=== PATIENT | female | born 1960 | race Caucasian/White ===

== ENCOUNTER → 2016-02-25 | Outpatient (CLI) | payer BC, OTHER ==
[~2016-02-25] MED LIST: ALBU1AER9 INH; CARV6.252 PO; CHOL1TAB46 PO; COLE1TAB4 PO; CRS/10 PO; DPKSR500 PO; FERR18TA2 PO; LEVO112T4 PO; LOPE-5 PO; MULT-225 PO; PXL20 PO; SYMIN160 INH
[2016-02-25 12:56] VITALS: BP 116/74; PULSE 72; TEMP 36.7; O2SAT 96
--- NOTE | 2016-02-25 16:21 | Radiation Oncology Follow-Up ---
Radiation Oncology Follow-Up Date of Visit Feb 25, 2016. 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 Radiation with external beam treatment 5040 cGy as well as 3 HDR treatments 400 cGy each completed 10/15/2015 Last Edited By: Marcelina Welsh on Feb 25, 2016 16:01 History of Present Illness is a 55-year-old female who presented to her PCP, Dr. Bojorquez, in May of this year with a complaint of left lower quadrant abdominal pain with associated nausea and vomiting. She had previously undergone an cervix and endocervix Pap smear on 03/10/2015. The study was somewhat limited lubricant effect but showed reactive cellular changes associated with inflammation but no malignancy. Case: [id number]. Patient at the time denied any vaginal bleeding or discharge. Conservative measures were prescribed however these failed. The patient presented to the emergency department on 06/09 with complaint of worsening abdominal pain patient a CT scan of the abdomen and pelvis was ordered and performed. This showed a markedly thickened endometrial stripe for the patient's age measuring up to 3.1 cm in diameter. The left ovary was markedly enlarged measuring 5.7 x 3.6 cm. The right ovary was normal as visualized. The skeletal structures were osteopenic with no lytic or blastic lesions. Pelvic ultrasound was recommended. This was performed immediately following the CT scan. The uterus was normal in size measuring 9.1 x 4.2 x 6.0 cm. The endometrial stripe appeared thickened and irregular measuring up to 1.8 cm. The endometrium was markedly heterogeneous. The right ovary was not visualized however the left ovary appeared enlarged and heterogeneous measuring 6.1 x 4.4 x 3.6 cm. Follow-up gynecologic evaluation was recommended. The patient was seen by Dr. Mckenzie on 06/12/2015. His examination revealed no vaginal or cervical abnormalities. There was no cervical motion tenderness with general tenderness on bimanual exam. He recommended an endometrial biopsy. This revealed complex hyperplasia with atypia and raised the suspicion of an endometrial carcinoma with recommendation for a formal endometrial curettage. Case: [id number]. The patient was scheduled to see specialist at [facility] however her insurance would not cover either [facility] or [place]. Patient therefore chose to go to [facility]. They ultimately reviewed the slides from [facility]. Their evaluation revealed identification of a fragmented complex atypical hyperplasia with features approaching the level of endometrioid carcinoma (FIGO grade 1). [facility] #[id number]. They discussed surgical treatment options with the patient. They repeated the CT scan of the abdomen and pelvis on 06/23/2015. This again noted the marked thickening of the endometrial stripe measuring up to 2.2 cm in width with a low density lesion at the dome of the uterus. The right ovary was enlarged measuring 2.4 x 1.8 x 1.5 cm with marked asymmetric enlargement and heterogeneous enhancement of the left ovary which measured 5.3 x 3.4 x 5.2 cm. There was an inflammatory stranding in the left adnexa adjacent to the left ovary with thickening of the adjacent fascia. Additional note is made of around 1.7 x 1.5 cm soft tissue density lesion with apparent enhancement in the low pelvis abutting the mesial rectal fascia to the right midline. Patiently ultimately went on to have robotic, laparoscopic T, LH and BSO with sentinel lymph node dissection omental biopsy, appendectomy, local excision of rectal lesion and cystoscopy. The intraoperative findings revealed an 8 cm anti -reverted uterus on EUA. Laparoscopy showed a large left ovarian mass and the retroperitoneal space in the left pelvic sidewall which was friable and vascular. Pathologically the tissue confirmed an endometrioid adenocarcinoma with mucinous differentiation and FIGO grade 1. The tumor was located in the anterior fundus, posterior fundus and extending into the lower uterine segment. The maximal dimension of the tumor was 4.0 cm. There was evidence of myometrial invasion extending 16 mm into a myometrial thickness of 16 mm. There was evidence of angiolymphatic invasion. There was invasion of the lower uterine segment and endometrial carcinoma was noted in the cervical stroma. The margin was positive involving the left posterior lower uterine segment/ parametria. The serosa was positive for carcinoma. The right ovary was positive for endometrioid carcinoma with mucinous differentiation. The right fallopian tube was negative for carcinoma. The left ovary was positive for endometrioid carcinoma with mucinous differentiation. The left fallopian tube was positive for endometrioid carcinoma with mucinous differentiation. A right perirectal implant was excised confirming endometrioid carcinoma with mucinous differentiation. [place] lymph nodes from the left hypogastric dissection revealed 2 out of 6 lymph nodes positive for metastatic carcinoma. [place] lymph nodes from the right external iliac dissection revealed 1 of 5 lymph nodes positive for metastatic carcinoma. The appendix was unremarkable and the omental biopsy was negative. The lymph node involvement revealed isolated tumor cells without extracapsular extension. The final AJCC staging was pT3b pN1 Mx FIGO stage IIIc 1. [facility] MR # [id number]. The patient is recovering well from her surgery. She returned for a follow-up visit and was found to be healing appropriately. The patient's case was presented at the [facility] multidisciplinary Tumor Board and Treatment Planning Conference on 07/31/2015. Their recommendation was for a chemotherapy/ RT regimen such as the GOG 258 consisting of chemotherapy RT followed by Taxol carboplatin. They also would consider cisplatin plus RT with reimaging to determine further [place] based chemotherapy. They contacted Dr. Henson and reviewed these recommendations with him. Dr. Henson saw this patient in referral on 08/11/2015.. Following the recommendation of [facility] and he suggested adjuvant regimen of Cisplatin 50 mg/m given on days 1 and day 29 of radiation therapy. This was to be followed by Carboplatinum AUC of 5+ Paclitaxel 75 mg/m every 21 days for 4 cycles with G-CSF support. Dr. Henson asked if we would see the patient in referral to discuss the role of adjuvant radiation. This reason the patient is being seen in referral. Decision was to treat with combined radiation and chemotherapy. Radiation comprised of external beam treatment as well as 3 HDR treatments. Interim History She's been doing well over the past 3 months. She denies any change in urination. There is no changes in bowel habits. She continues use it vaginal dilator as instructed. She's noted no vaginal bleeding with use of the dilator. She has had no abdominal discomfort or pelvic pain. She completed chemotherapy 01/06/2016. She does have some chronic low back pain issues. She does have pain medication available for the pain. She had recheck scanning . This was performed at [facility]. This showed a small right lower lobe superior segment nodule/pulmonary nodularity. Consider follow-up examination in 3-6 months. Small bilateral adrenal nodules, nodularity. Attention follow-up was recommended. This has not been compared to the prior study of October. With a comparison addendum was sent showing that the right lower lobe segment nodularity was new. Adrenal thickening was unchanged. Allergies Coded Allergies: Amoxicillin (Verified Adverse Reaction, Unknown, diarrhea, 06/10/15) Clavulanic Acid (Verified Adverse Reaction, Unknown, diarrhea, 06/10/15) Home Medications Scheduled Carvedilol (Coreg), 6.25 MG PO BID Cholecalciferol (Vitamin D3), 1 TAB PO WK Colestipol Hcl (Micronized Colestipol Hcl), 1 GM PO BID Divalproex Sodium (Divalproex Sodium ER), 1,000 MG PO HS Ferrous Fumarate (Iron), 36 MG PO DAILY Levothyroxine Sodium (Levothyroxine Sodium), 112 MCG PO QAM Paroxetine (Paroxetine HCl), 20 MG PO HS Rosuvastatin Calcium (Crestor), 10 MG PO HS Scheduled PRN Albuterol (Proair Hfa), 2 PUFFS INH UD PRN for Asthma Symptoms Loperamide Hcl (Imodium A-D), 1 TAB PO DIRECTED PRN for Diarrhea Review of Systems Gastrointestinal: Symptoms: Rectal Bleeding GI Comments: Rectal spotting she relates to hemorrhoids;reports recent colonoscopy; Oral: Symptoms: No Problems Respiratory: Symptoms: WNL Urinary: Comments: see below notations Skin: Symptoms: No Problems Physical Exam Vital Signs Date Time Temp Pulse Resp B/P Pulse Ox O2 Delivery O2 Flow Rate FiO2 02/25/16 12:56 36.7 72 16 116/74 96 Fatigue: None General Appearance: no apparent distress Eyes: normal inspection, EOMI ENT: normal ENT inspection, hearing grossly normal Neck: no adenopathy Respiratory/Chest: lungs clear, no respiratory distress, no accessory muscle use Cardiovascular: regular rate, rhythm, no gallop, no murmur Abdomen: non tender, soft Genitourinary - Female: Normal external genitalia. Vaginal examination reveals no palpable or visible lesions. There are mild changes due to radiation was slight telangiectasis. No masses on bimanual examination. Extremities: no pedal edema Neurologic/Psychiatric: no motor/sensory deficits, alert, normal mood/affect Skin: warm/dry Lymphatic: no adenopathy Laboratory Studies Test 11/25/15 08:19 12/16/15 08:49 01/06/16 08:55 01/11/16 16:59 Blood Smear Review CA 125 Antigen 5 U/ML (<35) 4 U/ML (<35) Anisocytosis PRESENT PRESENT Sodium Level 142 mmol/L (136-145) Potassium Level 3.9 mmol/L (3.5-5.1) Chloride Level 108 mmol/L (98-107) Carbon Dioxide Level 26 mmol/L (21-32) Anion Gap 8.0 mmol/L (3-11) BUN/Creatinine Ratio 28.2 (10-20) Random Glucose 91 mg/dl (70-99) Calcium Level 8.7 mg/dl (8.5-10.1) Total Bilirubin 0.3 mg/dl (0.2-1) Aspartate Amino Transferase (AST) 13 U/L (15-37) Alanine Aminotransferase (ALT) 17 U/L (12-78) Alkaline Phosphatase 80 U/L (45-117) Total Protein 6.5 gm/dl (6.4-8.2) Albumin 3.0 gm/dl (3.4-5.0) Globulin 3.5 gm/dl (2.5-4.0) Albumin/Globulin Ratio 0.9 (0.9-2) Urine Color DK YELLOW Urine Appearance CLEAR (CLEAR) Urine pH 5.0 (4.5-7.5) Urine Specific [place] 1.026 (1.000-1.030) Urine Protein NEG (NEG) Urine Glucose (UA) NEG (NEG) Urine Ketones 1+ (NEG) Urine Occult Blood NEG (NEG) Urine Nitrite NEG (NEG) Urine Bilirubin NEG (NEG) Urine Urobilinogen NEG (NEG) Urine Leukocyte Esterase TRACE (NEG) Urine WBC (Auto) 1-5 /hpf (0-5) Urine RBC (Auto) 5-10 /hpf (0-4) Urine Hyaline Casts (Auto) 1-5 /lpf (0-5) Urine Epithelial Cells (Auto) >30 /lpf (0-5) Urine Bacteria (Auto) NEG (NEG) Test 12/5/16 10:55 02/04/16 15:31 02/08/16 17:14 Blood Urea Nitrogen 8 mg/dl (7-18) 17 mg/dl (7-18) Creatinine 0.64 mg/dl (0.60-1.20) 0.65 mg/dl (0.60-1.20) Estimated GFR () 116.4 115.8 Estimated GFR (Non- 100.5 99.9 Thyroid Stimulating Hormone (TSH) 1.950 uIu/ml (0.300-4.500) 2.190 uIu/ml (0.300-4.500) Free Thyroxine 1.18 ng/dl (0.80-1.60) White Blood Count 2.15 K/uL (4.8-10.8) 2.56 K/uL (4.8-10.8) Red Blood Count 2.92 M/uL (4.2-5.4) 2.68 M/uL (4.2-5.4) Hemoglobin 9.9 g/dL (12.0-16.0) 9.1 g/dL (12.0-16.0) Hematocrit 30.5 % (37-47) 27.9 % (37-47) Mean Corpuscular Volume 104.5 fL (80-100) 104.1 fL (80-100) Mean Corpuscular Hemoglobin 33.9 pg (25-34) 34.0 pg (25-34) Mean Corpuscular Hemoglobin Concent 32.5 g/dl (32-36) 32.6 g/dl (32-36) Platelet Count 50 K/uL (130-400) 60 K/uL (130-400) Mean Platelet Volume 11.0 fL (7.4-10.4) 10.8 fL (7.4-10.4) Neutrophils (%) (Auto) 57.2 % 49.6 % Lymphocytes (%) (Auto) 29.8 % 31.3 % Monocytes (%) (Auto) 11.6 % 15.6 % Eosinophils (%) (Auto) 0.9 % 3.5 % Basophils (%) (Auto) 0.0 % 0.0 % Neutrophils # (Auto) 1.23 K/uL (1.4-6.5) 1.27 K/uL (1.4-6.5) Lymphocytes # (Auto) 0.64 K/uL (1.2-3.4) 0.80 K/uL (1.2-3.4) Monocytes # (Auto) 0.25 K/uL (0.11-0.59) 0.40 K/uL (0.11-0.59) Eosinophils # (Auto) 0.02 K/uL (0-0.5) 0.09 K/uL (0-0.5) Basophils # (Auto) 0.00 K/uL (0-0.2) 0.00 K/uL (0-0.2) RDW Standard Deviation 76.2 fL (36.4-46.3) 72.2 fL (36.4-46.3) RDW Coefficient of Variation 19.9 % (11.5-14.5) 19.0 % (11.5-14.5) Immature Granulocyte % (Auto) 0.5 % 0.0 % Immature Granulocyte # (Auto) 0.01 K/uL (0.00-0.02) 0.00 K/uL (0.00-0.02) Platelet Estimate DECREASED Polychromasia 1+ Macrocytosis PRESENT Prothrombin Time 10.0 SECONDS (9.0-12.0) Prothrombin Time INR 0.9 (0.9-1.1) PTT 28.7 SECONDS (21.0-31.0) Partial Thromboplastin Ratio 1.1 Sodium Level 145 mmol/L (136-145) Potassium Level 3.8 mmol/L (3.5-5.1) Chloride Level 107 mmol/L (98-107) Carbon Dioxide Level 28 mmol/L (21-32) Anion Gap 10.0 mmol/L (3-11) BUN/Creatinine Ratio 26.0 (10-20) Random Glucose 91 mg/dl (70-99) Calcium Level 9.0 mg/dl (8.5-10.1) Total Bilirubin 0.2 mg/dl (0.2-1) Aspartate Amino Transferase (AST) 11 U/L (15-37) Alanine Aminotransferase (ALT) 24 U/L (12-78) Alkaline Phosphatase 84 U/L (45-117) Total Protein 6.9 gm/dl (6.4-8.2) Albumin 3.4 gm/dl (3.4-5.0) Globulin 3.5 gm/dl (2.5-4.0) Albumin/Globulin Ratio 1.0 (0.9-2) Red Blood Cell Morphology Unremarkable Assessment & Plan Plan: She has upcoming visits scheduled with medical oncology. She'll see Dr. Simmons in March. She'll see Dr. Christianson also in March. We discussed follow- up imaging. It was recommended that she have another CT of the chest, abdomen and pelvis in April. The last study was ordered by Dr. Christianson. I asked the patient to call our office should this need to be scheduled. She stated that she would like to get her follow-up gynecologic exams closer to home. She had previously seen Dr. Mckenzie. She is going to discuss that with Dr. Christianson at her next visit. She'll continue use of the vaginal dilator. She is using this twice a week for 10 minutes. We asked to return to our office in 1 year. She may call if she has any questions or concerns. Total Time In Follow-Up I spent 20 minutes speaking to the patient performing examination. I spent 15 minutes reviewing information in completing this note. Copy To Jasiel Simmons D.O.; Grady Bojorquez M.D.; Jennifer Christianson
== END | disposition home or self-care (01) ==
LOC: C.ONC 12:41
PROVIDERS: ATTEND Radiology Radiation Oncology
DX: Z08 Encounter for follow-up examination after completed treatment for malignant neoplasm (principal); Z92.3 Personal history of irradiation; Z85.42 Personal history of malignant neoplasm of other parts of uterus

== ENCOUNTER → 2016-03-02 | Outpatient (CLI) | payer BC ==
[~2016-03-02] MED LIST changes: -SYMIN160 INH
[2016-03-02 12:13] LABS: COMPLETE YES; EOS % 1.8 %; HEMATOCRIT 30.4 % (37-47); LYMPH % 26.9 %; LYMPH ABS # 0.75 K/uL (1.2-3.4); MEAN CELL VOLUME 104.8 fL (80-100); MEAN CORPUSCULAR HEMOGLOBIN 34.5 pg (25-34); MEAN CORPUSCULAR HGB CONC 32.9 g/dl (32-36); MEAN PLATELET VOLUME 9.9 fL (7.4-10.4); MONO % 9.3 %; PLATELET COUNT 159 K/uL (130-400); WHITE BLOOD COUNT 2.79 K/uL (4.8-10.8)
[2016-03-02 12:32] LABS: ESTIMATED AVERAGE GLUCOSE 105 mg/dl; HA1C FLAG Normal (Normal)
[2016-03-02 12:49] LABS: ALT/SGPT 15 U/L (12-78); BLOOD UREA NITROGEN 12 mg/dl (7-18); BUN/CREATININE RATIO 22.2 (10-20); CARBON DIOXIDE 30 mmol/L (21-32); CHLORIDE 107 mmol/L (98-107); CREATININE 0.52 mg/dl (0.60-1.20); GLUCOSE 84 mg/dl (70-99); POTASSIUM 4.3 mmol/L (3.5-5.1); SODIUM 143 mmol/L (136-145)
[2016-03-02 13:00] LABS: ALB/GLOB RATIO 0.9 (0.9-2); ALKALINE PHOSPHATASE 62 U/L (45-117); AST/SGOT 6 U/L (15-37); CHOLESTEROL 146 mg/dl (0-200); HDL CHOLESTEROL 74 mg/dl; LDL CHOLESTEROL CALCULATED 31 mg/dl; TRIGLYCERIDES 207 mg/dl (0-150); VERY LOW DENSITY LIPOPROT CALC 41 mg/dl
== END | disposition home or self-care (01) ==
LOC: C.LAB 11:44
PROVIDERS: ATTEND Internal Medicine
DX: C54.1 Malignant neoplasm of endometrium (principal); E78.00 Pure hypercholesterolemia, unspecified; R73.01 Impaired fasting glucose; E03.9 Hypothyroidism, unspecified

== ENCOUNTER → 2016-03-03 | Outpatient (CLI) | payer BC ==
[~2016-03-03] MED LIST changes: +GADAVIST IV PRN
--- NOTE | 2016-03-03 19:34 | DIAGNOSTIC IMAGING REPORT ---
MRI LUMBAR SPINE COMBINATION CLINICAL HISTORY: Endometrial carcinoma. Severe lumbar back pain. TECHNIQUE: Sagittal and axial T1, T2 and STIR images were obtained. Images were acquired before and after the administration of 9 cc of intravenous Gadavist COMPARISON STUDY: Conventional radiographic study the lumbar spine dated 01/11/2016 OBSERVATIONS: The vertebral bodies and posterior elements appear intact. There is mild nonspecific marrow edema within the right sacral ala. This is only partially visualized on the sagittal sequence. It is not included on the axial sequence. It does not have a masslike appearance. L1-2: No disc protrusions or extrusions. No evidence of spinal canal or neural foraminal compromise. L2-3: No disc protrusions or extrusions. No evidence of spinal canal or neural foraminal compromise. L3-4: There is a minor circumferential disc bulge. There is no spinal or foraminal stenosis. L4-5: There is a minor circumferential disc bulge. There is no spinal or foraminal stenosis. L5-S1: No disc protrusions or extrusions. No evidence of spinal canal or neural foraminal compromise. The conus medullaris and cauda equina appear normal. IMPRESSION: 1. Minor degenerative changes. No focal disc herniations identified. No evidence of spinal or foraminal stenosis. 2. Partially visualized marrow edema within the lateral aspect of the right sacral ala. While nonspecific, it does not appear particularly masslike on the provided images Electronically signed by: Jaime Parisi M.D. 03/03/2016 7:32 PM Dictated Date/Time: 03/03/2016 7:23 PM
== END | disposition home or self-care (01) ==
LOC: C.MRI 17:52
PROVIDERS: ATTEND Internal Medicine
DX: C54.1 Malignant neoplasm of endometrium (principal); M54.5 Low back pain

== ENCOUNTER → 2016-04-19 | Outpatient (CLI) | payer BC, OTHER ==
[~2016-04-19] MED LIST changes: -GADAVIST IV PRN
[2016-04-19 17:31] LABS: BASO % 0.2 %; BASO ABS # 0.01 K/uL (0-0.2); COMPLETE YES; EOS % 6.7 %; HEMATOCRIT 35.7 % (37-47); IG% 0.6 %; LYMPH % 21.6 %; LYMPH ABS # 1.13 K/uL (1.2-3.4); MEAN CORPUSCULAR HEMOGLOBIN 32.3 pg (25-34); MEAN CORPUSCULAR HGB CONC 33.3 g/dl (32-36); MEAN PLATELET VOLUME 9.6 fL (7.4-10.4); MONO % 12.6 %; NEUT % 58.3 %; PLATELET COUNT 251 K/uL (130-400); RED BLOOD COUNT 3.68 M/uL (4.2-5.4); WHITE BLOOD COUNT 5.23 K/uL (4.8-10.8)
[2016-04-19 17:39] LABS: BLOOD UREA NITROGEN 19 mg/dl (7-18); BUN/CREATININE RATIO 31.4 (10-20); CALCIUM 9.2 mg/dl (8.5-10.1); CARBON DIOXIDE 31 mmol/L (21-32); CHLORIDE 106 mmol/L (98-107); GLUCOSE 93 mg/dl (70-99); POTASSIUM 4.3 mmol/L (3.5-5.1); SODIUM 143 mmol/L (136-145)
== END | disposition home or self-care (01) ==
LOC: C.LABBFT 15:52
PROVIDERS: ATTEND Nurse Practitioner
DX: J45.909 Unspecified asthma, uncomplicated (principal)

== ENCOUNTER → 2016-04-19 | Outpatient (CLI) | payer BC ==
--- NOTE | 2016-04-19 17:57 | DIAGNOSTIC IMAGING REPORT ---
CHEST 2 VIEWS ROUTINE CLINICAL HISTORY: J45.909 Acute asthmatic [id number] CHEST PAIN COMPARISON STUDY: 06/03/2013 FINDINGS: The cardiac and mediastinal contours are normal. There is no evidence of focal pulmonary consolidation. There is no evidence of failure. No pleural effusions are visualized.[ IMPRESSION: No active disease in the chest. Electronically signed by: Jaime Parisi M.D. 04/19/2016 5:56 PM Dictated Date/Time: 04/19/2016 5:56 PM
== END | disposition home or self-care (01) ==
LOC: C.RAD 17:35
PROVIDERS: ATTEND Nurse Practitioner
DX: J45.909 Unspecified asthma, uncomplicated (principal)

== ENCOUNTER → 2016-05-12 | Outpatient (CLI) | payer BC ==
--- NOTE | 2016-05-12 19:16 | DIAGNOSTIC IMAGING REPORT ---
RIGHT FOOT 3 VIEWS CLINICAL HISTORY: Right foot injury. Fourth toe pain. FINDINGS: 3 views of the right foot are obtained. No prior studies are available for comparison at the time of dictation. The skeletal structures are well mineralized. No fracture is seen. Minimal arthritic change is present the first metatarsophalangeal joint. There are large dorsal and plantar calcaneal enthesophytes. The overlying soft tissues are within normal limits. IMPRESSION: No acute bony abnormality is seen in the right foot. Electronically signed by: Ronald Doshi M.D. 05/12/2016 7:15 PM Dictated Date/Time: 05/12/2016 7:13 PM
== END | disposition home or self-care (01) ==
LOC: C.RAD 18:43
PROVIDERS: ATTEND Physician Assistant Medical
DX: M25.579 Pain in unspecified ankle and joints of unspecified foot (principal); S99.929A Unspecified injury of unspecified foot, initial encounter; X58.XXXA Exposure to other specified factors, initial encounter

== ENCOUNTER → 2016-06-21 | Outpatient (CLI) | payer BC ==
[2016-06-21 17:37] LABS: COMPLETE YES; EOS % 2.7 %; HEMATOCRIT 36.1 % (37-47); IG% 0.3 %; LYMPH % 26.5 %; LYMPH ABS # 0.97 K/uL (1.2-3.4); MEAN CELL VOLUME 94.5 fL (80-100); MEAN CORPUSCULAR HEMOGLOBIN 30.6 pg (25-34); MEAN CORPUSCULAR HGB CONC 32.4 g/dl (32-36); MEAN PLATELET VOLUME 9.8 fL (7.4-10.4); MONO % 13.4 %; NEUT % 57.1 %; PLATELET COUNT 215 K/uL (130-400); RED BLOOD COUNT 3.82 M/uL (4.2-5.4); WHITE BLOOD COUNT 3.66 K/uL (4.8-10.8)
[2016-06-21 17:56] LABS: ALT/SGPT 27 U/L (12-78); AST/SGOT 20 U/L (15-37); BLOOD UREA NITROGEN 17 mg/dl (7-18); BUN/CREATININE RATIO 25.4 (10-20); CALCIUM 9.3 mg/dl (8.5-10.1); CARBON DIOXIDE 30 mmol/L (21-32); CHLORIDE 108 mmol/L (98-107); CREATININE 0.66 mg/dl (0.60-1.20); GLUCOSE 117 mg/dl (70-99); SODIUM 145 mmol/L (136-145)
[2016-06-21 17:58] LABS: ALKALINE PHOSPHATASE 75 U/L (45-117)
== END | disposition home or self-care (01) ==
LOC: C.LABBFT 15:36
PROVIDERS: ATTEND Internal Medicine Hematology & Oncology
DX: C55 Malignant neoplasm of uterus, part unspecified (principal)

== ENCOUNTER → 2016-08-25 | Outpatient (CLI) | payer BC ==
[2016-08-25 14:41] LABS: BASO % 0.3 %; BASO ABS # 0.01 K/uL (0-0.2); COMPLETE YES; EOS % 2.5 %; HEMATOCRIT 37.8 % (37-47); IG% 0.3 %; LYMPH % 24.7 %; LYMPH ABS # 0.89 K/uL (1.2-3.4); MEAN CELL VOLUME 92.4 fL (80-100); MEAN CORPUSCULAR HEMOGLOBIN 30.6 pg (25-34); MEAN CORPUSCULAR HGB CONC 33.1 g/dl (32-36); MEAN PLATELET VOLUME 9.5 fL (7.4-10.4); MONO % 13.3 %; NEUT % 58.9 %; PLATELET COUNT 222 K/uL (130-400); RED BLOOD COUNT 4.09 M/uL (4.2-5.4)
[2016-08-25 15:19] LABS: ALT/SGPT 31 U/L (12-78); AST/SGOT 25 U/L (15-37); BLOOD UREA NITROGEN 15 mg/dl (7-18); BUN/CREATININE RATIO 30.2 (10-20); CALCIUM 9.1 mg/dl (8.5-10.1); CARBON DIOXIDE 28 mmol/L (21-32); CHLORIDE 106 mmol/L (98-107); CHOLESTEROL 182 mg/dl (0-200); GLUCOSE 81 mg/dl (70-99); POTASSIUM 4.3 mmol/L (3.5-5.1); SODIUM 140 mmol/L (136-145)
[2016-08-25 15:30] LABS: ALB/GLOB RATIO 0.8 (0.9-2); ALKALINE PHOSPHATASE 81 U/L (45-117); CHOLESTEROL/HDL RATIO 2.8; HDL CHOLESTEROL 64 mg/dl; LDL CHOLESTEROL CALCULATED 58 mg/dl; TRIGLYCERIDES 301 mg/dl (0-150); VERY LOW DENSITY LIPOPROT CALC 60 mg/dl
[2016-08-26 06:12] LABS: ESTIMATED AVERAGE GLUCOSE 134 mg/dl; HA1C FLAG Normal (Normal)
== END | disposition home or self-care (01) ==
LOC: C.LAB1850 13:51
PROVIDERS: ATTEND Internal Medicine
DX: R73.01 Impaired fasting glucose (principal); E55.9 Vitamin D deficiency, unspecified; I10 Essential (primary) hypertension; G40.909 Epilepsy, unspecified, not intractable, without status epilepticus; Z08 Encounter for follow-up examination after completed treatment for malignant neoplasm; Z92.3 Personal history of irradiation; Z85.42 Personal history of malignant neoplasm of other parts of uterus

== ENCOUNTER → 2016-08-25 | Outpatient (CLI) | payer BC ==
[2016-08-25 13:03] VITALS: BP 114/77; PULSE 68; TEMP 36.7; O2SAT 92
--- NOTE | 2016-08-25 13:52 | Radiation Oncology Follow-Up ---
Radiation Oncology Follow-Up Date of Visit Aug 25, 2016. 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 Radiation with external beam treatment 5040 cGy as well as 3 HDR treatments 400 cGy each completed 10/15/2015 Last Edited By: Marcelina Welsh on Feb 25, 2016 16:01 History of Present Illness is a 56-year-old female who presented to her PCP, Dr. Bojorquez, in May of this year with a complaint of left lower quadrant abdominal pain with associated nausea and vomiting. She had previously undergone an cervix and endocervix Pap smear on 03/10/2015. The study was somewhat limited lubricant effect but showed reactive cellular changes associated with inflammation but no malignancy. Case: [id number]. Patient at the time denied any vaginal bleeding or discharge. Conservative measures were prescribed however these failed. The patient presented to the emergency department on 06/09 with complaint of worsening abdominal pain patient a CT scan of the abdomen and pelvis was ordered and performed. This showed a markedly thickened endometrial stripe for the patient's age measuring up to 3.1 cm in diameter. The left ovary was markedly enlarged measuring 5.7 x 3.6 cm. The right ovary was normal as visualized. The skeletal structures were osteopenic with no lytic or blastic lesions. Pelvic ultrasound was recommended. This was performed immediately following the CT scan. The uterus was normal in size measuring 9.1 x 4.2 x 6.0 cm. The endometrial stripe appeared thickened and irregular measuring up to 1.8 cm. The endometrium was markedly heterogeneous. The right ovary was not visualized however the left ovary appeared enlarged and heterogeneous measuring 6.1 x 4.4 x 3.6 cm. Follow-up gynecologic evaluation was recommended. The patient was seen by Dr. Mckenzie on 06/12/2015. His examination revealed no vaginal or cervical abnormalities. There was no cervical motion tenderness with general tenderness on bimanual exam. He recommended an endometrial biopsy. This revealed complex hyperplasia with atypia and raised the suspicion of an endometrial carcinoma with recommendation for a formal endometrial curettage. Case: [id number]. The patient was scheduled to see specialist at [place] however her insurance would not cover either [place] or [place]. Patient therefore chose to go to [facility]. They ultimately reviewed the slides from [facility]. Their evaluation revealed identification of a fragmented complex atypical hyperplasia with features approaching the level of endometrioid carcinoma (FIGO grade 1). [facility] #[id number]. They discussed surgical treatment options with the patient. They repeated the CT scan of the abdomen and pelvis on 06/23/2015. This again noted the marked thickening of the endometrial stripe measuring up to 2.2 cm in width with a low density lesion at the dome of the uterus. The right ovary was enlarged measuring 2.4 x 1.8 x 1.5 cm with marked asymmetric enlargement and heterogeneous enhancement of the left ovary which measured 5.3 x 3.4 x 5.2 cm. There was an inflammatory stranding in the left adnexa adjacent to the left ovary with thickening of the adjacent fascia. Additional note is made of around 1.7 x 1.5 cm soft tissue density lesion with apparent enhancement in the low pelvis abutting the mesial rectal fascia to the right midline. Patiently ultimately went on to have robotic, laparoscopic TLH and BSO with sentinel lymph node dissection omental biopsy, appendectomy, local excision of rectal lesion and cystoscopy. The intraoperative findings revealed an 8 cm anti -reverted uterus on EUA. Laparoscopy showed a large left ovarian mass and the retroperitoneal space in the left pelvic sidewall which was friable and vascular. Pathologically the tissue confirmed an endometrioid adenocarcinoma with mucinous differentiation and FIGO grade 1. The tumor was located in the anterior fundus, posterior fundus and extending into the lower uterine segment. The maximal dimension of the tumor was 4.0 cm. There was evidence of myometrial invasion extending 16 mm into a myometrial thickness of 16 mm. There was evidence of angiolymphatic invasion. There was invasion of the lower uterine segment and endometrial carcinoma was noted in the cervical stroma. The margin was positive involving the left posterior lower uterine segment/ parametria. The serosa was positive for carcinoma. The right ovary was positive for endometrioid carcinoma with mucinous differentiation. The right fallopian tube was negative for carcinoma. The left ovary was positive for endometrioid carcinoma with mucinous differentiation. The left fallopian tube was positive for endometrioid carcinoma with mucinous differentiation. A right perirectal implant was excised confirming endometrioid carcinoma with mucinous differentiation. [place] lymph nodes from the left hypogastric dissection revealed 2 out of 6 lymph nodes positive for metastatic carcinoma. [place] lymph nodes from the right external iliac dissection revealed 1 of 5 lymph nodes positive for metastatic carcinoma. The appendix was unremarkable and the omental biopsy was negative. The lymph node involvement revealed isolated tumor cells without extracapsular extension. The final AJCC staging was pT3b pN1 Mx FIGO stage IIIc 1. GURWINDER Meehan MR # [id number]. The patient is recovering well from her surgery. She returned for a follow-up visit and was found to be healing appropriately. The patient's case was presented at the [facility] multidisciplinary Tumor Board and Treatment Planning Conference on 07/31/2015. Their recommendation was for a chemotherapy/ RT regimen such as the GOG 258 consisting of chemotherapy RT followed by Taxol carboplatin. They also would consider cisplatin plus RT with reimaging to determine further [place] based chemotherapy. They contacted Dr. Henson and reviewed these recommendations with him. Dr. Henson saw this patient in referral on 08/11/2015.. Following the recommendation of [facility] and he suggested adjuvant regimen of Cisplatin 50 mg/m given on days 1 and day 29 of radiation therapy. This was to be followed by Carboplatinum AUC of 5+ Paclitaxel 75 mg/m every 21 days for 4 cycles with G-CSF support. Dr. Henson asked if we would see the patient in referral to discuss the role of adjuvant radiation. This reason the patient is being seen in referral. Decision was to treat with combined radiation and chemotherapy. Radiation comprised of external beam treatment as well as 3 HDR treatments. Interim History She's been doing well over this past year. She denies any vaginal discharge or bleeding. She uses her vaginal dilator approximately one time every 3 weeks. She has not been using it lately. She denies any change of urination or bowel habits. She's had no problems with abdominal pain. Her appetite is good and weight is stable. She has been seen in follow-up by medical oncology. She is going to be scheduled for CAT scans at the beginning of September. She stated that she has instructions to have a follow-up appointment with her gynecologic specialist at [facility] following the completion of the CT scans. She will be calling and scheduling this appointment. She did state that after this evaluation she would like to continue follow-up with Dr. Mckenzie in [place]. Allergies Coded Allergies: Amoxicillin (Verified Adverse Reaction, Unknown, diarrhea, 06/10/15) Clavulanic Acid (Verified Adverse Reaction, Unknown, diarrhea, 06/10/15) Home Medications Scheduled Carvedilol (Coreg), 6.25 MG PO BID Cholecalciferol (Vitamin D3), 1 TAB PO WK Colestipol Hcl (Micronized Colestipol Hcl), 1 GM PO DAILY Divalproex Sodium (Divalproex Sodium ER), 1,000 MG PO HS Ferrous Fumarate (Iron), 36 MG PO DAILY Levothyroxine Sodium (Levothyroxine Sodium), 112 MCG PO QAM Multiple Vitamin (Multi-Day Vitamins), 1 TAB PO DAILY Paroxetine (Paroxetine HCl), 20 MG PO HS Rosuvastatin Calcium (Crestor), 10 MG PO HS Scheduled PRN Albuterol (Proair Hfa), 2 PUFFS INH UD PRN for Asthma Symptoms Review of Systems Gastrointestinal: Symptoms: WNL GI Comments: Rectal spotting she relates to hemorrhoids;reports recent colonoscopy; Oral: Symptoms: No Problems Respiratory: Symptoms: WNL Urinary: Symptoms: WNL Comments: see below notations Skin: Symptoms: No Problems Physical Exam Vital Signs Date Time Temp Pulse Resp B/P (MAP) Pulse Ox O2 Delivery O2 Flow Rate FiO2 08/25/16 13:03 36.7 68 16 114/77 92 Fatigue: None General Appearance: no apparent distress Eyes: normal inspection, EOMI ENT: normal ENT inspection, hearing grossly normal Neck: no adenopathy, thyroid normal Respiratory/Chest: lungs clear, no respiratory distress, no accessory muscle use Cardiovascular: regular rate, rhythm, no gallop, no murmur Abdomen: non tender, soft, no organomegaly Genitourinary - Female: Normal external genitalia. She has foreshortening of the vagina. There is no visible or palpable lesions in the vagina. She does have mild telangiectasia post radiation changes at the apex. On bimanual examination there are no areas of tenderness and no masses are palpable. There is no vaginal bleeding or discharge. Extremities: normal range of motion, normal inspection, no pedal edema Neurologic/Psychiatric: no motor/sensory deficits, alert, normal mood/affect Skin: warm/dry Laboratory Studies Test 06/21/16 15:36 White Blood Count 3.66 K/uL (4.8-10.8) Red Blood Count 3.82 M/uL (4.2-5.4) Hemoglobin 11.7 g/dL (12.0-16.0) Hematocrit 36.1 % (37-47) Mean Corpuscular Volume 94.5 fL (80-100) Mean Corpuscular Hemoglobin 30.6 pg (25-34) Mean Corpuscular Hemoglobin Concent 32.4 g/dl (32-36) Platelet Count 215 K/uL (130-400) Mean Platelet Volume 9.8 fL (7.4-10.4) Neutrophils (%) (Auto) 57.1 % Lymphocytes (%) (Auto) 26.5 % Monocytes (%) (Auto) 13.4 % Eosinophils (%) (Auto) 2.7 % Basophils (%) (Auto) 0.0 % Neutrophils # (Auto) 2.09 K/uL (1.4-6.5) Lymphocytes # (Auto) 0.97 K/uL (1.2-3.4) Monocytes # (Auto) 0.49 K/uL (0.11-0.59) Eosinophils # (Auto) 0.10 K/uL (0-0.5) Basophils # (Auto) 0.00 K/uL (0-0.2) RDW Standard Deviation 51.9 fL (36.4-46.3) RDW Coefficient of Variation 15.1 % (11.5-14.5) Immature Granulocyte % (Auto) 0.3 % Immature Granulocyte # (Auto) 0.01 K/uL (0.00-0.02) Sodium Level 145 mmol/L (136-145) Potassium Level 4.0 mmol/L (3.5-5.1) Chloride Level 108 mmol/L (98-107) Carbon Dioxide Level 30 mmol/L (21-32) Anion Gap 7.0 mmol/L (3-11) Blood Urea Nitrogen 17 mg/dl (7-18) Creatinine 0.66 mg/dl (0.60-1.20) Estimated GFR () 114.5 Estimated GFR (Non- 98.8 BUN/Creatinine Ratio 25.4 (10-20) Random Glucose 117 mg/dl (70-99) Calcium Level 9.3 mg/dl (8.5-10.1) Total Bilirubin 0.3 mg/dl (0.2-1) Aspartate Amino Transferase (AST) 20 U/L (15-37) Alanine Aminotransferase (ALT) 27 U/L (12-78) Alkaline Phosphatase 75 U/L (45-117) Total Protein 7.1 gm/dl (6.4-8.2) Albumin 3.5 gm/dl (3.4-5.0) Globulin 3.6 gm/dl (2.5-4.0) Albumin/Globulin Ratio 1.0 (0.9-2) CA 125 Antigen 5 U/ML (<35) Assessment & Plan Plan: Continue follow-up with her primary care provider, medical oncology, and her gynecologic specialist at [facility]. She is to be scheduled for CT evaluation beginning of September. She has instructions to make an appointment with her gynecologic specialist at [facility] following the completion of the CAT scans. We asked her to return to our office in 1 year. She would like to continue the gynecologic follow-ups closer to home. She plans to schedule with Dr. Mckenzie. I recommended that she make an weight with him in 6 months. We would see her then in a year. She may call if she has any questions or concerns in the interim. Total Time In Follow-Up I spent 20 minutes speaking with the patient and performing examination. I spent 15 minutes reviewing information and completing this note. Copy To Mikey Mckenzie M.D.; Jasiel Simmons D.O.; Grady Bojorquez M.D.; Jennifer Christianson M.D.
== END | disposition home or self-care (01) ==
LOC: C.ONC 12:59
PROVIDERS: ATTEND Physician Assistant Medical
DX: Z08 Encounter for follow-up examination after completed treatment for malignant neoplasm (principal); Z92.3 Personal history of irradiation; Z85.42 Personal history of malignant neoplasm of other parts of uterus

== ENCOUNTER → 2016-08-26 | Outpatient (CLI) | payer BC ==
[~2016-08-26] MED LIST changes: +GADAVIST IV PRN
--- NOTE | 2016-08-29 14:31 | MAMMOGRAPHY REPORT ---
BREAST MRI OF BOTH BREASTS : 08/26/2016 CLINICAL HISTORY: History of endometrial cancer. COMPARISON: Comparison is made to exams dated: 01/29/2016 mammogram, 01/23/2015 mammogram, 01/21/2014 m ammogram, 12/25/2012 mammogram, 12/23/2011 mammogram, and 12/15/2010 mammogram - [facility]. Technique: The patient was placed prone in a dedicated breast imaging coil. Precontrast axial T1-ligia ghted, axial T2-weighted fat saturation, and axial T1-weighted fat saturation images were obtained. After the administration of 9.5 mL of Gadavist IV contrast, sequential T1-weighted fat saturation samanta ges were obtained. Subtraction images were obtained of the dynamic contrast enhanced sequences, and 3-D reformations were performed. The [employer] software was used for kinetic analysis. Findings: There is minimal background parenchymal enhancement involving bilateral breasts. There are no suspic ious enhancing masses or areas of abnormal non-mass enhancement in either breast. There is no evidence of axillary adenopathy. The chest wall structures are negative. Extramammary s oft tissues are unremarkable. IMPRESSION: ACR BI-RADS CATEGORY 1: NEGATIVE No MRI evidence of malignancy in either breast. Recommend routine bilateral screening mammograms i ch are due January 2017. Cheryl Pedroza M.D. /:08/27/2016 09:19:40 Payroll Officer: medical delivery driver, [facility] letter sent: Normal 1/2 BI-RADS Code: ACR BI-RADS Category 1: Negative
== END | disposition home or self-care (01) ==
LOC: C.MRI 08:16
PROVIDERS: ATTEND Internal Medicine
DX: C54.1 Malignant neoplasm of endometrium (principal); Z91.89 Other specified personal risk factors, not elsewhere classified

== ENCOUNTER → 2016-09-22 | Outpatient (CLI) | payer BC ==
[~2016-09-22] MED LIST changes: -GADAVIST IV PRN; -LOPE-5 PO
== END | disposition home or self-care (01) ==
LOC: C.LABSPEC 08:35
PROVIDERS: ATTEND Physician Assistant Medical
DX: R39.9 Unspecified symptoms and signs involving the genitourinary system (principal)

== ENCOUNTER → 2016-09-23 | Outpatient (CLI) | payer BC ==
[~2016-09-23] MED LIST changes: +OPTIRAY 320 IV PRN
--- NOTE | 2016-09-23 11:47 | DIAGNOSTIC IMAGING REPORT ---
CT SCAN OF THE ABDOMEN AND PELVIS WITH IV CONTRAST CLINICAL HISTORY: Endometrial carcinoma. COMPARISON STUDY: Abdominal CT dated 11/16/2015. TECHNIQUE: Following the IV administration of 93 cc of Optiray 320, CT scan of the abdomen and pelvis is performed from the lung bases to the proximal femora. Images are reviewed in the axial, sagittal, and coronal planes. IV contrast was administered without complication. Automated dose control exposure was utilized. A dose lowering technique was utilized adhering to the principles of ALARA. CT DOSE: 971.35 mGy.cm FINDINGS: Lung bases: The heart is normal in size and without pericardial effusion. The lung bases are clear noting dependent atelectasis. There is a tiny hiatal hernia. Liver: The contrast-enhanced liver is mildly enlarged, measuring 18.3 cm in length. The liver demonstrates diffusely diminished attenuation consistent with hepatic steatosis. There is no intrahepatic biliary ductal dilatation. The hepatic veins and portal veins are patent. Gallbladder: Surgically absent noting clips in the gallbladder fossa. Spleen: Normal in size and attenuation. Pancreas: Moderately atrophic and grossly unremarkable. Adrenal glands: Small adrenal nodules measuring up to 1.1 cm are unchanged. These were previously shown to represent fat-containing adenomas. Kidneys: The contrast enhanced kidneys are normal in size and without hydronephrosis. The kidneys enhance symmetrically. Abdominal vasculature: The abdominal aorta is normal in course and caliber. Bowel: The small bowel and colon are normal in course and caliber. The majority of the appendix is surgically absent. An appendiceal stump is normal in appearance. Peritoneum: There is no intraperitoneal free air or abdominal ascites. There is a tiny fat-containing umbilical hernia. The small left anterior pelvic peritoneal nodule seen previously has almost almost completely resolved. No new foci of peritoneal nodularity are suggested. Lymphadenopathy: None. Pelvic viscera: The bladder is normal as visualized. The uterus is surgically absent. No adnexal lesion is seen. Skeletal structures: Skeletal structures are osteopenic. No lytic or blastic lesions are seen. There are bilateral pars defects at L5 without anterolisthesis at L5-S1. Sclerotic change is noted in the sacroiliac joints. IMPRESSION: 1. There is no evidence of metastatic disease in the abdomen or pelvis. 2. The peritoneal nodule in the ventral left pelvis seen previously has almost completely resolved. 3. Hepatic steatosis. 4. Additional findings as above. Electronically signed by: Ronald Doshi M.D. 09/23/2016 11:46 AM Dictated Date/Time: 09/23/2016 11:34 AM
== END | disposition home or self-care (01) ==
LOC: C.CTS 09:07
PROVIDERS: ATTEND Internal Medicine Hematology & Oncology
DX: C55 Malignant neoplasm of uterus, part unspecified (principal)

== ENCOUNTER → 2016-09-26 | Outpatient (CLI) | payer BC ==
[~2016-09-26] MED LIST changes: -OPTIRAY 320 IV PRN
[2016-09-26 09:45] LABS: COMPLETE YES; EOS % 2.5 %; HEMATOCRIT 37.3 % (37-47); IG% 0.2 %; LYMPH % 30.9 %; LYMPH ABS # 1.37 K/uL (1.2-3.4); MEAN CORPUSCULAR HEMOGLOBIN 30.9 pg (25-34); MEAN CORPUSCULAR HGB CONC 33.2 g/dl (32-36); MEAN PLATELET VOLUME 9.5 fL (7.4-10.4); MONO % 12.9 %; NEUT % 53.5 %; PLATELET COUNT 238 K/uL (130-400); RED BLOOD COUNT 4.01 M/uL (4.2-5.4); WHITE BLOOD COUNT 4.43 K/uL (4.8-10.8)
[2016-09-26 09:52] LABS: ALT/SGPT 33 U/L (12-78); BLOOD UREA NITROGEN 15 mg/dl (7-18); BUN/CREATININE RATIO 20.6 (10-20); CALCIUM 9.3 mg/dl (8.5-10.1); CARBON DIOXIDE 28 mmol/L (21-32); CHLORIDE 106 mmol/L (98-107); CREATININE 0.71 mg/dl (0.60-1.20); GLUCOSE 100 mg/dl (70-99); POTASSIUM 4.2 mmol/L (3.5-5.1); SODIUM 141 mmol/L (136-145)
[2016-09-26 09:55] LABS: ALB/GLOB RATIO 0.8 (0.9-2); ALKALINE PHOSPHATASE 86 U/L (45-117); AST/SGOT 26 U/L (15-37)
== END | disposition home or self-care (01) ==
LOC: C.LABSPEC 09:27
PROVIDERS: ATTEND Internal Medicine Hematology & Oncology
DX: C55 Malignant neoplasm of uterus, part unspecified (principal)

== ENCOUNTER → 2016-11-30 | Outpatient (CLI) | payer BC ==
--- NOTE | 2016-11-30 16:25 | DIAGNOSTIC IMAGING REPORT ---
ABDOMEN 2VIEW W/PA CHEST RTN CLINICAL HISTORY: General is abdominal pain ENDOMETRIAL CARCINOMA. COMPARISON STUDY: CT scan dated 09/23/2016, chest x-ray dated 04/19/2016 FINDINGS: The erect chest reveals no free intraperitoneal air. There are no pleural effusions. There is no focal pulmonary consolidation. Erect and supine views the abdomen reveal no abnormally dilated loops of large or small bowel. There are no transition zones indicate bowel obstruction. There are surgical clips in the right quadrant consistent with a prior cholecystectomy. There is moderate stool present throughout the colon. IMPRESSION: No evidence of bowel obstruction. No evidence of free air. Electronically signed by: Jaime Parisi M.D. 11/30/2016 4:24 PM Dictated Date/Time: 11/30/2016 4:23 PM
[2016-11-30 17:13] LABS: HEMATOCRIT 37.9 % (37-47); MEAN CELL VOLUME 91.8 fL (80-100); MEAN CORPUSCULAR HGB CONC 33.8 g/dl (32-36); MEAN PLATELET VOLUME 9.5 fL (7.4-10.4); PLATELET COUNT 246 K/uL (130-400); RED BLOOD COUNT 4.13 M/uL (4.2-5.4); WHITE BLOOD COUNT 5.19 K/uL (4.8-10.8)
[2016-11-30 17:53] LABS: ALT/SGPT 32 U/L (12-78); AMYLASE 36 U/L (25-115); AST/SGOT 22 U/L (15-37); BLOOD UREA NITROGEN 14 mg/dl (7-18); BUN/CREATININE RATIO 30.7 (10-20); CALCIUM 9.1 mg/dl (8.5-10.1); CARBON DIOXIDE 30 mmol/L (21-32); CHLORIDE 101 mmol/L (98-107); CREATININE 0.47 mg/dl (0.60-1.20); GLUCOSE 68 mg/dl (70-99); POTASSIUM 3.9 mmol/L (3.5-5.1); SODIUM 137 mmol/L (136-145)
[2016-11-30 17:54] LABS: ALB/GLOB RATIO 0.9 (0.9-2); ALKALINE PHOSPHATASE 82 U/L (45-117)
== END | disposition home or self-care (01) ==
LOC: C.RAD1850 15:40
PROVIDERS: ATTEND Physician Assistant Medical
DX: R10.9 Unspecified abdominal pain (principal); E55.9 Vitamin D deficiency, unspecified

== ENCOUNTER → 2017-02-03 | Outpatient (CLI) | payer BC ==
--- NOTE | 2017-02-03 12:57 | MAMMOGRAPHY REPORT ---
BILATERAL DIGITAL SCREENING MAMMOGRAM TOMOSYNTHESIS WITH CAD: 02/03/2017 CLINICAL HISTORY: Routine screening. Patient has no complaints. TECHNIQUE: Breast tomosynthesis in addition to standard 2D mammography was performed. Current study was also evaluated with a Computer Aided Detection (CAD) system. COMPARISON: Comparison is made to exams dated: 01/29/2016 mammogram, 01/23/2015 mammogram, 01/21/2014 m ammogram, 12/25/2012 mammogram, 12/23/2011 mammogram, and 12/15/2010 mammogram - [facility]. BREAST COMPOSITION: There are scattered areas of fibroglandular density in both breasts. FINDINGS: No suspicious masses, calcifications, or areas of architectural distortion are noted in ei ther breast. There has been no significant interval change compared to prior exams. Scattered bilater al benign-appearing calcifications are not significantly changed. There are stable postsurgical dow ges from bilateral reduction mammoplasty. IMPRESSION: ACR BI-RADS CATEGORY 2: BENIGN There is no mammographic evidence of malignancy. A 1 year screening mammogram is recommended. The pa tient will receive written notification of the results. Approximately 10% of breast cancers are not detected with mammography. A negative mammographic report should not delay biopsy if a clinically suggestive mass is present. Cheryl Pedroza M.D. ah/:02/03/2017 12:38:31 [employer] Worker: Katerine GAFFNEY(Layo)(M), [facility] letter sent: Normal 1/2 BI-RADS Code: ACR BI-RADS Category 2: Benign
== END | disposition home or self-care (01) ==
LOC: C.MAMM 08:12
PROVIDERS: ATTEND Internal Medicine
DX: Z12.31 Encounter for screening mammogram for malignant neoplasm of breast (principal)

== ENCOUNTER → 2017-03-10 | Outpatient (CLI) | payer BC | END | disposition home or self-care (01) | LOC: C.PAPS 12:01 | PROVIDERS: ATTEND Obstetrics & Gynecology | DX: Z12.4 Encounter for screening for malignant neoplasm of cervix (principal); Z11.51 Encounter for screening for human papillomavirus (HPV) ==

== ENCOUNTER → 2017-03-10 | Outpatient (CLI) | payer BC | END | disposition home or self-care (01) | LOC: C.RAD1850 10:13 | DX: R05 Cough (principal) ==

== ENCOUNTER → 2017-03-15 | Outpatient (CLI) | payer BC | END | disposition home or self-care (01) | LOC: C.LAB1850 09:34 | PROVIDERS: ATTEND Internal Medicine Pulmonary Disease | DX: R06.02 Shortness of breath (principal) ==

== ENCOUNTER → 2017-03-27 | Outpatient (CLI) | payer BC ==
[~2017-03-27] MED LIST changes: +OPTIRAY 320 IV PRN
--- NOTE | 2017-03-27 16:37 | DIAGNOSTIC IMAGING REPORT ---
(CHEST) THORAX WITH CLINICAL HISTORY: 56 years-old Female presenting with ABN CHEST XRAY, history of endometrial cancer. TECHNIQUE: Multidetector CT imaging of the chest was performed after the administration of intravenous contrast. IV contrast: 79 mL of Optiray 320. A dose lowering technique was used consistent with the principles of ALARA (as low as reasonably achievable). COMPARISON: Chest CT from 11/16/2015 and chest x-ray from 03/10/2017. CT DOSE (mGy.cm): The estimated cumulative dose is 536.46 mGycm. FINDINGS: Batch Dumper topogram: Unremarkable. On soft tissue windows, normal thyroid and thoracic inlet. No axillary, supraclavicular, hilar, or mediastinal lymphadenopathy. Normal aorta. Normal heart size. No pericardial or pleural effusion. Suggestion of hepatic steatosis. Nonspecific nodular thickening of the left adrenal gland. On lung windows, no focal infiltrate or nodule. Airways patent. On bone windows, degenerative changes of the spine. IMPRESSION: 1. No evidence of intrathoracic metastatic disease. The nodular density on chest x-ray from 03/10/2017 does not have a correlate within the lung parenchyma. This may have represented a nipple shadow. Electronically signed by: Carlos Enrique Stoddard M.D. 03/27/2017 4:36 PM Dictated Date/Time: 03/27/2017 4:31 PM
== END | disposition home or self-care (01) ==
LOC: C.CTS 15:54
PROVIDERS: ATTEND Internal Medicine Pulmonary Disease
DX: R93.8 Abnormal findings on diagnostic imaging of other specified body structures (principal)

== ENCOUNTER → 2017-03-28 | Outpatient (CLI) | payer BC ==
[~2017-03-28] MED LIST changes: -OPTIRAY 320 IV PRN
[2017-03-28 12:09] LABS: BASO % 0.3 %; BASO ABS # 0.01 K/uL (0-0.2); EOS % 1.3 %; EOS ABS # 0.05 K/uL (0-0.5); HEMATOCRIT 39.6 % (37-47); HEMOGLOBIN 12.8 g/dL (12.0-16.0); IG# 0.01 K/uL (0.00-0.02); LYMPH % 25.5 %; MEAN CELL VOLUME 92.7 fL (80-100); MEAN CORPUSCULAR HGB CONC 32.3 g/dl (32-36); MEAN PLATELET VOLUME 9.8 fL (7.4-10.4); MONO % 11.5 %; MONO ABS # 0.45 K/uL (0.11-0.59); NEUT % 61.1 %; PLATELET COUNT 252 K/uL (130-400); RED CELL DISTRIBUTION WIDTH CV 14.2 % (11.5-14.5); RED CELL DISTRIBUTION WIDTH SD 47.7 fL (36.4-46.3); WHITE BLOOD COUNT 3.92 K/uL (4.8-10.8)
[2017-03-28 12:27] LABS: ALBUMIN 3.2 gm/dl (3.4-5.0); ALT/SGPT 25 U/L (12-78); AST/SGOT 19 U/L (15-37); BLOOD UREA NITROGEN 17 mg/dl (7-18); CALCIUM 9.2 mg/dl (8.5-10.1); CARBON DIOXIDE 27 mmol/L (21-32); CHOLESTEROL 180 mg/dl (0-200); CREATININE 0.62 mg/dl (0.60-1.20); GLUCOSE 95 mg/dl (70-99); POTASSIUM 4.1 mmol/L (3.5-5.1); SODIUM 139 mmol/L (136-145)
[2017-03-28 12:30] LABS: HEMOGLOBIN A1C 6.1 % (4.5-5.6)
[2017-03-28 12:38] LABS: ALKALINE PHOSPHATASE 67 U/L (45-117); LDL CHOLESTEROL CALCULATED 70 mg/dl
== END | disposition home or self-care (01) ==
LOC: C.LAB1850 09:56
PROVIDERS: ATTEND Internal Medicine Hematology & Oncology
DX: R73.01 Impaired fasting glucose (principal); C55 Malignant neoplasm of uterus, part unspecified; E78.00 Pure hypercholesterolemia, unspecified; E55.9 Vitamin D deficiency, unspecified; E03.9 Hypothyroidism, unspecified

== ENCOUNTER → 2017-09-26 | Outpatient (CLI) | payer BC ==
[~2017-09-26] MED LIST changes: +GADAVIST IV PRN
--- NOTE | 2017-09-27 13:40 | MAMMOGRAPHY REPORT ---
BREAST MRI OF BOTH BREASTS: 09/26/2017 CLINICAL HISTORY: 57-year-old woman with a family history of breast cancer = sister and niece, and pe rsonal history of uterine cancer, presents for screening breast MRI. COMPARISON: Comparison is made to exams dated: 02/03/2017 mammogram, 08/26/2016 breast MRI, 01/29/2016 mammogram, 01/23/2015 mammogram, 12/25/2012 mammogram, and 12/23/2011 mammogram - [facility]. TECHNIQUE: Using a 1.5 Maru magnet and dedicated breast coil, multisequence axial images were obtain ed through the breasts. After uneventful IV administration of 10.5 mL of Gadavist, dynamic multiphas e contrast-enhanced axial images, and sagittal postcontrast were obtained. Temporal subtraction axia l images and 3-D MIP images are provided. Everything was then reviewed on a 3-D workstation, OPPRTUNITY. FINDINGS: There is minimal background parenchymal enhancement of the breasts. No suspicious enhancing mass, no n-mass enhancement, suspicious kinetics or architectural distortion identified bilaterally. The nipp le-areola complex is intact bilaterally. The retroglandular fat is intact. No suspicious axillary l ymphadenopathy is identified. Overall there has been no significant interval change comparing to the prior breast MRI. IMPRESSION: ACR BI-RADS CATEGORY 2: BENIGN Stable bilateral breast MRI, without MRI evidence of malignancy. Continuation of annual screening ma mmography and breast MRI is recommended. The patient will receive written notification of the results. Angella Evans M.D. ay/:09/26/2017 21:13:42 Warranty Manager: sheeter helper, [facility] letter sent: Normal 1/2 BI-RADS Code: ACR BI-RADS Category 2: Benign
== END | disposition home or self-care (01) ==
LOC: C.MRI 10:58
PROVIDERS: ATTEND Internal Medicine
DX: C54.1 Malignant neoplasm of endometrium (principal); Z91.89 Other specified personal risk factors, not elsewhere classified

== ENCOUNTER → 2017-10-05 | Outpatient (CLI) | payer BC ==
[~2017-10-05] MED LIST changes: -GADAVIST IV PRN
[2017-10-05 09:42] LABS: EOS % 1.2 %; EOS ABS # 0.06 K/uL (0-0.5); HEMATOCRIT 39.6 % (37-47); HEMOGLOBIN 12.9 g/dL (12.0-16.0); IG# 0.01 K/uL (0.00-0.02); LYMPH % 36.3 %; MEAN CELL VOLUME 90.2 fL (80-100); MEAN CORPUSCULAR HEMOGLOBIN 29.4 pg (25-34); MEAN CORPUSCULAR HGB CONC 32.6 g/dl (32-36); MEAN PLATELET VOLUME 9.7 fL (7.4-10.4); MONO % 11.3 %; MONO ABS # 0.56 K/uL (0.11-0.59); NEUT ABS # 2.53 K/uL (1.4-6.5); PLATELET COUNT 265 K/uL (130-400); RED CELL DISTRIBUTION WIDTH CV 14.1 % (11.5-14.5); RED CELL DISTRIBUTION WIDTH SD 46.7 fL (36.4-46.3); WHITE BLOOD COUNT 4.96 K/uL (4.8-10.8)
[2017-10-05 09:58] LABS: HEMOGLOBIN A1C 6.4 % (4.5-5.6)
[2017-10-05 10:08] LABS: ALBUMIN 3.3 gm/dl (3.4-5.0); ALKALINE PHOSPHATASE 86 U/L (45-117); ALT/SGPT 28 U/L (12-78); AST/SGOT 23 U/L (15-37); BLOOD UREA NITROGEN 17 mg/dl (7-18); CALCIUM 9.1 mg/dl (8.5-10.1); CARBON DIOXIDE 28 mmol/L (21-32); CHOLESTEROL 187 mg/dl (0-200); CREATININE 0.61 mg/dl (0.60-1.20); GLUCOSE 83 mg/dl (70-99); LDL CHOLESTEROL CALCULATED 94 mg/dl; POTASSIUM 3.8 mmol/L (3.5-5.1); SODIUM 140 mmol/L (136-145); TOTAL PROTEIN 7.2 gm/dl (6.4-8.2)
== END | disposition home or self-care (01) ==
LOC: C.LAB 08:21
PROVIDERS: ATTEND Internal Medicine
DX: G40.909 Epilepsy, unspecified, not intractable, without status epilepticus (principal); E03.9 Hypothyroidism, unspecified; E78.00 Pure hypercholesterolemia, unspecified; R73.03 Prediabetes; C54.1 Malignant neoplasm of endometrium; E55.9 Vitamin D deficiency, unspecified

== ENCOUNTER 2020-01-17 14:48 | Inpatient (IN) ==
[2020-01-17] MEDS ORDERED: ERTAPENEM SODIUM 10 ML IV STA (14:55)
[2020-01-17] MEDS ORDERED: SODIUM CHLORIDE 0.9% 1000ML 1,000 ML IV SCH (15:00)
[2020-01-17 15:45] LABS: Basophils # (auto) 0.01 K/uL (0-0.2); Basophils % (auto) 0.1 %; Eosinophils # (auto) 0.01 K/uL (0-0.5); Eosinophils % (auto) 0.1 %; Hematocrit (blood only) 38.7 % (37-47); Hemoglobin 12.4 g/dL (12.0-16.0); Immature Granulocytes # (auto) 0.09 K/uL (0.00-0.02); Immature Granulocytes % (auto) 1.3 %; Lymphocytes # (auto) 1.69 K/uL (1.2-3.4); Lymphocytes % (auto) 24.4 %; Mean Corpuscular Hemoglobin 30.1 pg (25-34); Mean Corpuscular Volume 93.9 fL (80-100); Mean Platelet Volume 10.2 fL (7.4-10.4); Monocytes # (auto) 0.62 K/uL (0.11-0.59); Neutrophils % (auto) 65.1 %; Platelet Count 264 K/uL (130-400); RDW Coefficient of Variation 14.8 % (11.5-14.5); RDW Standard Deviation 50.5 fL (36.4-46.3); Red Blood Count 4.12 M/uL (4.2-5.4); White Blood Count 6.92 K/uL (4.8-10.8)
[2020-01-17 15:51] LABS: iSTAT Creatinine 0.6 mg/dl (0.6-1.3); iSTAT Hemoglobin 12.2 g/dl (12.0-16.0); iSTAT Ionized Calcium 1.15 mmol/l (1.12-1.32); iSTAT Potassium 3.6 mmol/L (3.3-5.0)
--- NOTE | 2020-01-17 15:52 | XRay Report ---
SINGLE VIEW CHEST CLINICAL HISTORY: Sepsis. FINDINGS: An AP, portable, upright chest radiograph is compared to study dated 01/15/2020. The cardio mediastinal silhouette is unremarkable. The lungs and pleural spaces are clear. No pneumothorax is se en. The bony thorax is grossly intact. Degenerative change is noted in the thoracic spine. IMPRESSION: No active disease in the chest. ACT 112: Negative or not required by law. Electronically signed by: Ronald Doshi M.D. 01/17/2020 3:51 PM
[2020-01-17 15:55] LABS: Partial Thromboplastin Ratio 1.1; Partial Thromboplastin Time 31.2 Seconds (21.0-31.0); Prothrombin Time 10.3 Seconds (9.0-12.0)
[2020-01-17 16:03] LABS: Alanine Aminotransferase 35 U/L (12-78); Aspartate Aminotransferase 50 U/L (15-37); BUN Creatinine Ratio 24.3 (10-20); Blood Urea Nitrogen 18 mg/dl (7-18); Calcium 8.8 mg/dl (8.5-10.1); Carbon Dioxide 30 mmol/L (21-32); Chloride 105 mmol/L (98-107); Creatinine Clr Calc Pharmacy 98.3 ml/min; Est GFR (African American) 104.5; Est GFR (Non-African American) 90.1; Glucose 109 mg/dl (70-99); Magnesium 1.6 mg/dl (1.8-2.4); Potassium 3.7 mmol/L (3.5-5.1); Sodium 141 mmol/L (136-145)
[2020-01-17] MEDS ORDERED: DEXAMETHASONE SOD INJ 10 MG/ML VIAL IV ONE (16:03)
[2020-01-17 16:08] LABS: Albumin Globulin Ratio 0.8 (0.9-2); Alkaline Phosphatase 70 U/L (45-117); Bilirubin,Total 0.5 mg/dl (0.2-1); Globulin 3.9 gm/dl (2.5-4.0); Total Protein 6.9 gm/dl (6.4-8.2); Troponin I < 0.015 ng/ml (0-0.045)
[2020-01-17] MEDS: MAGNESIUM SULFATE / D5W 1 GM/100 ML BAG IV SCH ×2 (16:39→18:12)
--- NOTE | 2020-01-17 17:15 | History & Physical Report ---
Date of Service January 17, 2020 Assessment & Plan (1) Infection due to ESBL-producing Escherichia coli: Follow up blood cultures Ertapenem 1g IV daily (2) Acute pyelonephritis: Left flank pain with ESBL E. Coli urine culture. (3) Severe acute respiratory syndrome coronavirus 2 (SARS-CoV-2) detected: Severe due to hypoxia however chest auscultation and CXR unremarkable. Suspect major driving factor of her fatigue is pyelonephritis as above rather than COVID-19. Start dexamethasone 6mg IV daily for 10 days. Discussed and will start 5 day course of Remdesivir. Discussed and opted out of giving convalescent plasma given lack of CXR findings and alternative illness causing majority of her symptoms. (4) Obstructive sleep apnea of adult: May use own CPAP. (5) Restrictive lung disease: Suspected secondary to morbid obesity (6) Hypothyroidism: TSH 2.17 in September Continue levothyroxine 112 mcg p.o. every morning (7) Hypercholesteremia: Continue rosuvastatin 10 mg p.o. at bedtime (8) Hypertension: Continue carvedilol 6.25 mg p.o. twice daily (9) DVT prophylaxis: Elevated d-dimer in setting of COVID-19. Lovenox 40mg SQ BID. Admission and Anticipated Discharge Date Admission Date: 01/17/2020 History of Present Illness Chief Complaint: Generalized fatigue ESBL E. 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 Coli. In addition she has a recent diagnosis of COVID-19. Regarding the urine culture she started having dysuria and suprapubic and back pain 4 days ago - she was prescribed ceftin but advised to only take it after finishing the azithromycin so started this 3 days ago. No urine culture taken at that time and previously on [employer] urine cultures usually mixed frantz. Unfortunately her symptoms progressed and she came to the ER [address] at that time showed no obstructing kidney stones or hydronephrosis. Her antibiotic was switched to cefdinir and she was discharged from the ER. Her urinary symptoms have not significantly changed since her ER visit but she is sleeping the majority of the day and wearing her CPAP most of the time. Subsequent urine culture from this ER visit grew ESBL E. coli and given no improvement in her symptoms she was advised to return to the ER. She denies ever having grown resistant organisms in the past. Regarding her COVID-19 diagnosis. She is tested regularly for asymptomatic SARS-COV-2 for her job twice a week. Her last test was 9 days ago on the and she was asymptomatic at that time. This test subsequently came back positive 2 days later. The following day from taking the test she started developing symptoms of sore throat. She was prescribed azithromycin for chest and nasal congestion which she started taking on 01/09 and took a full 5 day course which did not help. She reports additional COVID-19 symptoms: headache for last 2 days, dry cough started today, hypoxia (noted on her home O2 sats probe 85-88% yesterday). Her biggest symptom however is generalized fatigue and loss of appetite which has progressively become worse since her diagnosis although difficult to tell whether this is secondary to COVID-19 vs. urine tract infection as above. In the ER CXR was relatively unremarkable. She was however mildly hypoxic requiring 2L O2 at rest. Allergies Allergy/AdvReac Type Severity Reaction Status Date / Time amoxicillin AdvReac Mild diarrhea Verified 01/17/20 16:05 clavulanic acid AdvReac Mild diarrhea Verified 01/17/20 16:05 Home Medications Medication Instructions Recorded Confirmed Type Multi For Her 50 Plus 1 cap PO QAM 01/05/18 01/17/20 History cholecalciferol (vitamin D3) 125 5,000 units PO QAM tab 10/26/18 01/17/20 History mcg (5,000 unit) tablet budesonide-formoterol HFA 80 2 puffs INH BID #1 inhaler 04/19/19 01/17/20 Rx mcg-4.5 mcg/actuation aerosol inhaler carvedilol 6.25 mg tablet 6.25 mg PO BID #180 tab 10/17/19 01/17/20 Rx divalproex 500 mg tablet,delayed 1,000 mg PO HS #180 tab 10/17/19 01/17/20 Rx release rosuvastatin 10 mg tablet 10 mg PO HS #90 tab 12/25/19 01/17/20 Rx cefuroxime axetil 250 mg tablet 250 mg PO BID 7 Days #14 tab 01/13/20 01/17/20 Rx cefdinir 300 mg PO Q12H 7 Days #14 cap 01/15/20 01/17/20 Rx ascorbic acid (vitamin C) [Vitamin 1 cap PO QAM 01/17/20 01/17/20 History C] furosemide 20 mg PO DAILY PRN 01/17/20 01/17/20 History hydrocodone-homatropine 5 ml PO Q6H PRN 01/17/20 01/17/20 History [Hydrocodone Compound] levothyroxine 112 mcg PO QAM 01/17/20 01/17/20 History potassium chloride [Klor-Con M10] 10 meq PO DAILY PRN 01/17/20 01/17/20 History zinc 30 mg PO QAM 01/17/20 01/17/20 History Past Med/Surg History Medical History Depression Diverticulitis History of colon polyps Kidney stones Seizure last seizure--grand mal 1994--on depakote Uterine cancer 2015--sx, chemo and radiation Vitamin D deficiency Surgical History History of appendectomy History of bilateral breast reduction surgery History of bilateral cataract extraction History of cardiac cath 2009 @ [place]--no stents placed History of cholecystectomy History of colonoscopy (~2017) History of esophagogastroduodenoscopy (EGD) (~2014) History of nasal surgery nodules removed History of total abdominal hysterectomy and bilateral salpingo-oophorectomy 2015 @ [facility] Family History Mother Family history of diabetes mellitus Sister Family history of diabetes mellitus Family hx colonic polyps Father Family hx of colon cancer Brother Family hx colonic polyps Social History Smoking Status: Never smoker Second Hand Exposure: No; Do You Dip or Chew Tobacco: No; Tobacco Cessation Education Requested by Patient: No Hx Alcohol Use: No Hx Substance Use: No Preferred Language: Bhutanese Communication Ability: Effective Performing Artist Required: No Beliefs That Will Affect Care: None Current Living Situation: Family Current Living Situation Comment: Lives with brother Other Information That Helps Us Care for You: No Feels Safe at Home: Yes Safety Concerns: Feels Safe At This Time Assistive Devices: BiPap and Glasses Review of Systems Review of Systems: All systems reviewed & are unremarkable except as noted in HPI & below Physical Exam Constitutional: well developed, well nourished and + morbidly obese; no acute distress Eyes: + anicteric sclerae; normal pupil size ENMT: external ear and nose normal, oropharynx normal Neck: trachea midline, no thyromegaly Respiratory: normal respiratory effort, + cough (occasional dry) and able to speak in complete sentences; no labored breathing, no retractions and does not use accessory muscles Auscultation: lungs clear to auscultation bilaterally (anteriorly) and + diminished lung sounds (bibasal poor air entry); no crackles, no rhonchi and no wheezes Cardiovascular: RRR, no murmur, no edema Gastrointestinal (Abdomen): Inspection/Auscultation: abdomen normal to inspection and normal bowel sounds Percussion/Palpation: abdomen soft; abdomen nontender, no guarding and abdomen not rigid Musculoskeletal: no cyanosis or clubbing, extremities motor strength 5/5 Skin: no rashes, warm and dry (no areas of cellulitis) Neurologic: moves all extremities and awake; no focal motor deficits and not confused Speech / Cognition: normal speech Motor/Sensory: no tremor and no pronator drift Psychiatric: A+Ox3, euthymic affect Genitourinary: + CVA tenderness (left) Results & Data Results & Data ([facility]) Vital Signs (Past 12 Hours) Vital Signs Temp Pulse Resp BP Pulse Ox 01/17/20 15:40 83 40 H 01/17/20 15:30 84 16 01/17/20 15:10 93 01/17/20 15:01 36.8 C 88 37 H 153/113 H 94 01/17/20 15:00 85 20 153/113 H 93 Diagnostic Findings SINGLE VIEW CHEST IMPRESSION: No active disease in the chest. Medications Administered ER medications given: Ertapenem 1g IV Decadron 6 mg IV NSS 1 L bolus Magnesium sulfate 2 g IV ECG Indication: other Rate (beats per minute): 86 Rhythm: normal sinus Findings: no acute ischemic change Comparison ECG Date: from (April 16, 2011) Change: no significant change Code Status & VTE Plan Code Status Full VTE Prophylaxis Plan VTE Prophylaxis will be ordered: Yes PG Care Time/CCT Total # of Minutes Spent Total Time Spent with Patient: Total time spent is greater than 50% in coordination of care (as documented) at patient's floor/unit and/or counseling patient: Coding Level of Care Code 52762 Initial Inpt Care Lvl 3 Diagnoses Infection due to ESBL-producing Escherichia coli A49.8; Z16.12 Acute pyelonephritis N10 Severe acute respiratory syndrome coronavirus 2 (SARS-CoV-2) detected U07.1 Obstructive sleep apnea of adult G47.33 Restrictive lung disease J98.4 Hypothyroidism E03.9 Hypercholesteremia E78.00 Hypertension I10 DVT prophylaxis Z29.9
--- NOTE | 2020-01-17 17:44 | Emergency Department Note ---
History of Present Illness General Chief complaint: Urinary Symptoms Stated complaint: NEEDS IV MEDS FOR UTI, HX OF COVID + Time Seen by Provider: 01/17/20 14:53 History of Present Illness Provider complaint: Flank pain ESBL E. coli urine culture Onset (ago): day(s) 9 Location: back and abdomen Radiation: non-radiation Severity: moderate Pain Consistency: + intermittent Quality: + sharp Associated symptoms: + cough, + fever/chills (T-max 101), + headaches and + shortness of breath 59-year-old female presents emergency department with flank pain. 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 Patient tested positive for COVID-19 on January 08, 2020. Patient started having dysuria and flank pain earlier this week. She was discharged from the emergency department on January 15, 2020 after being diagnosed with a UTI. Patient states she is continue to have fevers at home. T-max 101. She states today is the first day she has not had a fever. She states she has been taking her antibiotics as prescribed. Patient reports that her oxygen levels have been going down at night. She states she does wear CPAP at night. She states her oxygen saturation was 84% on room air last night, she states she has a portable pulse oximeter at home that she keeps. Home Medications Medication Instructions Recorded Confirmed Type Multi For Her 50 Plus 1 cap PO QAM 01/05/18 01/17/20 History cholecalciferol (vitamin D3) 125 5,000 units PO QAM tab 10/26/18 01/17/20 History mcg (5,000 unit) tablet budesonide-formoterol HFA 80 2 puffs INH BID #1 inhaler 04/19/19 01/17/20 Rx mcg-4.5 mcg/actuation aerosol inhaler carvedilol 6.25 mg tablet 6.25 mg PO BID #180 tab 10/17/19 01/17/20 Rx divalproex 500 mg tablet,delayed 1,000 mg PO HS #180 tab 10/17/19 01/17/20 Rx release rosuvastatin 10 mg tablet 10 mg PO HS #90 tab 12/25/19 01/17/20 Rx cefuroxime axetil 250 mg tablet 250 mg PO BID 7 Days #14 tab 01/13/20 01/17/20 Rx cefdinir 300 mg PO Q12H 7 Days #14 cap 01/15/20 01/17/20 Rx ascorbic acid (vitamin C) [Vitamin 1 cap PO QAM 01/17/20 01/17/20 History C] furosemide 20 mg PO DAILY PRN 01/17/20 01/17/20 History hydrocodone-homatropine 5 ml PO Q6H PRN 01/17/20 01/17/20 History [Hydrocodone Compound] levothyroxine 112 mcg PO QAM 01/17/20 01/17/20 History potassium chloride [Klor-Con M10] 10 meq PO DAILY PRN 01/17/20 01/17/20 History zinc 30 mg PO QAM 01/17/20 01/17/20 History Allergies Allergy/AdvReac Type Severity Reaction Status Date / Time amoxicillin AdvReac Mild diarrhea Verified 01/17/20 16:05 clavulanic acid AdvReac Mild diarrhea Verified 01/17/20 16:05 Past Med/Surg History Medical History Depression Diverticulitis History of colon polyps Kidney stones Seizure last seizure--grand mal 1994--on depakote Uterine cancer 2015--sx, chemo and radiation Vitamin D deficiency Surgical History History of appendectomy History of bilateral breast reduction surgery History of bilateral cataract extraction History of cardiac cath 2009 @ [place]--no stents placed History of cholecystectomy History of colonoscopy (~2017) History of esophagogastroduodenoscopy (EGD) (~2014) History of nasal surgery nodules removed History of total abdominal hysterectomy and bilateral salpingo-oophorectomy 2015 @ [facility] Family History Mother Family history of diabetes mellitus Sister Family history of diabetes mellitus Family hx colonic polyps Father Family hx of colon cancer Brother Family hx colonic polyps Social History Smoking Status: Never smoker Second Hand Exposure: No; Hx Alcohol Use: No Hx Substance Use: No Preferred Language: Kinyarwanda 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 Beliefs That Will Affect Care: None Current Living Situation: Family Current Living Situation Comment: Lives with brother Feels Safe at Home: Yes Assistive Devices: CPAP and Glasses Review of Systems A total of 10 systems reviewed and were otherwise negative Physical Exam Vital Signs Vital Signs - 24 hr 01/17/20 15:00 01/17/20 15:01 01/17/20 15:10 Temperature 36.8 C Temperature Source Oral Pulse Rate 85 88 Pulse Rate from SpO2 Sensor 85 Respiratory Rate 20 37 H Blood Pressure 153/113 H 153/113 H Blood Pressure Mean 120 126 Blood Pressure Position Sitting Pulse Oximetry 93 94 93 Oxygen Delivery Method Room Air Sepsis Recent Fever Within 48 Hours Yes Sepsis New/Unexplained Change in Mental Status No Sepsis Action Taken by Nursing No Action Required 01/17/20 15:30 01/17/20 15:40 01/17/20 15:50 Temperature Temperature Source Pulse Rate 84 83 82 Pulse Rate from SpO2 Sensor Respiratory Rate 16 40 H Blood Pressure Blood Pressure Mean Blood Pressure Position Pulse Oximetry Oxygen Delivery Method Sepsis Recent Fever Within 48 Hours Sepsis New/Unexplained Change in Mental Status Sepsis Action Taken by Nursing 01/17/20 15:56 01/17/20 16:00 01/17/20 16:10 Temperature Temperature Source Pulse Rate 80 80 79 Pulse Rate from SpO2 Sensor 80 80 79 Respiratory Rate 15 16 Blood Pressure 156/102 H Blood Pressure Mean 129 Blood Pressure Position Pulse Oximetry 91 90 93 Oxygen Delivery Method Sepsis Recent Fever Within 48 Hours Sepsis New/Unexplained Change in Mental Status Sepsis Action Taken by Nursing 01/17/20 16:20 01/17/20 16:30 01/17/20 16:40 Temperature Temperature Source Pulse Rate 80 80 80 Pulse Rate from SpO2 Sensor 80 80 80 Respiratory Rate 18 Blood Pressure Blood Pressure Mean Blood Pressure Position Pulse Oximetry 96 95 Oxygen Delivery Method Sepsis Recent Fever Within 48 Hours Sepsis New/Unexplained Change in Mental Status Sepsis Action Taken by Nursing 01/17/20 16:41 01/17/20 16:50 01/17/20 17:00 Temperature Temperature Source Pulse Rate 79 79 79 Pulse Rate from SpO2 Sensor 79 78 79 Respiratory Rate Blood Pressure 175/98 H 159/102 H Blood Pressure Mean 113 116 Blood Pressure Position Pulse Oximetry 98 98 97 Oxygen Delivery Method Sepsis Recent Fever Within 48 Hours Sepsis New/Unexplained Change in Mental Status Sepsis Action Taken by Nursing 01/17/20 17:01 01/17/20 17:10 01/17/20 17:20 Temperature Temperature Source Pulse Rate 78 78 80 Pulse Rate from SpO2 Sensor 78 78 80 Respiratory Rate Blood Pressure Blood Pressure Mean Blood Pressure Position Pulse Oximetry 97 96 96 Oxygen Delivery Method Sepsis Recent Fever Within 48 Hours Sepsis New/Unexplained Change in Mental Status Sepsis Action Taken by Nursing 01/17/20 17:30 01/17/20 17:31 01/17/20 17:40 Temperature Temperature Source Pulse Rate 79 79 81 Pulse Rate from SpO2 Sensor 79 79 81 Respiratory Rate 24 15 Blood Pressure 148/87 H Blood Pressure Mean 100 Blood Pressure Position Pulse Oximetry 96 95 95 Oxygen Delivery Method Sepsis Recent Fever Within 48 Hours Sepsis New/Unexplained Change in Mental Status Sepsis Action Taken by Nursing 01/17/20 17:50 Temperature Temperature Source Pulse Rate 81 Pulse Rate from SpO2 Sensor 81 Respiratory Rate Blood Pressure Blood Pressure Mean Blood Pressure Position Pulse Oximetry 95 Oxygen Delivery Method Sepsis Recent Fever Within 48 Hours Sepsis New/Unexplained Change in Mental Status Sepsis Action Taken by Nursing Physical Exam GENERAL: She is oriented to person, place, and time. She appears well-developed and well-nourished. She does not appear distressed. HENT: Exam performed. -Head: Normocephalic and atraumatic. -Right Ear: External ear normal. No mastoid tenderness. -Left Ear: External ear normal. No mastoid tenderness. -Mouth/Throat: The oropharynx is clear and moist. No trismus in the jaw. No dental abscesses or uvula swelling. No oropharyngeal exudate or tonsillar abscesses. EYES: Conjunctivae and EOM are normal. Pupils are equal, round, and reactive to light. Right eye exhibits no discharge. Left eye exhibits no discharge. No scleral icterus. NECK: Normal range of motion. Neck supple. No JVD present. No spinous process tenderness present. No carotid bruit present. No rigidity. No tracheal deviation and normal range of motion present. No Brudzinski's sign and no Kernig's sign noted. CV: Normal rate, regular rhythm, normal heart sounds and intact distal pulses. There is no peripheral edema. Palpable radial pulses bue. PULM/CHEST: Effort normal and breath sounds normal. No respiratory distress. No stridor. She has no wheezes. She has no rales. -Chest Wall: She exhibits no tenderness. ABD: The abdomen is soft. Bowel sounds are normal. She has no distension. No mass is present. There is tenderness to palpation of the right suprapubic area. There is no rebound, no guarding, no Umana's sign and no tenderness at McBurney's point. Rovsig negative. Right-sided CVA tenderness. MUSC/SKEL: Normal range of motion. There is no peripheral edema, tenderness or deformity. LYMPH: No cervical adenopathy. NEURO: She is alert and oriented to person, place, and time. She has normal strength. No cranial nerve deficit or sensory deficit. Coordination and gait normal. GCS eye subscore is 4. GCS verbal subscore is 5. GCS motor subscore is 6. Cerebellar tests wnl. SKIN: Skin is warm and dry. She is not diaphoretic. PSYCH: She has a normal mood and affect. Behavior is normal. Judgment and thought content normal. Course Course 1453: The patient was evaluated in room C6. A complete history and physical exam was performed. Patient was seen in full airborne precautions. Patient was seen in N95's, gloves, gowns, face shield by myself and staff. Cardiac monitoring: An order was placed for continuous cardiac monitoring. The monitor shows a rate of [] with [] rhythm EMR reviewed. Patient was seen in the emergency department on January 15, 2020. Patient was taking Cipro for UTI. Patient had CT of the abdomen done that night which was read by stat rad which showed mild bilateral perinephric stranding. Official CT read of that abdominal scan done the next morning by our radiologist showed no perinephric stranding. It did show groundglass opacities in the lungs. Urine culture did show E. coli ESBL from urine culture collected on January 15, 2020. The ESBL was resistant to fluoroquinolones. I reviewed this culture with pharmacist prior to the patient's arrival. Pharmacist called the patient reported that she was continue to have back and abdominal pain. Given this she was told to return to emergency department. Patient is continuing of abdominal pain and flank pain. Patient will be treated with ertapenem empirically and will plan on admitting the patient to the [facility] service. 1600: Patient's oxygen saturation has been in the low 90s on room air. Patient be given Decadron 6 mg given her oxygen saturation less than 94% and her recent coronavirus diagnosis and will be started on supplemental oxygen via nasal cannula. Labs show a lactic acidemia of 2.2. Patient will be admitted to the [facility] service, Dr. Choudhury notified. 1800: D-dimer elevated 910. Patient will have CTA of the chest also ordered. Patient is currently being evaluated by the [facility] hospitalist Dr. Choudhury. Administered Medications Discontinued Medications Dexamethasone (Dexamethasone Sod Inj 10 Mg/Ml Vial) 6 mg IV NOW ONE Stop: 01/17/20 16:04 Last Admin: 01/17/20 16:39 Dose: 6 mg Documented by: [id number] Sodium Chloride (Nss 1000ml) 1,000 mls @ 999 mls/hr IV .Q1H1M PATTIE Stop: 01/17/20 16:00 Last Admin: 01/17/20 15:50 Dose: 999 mls/hr Documented by: [id number] Ertapenem (Invanz) 10 mls @ 2 mls/min IV NOW STA Stop: 01/17/20 14:59 Last Admin: 01/17/20 15:50 Dose: 2 mls/min Documented by: [id number] Magnesium Sulfate/Dextrose (Magnesium Sulfate / D5w) 1 gm in 100 mls @ 100 mls/hr IV Q1H PATTIE Stop: 01/17/20 18:07 Last Admin: 01/17/20 18:12 Dose: 100 mls/hr Documented by: [id number] Infusion: 01/17/20 17:39 Dose: 100 mls/hr Documented by: [id number] Admin: 01/17/20 16:39 Dose: 100 mls/hr Documented by: [id number] Medical Decision Making Laboratory Data Result diagrams: 01/17/20 15:23 01/17/20 15:23 Lab Results 01/17/20 01/17/20 01/17/20 Range/Units 15:23 15:23 15:23 WBC 6.92 (4.8-10.8) K/uL RBC 4.12 L (4.2-5.4) M/uL Hgb 12.4 (12.0-16.0) g/dL POC Hgb (12.0-16.0) g/dl Hct 38.7 (37-47) % POC Hct (37-47) % MCV 93.9 (80-100) fL MCH 30.1 (25-34) pg MCHC 32.0 (32-36) g/dL RDW Std Deviation 50.5 H (36.4-46.3) fL RDW Coeff of Jim 14.8 H (11.5-14.5) % Plt Count 264 (130-400) K/uL MPV 10.2 (7.4-10.4) fL Immature Gran % (Auto) 1.3 % Neut % (Auto) 65.1 % Lymph % (Auto) 24.4 % Maverick % (Auto) 9.0 % Eos % (Auto) 0.1 % Baso % (Auto) 0.1 % Neut # (Auto) 4.50 (1.4-6.5) K/uL Lymph # (Auto) 1.69 (1.2-3.4) K/uL Maverick # (Auto) 0.62 H (0.11-0.59) K/uL Eos # (Auto) 0.01 (0-0.5) K/uL Baso # (Auto) 0.01 (0-0.2) K/uL Immature Gran # (Auto) 0.09 H (0.00-0.02) K/uL PT 10.3 (9.0-12.0) Seconds INR 1.0 (0.9-1.1) APTT 31.2 H (21.0-31.0) Seconds PTT Ratio 1.1 D-Dimer 910 H* (0-500) ug/L FEU POC Sodium (135-144) mmol/L Sodium 141 (136-145) mmol/L POC Potassium (3.3-5.0) mmol/L Potassium 3.7 (3.5-5.1) mmol/L POC Chloride (101-112) mmol/L Chloride 105 (98-107) mmol/L Carbon Dioxide 30 (21-32) mmol/L POC Total CO2 (24-31) mmol/L Anion Gap 7.0 (3-11) POC Anion Gap (16-25) mmol/L POC BUN (7-18) mg/dl BUN 18 (7-18) mg/dl Creatinine 0.73 (0.6-1.2) mg/dl POC Creatinine (0.6-1.3) mg/dl Est Cr Clr Drug Dosing 98.3 ml/min Est GFR ( Amer) 104.5 Est GFR (Non-Af Amer) 90.1 BUN/Creatinine Ratio 24.3 H (10-20) Glucose 109 H (70-99) mg/dl POC Glucose (other) (70-99) mg/dl Lactate (0.4-2.0) mmol/L Calcium 8.8 (8.5-10.1) mg/dl POC Ioniz Calcium Reyes (1.12-1.32) mmol/l Magnesium 1.6 L (1.8-2.4) mg/dl Total Bilirubin 0.5 (0.2-1) mg/dl AST 50 H (15-37) U/L ALT 35 (12-78) U/L Alkaline Phosphatase 70 (45-117) U/L Troponin I < 0.015 (0-0.045) ng/ml Total Protein 6.9 (6.4-8.2) gm/dl Albumin 3.0 L (3.4-5.0) gm/dl Globulin 3.9 (2.5-4.0) gm/dl Albumin/Globulin Ratio 0.8 L (0.9-2) Procalcitonin (0-0.5) ng/ml 01/17/20 01/17/20 01/17/20 Range/Units 15:23 15:23 15:39 WBC (4.8-10.8) K/uL RBC (4.2-5.4) M/uL Hgb (12.0-16.0) g/dL POC Hgb 12.2 (12.0-16.0) g/dl Hct (37-47) % POC Hct 36 L (37-47) % MCV (80-100) fL MCH (25-34) pg MCHC (32-36) g/dL RDW Std Deviation (36.4-46.3) fL RDW Coeff of Jim (11.5-14.5) % Plt Count (130-400) K/uL MPV (7.4-10.4) fL Immature Gran % (Auto) % Neut % (Auto) % Lymph % (Auto) % Maverick % (Auto) % Eos % (Auto) % Baso % (Auto) % Neut # (Auto) (1.4-6.5) K/uL Lymph # (Auto) (1.2-3.4) K/uL Maverick # (Auto) (0.11-0.59) K/uL Eos # (Auto) (0-0.5) K/uL Baso # (Auto) (0-0.2) K/uL Immature Gran # (Auto) (0.00-0.02) K/uL PT (9.0-12.0) Seconds INR (0.9-1.1) APTT (21.0-31.0) Seconds PTT Ratio D-Dimer (0-500) ug/L FEU POC Sodium 140 (135-144) mmol/L Sodium (136-145) mmol/L POC Potassium 3.6 (3.3-5.0) mmol/L Potassium (3.5-5.1) mmol/L POC Chloride 101 (101-112) mmol/L Chloride (98-107) mmol/L Carbon Dioxide (21-32) mmol/L POC Total CO2 26 (24-31) mmol/L Anion Gap (3-11) POC Anion Gap 17.0 (16-25) mmol/L POC BUN 17 (7-18) mg/dl BUN (7-18) mg/dl Creatinine (0.6-1.2) mg/dl POC Creatinine 0.6 (0.6-1.3) mg/dl Est Cr Clr Drug Dosing ml/min Est GFR ( Amer) Est GFR (Non-Af Amer) BUN/Creatinine Ratio (10-20) Glucose (70-99) mg/dl POC Glucose (other) 109 H (70-99) mg/dl Lactate 2.4 H* (0.4-2.0) mmol/L Calcium (8.5-10.1) mg/dl POC Ioniz Calcium Reyes 1.15 (1.12-1.32) mmol/l Magnesium (1.8-2.4) mg/dl Total Bilirubin (0.2-1) mg/dl AST (15-37) U/L ALT (12-78) U/L Alkaline Phosphatase (45-117) U/L Troponin I (0-0.045) ng/ml Total Protein (6.4-8.2) gm/dl Albumin (3.4-5.0) gm/dl Globulin (2.5-4.0) gm/dl Albumin/Globulin Ratio (0.9-2) Procalcitonin 0.12 (0-0.5) ng/ml 01/16/20 Range/Units 17:33 WBC (4.8-10.8) K/uL RBC (4.2-5.4) M/uL Hgb (12.0-16.0) g/dL POC Hgb (12.0-16.0) g/dl Hct (37-47) % POC Hct (37-47) % MCV (80-100) fL MCH (25-34) pg MCHC (32-36) g/dL RDW Std Deviation (36.4-46.3) fL RDW Coeff of Jim (11.5-14.5) % Plt Count (130-400) K/uL MPV (7.4-10.4) fL Immature Gran % (Auto) % Neut % (Auto) % Lymph % (Auto) % Maverick % (Auto) % Eos % (Auto) % Baso % (Auto) % Neut # (Auto) (1.4-6.5) K/uL Lymph # (Auto) (1.2-3.4) K/uL Maverick # (Auto) (0.11-0.59) K/uL Eos # (Auto) (0-0.5) K/uL Baso # (Auto) (0-0.2) K/uL Immature Gran # (Auto) (0.00-0.02) K/uL PT (9.0-12.0) Seconds INR (0.9-1.1) APTT (21.0-31.0) Seconds PTT Ratio D-Dimer (0-500) ug/L FEU POC Sodium (135-144) mmol/L Sodium (136-145) mmol/L POC Potassium (3.3-5.0) mmol/L Potassium (3.5-5.1) mmol/L POC Chloride (101-112) mmol/L Chloride (98-107) mmol/L Carbon Dioxide (21-32) mmol/L POC Total CO2 (24-31) mmol/L Anion Gap (3-11) POC Anion Gap (16-25) mmol/L POC BUN (7-18) mg/dl BUN (7-18) mg/dl Creatinine (0.6-1.2) mg/dl POC Creatinine (0.6-1.3) mg/dl Est Cr Clr Drug Dosing ml/min Est GFR ( Amer) Est GFR (Non-Af Amer) BUN/Creatinine Ratio (10-20) Glucose (70-99) mg/dl POC Glucose (other) (70-99) mg/dl Lactate 1.5 (0.4-2.0) mmol/L Calcium (8.5-10.1) mg/dl POC Ioniz Calcium Reyes (1.12-1.32) mmol/l Magnesium (1.8-2.4) mg/dl Total Bilirubin (0.2-1) mg/dl AST (15-37) U/L ALT (12-78) U/L Alkaline Phosphatase (45-117) U/L Troponin I (0-0.045) ng/ml Total Protein (6.4-8.2) gm/dl Albumin (3.4-5.0) gm/dl Globulin (2.5-4.0) gm/dl Albumin/Globulin Ratio (0.9-2) Procalcitonin (0-0.5) ng/ml [facility] Narrative 1453: The patient was evaluated in room C6. A complete history and physical exam was performed. Patient was seen in full airborne precautions. Patient was seen in N95's, gloves, gowns, face shield by myself and staff. Cardiac monitoring: An order was placed for continuous cardiac monitoring. The monitor shows a rate of [] with [] rhythm EMR reviewed. Patient was seen in the emergency department on January 15, 2020. Patient was taking Cipro for UTI. Patient had CT of the abdomen done that night which was read by stat rad which showed mild bilateral perinephric stranding. Official CT read of that abdominal scan done the next morning by our radiologist showed no perinephric stranding. It did show groundglass opacities in the lungs. Urine culture did show E. coli ESBL from urine culture collected on January 15, 2020. The ESBL was resistant to fluoroquinolones. I reviewed this culture with pharmacist prior to the patient's arrival. Pharmacist called the patient reported that she was continue to have back and abdominal pain. Given this she was told to return to emergency department. Patient is continuing of abdominal pain and flank pain. Patient will be treated with ertapenem empirically and [facility]: Patient's oxygen saturation has been in the low 90s on room air. Patient be given Decadron 6 mg given her oxygen saturation less than 94% and her recent coronavirus diagnosis and will be started on supplemental oxygen via nasal cannula. Labs show a lactic acidemia of 2.2. Patient will be admitted to the [facility] hospitalist service, Dr. Choudhury notified. 1800: D-dimer elevated 910. Patient will have CTA of the chest also ordered. Patient is currently being evaluated by the [facility] hospitalist Dr. Choudhury. Impression & Plan Sepsis Discharge Plan Visit Data Chief Complaint: Urinary Symptoms Stated Complaint: NEEDS IV MEDS FOR UTI, HX OF COVID + ED Provider: Pedro Cano Discharge Problem: Sepsis Patient Disposition: Being Evaluated by Hospitalist Forms Stand Alone Forms: My [facility], Virtual Emergency Department, Important Visit Information Prescriptions Prescriptions: No Action carvedilol 6.25 mg tablet 6.25 mg PO BID Qty: 180 RF: 1 divalproex 500 mg tablet,delayed release (DR/EC) 1,000 mg PO HS Qty: 180 RF: 3 rosuvastatin 10 mg tablet 10 mg PO HS Qty: 90 RF: 3 cefuroxime axetil 250 mg tablet 250 mg PO BID 7 Days Qty: 14 RF: 0 Symbicort 80-4.5 mcg/actuation HFA aerosol inhaler 2 puffs INH BID Qty: 1 RF: 11 cholecalciferol (vitamin D3) 5,000 unit tablet 5,000 units PO QAM RF: 0 Multi For Her 50 Plus 400-80 mcg Capsule 1 cap PO QAM RF: 0 hydrocodone-homatropine [Hydrocodone Compound] 5-1.5 mg/5 mL syrup 5 ml PO Q6H PRN (Reason: Cough) RF: 0 zinc 15 mg Tablet 30 mg PO QAM RF: 0 Vitamin C 1,000 mg Capsule, Extended Release 1 cap PO QAM RF: 0 furosemide 20 mg tablet 20 mg PO DAILY PRN (Reason: Edema) RF: 0 levothyroxine 112 mcg tablet 112 mcg PO QAM RF: 0 potassium chloride [Klor-Con M10] 10 mEq tablet,ER particles/crystals 10 meq PO DAILY PRN (Reason: If Furosemide Taken) RF: 0 cefdinir 300 mg capsule 300 mg PO Q12H 7 Days Qty: 14 RF: 0 Referrals Referrals: Grady Bojorquez III, MD [Primary Care Provider] -
[2020-01-17 17:55] LABS: D Dimer 910 ug/L FEU (0-500)
[2020-01-17 19:54] LABS: Appearance Urine Clear (Clear); Bilirubin Urine Negative (Negative); Blood Urine Negative (Negative); Color Urine Yellow; Glucose Urine UA Negative (Negative); Ketones Urine Trace (Negative); Leukocyte Esterase Urine Negative (Negative); Nitrite Urine Negative (Negative); Protein Urine Negative (Negative); Specific Gravity Urine 1.019 (1.000-1.030); Urobilinogen Urine Negative (Negative); pH Urine 5.5 (4.5-7.5)
[2020-01-17] MEDS ORDERED: ONDANSETRON INJ 2 MG/ML 2 ML VIAL IV PRN (22:15)
[2020-01-17] MEDS ORDERED: ACETAMINOPHEN 325 MG TAB PO PRN (22:15)
[2020-01-17] MEDS ORDERED: HYDROcodone/HOMATROPINE SYRUP 5MG/1.5MG 5ML UDP PO PRN (22:15)
[2020-01-17] MEDS ORDERED: ALUMINUM/MAGNESIUM SUSP 30 ML UDC PO PRN (22:15)
[2020-01-17] MEDS ORDERED: POLYETHYLENE (MIRALAX) 17 GM PACK PO PRN (22:15)
[2020-01-17] MEDS ORDERED: REMDESIVIR 200 MG in SODIUM CHLORIDE 0.9% 210 ML IV ONE (23:00)
[2020-01-17] MEDS: DIVALPROEX DELAY RELEASE 500 MG TAB PO SCH (23:20)
[2020-01-17] MEDS: ROSUVASTATIN CALCIUM 10 MG TAB PO SCH (23:20)
[2020-01-17] MEDS: carvediloL 6.25 MG TAB PO SCH (23:21)
[2020-01-17] MEDS: ENOXAPARIN INJ 40 MG/0.4 ML SYR SQ SCH (23:23)
[2020-01-17] MEDS: SODIUM CHLORIDE 0.9% 10ML FLUSH IV SCH (23:24)
--- NOTE | 2020-01-17 23:24 | Electrocardiogram Report ---
Test Reason : Blood Pressure : / mmHG Vent. Rate : 086 BPM Atrial Rate : 086 BPM P-R Int : 128 ms QRS Dur : 086 ms QT Int : 382 ms P-R-T Axes : 043 -14 050 degrees QTc Int : 457 ms Normal sinus rhythm Moderate voltage criteria for LVH, may be normal variant Borderline ECG When compared with ECG of 16-APR-2011 06:56, No significant change was found Confirmed by Sameer Santoyo ([id number]) on 01/17/2020 11:23:58 PM Referred By: Confirmed By:Sameer Santoyo
[2020-01-18] MEDS ORDERED: CARBOHYDRATES FOR HYPOGLYCEMIA PO PRN (01:29)
[2020-01-18] MEDS ORDERED: GLUCOSE 40% GEL 15 GM TUBE PO PRN (01:29)
[2020-01-18] MEDS ORDERED: GLUCAGON FOR INJ 1 MG VIAL SQ PRN (01:29)
[2020-01-18] MEDS ORDERED: DEXTROSE 50% 50 ML SYRINGE IV PRN (01:29)
[2020-01-18] MEDS ORDERED: GLUCOSE 10 TABS/TUBE PO PRN (01:29)
[2020-01-18] MEDS ORDERED: SODIUM CHLORIDE 0.9% 10ML FLUSH IV SCH (01:30)
[2020-01-18] MEDS: LEVOTHYROXINE SODIUM 112 MCG TABLET PO SCH (06:10)
[2020-01-18 06:52] LABS: Basophils # (auto) 0.01 K/uL (0-0.2); Basophils % (auto) 0.2 %; Hematocrit (blood only) 36.7 % (37-47); Hemoglobin 11.9 g/dL (12.0-16.0); Immature Granulocytes # (auto) 0.08 K/uL (0.00-0.02); Immature Granulocytes % (auto) 1.3 %; Lymphocytes # (auto) 1.33 K/uL (1.2-3.4); Lymphocytes % (auto) 21.9 %; Mean Corpuscular Hemoglobin 30.2 pg (25-34); Mean Corpuscular Hgb Conc 32.4 g/dL (32-36); Mean Corpuscular Volume 93.1 fL (80-100); Mean Platelet Volume 10.4 fL (7.4-10.4); Monocytes # (auto) 0.51 K/uL (0.11-0.59); Monocytes % (auto) 8.4 %; Neutrophils # (auto) 4.14 K/uL (1.4-6.5); Neutrophils % (auto) 68.2 %; Platelet Count 282 K/uL (130-400); RDW Coefficient of Variation 14.7 % (11.5-14.5); RDW Standard Deviation 49.7 fL (36.4-46.3); Red Blood Count 3.94 M/uL (4.2-5.4); White Blood Count 6.07 K/uL (4.8-10.8)
[2020-01-18 07:12] LABS: Albumin Level 2.7 gm/dl (3.4-5.0); BUN Creatinine Ratio 25.4 (10-20); Calcium 8.7 mg/dl (8.5-10.1); Creatinine Clr Calc Pharmacy 123.8 ml/min; Est GFR (African American) 116.3; Est GFR (Non-African American) 100.3; Magnesium 2.3 mg/dl (1.8-2.4); Potassium 4.1 mmol/L (3.5-5.1)
[2020-01-18 07:14] LABS: Albumin Globulin Ratio 0.7 (0.9-2); Bilirubin,Total 0.4 mg/dl (0.2-1); Globulin 3.7 gm/dl (2.5-4.0); Total Protein 6.4 gm/dl (6.4-8.2)
[2020-01-18] MEDS: FLUTICASONE/VILANTEROL 200/25MCG 14 PUFFS/INHALER INH SCH (07:50)
[2020-01-18] MEDS: carvediloL 6.25 MG TAB PO SCH ×2 (07:51→21:02)
[2020-01-18] MEDS: ENOXAPARIN INJ 40 MG/0.4 ML SYR SQ SCH ×2 (07:53→21:03)
[2020-01-18] MEDS: ASCORBIC ACID 500 MG TAB PO SCH (07:54)
[2020-01-18] MEDS: CHOLECALCIFEROL 1,000 UNITS 25 MCG TAB PO SCH (07:54)
[2020-01-18] MEDS: ZINC SULFATE 220 MG CAPSULE PO SCH (07:54)
[2020-01-18] MEDS: CEROVITE ADV FORMULA TAB PO SCH (07:54)
[2020-01-18] MEDS: dexAMETHasone 6 MG in SYRINGE 0 ML IV SCH (08:55)
[2020-01-18] MEDS: INSULIN ASPART 100 UNITS/ML 3 ML PEN SC SCH ×4 (09:58→21:10)
[2020-01-18] MEDS: ERTAPENEM SODIUM 1,000 MG in SODIUM CHLORIDE 0.9% 50 ML IV SCH (14:03)
[2020-01-18] MEDS: ROSUVASTATIN CALCIUM 10 MG TAB PO SCH (21:02)
[2020-01-18] MEDS: DIVALPROEX DELAY RELEASE 500 MG TAB PO SCH (21:02)
--- NOTE | 2020-01-18 21:54 | Hospitalist Progress Note ---
Date of Service January 18, 2020 Assessment & Plan (1) Infection due to ESBL-producing Escherichia coli: Follow up blood cultures Ertapenem 1g IV daily will cotninue for 7 days. (2) Acute pyelonephritis: Left flank pain with ESBL E. Coli urine culture. (3) Severe acute respiratory syndrome coronavirus 2 (SARS-CoV-2) detected: Severe due to hypoxia however chest auscultation and CXR unremarkable. Suspect major driving factor of her fatigue is pyelonephritis as above rather than COVID-19. Start dexamethasone 6mg IV daily for 10 days. Discussed and will continue 5 day course of Remdesivir. Discussed and opted out of giving convalescent plasma given lack of CXR findings and alternative illness causing majority of her symptoms. (4) Obstructive sleep apnea of adult: May use own CPAP. (5) Restrictive lung disease: Suspected secondary to morbid obesity (6) Hypothyroidism: TSH 2.17 in September Continue levothyroxine 112 mcg p.o. every morning (7) Hypercholesteremia: Continue rosuvastatin 10 mg p.o. at bedtime (8) Hypertension: Continue carvedilol 6.25 mg p.o. twice daily (9) DVT prophylaxis: Elevated d-dimer in setting of COVID-19. Lovenox 40mg SQ BID. Admission and Anticipated Discharge Date Admission Date: January 17, 2020 Subjective 59 yo female reports feeling well. Patient has no new complaints at this time. Review of Systems Review of Systems: All systems reviewed & are unremarkable except as noted in HPI & below Physical Exam Physical Exam: Constitutional: well developed, well nourished and + morbidly obese; no acute distress Eyes: + anicteric sclerae; normal pupil size ENMT: external ear and nose normal, oropharynx normal Neck: trachea midline, no thyromegaly Respiratory: normal respiratory effort, + cough (occasional dry) and able to speak in complete sentences; no labored breathing, no retractions and does not u se accessory muscles Auscultation: lungs clear to auscultation bilaterally (anteriorly) and + diminished lung sounds (bibasal poor air entry); no crackles, no rhonchi and no wheezes Cardiovascular: RRR, no murmur, no edema Gastrointestinal (Abdomen): Inspection/Auscultation: abdomen normal to inspection and normal bowel sounds Percussion/Palpation: abdomen soft; abdomen nontender, no guarding and abdomen not rigid Musculoskeletal: no cyanosis or clubbing, extremities motor strength 5/5 Skin: no rashes, warm and dry (no areas of cellulitis) Neurologic: moves all extremities and awake; no focal motor deficits and not confused Speech / Cognition: normal speech Motor/Sensory: no tremor and no pronator drift Psychiatric: A+Ox3, euthymic affect Results & Data Results & Data ([facility]) Vital Signs (Past 12 Hours) Vital Signs Temp Pulse Resp BP Pulse Ox 01/18/20 20:47 36.7 C 89 19 121/65 92 01/18/20 16:00 36.6 C 76 20 137/94 92 01/18/20 11:53 36.9 C 78 18 136/94 92 PG Care Time/CCT Total # of Minutes Spent Total Time Spent with Patient: Total time spent is greater than 50% in coordination of care (as documented) at patient's floor/unit and/or counseling patient: Coding Level of Care Code 64613 Subseq Hosp Care Lvl 3 Diagnoses Infection due to ESBL-producing Escherichia coli A49.8; Z16.12 Acute pyelonephritis N10 Severe acute respiratory syndrome coronavirus 2 (SARS-CoV-2) detected U07.1 Obstructive sleep apnea of adult G47.33 Restrictive lung disease J98.4 Hypothyroidism E03.9 Hypercholesteremia E78.00 Hypertension I10 DVT prophylaxis Z29.9
[2020-01-19] MEDS: REMDESIVIR 100 MG in SODIUM CHLORIDE 0.9% 230 ML IV SCH ×2 (00:06→22:20)
[2020-01-19] MEDS: SODIUM CHLORIDE 0.9% 10ML FLUSH IV SCH ×2 (01:57→23:37)
[2020-01-19] MEDS: LEVOTHYROXINE SODIUM 112 MCG TABLET PO SCH (06:43)
[2020-01-19] MEDS: INSULIN ASPART 100 UNITS/ML 3 ML PEN SC SCH ×4 (07:59→22:11)
[2020-01-19] MEDS: FLUTICASONE/VILANTEROL 200/25MCG 14 PUFFS/INHALER INH SCH (07:59)
[2020-01-19] MEDS: carvediloL 6.25 MG TAB PO SCH ×2 (08:00→22:09)
[2020-01-19] MEDS: CEROVITE ADV FORMULA TAB PO SCH (08:01)
[2020-01-19] MEDS: dexAMETHasone 6 MG in SYRINGE 0 ML IV SCH (08:01)
[2020-01-19] MEDS: ENOXAPARIN INJ 40 MG/0.4 ML SYR SQ SCH ×2 (08:01→22:09)
[2020-01-19] MEDS: ASCORBIC ACID 500 MG TAB PO SCH (08:02)
[2020-01-19] MEDS: ZINC SULFATE 220 MG CAPSULE PO SCH (08:03)
[2020-01-19] MEDS: CHOLECALCIFEROL 1,000 UNITS 25 MCG TAB PO SCH (08:03)
[2020-01-19 08:43] LABS: Basophils # (auto) 0.02 K/uL (0-0.2); Basophils % (auto) 0.2 %; Hematocrit (blood only) 37.7 % (37-47); Hemoglobin 12.1 g/dL (12.0-16.0); Immature Granulocytes # (auto) 0.11 K/uL (0.00-0.02); Lymphocytes # (auto) 1.83 K/uL (1.2-3.4); Lymphocytes % (auto) 16.9 %; Mean Corpuscular Hemoglobin 29.8 pg (25-34); Mean Corpuscular Hgb Conc 32.1 g/dL (32-36); Mean Corpuscular Volume 92.9 fL (80-100); Mean Platelet Volume 10.6 fL (7.4-10.4); Monocytes # (auto) 0.88 K/uL (0.11-0.59); Monocytes % (auto) 8.1 %; Neutrophils # (auto) 7.97 K/uL (1.4-6.5); Neutrophils % (auto) 73.8 %; Platelet Count 370 K/uL (130-400); RDW Coefficient of Variation 14.7 % (11.5-14.5); RDW Standard Deviation 49.2 fL (36.4-46.3); Red Blood Count 4.06 M/uL (4.2-5.4); White Blood Count 10.81 K/uL (4.8-10.8)
[2020-01-19 08:52] LABS: D Dimer 290 ug/L FEU (0-500)
[2020-01-19 09:10] LABS: Calcium 9.4 mg/dl (8.5-10.1); Creatinine Clr Calc Pharmacy 128.1 ml/min; Est GFR (African American) 117.6; Est GFR (Non-African American) 101.5; Potassium 3.9 mmol/L (3.5-5.1)
[2020-01-19] MEDS: ERTAPENEM SODIUM 1,000 MG in SODIUM CHLORIDE 0.9% 50 ML IV SCH (13:41)
[2020-01-19] MEDS: ROSUVASTATIN CALCIUM 10 MG TAB PO SCH (22:09)
[2020-01-19] MEDS: DIVALPROEX DELAY RELEASE 500 MG TAB PO SCH (22:10)
--- NOTE | 2020-01-19 22:41 | Hospitalist Progress Note ---
Date of Service January 19, 2020 Assessment & Plan (1) Infection due to ESBL-producing Escherichia coli: Follow up blood cultures Ertapenem 1g IV daily will continue for 7 days. (2) Acute pyelonephritis: Left flank pain with ESBL E. Coli urine culture. (3) Severe acute respiratory syndrome coronavirus 2 (SARS-CoV-2) detected: Severe due to hypoxia however chest auscultation and CXR unremarkable. Suspect major driving factor of her fatigue is pyelonephritis as above rather than COVID-19. Start dexamethasone 6mg IV daily for 10 days. Discussed and will continue 5 day course of Remdesivir. Discussed and opted out of giving convalescent plasma given lack of CXR findings and alternative illness causing majority of her symptoms. Oxygen requirements have been decreasing with each day. will monitor. (4) Obstructive sleep apnea of adult: May use own CPAP. (5) Restrictive lung disease: Suspected secondary to morbid obesity (6) Hypothyroidism: TSH 2.17 in September Continue levothyroxine 112 mcg p.o. every morning (7) Hypercholesteremia: Continue rosuvastatin 10 mg p.o. at bedtime (8) Hypertension: Continue carvedilol 6.25 mg p.o. twice daily (9) DVT prophylaxis: Elevated d-dimer in setting of COVID-19. Lovenox 40mg SQ BID. Admission and Anticipated Discharge Date Admission Date: January 17, 2020 Subjective Patient reports feeling myldly better today. No new complaints. Review of Systems Review of Systems: All systems reviewed & are unremarkable except as noted in HPI & below Physical Exam Physical Exam: Constitutional: well developed, well nourished and + morbidly obese; no acute distress Eyes: + anicteric sclerae; normal pupil size ENMT: external ear and nose normal, oropharynx normal Neck: trachea midline, no thyromegaly Respiratory: normal respiratory effort, + cough (occasional dry) and able to speak in complete sentences; no labored breathing, no retractions and does not use accessory muscles Auscultation: lungs clear to auscultation bilaterally (anteriorly) and + diminished lung sounds (bibasal poor air entry); no crackles, no rhonchi and no wheezes Cardiovascular: RRR, no murmur, no edema Gastrointestinal (Abdomen): Inspection/Auscultation: abdomen normal to inspection and normal bowel sounds Percussion/Palpation: abdomen soft; abdomen nontender, no guarding and abdomen not rigid Musculoskeletal: no cyanosis or clubbing, extremities motor strength 5/5 Skin: no rashes, warm and dry (no areas of cellulitis) Neurologic: moves all extremities and awake; no focal motor deficits and not confused Speech / Cognition: normal speech Motor/Sensory: no tremor and no pronator drift Psychiatric: A+Ox3, euthymic affect Patient is requiring less oxygen today. Results & Data Results & Data ([facility]) Vital Signs (Past 12 Hours) Vital Signs Temp Pulse Resp BP BP Pulse Ox 01/19/20 22:00 65 20 118/76 92 01/19/20 15:50 36.5 C 70 16 146/86 H 91 01/19/20 12:03 36.6 C 66 14 129/85 93 PG Care Time/CCT Total # of Minutes Spent Total Time Spent with Patient: Total time spent is greater than 50% in coordination of care (as documented) at patient's floor/unit and/or counseling patient: Coding Level of Care Code 90471 Subseq Hosp Care Lvl 2 Diagnoses Infection due to ESBL-producing Escherichia coli A49.8; Z16.12 Acute pyelonephritis N10 Severe acute respiratory syndrome coronavirus 2 (SARS-CoV-2) detected U07.1 Obstructive sleep apnea of adult G47.33 Restrictive lung disease J98.4 Hypothyroidism E03.9 Hypercholesteremia E78.00 Hypertension I10 DVT prophylaxis Z29.9
[2020-01-19] MEDS ORDERED: REMDESIVIR 100 MG in SODIUM CHLORIDE 0.9% 230 ML IV SCH (23:00)
[2020-01-20] MEDS: LEVOTHYROXINE SODIUM 112 MCG TABLET PO SCH (06:00)
[2020-01-20 06:04] LABS: Hematocrit (blood only) 35.6 % (37-47); Hemoglobin 11.6 g/dL (12.0-16.0); Mean Corpuscular Hemoglobin 29.9 pg (25-34); Mean Corpuscular Hgb Conc 32.6 g/dL (32-36); Mean Corpuscular Volume 91.8 fL (80-100); Mean Platelet Volume 10.2 fL (7.4-10.4); Nucleated RBC # (auto) 0.07 K/uL (0-0); Nucleated RBC % (auto) 0.6 %; Platelet Count 354 K/uL (130-400); RDW Coefficient of Variation 14.5 % (11.5-14.5); RDW Standard Deviation 47.8 fL (36.4-46.3); Red Blood Count 3.88 M/uL (4.2-5.4); White Blood Count 11.21 K/uL (4.8-10.8)
[2020-01-20 06:30] LABS: Albumin Level 2.6 gm/dl (3.4-5.0); BUN Creatinine Ratio 38.4 (10-20); Calcium 8.8 mg/dl (8.5-10.1); Creatinine Clr Calc Pharmacy 125.9 ml/min; Est GFR (African American) 116.9; Est GFR (Non-African American) 100.9; Potassium 4.2 mmol/L (3.5-5.1)
[2020-01-20 06:32] LABS: Albumin Globulin Ratio 0.8 (0.9-2); Bilirubin,Total 0.6 mg/dl (0.2-1); Globulin 3.4 gm/dl (2.5-4.0)
[2020-01-20] MEDS: carvediloL 6.25 MG TAB PO SCH ×2 (08:32→20:30)
[2020-01-20] MEDS: ZINC SULFATE 220 MG CAPSULE PO SCH (08:33)
[2020-01-20] MEDS: ASCORBIC ACID 500 MG TAB PO SCH (08:33)
[2020-01-20] MEDS: dexAMETHasone 6 MG in SYRINGE 0 ML IV SCH (08:33)
[2020-01-20] MEDS: CHOLECALCIFEROL 1,000 UNITS 25 MCG TAB PO SCH (08:33)
[2020-01-20] MEDS: CEROVITE ADV FORMULA TAB PO SCH (08:33)
[2020-01-20] MEDS: INSULIN ASPART 100 UNITS/ML 3 ML PEN SC SCH ×4 (08:34→20:31)
[2020-01-20] MEDS: FLUTICASONE/VILANTEROL 200/25MCG 14 PUFFS/INHALER INH SCH (08:34)
[2020-01-20] MEDS: ENOXAPARIN INJ 40 MG/0.4 ML SYR SQ SCH ×2 (08:37→20:31)
[2020-01-20] MEDS: ERTAPENEM SODIUM 1,000 MG in SODIUM CHLORIDE 0.9% 50 ML IV SCH (13:12)
[2020-01-20] MEDS: ROSUVASTATIN CALCIUM 10 MG TAB PO SCH (20:30)
[2020-01-20] MEDS: DIVALPROEX DELAY RELEASE 500 MG TAB PO SCH (20:30)
[2020-01-20] MEDS: SODIUM CHLORIDE 0.9% 10ML FLUSH IV SCH (22:36)
[2020-01-20] MEDS: REMDESIVIR 100 MG in SODIUM CHLORIDE 0.9% 230 ML IV SCH (22:36)
--- NOTE | 2020-01-20 23:27 | Hospitalist Progress Note ---
Date of Service January 20, 2020 Assessment & Plan (1) Infection due to ESBL-producing Escherichia coli: Follow up blood cultures Ertapenem 1g IV daily will continue for 7 days. No change in plan (2) Acute pyelonephritis: Left flank pain with ESBL E. Coli urine culture. (3) Severe acute respiratory syndrome coronavirus 2 (SARS-CoV-2) detected: Severe due to hypoxia however chest auscultation and CXR unremarkable. Suspect major driving factor of her fatigue is pyelonephritis as above rather than COVID-19. Start dexamethasone 6mg IV daily for 10 days. Discussed and will continue 5 day course of Remdesivir. Discussed and opted out of giving convalescent plasma given lack of CXR findings and alternative illness causing majority of her symptoms. Oxygen requirements have been decreasing with each day. will monitor. (4) Obstructive sleep apnea of adult: May use own CPAP. (5) Restrictive lung disease: Suspected secondary to morbid obesity (6) Hypothyroidism: TSH 2.17 in September Continue levothyroxine 112 mcg p.o. every morning (7) Hypercholesteremia: Continue rosuvastatin 10 mg p.o. at bedtime (8) Hypertension: Continue carvedilol 6.25 mg p.o. twice daily (9) DVT prophylaxis: Elevated d-dimer in setting of COVID-19. Lovenox 40mg SQ BID. Admission and Anticipated Discharge Date Admission Date: January 17, 2020 Subjective Patient denies any symptoms currently Review of Systems Review of Systems: All systems reviewed & are unremarkable except as noted in HPI & below Physical Exam Physical Exam: Constitutional: well developed, well nourished and + morbidly obese; no acute distress Eyes: + anicteric sclerae; normal pupil size ENMT: external ear and nose normal, oropharynx normal Neck: trachea midline, no thyromegaly Respiratory: normal respiratory effort, + cough (occasional dry) and able to speak in complete sentences; no labored breathing, no retractions and does not use accessory muscles Auscultation: lungs clear to auscultation bilaterally Cardiovascular: RRR, no murmur, no edema Gastrointestinal (Abdomen): Inspection/Auscultation: abdomen normal to inspection and normal bowel sounds Percussion/Palpation: abdomen soft; abdomen nontender, no guarding and abdomen not rigid Musculoskeletal: no cyanosis or clubbing, extremities motor strength 5/5 Skin: no rashes, warm and dry (no areas of cellulitis) Neurologic: moves all extremities and awake; no focal motor deficits and not confused Speech / Cognition: normal speech Motor/Sensory: no tremor and no pronator drift Psychiatric: A+Ox3, euthymic affect Patient is requiring less oxygen today. Results & Data Results & Data ([facility]) Vital Signs (Past 12 Hours) Vital Signs Temp Pulse Resp BP Pulse Ox 01/20/20 23:06 36.4 C L 65 20 131/87 90 01/20/20 15:28 36.3 C L 01/20/20 15:23 67 18 133/89 92 01/20/20 13:53 91 PG Care Time/CCT Total # of Minutes Spent Total Time Spent with Patient: Total time spent is greater than 50% in coordination of care (as documented) at patient's floor/unit and/or counseling patient: Coding Level of Care Code 30323 Subseq Hosp Care Lvl 2 Diagnoses Infection due to ESBL-producing Escherichia coli A49.8; Z16.12 Acute pyelonephritis N10 Severe acute respiratory syndrome coronavirus 2 (SARS-CoV-2) detected U07.1 Obstructive sleep apnea of adult G47.33 Restrictive lung disease J98.4 Hypothyroidism E03.9 Hypercholesteremia E78.00 Hypertension I10 DVT prophylaxis Z29.9
[2020-01-21] MEDS: LEVOTHYROXINE SODIUM 112 MCG TABLET PO SCH (05:26)
[2020-01-21] MEDS: carvediloL 6.25 MG TAB PO SCH (09:05)
[2020-01-21] MEDS: CEROVITE ADV FORMULA TAB PO SCH (09:06)
[2020-01-21] MEDS: ASCORBIC ACID 500 MG TAB PO SCH (09:06)
[2020-01-21] MEDS: CHOLECALCIFEROL 1,000 UNITS 25 MCG TAB PO SCH (09:06)
[2020-01-21] MEDS: ZINC SULFATE 220 MG CAPSULE PO SCH (09:06)
[2020-01-21] MEDS: FLUTICASONE/VILANTEROL 200/25MCG 14 PUFFS/INHALER INH SCH (09:07)
[2020-01-21] MEDS: ENOXAPARIN INJ 40 MG/0.4 ML SYR SQ SCH (09:08)
[2020-01-21] MEDS: dexAMETHasone 6 MG in SYRINGE 0 ML IV SCH (09:10)
[2020-01-21] MEDS: INSULIN ASPART 100 UNITS/ML 3 ML PEN SC SCH ×2 (09:17→12:04)
[2020-01-21] MEDS: ERTAPENEM SODIUM 1,000 MG in SODIUM CHLORIDE 0.9% 50 ML IV SCH (14:18)
--- NOTE | 2020-01-26 11:06 | Discharge Summary ---
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 Coli. In addition she has a recent diagnosis of COVID-19. Regarding the urine culture she started having dysuria and suprapubic and back pain 4 days ago - she was prescribed ceftin but advised to only take it after finishing the azithromycin so started this 3 days ago. No urine culture taken at that time and previously on [employer] urine cultures usually mixed frantz. Unfortunately her symptoms progressed and she came to the ER [address] at that time showed no obstructing kidney stones or hydronephrosis. Her antibiotic was switched to cefdinir and she was discharged from the ER. Her urinary symptoms have not significantly changed since her ER visit but she is sleeping the majority of the day and wearing her CPAP most of the time. Subsequent urine culture from this ER visit grew ESBL E. coli and given no improvement in her symptoms she was advised to return to the ER. She denies ever having grown resistant organisms in the past. Regarding her COVID-19 diagnosis. She is tested regularly for asymptomatic SARS-COV-2 for her job twice a week. Her last test was 9 days ago on the and she was asymptomatic at that time. This test subsequently came back positive 2 days later. The following day from taking the test she started developing symptoms of sore throat. She was prescribed azithromycin for chest and nasal congestion which she started taking on 01/09 and took a full 5 day course which did not help. She reports additional COVID-19 symptoms: headache for last 2 days, dry cough started today, hypoxia (noted on her home O2 sats probe 85-88% yesterday). Her biggest symptom however is generalized fatigue and loss of appetite which has progressively become worse since her diagnosis although difficult to tell whether this is secondary to COVID-19 vs. urine tract infection as above. In the ER CXR was relatively unremarkable. She was however mildly hypoxic requiring 2L O2 at rest. Principal Diagnosis Infection due to ESBL bacteremia Discharge Exam Constitutional: well developed, well nourished and + morbidly obese; no acute distress Eyes: + anicteric sclerae; normal pupil size ENMT: external ear and nose normal, oropharynx normal Neck: trachea midline, no thyromegaly Respiratory: normal respiratory effort, lungs clear to auscultation bilaterally Cardiovascular: RRR, no murmur, no edema Gastrointestinal (Abdomen): Inspection/Auscultation: abdomen normal to inspection and normal bowel sounds Percussion/Palpation: abdomen soft; abdomen nontender, no guarding and abdomen not rigid Musculoskeletal: no cyanosis or clubbing, extremities motor strength 5/5 Skin: no rashes, warm and dry (no areas of cellulitis) Neurologic: moves all extremities and awake; no focal motor deficits and not confused Speech / Cognition: normal speech Motor/Sensory: no tremor and no pronator drift Psychiatric: A+Ox3, euthymic affect Discharge Data Allergies Allergy/AdvReac Type Severity Reaction Status Date / Time amoxicillin AdvReac Mild diarrhea Verified 01/17/20 16:05 clavulanic acid AdvReac Mild diarrhea Verified 01/17/20 16:05 Consultations 01/17/20 15:27 ED Decision to Admit Stat Hospital Course (1) Infection due to ESBL-producing Escherichia coli: D/W patient. Ertapenem 1g IV daily Will extend course to 10 days. will finish 10 day course at home. Home health is set up. She was on room air for past 24 hours. And did not require oxygen while ambulating. (2) Acute pyelonephritis: Left flank pain with ESBL E. Coli urine culture. (3) Severe acute respiratory syndrome coronavirus 2 (SARS-CoV-2) detected: Severe due to hypoxia however chest auscultation and CXR unremarkable. Suspect major driving factor of her fatigue is pyelonephritis as above rather than COVID-19. Start dexamethasone 6mg IV daily for 10 days. Discussed and will continue 5 day course of Remdesivir. Discussed and opted out of giving convalescent plasma given lack of CXR findings and alternative illness causing majority of her symptoms. No longer needs oxygen. (4) Obstructive sleep apnea of adult: May use own CPAP. (5) Restrictive lung disease: Suspected secondary to morbid obesity (6) Hypothyroidism: TSH 2.17 in September Continue levothyroxine 112 mcg p.o. every morning (7) Hypercholesteremia: Continue rosuvastatin 10 mg p.o. at bedtime (8) Hypertension: Continue carvedilol 6.25 mg p.o. twice daily (9) DVT prophylaxis: Elevated d-dimer in setting of COVID-19. Lovenox 40mg SQ BID. Total Time Total Time Spent Total Time Spent (In Minutes): 32 Total Time Includes: Examination of the Patient, Discharge Planning and Medication Reconciliation Discharge Plan Discharge Items Patient Disposition: Home - Home Health Services Reason For Visit: ACUTE ESBLE PYELONEPHRITIS, SARS COV-2 POSITIVE Discharge Diagnosis: Pyelonephritis/ SARS COV-2 Positive Activity: Resume your previous activity Non-emergency contact: Primary Care Provider Call non-emergency contact if: you have any medication questions Follow-up/Referrals: Grady Bojorquez III, MD [Primary Care Provider] - 02/03/20 1:50 pm (TELEHEALTH APPT WITH DR BOJORQUEZ) Diet: Regular Addtl Attending Provider Instructions: You have been hospitalized for an acute medical problem. During your stay at [facility], we have made an effort to correct the problem that brought you to the hospital while keeping you as comfortable as possible. Medications were used to bring your condition under control and your discharge instructions will include directions for any medications you should take after leaving the hospital. Please make sure you see your Primary Care Provider as part of your follow up plan. Pending Studies at Discharge: No Stand-Alone Forms: My [facility], Smoking Cessation Medications and DC Order Prescriptions: New dexamethasone [Decadron] 6 mg tablet 6 mg PO DAILY Qty: 5 RF: 0 Continued carvedilol 6.25 mg tablet 6.25 mg PO BID Qty: 180 RF: 1 divalproex 500 mg tablet,delayed release (DR/EC) 1,000 mg PO HS Qty: 180 RF: 3 rosuvastatin 10 mg tablet 10 mg PO HS Qty: 90 RF: 3 Symbicort 80-4.5 mcg/actuation HFA aerosol inhaler 2 puffs INH BID Qty: 1 RF: 11 cholecalciferol (vitamin D3) 5,000 unit tablet 5,000 units PO QAM RF: 0 Multi For Her 50 Plus 400-80 mcg Capsule 1 cap PO QAM RF: 0 hydrocodone-homatropine [Hydrocodone Compound] 5-1.5 mg/5 mL syrup 5 ml PO Q6H PRN (Reason: Cough) RF: 0 zinc 15 mg Tablet 30 mg PO QAM RF: 0 ascorbic acid (vitamin C) 1,000 mg Capsule, Extended Release 1 cap PO QAM RF: 0 furosemide 20 mg tablet 20 mg PO DAILY PRN (Reason: Edema) RF: 0 levothyroxine 112 mcg tablet 112 mcg PO QAM RF: 0 potassium chloride [Klor-Con M10] 10 mEq tablet,ER particles/crystals 10 meq PO DAILY PRN (Reason: If Furosemide Taken) RF: 0 Discontinued cefuroxime axetil 250 mg tablet 250 mg PO BID 7 Days Qty: 14 RF: 0 cefdinir 300 mg capsule 300 mg PO Q12H 7 Days Qty: 14 RF: 0 Discharge Orders: Discharge Order (Routine); Ordered 01/21/20 Ordered By: Arron Herrera Admission Data Admit Date/Time: 01/17/20 17:21 Attending Provider: Arron Herrera Admit Provider: Hussain Choudhury Primary Care Provider: Grady Bojorquez III Other Providers: Hussain Choudhury Other Interventions: Discharge Summary Assessment (RN) Last Done: 01/21/20 14:46 Coding Level of Care Code D/C Day Management >30 mins Diagnoses Infection due to ESBL-producing Escherichia coli A49.8; Z16.12 Acute pyelonephritis N10 Severe acute respiratory syndrome coronavirus 2 (SARS-CoV-2) detected U07.1 Obstructive sleep apnea of adult G47.33 Restrictive lung disease J98.4 Hypothyroidism E03.9 Hypercholesteremia E78.00 Hypertension I10 DVT prophylaxis Z29.9
--- NOTE | 2020-01-29 13:39 | Coding Query ---
SEPSIS THERE IS SEPSIS DOCUMENTED ON ER AND BACTEREMIA DOCUMENTED ON DISCHARGE SUMMARY. PLEASE SPECIFY BELOW, DUE TO CONFLICTING DOCUMENTATION. THANK YOU! To promote full compliance with coding requirements relating to patient care, physician participation is requested in all cases of mrb engineer uncertainty. Please assist us with the question(s) below: In responding to this query, please exercise your independent professional judgement. The fact that a question is asked does not imply that any particular answer is desired or expected. We appreciate your clarification on this issue. Throughout the medical record, you have clearly documented a localized infection and your patient has clinical evidence of a generalized sepsis or severe sepsis. The term urosepsis is a nonspecific entity and is coded as an UTI. If the patient has sepsis, severe sepsis, from an urinary source or some other source, please clarify in your response below. The medical record reflects the following clinical findings: (With dates as appropriate) (Body temperature of >38.3 C(101 F) or <36 C(96.8F), pulse >90/minute, respirations >20/minute, WBC count >12,000 or <4,000, altered mental status, significant edema or positive fluid balance, hyperglycemia without diabetes, hypotension, metabolic acidosis (elev. lactate level, anion gap or reduced blood pH), shock, positive blood culture (enter organism) ____ ()Bacteremia (Nonspecific laboratory finding of bacteria in the blood) Specify Organism ESBL as noted in notes (x) Present on Admission () Not present on admission () Unable to clinically determine () Septicemia (Systemic disease associated with the presence of pathogenic microorganisms in the blood): Specify Organism () Present on Admission () Not present on admission () Unable to clinically determine () Sepsis Specify Organism Specify Associated Condition/Diagnosis () Present on Admission () Not present on admission () Unable to clinically determine () Severe Sepsis (Sepsis associated with acute organ dysfunction) Specify Organism Specify Associated Condition/Diagnosis () Present on Admission () Not present on admission () Unable to clinically determine () Septic Shock (Severe sepsis with acute circulatory failure, unexplained by other causes) () Present on Admission () Not present on admission () Unable to clinically determine () Other, patient has: MTDD
--- NOTE | 2020-01-29 13:49 | Coding Query ---
CODING QUERY To promote full compliance with coding requirements relating to patient care, provider participation is requested in all cases of city engineer uncertainty. Please assist us with the question(s) below: Coding Question(s): 1. There is documentation of Severe Acute Respiratory Syndrome Coronavirus 2 (SARS-Cov-2) detected. Please clarify below, in your clinical opinion, regarding the Severe Acute Respiratory Syndrome as there is no code specifically for it. ( ) Severe Acute Respiratory Syndrome is Severe Acute Respiratory Distress Syndrome ( ) Severe Acute Respiratory Syndrome is Unspecified further ( X ) Severe Acute Respiratory Syndrome is Other: Please Specify__Hypoxia and pneumonia secondary to covid -19. Does not meet criteria for ARDS 2. There is documentation that the patient tested positive for Covid-19 on January 07 and documentation of recent Covid-19 diagnosis and documentation of SARS-CoV--2 detected and the patient was treated with Remdesivir per documentation. Please clarify below, in your clinical opinion, regarding COVID- 19. ( X) COVID-19 was treated during this admission ( ) COVID-19 was Not treated during this admission, this was history only Physician's Response(s): Thank you Laura Mercado Principal Diagnosis: "that condition established after study, to be chiefly responsible for occasioning the admission of the patient to the hospital for care." Co-Existing Principal Diagnosis: "when two or more diagnoses equally meet the criteria for principal diagnosis as determined by the circumstances of admission, diagnostic work up, and/or therapy provided, and the Alphabetic Index, Tabular List, or another coding guideline does not provide sequencing direction, any one of the diagnoses may be sequenced first." "When the physician has documented what appears to be a current diagnosis in the body of the record, but has not included the diagnosis in the final diagnostic statement, the physician should be asked whether the diagnosis should be added." (Source Coding [facility] 2 QTR90. p3-4) BERENICE
--- NOTE | 2020-02-04 07:14 | Coding Query ---
CODING QUERY To promote full compliance with coding requirements relating to patient care, provider participation is requested in all cases of last scourer uncertainty. Please assist us with the question(s) below: Coding Question(s): There is Acute Pyelonephritis with ESBL E. Coli and Bacteremia with treatment including IV Ertapenam documented as well as COVID-19 with pneumonia due to COVID-19 and with treatment including IV Dexamethasone and Remdesivir. Please specify below, in your clinical opinion, to determine the diagnosis that was treated the most during this admission. ( ) Acute Pyelonephritis with ESBL E. Coli with Bacteremia ( ) COVID-19 with Pneumonia due to COVID-19 ( x) Both Acute Pyelonephritis with ESBL E. Coli with Bacteremia and COVID-19 with Pneumonia due to COVID-19 were Equally treated ( ) Other: Please Specify Physician's Response(s): Thank you Laura Mercado Principal Diagnosis: "that condition established after study, to be chiefly responsible for occasioning the admission of the patient to the hospital for care." Co-Existing Principal Diagnosis: "when two or more diagnoses equally meet the criteria for principal diagnosis as determined by the circumstances of admission, diagnostic work up, and/or therapy provided, and the Alphabetic Index, Tabular List, or another coding guideline does not provide sequencing direction, any one of the diagnoses may be sequenced first." "When the physician has documented what appears to be a current diagnosis in the body of the record, but has not included the diagnosis in the final diagnostic statement, the physician should be asked whether the diagnosis should be added." (Source [facility] 2 QTR90. p3-4) BERENICE
== END 2020-01-21 16:44 | disposition home health service (06) | DRG 177 ==
LOC: ED 14:48 → 2E 17:21 → SUATTDRO 17:21 → 2E 21:51 → 3E 01-19 11:34

== ENCOUNTER 2021-12-21 17:38 | Inpatient (IN) ==
[2021-12-21] MEDS ORDERED: ONDANSETRON INJ 2 MG/ML 2 ML VIAL IV STA (18:58)
[2021-12-21] MEDS ORDERED: SODIUM CHLORIDE 0.9% 1000ML 1,000 ML IV SCH ×2 (19:00→20:30)
[2021-12-21 19:01] LABS: Basophils # (auto) 0.03 K/uL (0-0.2); Basophils % (auto) 0.5 %; Hematocrit (blood only) 44.3 % (34.1-44.9); Hemoglobin 14.8 g/dl (12.0-16.0); Immature Granulocytes # (auto) 0.04 K/uL (0.00-0.02); Immature Granulocytes % (auto) 0.6 %; Lymphocytes # (auto) 1.46 K/uL (1.2-3.4); Lymphocytes % (auto) 23.2 %; Mean Corpuscular Hemoglobin 29.6 pg (25.0-34.0); Mean Corpuscular Hgb Conc 33.4 g/dL (32.0-36.0); Mean Corpuscular Volume 88.6 fL (80.0-100.0); Mean Platelet Volume 10.2 fL (9.4-12.3); Monocytes # (auto) 1.19 K/uL (0.24-0.82); Monocytes % (auto) 18.9 %; Neutrophils # (auto) 3.58 K/uL (1.4-6.5); Neutrophils % (auto) 56.8 %; Platelet Count 199 K/uL (130-400); RDW Coefficient of Variation 14.3 % (11.5-14.5); RDW Standard Deviation 46.2 fL (36.4-46.3)
[2021-12-21 19:20] LABS: Albumin Globulin Ratio 1.2 (0.9-2); Albumin Level 3.8 gm/dl (3.4-5.0); BUN Creatinine Ratio 20.9 (10-20); Bilirubin,Total 0.5 mg/dl (0.2-1.0); Calcium 9.3 mg/dl (8.5-10.1); Est GFR (African American) 84.5 ml/min; Est GFR (Non-African American) 72.9 ml/min; Globulin 3.3 gm/dl (2.5-4.0); Potassium 4.3 mmol/L (3.5-5.1); Total Protein 7.1 gm/dl (6.0-8.3)
--- NOTE | 2021-12-21 20:15 | XRay Report ---
XR chest 1V portable HISTORY: Sepsis COMPARISON: Chest 03/27/2020. FINDINGS: No pneumothorax. No pleural effusions. There are low lung volumes. The heart remains top no rmal in size. There is mild diffuse interstitial thickening, unchanged. This could be technical. No n ew focal lung consolidations identified. IMPRESSION: No significant change compared to the prior study. No acute process. ACT 112: Negative or not required by law. Electronically signed by: Eugene Falk M.D. 12/21/2021 8:14 PM
[2021-12-21 20:19] LABS: Adenovirus PCR Not Detected (NotDetected); Bordetella parapertussis PCR Not Detected (NotDetected); Bordetella pertussis PCR Not Detected (NotDetected); Chlamydia pneumoniae PCR Not Detected (NotDetected); Coronavirus 229E PCR Not Detected (NotDetected); Coronavirus CoV-2 (COVID19)PCR Not Detected (NotDetected); Coronavirus HKU1 PCR Not Detected (NotDetected); Coronavirus NL63 PCR Not Detected (NotDetected); Coronavirus OC43PCR Not Detected (NotDetected); Human Metapneumovirus PCR Not Detected (NotDetected); Influenza B PCR Not Detected (NotDetected); Mycoplasma pneumoniae PCR Not Detected (NotDetected); Parainfluenza Virus 1 PCR Not Detected (NotDetected); Parainfluenza Virus 2 PCR Not Detected (NotDetected); Parainfluenza Virus 3 PCR Not Detected (NotDetected); Parainfluenza Virus 4 PCR Not Detected (NotDetected); Respiratory Syncytial VirusPCR Not Detected (NotDetected); Rhinovirus/Enterovirus PCR Not Detected (NotDetected)
[2021-12-21 20:29] LABS: Influenza A (H1 2009) PCR DETECTED (NotDetected)
[2021-12-21 20:59] LABS: Prothrombin Time 11.1 Seconds (9.0-12.0)
[2021-12-21 21:33] LABS: Albumin Level 3.5 gm/dl (3.4-5.0); BUN Creatinine Ratio 22.8 (10-20); Bilirubin Direct 0.1 mg/dl (0-0.2); Bilirubin,Total 0.4 mg/dl (0.2-1.0); Calcium 8.7 mg/dl (8.5-10.1); Creatinine Clr Calc Pharmacy 89.3 ml/min; Est GFR (African American) 93.6 ml/min; Est GFR (Non-African American) 80.8 ml/min; Magnesium 1.5 mg/dl (1.7-2.4); Potassium 4.6 mmol/L (3.5-5.1); Total Protein 6.3 gm/dl (6.0-8.3)
[2021-12-21 21:35] LABS: Troponin I High Sensitivity 14.2 pg/ml (0-14)
[2021-12-21] MEDS ORDERED: ACETAMINOPHEN 1,000 MG/100 ML VIAL IV STA (21:57)
[2021-12-21 22:52] LABS: Appearance Urine Clear (Clear); Bilirubin Urine Negative (Negative); Blood Urine Negative (Negative); Color Urine Yellow; Glucose Urine UA Negative (Negative); Ketones Urine Trace (Negative); Leukocyte Esterase Urine Negative (Negative); Nitrite Urine Negative (Negative); Protein Urine Trace (Negative); Specific Gravity Urine >= 1.030 (1.000-1.030); Urobilinogen Urine Negative (Negative); pH Urine 5.5 (4.5-7.5)
[2021-12-21] MEDS ORDERED: MAGNESIUM SULFATE / D5W 1 GM/100 ML BAG IV STA (22:54)
--- NOTE | 2021-12-21 22:59 | Emergency Department Note ---
History of Present Illness General Chief complaint: Urinary Symptoms Stated complaint: UTI, NAUEOUS Time Seen by Provider: 12/21/21 18:50 Source: patient Mode of arrival: ambulatory Limitations: no limitations History of Present Illness Provider complaint: Weakness, dizziness, dysuria Onset (ago): day(s) Maximum Pain Intensity: 0 This is a 61-year-old female presents emergency department complaining of multiple symptoms including fatigue, dizziness, mild cold symptoms, and dysuria that began yesterday. She states she had myalgias and subjective fevers and chills but tried to go to work today. She states she felt increased dizziness and fatigue and came home from work. She noticed some mild dysuria, frequency and urgency. She has previously had urinary tract infections but states those are not frequent. She denies any chest pain, shortness of breath, or abdominal pain. She states she has a mild headache. 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 Home Medications Medication Instructions Recorded Confirmed Type uilfmysnzqel-rphhzydm-egkck acid 1 cap PO QAM 01/05/18 12/22/21 History 400 mcg-vitamin K 80 mcg capsule (Multi For Her 50 Plus) cholecalciferol (vitamin D3) 125 5,000 units PO QAM 10/26/18 12/22/21 History mcg (5,000 unit) tablet albuterol sulfate 90 mcg/actuation 2 puff inhalation Q4H PRN 05/17/20 12/22/21 Rx aerosol inhaler (ProAir HFA) shortness of breath #8.5 grams carvedilol 6.25 mg tablet 6.25 mg PO BID #180 tabs 12/25/20 12/22/21 Rx divalproex 500 mg tablet,delayed 1,000 mg PO HS #180 tabs 12/25/20 12/22/21 Rx release levothyroxine 112 mcg tablet 112 mcg PO QAM #90 tabs 12/25/20 12/22/21 Rx rosuvastatin 10 mg tablet 10 mg PO HS #90 tabs 12/25/20 12/22/21 Rx oxybutynin chloride 5 mg 5 mg PO DAILY #90 tabs 08/04/21 12/22/21 Rx tablet,extended release 24 hr budesonide-formoterol HFA 160 2 puff inhalation BID #3 Inhalers 08/16/21 12/22/21 Rx mcg-4.5 mcg/actuation aerosol inhaler (Symbicort) esomeprazole magnesium 20 mg 20 mg PO DAILY #90 caps 11/01/21 12/22/21 Rx capsule,delayed release (Nexium) Allergies Allergy/AdvReac Type Severity Reaction Status Date / Time amoxicillin AdvReac Mild diarrhea Verified 12/22/21 00:53 clavulanic acid AdvReac Mild diarrhea Verified 12/22/21 00:53 Past Med/Surg History Medical History Acute pyelonephritis Depression Diverticulitis GERD (gastroesophageal reflux disease) History of colon polyps History of uterine cancer (2015) Kidney stones Seizure last seizure--grand mal 1994--on depakote Severe acute respiratory syndrome coronavirus 2 (SARS-CoV-2) detected (12/2019) Urinary incontinence Uterine cancer 2015--sx, chemo and radiation Vitamin D deficiency Surgical History History of appendectomy History of bilateral breast reduction surgery History of bilateral cataract extraction History of cardiac cath 2009 @ [place]--no stents placed History of cholecystectomy History of colonoscopy (~2017) History of esophagogastroduodenoscopy (EGD) (~2014) History of nasal surgery nodules removed History of total abdominal hysterectomy and bilateral salpingo-oophorectomy 2016 @ [facility] Family History Mother Family history of diabetes mellitus Sister Family history of diabetes mellitus Family hx colonic polyps Father Family hx of colon cancer Brother Family hx colonic polyps Social History Smoking Status: Never smoker Second Hand Exposure: No; Hx Alcohol Use: No Hx Substance Use: No Preferred Language: Thai Communication Ability: Effective Visual Impairment: Partially Limited Hearing Ability: Normal Civil Lawyer Required: No Beliefs That Will Affect Care: None marital status: Single Current Living Situation: Family Current Living Situation Comment: Lives with brother current occupational status: employed 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 [employer] How many Children do You have: 0 Feels Safe at Home: Yes Childhood Exposure to Second-Hand Smoke: No caffeine: Yes (coffee ) during the past year weight has: remained stable Dental Care, Regularly: Yes Physical Activity Frequency: 3-4 Times per Week Seatbelt Use: always Sunscreen Use: No Assistive Devices: None Review of Systems A total of 10 systems reviewed and were otherwise negative All systems reviewed & are unremarkable except as noted in HPI & below Physical Exam Vital Signs Vital Signs - 24 hr 12/21/21 21:06 12/21/21 22:36 12/22/21 00:00 Pulse Rate [Radial] 79 83 Pulse Rhythm [Radial] Regular Regular Pulse Strength [Radial] Normal Normal Respiratory Rate 18 20 Respiratory Effort / Characteristics Non-Labored Spontaneous Non-Labored Spontaneous Respiratory Depth Normal Normal Respiratory Pattern Regular Blood Pressure [Right Arm] 132/78 202/69 H 123/86 Blood Pressure Mean [Right Arm] 96 113 98 Blood Pressure Position [Right Arm] Lying Pulse Oximetry 98 98 Oxygen Delivery Method Room Air Room Air 12/22/21 02:00 Pulse Rate [Radial] 81 Pulse Rhythm [Radial] Regular Pulse Strength [Radial] Normal Respiratory Rate 18 Respiratory Effort / Characteristics Non-Labored Spontaneous Respiratory Depth Normal Respiratory Pattern Regular Blood Pressure [Right Arm] 138/77 Blood Pressure Mean [Right Arm] 97 Blood Pressure Position [Right Arm] Lying Pulse Oximetry 95 Oxygen Delivery Method Room Air GENERAL: alert, well appearing, well nourished, no distress, BMI 43 EYE EXAM: normal conjunctiva, PERRL and EOM's grossly intact OROPHARYNX: no exudate, no erythema, lips, buccal mucosa, and tongue normal and mucous membranes are moist NECK: supple, no nuchal rigidity, no adenopathy, non-tender LUNGS: Clear to auscultation. Normal chest wall mechanics, no w/r/r HEART: no murmurs, S1 normal and S2 normal ABDOMEN: abdomen soft, non-tender, normo-active bowel sounds, no masses, no rebound or guarding. BACK: Back is symmetrical on inspection and there is no deformity, no midline tenderness, no CVA tenderness. SKIN: no rashes and no bruising UPPER EXTREMITIES: upper extremities are grossly normal. FROM, nml pulses b/l. LOWER EXTREMITIES: No pitting edema. FROM, nml pulses b/l. NEURO EXAM: Normal sensorium, cranial nerves II-XII grossly intact, normal speech, no gross weakness of arms, no gross weakness of legs. Gross sensation intact. Course Course 2340: Patient updated on additional results. She states she is feeling slightly improved. We will try p.o. challenge. She has been off oxygen on room air for some time and remains in the mid 90s. 0035: Patient has had additional diarrhea. With walking to the bathroom and oxygen saturations dropped to 87%. Patient was slightly tachypneic as well although denied any overt sense of feeling short of breath. Patient denies any blood with her stools. She states she does feel weak and slightly dizzy yet. Patient concerned as though she lives with family she would have to go up and down steps. Administered Medications Acetaminophen (Acetaminophen 325 Mg Tab) 650 mg PO Q4H PRN PRN Reason: pain/fever Stop: 01/21/22 03:48 Last Admin: 12/22/21 16:39 Dose: 650 mg Documented By: Admin: 12/22/21 08:22 Dose: 650 mg Documented By: RICHARD Albuterol (Albut/Ipratrop 3mg/0.5mg Neb 3 Ml Vial) 3 ml NEB Q4R [facility]; Protocol Stop: 01/21/22 03:48 Last Admin: 12/22/21 19:44 Dose: 3 ml Documented By: Admin: 12/22/21 14:51 Dose: 3 ml Documented By: Admin: 12/22/21 11:03 Dose: 3 ml Documented By: Admin: 12/22/21 07:10 Dose: 3 ml Documented By: Admin: 12/22/21 04:55 Dose: 3 ml Documented By: JAVIER Benzonatate (Benzonatate 100 Mg Capsule) 100 mg PO TID PRN PRN Reason: Cough Stop: 01/21/22 03:48 Last Admin: 12/22/21 16:40 Dose: 100 mg Documented By: Admin: 12/22/21 08:23 Dose: 100 mg Documented By: RICHARD Carvedilol (Carvedilol 6.25 Mg Tab) 6.25 mg PO BID [facility] Stop: 01/21/22 08:59 Last Admin: 12/22/21 08:23 Dose: 6.25 mg Documented By: RICHARD Enoxaparin Sodium (Enoxaparin Inj 40 Mg/0.4 Ml Syr) 40 mg SQ QAM [facility] Stop: 01/21/22 08:59 Last Admin: 12/22/21 08:23 Dose: 40 mg Documented By: RICHARD Fluticasone/Vilanterol (Fluticasone/Vilanterol 200/25mcg 14 Puffs/Inhaler) 1 puffs INH DAILY PATTIE Stop: 01/21/22 08:59 Last Admin: 12/22/21 08:24 Dose: 1 puffs Documented By: RICHARD Guaifenesin (Guaifenesin 600 Mg Tabcr) 1,200 mg PO Q12 PATTIE Stop: 01/21/22 08:59 Last Admin: 12/22/21 08:23 Dose: 1,200 mg Documented By: RICHARD Sodium Chloride (Nss 1000ml) 1,000 mls @ 80 mls/hr IV .[id number] [facility] Stop: 12/23/21 04:48 Last Admin: 12/22/21 16:39 Dose: 80 mls/hr Documented By: Infusion: 12/22/21 16:39 Dose: 80 mls/hr Documented By: Admin: 12/22/21 04:36 Dose: 80 mls/hr Documented By: MICHELE Levothyroxine Sodium (Levothyroxine Sodium 112 Mcg Tablet) 112 mcg PO DAILYBB [facility] Stop: 01/21/22 06:29 Last Admin: 12/22/21 05:04 Dose: 112 mcg Documented By: MICHELE Oseltamivir Phosphate (Oseltamivir Phosphate 75 Mg Cap) 75 mg PO BID [facility]; Protocol Stop: 12/27/21 03:48 Last Admin: 12/22/21 08:23 Dose: 75 mg Documented By: Admin: 12/22/21 04:37 Dose: 75 mg Documented By: MICHEEL Oxybutynin Chloride (Oxybutynin Chloride Xl 5 Mg Tabcr) 5 mg PO DAILY [facility] Stop: 01/21/22 08:59 Last Admin: 12/22/21 08:23 Dose: 5 mg Documented By: RICHARD Pantoprazole Sodium (Pantoprazole 40 Mg Tab) 40 mg PO DAILY [facility] Stop: 01/21/22 08:59 Last Admin: 12/22/21 08:23 Dose: 40 mg Documented By: RICHARD Discontinued Medications Cephalexin HCl (Cephalexin 500mg Home Pack) 1 each PO NOW ONE Stop: 12/22/21 00:34 Last Admin: 12/22/21 00:45 Dose: Not Given Documented By: FRANCINE Divalproex Sodium (Divalproex Delay Release 500 Mg Tab) 1,000 mg PO NOW STA Stop: 12/22/21 04:41 Last Admin: 12/22/21 05:04 Dose: 1,000 mg Documented By: MICHELE Sodium Chloride (Nss 1000ml) 1,000 mls @ 999 mls/hr IV .Q1H1M PATTIE Stop: 12/21/21 20:00 Last Infusion: 12/21/21 20:22 Dose: 0 mls/hr Documented By: Admin: 12/21/21 19:15 Dose: 999 mls/hr Documented By: FRANCINE Sodium Chloride (Nss 1000ml) 1,000 mls @ 125 mls/hr IV .Q8H PATTIE Stop: 01/20/22 20:29 Last Infusion: 12/22/21 00:40 Dose: 0 mls/hr Documented By: Admin: 12/21/21 21:16 Dose: 125 mls/hr Documented By: FRANCINE Acetaminophen (Ofirmev) 1,000 mg in 100 mls @ 400 mls/hr IV NOW STA Stop: 12/21/21 22:11 Last Infusion: 12/21/21 22:26 Dose: 0 mls/hr Documented By: Admin: 12/21/21 22:04 Dose: 400 mls/hr Documented By: FRANCINE Magnesium Sulfate/Dextrose (Magnesium Sulfate / D5w) 1 gm in 100 mls @ 100 mls/hr IV NOW STA Stop: 12/21/21 23:53 Last Infusion: 12/22/21 00:02 Dose: 0 mls/hr Documented By: Admin: 12/21/21 23:08 Dose: 100 mls/hr Documented By: FRANCINE Ceftriaxone Sodium (Rocephin) 2,000 mg in 70 mls @ 140 mls/hr IV NOW STA Stop: 12/22/21 00:51 Last Infusion: 12/22/21 01:14 Dose: 0 mls/hr Documented By: Admin: 12/22/21 00:43 Dose: 140 mls/hr Documented By: FRANCINE Magnesium Sulfate/Dextrose (Magnesium Sulfate / D5w) 1 gm in 100 mls @ 50 mls/hr IV Q2H PATTIE Stop: 12/22/21 08:29 Last Infusion: 12/22/21 08:19 Dose: 0 mls/hr Documented By: [facility] Admin: 12/22/21 06:02 Dose: 50 mls/hr Documented By: Infusion: 12/22/21 06:02 Dose: 50 mls/hr Documented By: Admin: 12/22/21 04:36 Dose: 50 mls/hr Documented By: LMP Ketorolac Tromethamine (Ketorolac Tromethamine 15 Mg/Ml Vial) 10 mg IV NOW ONE Stop: 12/22/21 00:34 Last Admin: 12/22/21 00:42 Dose: 10 mg Documented By: TERESA Ondansetron HCl (Ondansetron Inj 2 Mg/Ml 2 Ml Vial) 4 mg IV NOW STA Stop: 12/21/21 18:59 Last Admin: 12/21/21 19:15 Dose: 4 mg Documented By: TERESA Medical Decision Making Differential Diagnosis Differential diagnosis: Etiologies such as viral syndrome, otitis, pharyngitis, pneumonia, influenza, meningitis, urinary tract infection, sepsis, bacteremia, as well as others were entertained. Medical Records Attestation: I reviewed the patient's medical records. Home Medications Current Medication List: was personally reviewed by sc Laboratory Data Attestation: I reviewed the patient's lab results. Result diagrams: 12/21/21 18:35 12/21/21 20:56 Lab Results 12/21/21 12/21/21 12/21/21 Range/Units 18:35 18:35 18:55 WBC 6.30 (4.8-10.8) K/ul RBC 5.00 (3.93-5.22) M/uL Hgb 14.8 (12.0-16.0) g/dl Hct 44.3 (34.1-44.9) % MCV 88.6 (80.0-100.0) fL MCH 29.6 (25.0-34.0) pg MCHC 33.4 (32.0-36.0) g/dL RDW Std Deviation 46.2 (36.4-46.3) fL RDW Coeff of Jim 14.3 (11.5-14.5) % Plt Count 199 (130-400) K/uL MPV 10.2 (9.4-12.3) fL Immature Gran % (Auto) 0.6 % Neut % (Auto) 56.8 % Lymph % (Auto) 23.2 % [place] % (Auto) 18.9 % Eos % (Auto) 0.0 % Baso % (Auto) 0.5 % Neut # (Auto) 3.58 (1.4-6.5) K/uL Lymph # (Auto) 1.46 (1.2-3.4) K/uL [place] # (Auto) 1.19 H (0.24-0.82) K/uL Eos # (Auto) 0.00 (0-0.50) K/uL Baso # (Auto) 0.03 (0-0.2) K/uL Immature Gran # (Auto) 0.04 H (0.00-0.02) K/uL PT (9.0-12.0) Seconds INR (0.9-1.1) Sodium 137 (136-145) mmol/L Potassium 4.3 (3.5-5.1) mmol/L Chloride 99 (98-107) mmol/L Carbon Dioxide 28 (21-32) mmol/L Anion Gap 10 (3-11) BUN 18 (6-23) mg/dl Creatinine 0.86 (0.6-1.2) mg/dl Est Cr Clr Drug Dosing 82.0 ml/min Est GFR ( Amer) 84.5 ml/min Est GFR (Non-Af Amer) 72.9 ml/min BUN/Creatinine Ratio 20.9 H (10-20) Glucose 122 H (70-99(Fasting)) mg/dl Lactate (0.4-2.0) mmol/L Calcium 9.3 (8.5-10.1) mg/dl Magnesium (1.7-2.4) mg/dl Total Bilirubin 0.5 (0.2-1.0) mg/dl Direct Bilirubin (0-0.2) mg/dl AST 41 H (13-39) U/L ALT 31 (7-52) U/L Alkaline Phosphatase 62 (34-104) U/L Troponin I High Sens (0-14) pg/ml Total Protein 7.1 (6.0-8.3) gm/dl Albumin 3.8 (3.4-5.0) gm/dl Globulin 3.3 (2.5-4.0) gm/dl Albumin/Globulin Ratio 1.2 (0.9-2) Procalcitonin < 0.05 (0-0.5) ng/ml Urine Color Urine Appearance (Clear) Urine pH (4.5-7.5) Ur Specific [place] (1.000-1.030) Urine Protein (Negative) Urine Glucose (UA) (Negative) Urine Ketones (Negative) Urine Blood (Negative) Urine Nitrite (Negative) Urine Bilirubin (Negative) Urine Urobilinogen (Negative) Ur Leukocyte Esterase (Negative) Urine RBC (0-4) /hpf Urine WBC (0-5) /hpf Ur Epithelial Cells (0-5) /lpf Urine Bacteria (Negative) Hyaline Casts (0-5) /lpf Urine Mucus (None Prsent) Nasal Influ A H1 2009 PCR (NotDetected) Adenovirus (PCR) (NotDetected) B. pertussis DNA (PCR) (NotDetected) B.parapertussis DNA PCR (NotDetected) C. pneumoniae DNA (PCR) (NotDetected) Coronavirus OC43 (PCR) (NotDetected) Coronavirus HKU1 (PCR) (NotDetected) Coronavirus 229E (PCR) (NotDetected) SARS-CoV-2 (PCR) (NotDetected) Coronavirus NL63 (PCR) (NotDetected) Human Metapneumovir PCR (NotDetected) Influenza Type B (PCR) (NotDetected) M. pneumoniae (PCR) (NotDetected) Parainfluenza 1 (PCR) (NotDetected) Parainfluenza 2 (PCR) (NotDetected) Parainfluenza 3 (PCR) (NotDetected) Parainfluenza 4 (PCR) (NotDetected) RSV (PCR) (NotDetected) Entero/Rhino (PCR) (NotDetected) 12/21/21 12/21/21 12/21/21 Range/Units 18:55 19:17 19:33 WBC (4.8-10.8) K/ul RBC (3.93-5.22) M/uL Hgb (12.0-16.0) g/dl Hct (34.1-44.9) % MCV (80.0-100.0) fL MCH (25.0-34.0) pg MCHC (32.0-36.0) g/dL RDW Std Deviation (36.4-46.3) fL RDW Coeff of Jim (11.5-14.5) % Plt Count (130-400) K/uL MPV (9.4-12.3) fL Immature Gran % (Auto) % Neut % (Auto) % Lymph % (Auto) % [place] % (Auto) % Eos % (Auto) % Baso % (Auto) % Neut # (Auto) (1.4-6.5) K/uL Lymph # (Auto) (1.2-3.4) K/uL [place] # (Auto) (0.24-0.82) K/uL Eos # (Auto) (0-0.50) K/uL Baso # (Auto) (0-0.2) K/uL Immature Gran # (Auto) (0.00-0.02) K/uL PT 11.1 (9.0-12.0) Seconds INR 1.0 (0.9-1.1) Sodium (136-145) mmol/L Potassium (3.5-5.1) mmol/L Chloride (98-107) mmol/L Carbon Dioxide (21-32) mmol/L Anion Gap (3-11) BUN (6-23) mg/dl Creatinine (0.6-1.2) mg/dl Est Cr Clr Drug Dosing ml/min Est GFR ( Amer) ml/min Est GFR (Non-Af Amer) ml/min BUN/Creatinine Ratio (10-20) Glucose (70-99(Fasting)) mg/dl Lactate 1.0 (0.4-2.0) mmol/L Calcium (8.5-10.1) mg/dl Magnesium (1.7-2.4) mg/dl Total Bilirubin (0.2-1.0) mg/dl Direct Bilirubin (0-0.2) mg/dl AST (13-39) U/L ALT (7-52) U/L Alkaline Phosphatase (34-104) U/L Troponin I High Sens (0-14) pg/ml Total Protein (6.0-8.3) gm/dl Albumin (3.4-5.0) gm/dl Globulin (2.5-4.0) gm/dl Albumin/Globulin Ratio (0.9-2) Procalcitonin (0-0.5) ng/ml Urine Color Urine Appearance (Clear) Urine pH (4.5-7.5) Ur Specific [place] (1.000-1.030) Urine Protein (Negative) Urine Glucose (UA) (Negative) Urine Ketones (Negative) Urine Blood (Negative) Urine Nitrite (Negative) Urine Bilirubin (Negative) Urine Urobilinogen (Negative) Ur Leukocyte Esterase (Negative) Urine RBC (0-4) /hpf Urine WBC (0-5) /hpf Ur Epithelial Cells (0-5) /lpf Urine Bacteria (Negative) Hyaline Casts (0-5) /lpf Urine Mucus (None Prsent) Nasal Influ A H1 2008 PCR DETECTED A* (NotDetected) Adenovirus (PCR) Not Detected (NotDetected) B. pertussis DNA (PCR) Not Detected (NotDetected) B.parapertussis DNA PCR Not Detected (NotDetected) C. pneumoniae DNA (PCR) Not Detected (NotDetected) Coronavirus OC43 (PCR) Not Detected (NotDetected) Coronavirus HKU1 (PCR) Not Detected (NotDetected) Coronavirus 229E (PCR) Not Detected (NotDetected) SARS-CoV-2 (PCR) Not Detected (NotDetected) Coronavirus NL63 (PCR) Not Detected (NotDetected) Human Metapneumovir PCR Not Detected (NotDetected) Influenza Type B (PCR) Not Detected (NotDetected) M. pneumoniae (PCR) Not Detected (NotDetected) Parainfluenza 1 (PCR) Not Detected (NotDetected) Parainfluenza 2 (PCR) Not Detected (NotDetected) Parainfluenza 3 (PCR) Not Detected (NotDetected) Parainfluenza 4 (PCR) Not Detected (NotDetected) RSV (PCR) Not Detected (NotDetected) Entero/Rhino (PCR) Not Detected (NotDetected) 12/21/21 12/21/21 Range/Units 20:56 21:25 WBC (4.8-10.8) K/ul RBC (3.93-5.22) M/uL Hgb (12.0-16.0) g/dl Hct (34.1-44.9) % MCV (80.0-100.0) fL MCH (25.0-34.0) pg MCHC (32.0-36.0) g/dL RDW Std Deviation (36.4-46.3) fL RDW Coeff of Jim (11.5-14.5) % Plt Count (130-400) K/uL MPV (9.4-12.3) fL Immature Gran % (Auto) % Neut % (Auto) % Lymph % (Auto) % [place] % (Auto) % Eos % (Auto) % Baso % (Auto) % Neut # (Auto) (1.4-6.5) K/uL Lymph # (Auto) (1.2-3.4) K/uL [place] # (Auto) (0.24-0.82) K/uL Eos # (Auto) (0-0.50) K/uL Baso # (Auto) (0-0.2) K/uL Immature Gran # (Auto) (0.00-0.02) K/uL PT (9.0-12.0) Seconds INR (0.9-1.1) Sodium 137 (136-145) mmol/L Potassium 4.6 (3.5-5.1) mmol/L Chloride 101 (98-107) mmol/L Carbon Dioxide 30 (21-32) mmol/L Anion Gap 6 (3-11) BUN 18 (6-23) mg/dl Creatinine 0.79 (0.6-1.2) mg/dl Est Cr Clr Drug Dosing 89.3 ml/min Est GFR ( Amer) 93.6 ml/min Est GFR (Non-Af Amer) 80.8 ml/min BUN/Creatinine Ratio 22.8 H (10-20) Glucose 104 H (70-99(Fasting)) mg/dl Lactate (0.4-2.0) mmol/L Calcium 8.7 (8.5-10.1) mg/dl Magnesium 1.5 L (1.7-2.4) mg/dl Total Bilirubin 0.4 (0.2-1.0) mg/dl Direct Bilirubin 0.1 (0-0.2) mg/dl AST 37 (13-39) U/L ALT 28 (7-52) U/L Alkaline Phosphatase 54 (34-104) U/L Troponin I High Sens 14.2 H (0-14) pg/ml Total Protein 6.3 (6.0-8.3) gm/dl Albumin 3.5 (3.4-5.0) gm/dl Globulin (2.5-4.0) gm/dl Albumin/Globulin Ratio (0.9-2) Procalcitonin (0-0.5) ng/ml Urine Color Yellow Urine Appearance Clear (Clear) Urine pH 5.5 (4.5-7.5) Ur Specific [place] >= 1.030 (1.000-1.030) Urine Protein Trace H (Negative) Urine Glucose (UA) Negative (Negative) Urine Ketones Trace H (Negative) Urine Blood Negative (Negative) Urine Nitrite Negative (Negative) Urine Bilirubin Negative (Negative) Urine Urobilinogen Negative (Negative) Ur Leukocyte Esterase Negative (Negative) Urine RBC 0-4 (0-4) /hpf Urine WBC 10-30 H (0-5) /hpf Ur Epithelial Cells 5-10 H (0-5) /lpf Urine Bacteria 1+ H (Negative) Hyaline Casts 5-10 H (0-5) /lpf Urine Mucus Present A (None Prsent) Nasal Influ A H1 2008 PCR (NotDetected) Adenovirus (PCR) (NotDetected) B. pertussis DNA (PCR) (NotDetected) B.parapertussis DNA PCR (NotDetected) C. pneumoniae DNA (PCR) (NotDetected) Coronavirus OC43 (PCR) (NotDetected) Coronavirus HKU1 (PCR) (NotDetected) Coronavirus 229E (PCR) (NotDetected) SARS-CoV-2 (PCR) (NotDetected) Coronavirus NL63 (PCR) (NotDetected) Human Metapneumovir PCR (NotDetected) Influenza Type B (PCR) (NotDetected) M. pneumoniae (PCR) (NotDetected) Parainfluenza 1 (PCR) (NotDetected) Parainfluenza 2 (PCR) (NotDetected) Parainfluenza 3 (PCR) (NotDetected) Parainfluenza 4 (PCR) (NotDetected) RSV (PCR) (NotDetected) Entero/Rhino (PCR) (NotDetected) Imaging Data Radiologist's Impression: Chest X-Ray 12/21/21 18:56 XR chest 1V portable HISTORY: Sepsis COMPARISON: Chest 03/27/2020. FINDINGS: No pneumothorax. No pleural effusions. There are low lung volumes. The heart remains top normal in size. There is mild diffuse interstitial thickening, unchanged. This could be technical. No new focal lung consolidations identified. IMPRESSION: No significant change compared to the prior study. No acute process. ACT 112: Negative or not required by law. Electronically signed by: Eugene Falk M.D. 12/21/2021 8:14 PM ECG Data Attestation: I personally reviewed and interpreted this ECG as follows: Indication: + weakness Rate (beats per minute): 79 Rhythm: + normal sinus ECG Intervals/blocks: + Normal QRS and + Normal QT ECG [place]: + Normal ECG ST segments: + Normal ST segments MDM Narrative An order was placed for continuous cardiac monitoring. The monitor shows a rate of _105__ with __sinus tachycardia_ rhythm. This is a 61 yo female who presents with multiple symptoms and concern for illness and recent sick contacts. Patient ill appearing on initial exam however VS stable. Labs sent and IVF started. Patient required 2 L IVF before she was able to produce urine. Biofire positive for influenza. Patient noted to be hypoxic initially but was able to be weaned at rest. With any exertion however, pt with increased WOB and hypoxia. No pulmonary hx of use of oxygen at home. No obvious pneumonia or CHF. No cardiac hx. UA mildly abnormal, however given reported symptoms, pt covered for possible UTI and culture pending. Due to concern for persistent weakness and hypoxia with exertion, case discussed with the hospitalist for additional evaluation and mgmt. Patient made aware of all results and was in agreement with the plan. Impression & Plan Generalized weakness, Fatigue, Influenza, Hypomagnesemia, Hypoxia Discharge Plan Visit Data Chief Complaint: Urinary Symptoms Stated Complaint: UTI, NAUEOUS ED Provider: Priya Hatfield Discharge Problem: Generalized weakness, Fatigue, Influenza, Hypomagnesemia, Hypoxia Patient Disposition: Admitted As Inpatient Condition: Good Discharge Instructions Interventions: ED Discharge Assessment Last Done: 12/22/21 03:42
[2021-12-21 23:04] LABS: Bacteria Urine 1+ (Negative); Mucus Urine Present (None Prsent)
[2021-12-21 23:05] LABS: RBC Urine 0-4 /hpf (0-4)
[2021-12-22] MEDS ORDERED: cefTRIAXone SODIUM 2,000 MG/70 ML BAG IV STA (00:22)
[2021-12-22] MEDS ORDERED: KETOROLAC TROMETHAMINE 15 MG/ML VIAL IV ONE (00:33)
[2021-12-22] MEDS ORDERED: cephALEXin 500MG HOME PACK PO ONE (00:33)
--- NOTE | 2021-12-22 02:24 | History & Physical Report ---
Date of Service December 22, 2021 Assessment & Plan (1) Influenza: Plan: 61yo female presenting with 2 days of weakness, fatigue, cough as well as nausea, vomiting and diarrhea. Found to be POSITIVE for Influenza A. Patient is vaccinated. +sick contacts Adequate oxygenation on room air with ambulatory hypoxia to 87% MUNOZ as well as dry cough -Admit to medical -Maintain droplet precautions -Tamiflu 75mg po BID -Tylenol, Zofran, Tessalon, Mucinex as needed for symptomatic relief -Flutter valve -Check ambulatory saturation Diffuse wheezing -DuoNeb q 4 hours -Albuterol q 2 hours PRN -Continue Symbicort (2) Hypoxia: Plan: Patient with influenza, diffuse wheezing noted on exam. No obvious infiltrate or evidence of CHF. Procalcitonin is negarive. -Treatment as above with DuoNebs, Albuterol -Check BNP -Check ambulatory sat (3) Hypomagnesemia: Plan: Patient received 1gm Mg in the ER. Continue supplementation -repeat Mg in AM (4) GERD (gastroesophageal reflux disease): Plan: Chronic -Protonix 40mg po daily (5) Seizure: Plan: Chronic. Well controlled with current medications -Continue Divalproex 1000mg po qHS (6) Hypothyroidism: Plan: Chronic. Stable, last TSH 05/03/21 = 2.424 -Continue Synthroid (7) Hypercholesteremia: Plan: Chronic. Stable -Continue Crestor 10mg po qHS (8) Hypertension: Plan: Chronic. Blood pressure stable -Continue Carvedilol 6.25mg po bid -Monitor F/E/N - NSS at 80 mL/hr x 2L, Mg repletion with repeat Mg level in AM, AHA diet as tolerated Ppx - Lovenox 40 Code - Full per discussion with patient Dispo - Admit to medical History of Present Illness Chief Complaint: hypoxia Primary Care Provider: DO Jaimie Madsen Antonella is a 61yo female with history of Depression, GERD, Seizure disorder and hypothyroidism presenting with influenza. Patient reports symptoms began two days ago with weakness, fatigue, dizziness, myalgias and fever. She has had some slight non-productive cough as well as nausea, vomiting x 1 and diarrhea. Patient has had sick contacts - she works at [employer] and has had many sick residents with similar symptoms. Upon arrival to the ER patient was hypoxic at 86% on room air. She was treated with IVF, antibiotics and Tylenol. Patient's oxygen saturation decreased to 86 - 87% on room air with ambulation, patient became significant short of breath. She denies chest pain, palpitations ER Course: Ceftriaxone 2gm, Toradol 10mg, Magnesium 1gm, Tylenol 1gm, NSS x 2L, Zofran 4mg Allergies Allergy/AdvReac Type Severity Reaction Status Date / Time amoxicillin AdvReac Mild diarrhea Verified 12/22/21 00:53 clavulanic acid AdvReac Mild diarrhea Verified 12/22/21 00:53 Home Medications Medication Instructions Recorded Confirmed Type pvcmyytgyvdj-dgaesvbp-pufzx acid 1 cap PO QAM 01/05/18 12/22/21 History 400 mcg-vitamin K 80 mcg capsule (Multi For Her 50 Plus) cholecalciferol (vitamin D3) 125 5,000 units PO QAM 10/26/18 12/22/21 History mcg (5,000 unit) tablet albuterol sulfate 90 mcg/actuation 2 puff inhalation Q4H PRN 05/17/20 12/22/21 Rx aerosol inhaler (ProAir HFA) shortness of breath #8.5 grams carvedilol 6.25 mg tablet 6.25 mg PO BID #180 tabs 12/25/20 12/22/21 Rx divalproex 500 mg tablet,delayed 1,000 mg PO HS #180 tabs 12/25/20 12/22/21 Rx release levothyroxine 112 mcg tablet 112 mcg PO QAM #90 tabs 12/25/20 12/22/21 Rx rosuvastatin 10 mg tablet 10 mg PO HS #90 tabs 12/25/20 12/22/21 Rx oxybutynin chloride 5 mg 5 mg PO DAILY #90 tabs 08/04/21 12/22/21 Rx tablet,extended release 24 hr budesonide-formoterol HFA 160 2 puff inhalation BID #3 Inhalers 08/16/21 12/22/21 Rx mcg-4.5 mcg/actuation aerosol inhaler (Symbicort) esomeprazole magnesium 20 mg 20 mg PO DAILY #90 caps 11/01/21 12/22/21 Rx capsule,delayed release (Nexium) Past Med/Surg History Medical History Acute pyelonephritis Depression Diverticulitis GERD (gastroesophageal reflux disease) History of colon polyps History of uterine cancer (2016) Kidney stones Seizure last seizure--grand mal 1994--on depakote Severe acute respiratory syndrome coronavirus 2 (SARS-CoV-2) detected (12/2019) Urinary incontinence Uterine cancer 2016--sx, chemo and radiation Vitamin D deficiency Surgical History History of appendectomy History of bilateral breast reduction surgery History of bilateral cataract extraction History of cardiac cath 2009 @ [facility]--no stents placed History of cholecystectomy History of colonoscopy (~2017) History of esophagogastroduodenoscopy (EGD) (~2014) History of nasal surgery nodules removed History of total abdominal hysterectomy and bilateral salpingo-oophorectomy 2016 @ [facility] Family History Mother Family history of diabetes mellitus Sister Family history of diabetes mellitus Family hx colonic polyps Father Family hx of colon cancer Brother Family hx colonic polyps Social History Smoking Status: Never smoker Second Hand Exposure: No; Hx Alcohol Use: No Hx Substance Use: No Preferred Language: Divehi Communication Ability: Effective Visual Impairment: Partially Limited Hearing Ability: Normal Machine Carton Marker Required: No Beliefs That Will Affect Care: None marital status: Single Current Living Situation: Other Current Living Situation Comment: Lives with brother current occupational status: employed 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 [employer] How many Children do You have: 0 Feels Safe at Home: Yes Childhood Exposure to Second-Hand Smoke: No caffeine: Yes (coffee ) during the past year weight has: remained stable Dental Care, Regularly: Yes Physical Activity Frequency: 3-4 Times per Week Seatbelt Use: always Sunscreen Use: No Assistive Devices: CPAP Review of Systems Review of Systems: All systems reviewed & are unremarkable except as noted in HPI & below Physical Exam Physical Exam: General: patient resting comfortably, NAD, non-toxic in appearance, AA&O x 4 Skin: warm, dry, intact, no rashes or lesions HEENT: NC/AT, PERRL, EOMI, anicteric sclera, conjunctiva without injection, external ear normal to inspection and nontender, nares patent, moist mucus membranes, dentition intact, no oropharyngeal lesions, neck supple, trachea midline, no LAD, no thyromegaly, no JVD Heart: +S1/S2, regular, no m/r/g Lungs: equal air entry bilaterally, diminished breath sounds in bilateral bases, diffuse end-expiratory wheezing throughout Abd: +BS, soft, NT/ND, no masses/organomegaly/ascites Ext: warm, 2+ pulses in UE/LE bilaterally, no clubbing/cyanosis, trace pitting edema of bilateral LE Neuro: nonfocal, patient AA&O x 4, speech intact, no facial droop, moving all extremities on command with equal strength 5/5 Results & Data Results & Data ([facility]) Vital Signs (Past 12 Hours) Vital Signs Temp Pulse Pulse Resp BP BP Pulse Ox 12/22/21 02:00 81 18 138/77 95 12/22/21 00:00 83 20 123/86 98 12/21/21 22:36 202/69 H 12/21/21 21:06 79 18 132/78 98 12/21/21 19:18 81 20 132/78 96 12/21/21 18:36 80 35 H 114/77 93 12/21/21 18:16 36.5 C 88 20 134/87 86 L O2 Del Method O2 Flow Rate 12/22/21 02:00 Room Air 12/22/21 00:00 Room Air 12/21/21 22:36 12/21/21 21:06 Room Air 12/21/21 19:18 Nasal Cannula 4 12/21/21 18:36 4 12/21/21 18:16 Room Air Laboratory Results Laboratory Results WBC 6.30 K/ul (4.8-10.8) 12/21/21 18:35 RBC 5.00 M/uL (3.93-5.22) 12/21/21 18:35 Hgb 14.8 g/dl (12.0-16.0) 12/21/21 18:35 Hct 44.3 % (34.1-44.9) 12/21/21 18:35 MCV 88.6 fL (80.0-100.0) 12/21/21 18:35 MCH 29.6 pg (25.0-34.0) 12/21/21 18:35 MCHC 33.4 g/dL (32.0-36.0) 12/21/21 18:35 RDW Std Deviation 46.2 fL (36.4-46.3) 12/21/21 18:35 RDW Coeff of Jim 14.3 % (11.5-14.5) 12/21/21 18:35 Plt Count 199 K/uL (130-400) 12/21/21 18:35 MPV 10.2 fL (9.4-12.3) 12/21/21 18:35 Immature Gran % (Auto) 0.6 % 12/21/21 18:35 Neut % (Auto) 56.8 % 12/21/21 18:35 Lymph % (Auto) 23.2 % 12/21/21 18:35 [place] % (Auto) 18.9 % 12/21/21 18:35 Eos % (Auto) 0.0 % 12/21/21 18:35 Baso % (Auto) 0.5 % 12/21/21 18:35 Neut # (Auto) 3.58 K/uL (1.4-6.5) 12/21/21 18:35 Lymph # (Auto) 1.46 K/uL (1.2-3.4) 12/21/21 18:35 [place] # (Auto) 1.19 K/uL (0.24-0.82) H 12/21/21 18:35 Eos # (Auto) 0.00 K/uL (0-0.50) 12/21/21 18:35 Baso # (Auto) 0.03 K/uL (0-0.2) 12/21/21 18:35 Immature Gran # (Auto) 0.04 K/uL (0.00-0.02) H 12/21/21 18:35 PT 11.1 Seconds (9.0-12.0) 12/21/21 18:55 INR 1.0 (0.9-1.1) 12/21/21 18:55 Sodium 137 mmol/L (136-145) 12/21/21 20:56 Potassium 4.6 mmol/L (3.5-5.1) 12/21/21 20:56 Chloride 101 mmol/L (98-107) 12/21/21 20:56 Carbon Dioxide 30 mmol/L (21-32) 12/21/21 20:56 Anion Gap 6 (3-11) 12/21/21 20:56 BUN 18 mg/dl (6-23) 12/21/21 20:56 Creatinine 0.79 mg/dl (0.6-1.2) 12/21/21 20:56 Est Cr Clr Drug Dosing 89.3 ml/min 12/21/21 20:56 Est GFR ( Amer) 93.6 ml/min 12/21/21 20:56 Est GFR (Non-Af Amer) 80.8 ml/min 12/21/21 20:56 BUN/Creatinine Ratio 22.8 (10-20) H 12/21/21 20:56 Glucose 104 mg/dl (70-99(Fasting)) H 12/21/21 20:56 Lactate 1.0 mmol/L (0.4-2.0) 12/21/21 19:33 Calcium 8.7 mg/dl (8.5-10.1) 12/21/21 20:56 Magnesium 1.5 mg/dl (1.7-2.4) L 12/21/21 20:56 Total Bilirubin 0.4 mg/dl (0.2-1.0) 12/21/21 20:56 Direct Bilirubin 0.1 mg/dl (0-0.2) 12/21/21 20:56 AST 37 U/L (13-39) 12/21/21 20:56 ALT 28 U/L (7-52) 12/21/21 20:56 Alkaline Phosphatase 54 U/L (34-104) 12/21/21 20:56 Troponin I High Sens 14.2 pg/ml (0-14) H 12/21/21 20:56 Total Protein 6.3 gm/dl (6.0-8.3) 12/21/21 20:56 Albumin 3.5 gm/dl (3.4-5.0) 12/21/21 20:56 Globulin 3.3 gm/dl (2.5-4.0) 12/21/21 18:35 Albumin/Globulin Ratio 1.2 (0.9-2) 12/21/21 18:35 Procalcitonin < 0.05 ng/ml (0-0.5) 12/21/21 18:55 Urine Color Yellow 12/21/21 21:25 Urine Appearance Clear (Clear) 12/21/21 21: Urine pH 5.5 (4.5-7.5) 12/21/21 21:25 Ur Specific [place] >= 1.030 (1.000-1.030) 12/21/21 21:25 Urine Protein Trace (Negative) H 12/21/21 21:25 Urine Glucose (UA) Negative (Negative) 12/21/21 21: Urine Ketones Trace (Negative) H 12/21/21 21: Urine Blood Negative (Negative) 12/21/21 21: Urine Nitrite Negative (Negative) 12/21/21 21: Urine Bilirubin Negative (Negative) 12/21/21 21: Urine Urobilinogen Negative (Negative) 12/21/21 21: Ur Leukocyte Esterase Negative (Negative) 12/21/21 21: Urine RBC 0-4 /hpf (0-4) 12/21/21 21: Urine WBC 10-30 /hpf (0-5) H 12/21/21 21:25 Ur Epithelial Cells 5-10 /lpf (0-5) H 12/21/21 21:25 Urine Bacteria 1+ (Negative) H 12/21/21 21: Hyaline Casts 5-10 /lpf (0-5) H 12/21/21 21:25 Urine Mucus Present (None Prsent) A 12/21/21 21:25 Nasal Influ A H1 2008 PCR DETECTED (NotDetected) A* 12/21/21 19:17 Adenovirus (PCR) Not Detected (NotDetected) 12/21/21 19:17 B. pertussis DNA (PCR) Not Detected (NotDetected) 12/21/21 19:17 B.parapertussis DNA PCR Not Detected (NotDetected) 12/21/21 19:17 C. pneumoniae DNA (PCR) Not Detected (NotDetected) 12/21/21 19:17 Coronavirus OC43 (PCR) Not Detected (NotDetected) 12/21/21 19:17 Coronavirus HKU1 (PCR) Not Detected (NotDetected) 12/21/21 19:17 Coronavirus 229E (PCR) Not Detected (NotDetected) 12/21/21 19:17 SARS-CoV-2 (PCR) Not Detected (NotDetected) 12/21/21 19:17 Coronavirus NL63 (PCR) Not Detected (NotDetected) 12/21/21 19:17 Human Metapneumovir PCR Not Detected (NotDetected) 12/21/21 19:17 Influenza Type B (PCR) Not Detected (NotDetected) 12/21/21 19:17 M. pneumoniae (PCR) Not Detected (NotDetected) 12/21/21 19:17 Parainfluenza 1 (PCR) Not Detected (NotDetected) 12/21/21 19:17 Parainfluenza 2 (PCR) Not Detected (NotDetected) 12/21/21 19:17 Parainfluenza 3 (PCR) Not Detected (NotDetected) 12/21/21 19:17 Parainfluenza 4 (PCR) Not Detected (NotDetected) 12/21/21 19:17 RSV (PCR) Not Detected (NotDetected) 12/21/21 19:17 Entero/Rhino (PCR) Not Detected (NotDetected) 12/21/21 19:17 Impressions Chest X-Ray 12/21/21 18:56 XR chest 1V portable HISTORY: Sepsis COMPARISON: Chest 03/27/2020. FINDINGS: No pneumothorax. No pleural effusions. There are low lung volumes. The heart remains top normal in size. There is mild diffuse interstitial thickening, unchanged. This could be technical. No new focal lung consolidations identified. IMPRESSION: No significant change compared to the prior study. No acute process. ACT 112: Negative or not required by law. Electronically signed by: Eugene Falk M.D. 12/21/2021 8:14 PM PG Care Time/CCT Total # of Minutes Spent Total Time Spent with Patient: Total time spent is greater than 50% in coordination of care (as documented) at patient's floor/unit and/or counseling patient: Coding Level of Care Code 86574 Initial Inpt Care Lvl 3 Diagnoses Influenza J11.1 Hypoxia R09.02 Hypomagnesemia E83.42 GERD (gastroesophageal reflux disease) K21.9 Seizure R56.9 Hypothyroidism E03.9 Hypercholesteremia E78.00 Hypertension I10
[2021-12-22] MEDS ORDERED: ALBUTEROL 0.083% NEBU SOLN 3 ML VIAL NEB PRN (03:49)
[2021-12-22] MEDS ORDERED: ONDANSETRON INJ 2 MG/ML 2 ML VIAL IV PRN (03:49)
[2021-12-22] MEDS: MAGNESIUM SULFATE / D5W 1 GM/100 ML BAG IV SCH ×2 (04:36→06:02)
[2021-12-22] MEDS: SODIUM CHLORIDE 0.9% 1000ML 1,000 ML IV SCH ×2 (04:36→16:39)
[2021-12-22] MEDS: OSELTAMIVIR PHOSPHATE 75 MG CAP PO SCH ×3 (04:37→22:07)
[2021-12-22] MEDS ORDERED: DIVALPROEX DELAY RELEASE 500 MG TAB PO STA (04:40)
[2021-12-22] MEDS: ALBUT/IPRATROP 3MG/0.5MG NEB 3 ML VIAL NEB SCH ×6 (04:55→22:10)
[2021-12-22] MEDS: LEVOTHYROXINE SODIUM 112 MCG TABLET PO SCH (05:04)
[2021-12-22] MEDS: ACETAMINOPHEN 325 MG TAB PO PRN ×2 (08:22→16:39)
[2021-12-22] MEDS: carvediloL 6.25 MG TAB PO SCH ×2 (08:23→21:23)
[2021-12-22] MEDS: guaiFENesin 600 MG TABCR PO SCH ×2 (08:23→21:23)
[2021-12-22] MEDS: OXYBUTYNIN CHLORIDE XL 5 MG TABCR PO SCH (08:23)
[2021-12-22] MEDS: ENOXAPARIN INJ 40 MG/0.4 ML SYR SQ SCH (08:23)
[2021-12-22] MEDS: BENZONATATE 100 MG CAPSULE PO PRN ×2 (08:23→16:40)
[2021-12-22] MEDS: PANTOprazole 40 MG TAB PO SCH (08:23)
[2021-12-22] MEDS: FLUTICASONE/VILANTEROL 200/25MCG 14 PUFFS/INHALER INH SCH (08:24)
[2021-12-22] MEDS ORDERED: BUDESONIDE/FORMOTEROL FUMARATE 160/4.5 60 PUFFS/INHALER INH SCH (09:00)
--- NOTE | 2021-12-22 13:55 | Electrocardiogram Report ---
Test Reason : Blood Pressure : / mmHG Vent. Rate : 079 BPM Atrial Rate : 079 BPM P-R Int : 122 ms QRS Dur : 094 ms QT Int : 400 ms P-R-T Axes : 000 -19 038 degrees QTc Int : 458 ms Normal sinus rhythm Voltage criteria for left ventricular hypertrophy Abnormal ECG When compared with ECG of 17-JAN-2020 15:09, No significant change was found Confirmed by Chapo Ashley ([id number]) on 12/22/2021 1:54:47 PM Referred By: REFERRED SELF Confirmed By:Benjamin Ashley
[2021-12-22] MEDS: ROSUVASTATIN CALCIUM 10 MG TAB PO SCH (21:24)
[2021-12-22] MEDS: DIVALPROEX EXTENDED RELEASE 500 MG TAB PO SCH (21:24)
[2021-12-23] MEDS: ACETAMINOPHEN 325 MG TAB PO PRN ×3 (02:14→16:56)
[2021-12-23] MEDS: ALBUT/IPRATROP 3MG/0.5MG NEB 3 ML VIAL NEB SCH ×6 (02:20→22:02)
[2021-12-23] MEDS: LEVOTHYROXINE SODIUM 112 MCG TABLET PO SCH (05:35)
[2021-12-23] MEDS: FLUTICASONE/VILANTEROL 200/25MCG 14 PUFFS/INHALER INH SCH (07:52)
[2021-12-23] MEDS: FLUTICASONE PROPIONATE NA SPR 16 GM BTL SCH (07:53)
[2021-12-23] MEDS: OSELTAMIVIR PHOSPHATE 75 MG CAP PO SCH ×2 (07:54→20:38)
[2021-12-23] MEDS: guaiFENesin 600 MG TABCR PO SCH ×2 (07:54→20:37)
[2021-12-23] MEDS: PANTOprazole 40 MG TAB PO SCH (07:54)
[2021-12-23] MEDS: carvediloL 6.25 MG TAB PO SCH ×2 (07:54→20:37)
[2021-12-23] MEDS: OXYBUTYNIN CHLORIDE XL 5 MG TABCR PO SCH (07:54)
[2021-12-23] MEDS: ENOXAPARIN INJ 40 MG/0.4 ML SYR SQ SCH (07:57)
[2021-12-23 10:08] LABS: Hematocrit (blood only) 38.2 % (34.1-44.9); Hemoglobin 12.5 g/dl (12.0-16.0); Mean Corpuscular Hemoglobin 29.3 pg (25.0-34.0); Mean Corpuscular Hgb Conc 32.7 g/dL (32.0-36.0); Mean Corpuscular Volume 89.5 fL (80.0-100.0); Mean Platelet Volume 10.4 fL (9.4-12.3); Platelet Count 173 K/uL (130-400); RDW Coefficient of Variation 14.2 % (11.5-14.5); RDW Standard Deviation 45.9 fL (36.4-46.3); Red Blood Count 4.27 M/uL (3.93-5.22); White Blood Count 4.13 K/ul (4.8-10.8)
[2021-12-23 10:40] LABS: BUN Creatinine Ratio 23.2 (10-20); Calcium 8.7 mg/dl (8.5-10.1); Creatinine Clr Calc Pharmacy 102.7 ml/min; Est GFR (African American) 108.9 ml/min
[2021-12-23] MEDS: BENZONATATE 100 MG CAPSULE PO PRN (16:56)
[2021-12-23] MEDS: DIVALPROEX EXTENDED RELEASE 500 MG TAB PO SCH (20:37)
[2021-12-23] MEDS: ROSUVASTATIN CALCIUM 10 MG TAB PO SCH (20:38)
--- NOTE | 2021-12-23 20:41 | Hospitalist Progress Note ---
Date of Service December 23, 2021 Assessment & Plan (1) Influenza: Plan: 61yo female presenting with 2 days of weakness, fatigue, cough as well as nausea, vomiting and diarrhea. Found to be POSITIVE for Influenza A. Patient is vaccinated. +sick contacts Adequate oxygenation on room air with ambulatory hypoxia to 87% MUNOZ as well as dry cough -Maintain droplet precautions -Tamiflu 75mg po BID -Tylenol, Zofran, Tessalon, Mucinex as needed for symptomatic relief -Flutter valve -Check ambulatory saturation Diffuse wheezing -DuoNeb q 4 hours -Albuterol q 2 hours PRN -Continue Symbicort (2) Hypoxia: Plan: Patient with influenza, diffuse wheezing noted on exam. No obvious infiltrate or evidence of CHF. Procalcitonin is negarive. -Treatment as above with DuoNebs, Albuterol -Check BNP -Check ambulatory sat (3) Hypomagnesemia: Plan: Patient received 1gm Mg in the ER. Continue supplementation -repeat Mg in AM (4) GERD (gastroesophageal reflux disease): Plan: Chronic -Protonix 40mg po daily (5) Seizure: Plan: Chronic. Well controlled with current medications -Continue Divalproex 1000mg po qHS (6) Hypothyroidism: Plan: Chronic. Stable, last TSH 05/03/21 = 2.424 -Continue Synthroid (7) Hypercholesteremia: Plan: Chronic. Stable -Continue Crestor 10mg po qHS (8) Hypertension: Plan: Chronic. Blood pressure stable -Continue Carvedilol 6.25mg po bid -Monitor F/E/N - NSS at 80 mL/hr x 2L, Mg repletion with repeat Mg level in AM, AHA diet as tolerated Ppx - Lovenox 40 Code - Full per discussion with patient Dispo - Admit to medical Admission and Anticipated Discharge Date Admission Date: December 22, 2021 Subjective Patient reports generalized weakness still present Intermittent cough no fevers Physical Exam Physical Exam: Head and ENT no thyroid enlargement trachea midline Cardiovascular S1-S2 are normal no S3 Lungs bilateral air entry fair no wheezing Abdomen soft nondistended positive bowel sounds no rebound tenderness Extremity shows trace edema Neurologically no focal deficits Skin shows no rash no cyanosis Results & Data Results & Data ([facility]) Vital Signs (Past 12 Hours) Vital Signs Temp Pulse Resp BP BP Pulse Ox O2 Del Method 12/23/21 20:33 36.5 C 77 18 122/84 96 Room Air 12/23/21 19:31 78 20 94 Room Air 12/23/21 15:19 36.4 C L 73 16 119/79 90 Room Air 12/23/21 14:42 78 16 90 Room Air 12/23/21 10:57 103 H 20 91 Room Air PG Care Time/CCT Total # of Minutes Spent Total Time Spent with Patient: Total time spent is greater than 50% in coordination of care (as documented) at patient's floor/unit and/or counseling patient: Coding Level of Care Code 06354 Subseq Hosp Care Lvl 2 Diagnoses Influenza J11.1 Hypoxia R09.02 Hypomagnesemia E83.42 GERD (gastroesophageal reflux disease) K21.9 Seizure R56.9 Hypothyroidism E03.9 Hypercholesteremia E78.00 Hypertension I10
[2021-12-24] MEDS: ALBUT/IPRATROP 3MG/0.5MG NEB 3 ML VIAL NEB SCH ×6 (03:55→22:48)
[2021-12-24] MEDS: LEVOTHYROXINE SODIUM 112 MCG TABLET PO SCH (06:06)
[2021-12-24 07:40] LABS: Hematocrit (blood only) 38.4 % (34.1-44.9); Hemoglobin 12.5 g/dl (12.0-16.0); Mean Corpuscular Hemoglobin 29.3 pg (25.0-34.0); Mean Corpuscular Hgb Conc 32.6 g/dL (32.0-36.0); Mean Corpuscular Volume 90.1 fL (80.0-100.0); Mean Platelet Volume 9.9 fL (9.4-12.3); Platelet Count 189 K/uL (130-400); RDW Coefficient of Variation 13.8 % (11.5-14.5); RDW Standard Deviation 45.8 fL (36.4-46.3); Red Blood Count 4.26 M/uL (3.93-5.22); White Blood Count 3.99 K/ul (4.8-10.8)
[2021-12-24 08:01] LABS: BUN Creatinine Ratio 26.2 (10-20); Calcium 8.9 mg/dl (8.5-10.1); Est GFR (African American) 111.1 ml/min; Est GFR (Non-African American) 95.8 ml/min; Potassium 4.4 mmol/L (3.5-5.1)
[2021-12-24] MEDS: FLUTICASONE PROPIONATE NA SPR 16 GM BTL SCH (08:01)
[2021-12-24] MEDS: carvediloL 6.25 MG TAB PO SCH ×2 (08:02→21:42)
[2021-12-24] MEDS: FLUTICASONE/VILANTEROL 200/25MCG 14 PUFFS/INHALER INH SCH (08:03)
[2021-12-24] MEDS: ENOXAPARIN INJ 40 MG/0.4 ML SYR SQ SCH (08:03)
[2021-12-24] MEDS: OXYBUTYNIN CHLORIDE XL 5 MG TABCR PO SCH (08:05)
[2021-12-24] MEDS: PANTOprazole 40 MG TAB PO SCH (08:05)
[2021-12-24] MEDS: OSELTAMIVIR PHOSPHATE 75 MG CAP PO SCH ×2 (08:05→21:39)
[2021-12-24] MEDS: guaiFENesin 600 MG TABCR PO SCH ×2 (12:26→21:42)
--- NOTE | 2021-12-24 20:14 | Hospitalist Progress Note ---
Date of Service December 24, 2021 Assessment & Plan (1) Influenza: Plan: 61yo female presenting with 2 days of weakness, fatigue, cough as well as nausea, vomiting and diarrhea. Found to be POSITIVE for Influenza A. Patient is vaccinated. +sick contacts Adequate oxygenation on room air with ambulatory hypoxia to 87% MUNOZ as well as dry cough -Maintain droplet precautions -Tamiflu 75mg po BID -Tylenol, Zofran, Tessalon, Mucinex as needed for symptomatic relief -Flutter valve -Check ambulatory saturation Diffuse wheezing -DuoNeb q 4 hours -Albuterol q 2 hours PRN -Continue Symbicort (2) Hypoxia: Plan: Patient with influenza, diffuse wheezing noted on exam. No obvious infiltrate or evidence of CHF. Procalcitonin is negarive. -Treatment as above with DuoNebs, Albuterol -Check BNP -Check ambulatory sat (3) Hypomagnesemia: Plan: Patient received 1gm Mg in the ER. Continue supplementation -repeat Mg in AM (4) GERD (gastroesophageal reflux disease): Plan: Chronic -Protonix 40mg po daily (5) Seizure: Plan: Chronic. Well controlled with current medications -Continue Divalproex 1000mg po qHS (6) Hypothyroidism: Plan: Chronic. Stable, last TSH 05/03/21 = 2.424 -Continue Synthroid (7) Hypercholesteremia: Plan: Chronic. Stable -Continue Crestor 10mg po qHS (8) Hypertension: Plan: Chronic. Blood pressure stable -Continue Carvedilol 6.25mg po bid -Monitor F/E/N - NSS at 80 mL/hr x 2L, Mg repletion with repeat Mg level in AM, AHA diet as tolerated Ppx - Lovenox 40 Code - Full per discussion with patient Dispo - Admit to medical Admission and Anticipated Discharge Date Admission Date: December 22, 2021 Subjective Patient reports generalized weakness still present Intermittent cough no fevers Physical Exam Physical Exam: Head and ENT no thyroid enlargement trachea midline Cardiovascular S1-S2 are normal no S3 Lungs bilateral air entry fair no wheezing Abdomen soft nondistended positive bowel sounds no rebound tenderness Extremity shows trace edema Neurologically no focal deficits Skin shows no rash no cyanosis Results & Data Results & Data ([facility]) Vital Signs (Past 12 Hours) Vital Signs Temp Pulse Resp BP Pulse Ox O2 Del Method 12/24/21 19:48 82 18 96 Room Air 12/24/21 15:37 36.5 C 75 16 140/81 94 Room Air 12/24/21 14:44 76 18 95 Room Air 12/24/21 10:39 74 18 95 Room Air 12/24/21 08:14 36.6 C 77 18 158/88 H 92 Room Air PG Care Time/CCT Total # of Minutes Spent Total Time Spent with Patient: Total time spent is greater than 50% in coordination of care (as documented) at patient's floor/unit and/or counseling patient: Coding Level of Care Code 89257 Subseq Hosp Care Lvl 2 Diagnoses Influenza J11.1 Hypoxia R09.02 Hypomagnesemia E83.42 GERD (gastroesophageal reflux disease) K21.9 Seizure R56.9 Hypothyroidism E03.9 Hypercholesteremia E78.00 Hypertension I10
[2021-12-24] MEDS: DIVALPROEX EXTENDED RELEASE 500 MG TAB PO SCH (21:38)
[2021-12-24] MEDS: ROSUVASTATIN CALCIUM 10 MG TAB PO SCH (21:39)
[2021-12-25] MEDS: ALBUT/IPRATROP 3MG/0.5MG NEB 3 ML VIAL NEB SCH ×3 (03:55→11:23)
[2021-12-25] MEDS: LEVOTHYROXINE SODIUM 112 MCG TABLET PO SCH (06:19)
[2021-12-25 08:54] LABS: Mean Corpuscular Hemoglobin 29.5 pg (25.0-34.0); Mean Corpuscular Hgb Conc 33.3 g/dL (32.0-36.0); Mean Corpuscular Volume 88.6 fL (80.0-100.0); Mean Platelet Volume 10.3 fL (9.4-12.3); Platelet Count 197 K/uL (130-400); RDW Coefficient of Variation 13.6 % (11.5-14.5); RDW Standard Deviation 44.6 fL (36.4-46.3); White Blood Count 4.57 K/ul (4.8-10.8)
[2021-12-25] MEDS: FLUTICASONE/VILANTEROL 200/25MCG 14 PUFFS/INHALER INH SCH (09:16)
[2021-12-25] MEDS: guaiFENesin 600 MG TABCR PO SCH (09:17)
[2021-12-25] MEDS: FLUTICASONE PROPIONATE NA SPR 16 GM BTL SCH (09:17)
[2021-12-25] MEDS: PANTOprazole 40 MG TAB PO SCH (09:18)
[2021-12-25] MEDS: OXYBUTYNIN CHLORIDE XL 5 MG TABCR PO SCH (09:18)
[2021-12-25] MEDS: carvediloL 6.25 MG TAB PO SCH (09:18)
[2021-12-25] MEDS: ENOXAPARIN INJ 40 MG/0.4 ML SYR SQ SCH (09:18)
[2021-12-25] MEDS: OSELTAMIVIR PHOSPHATE 75 MG CAP PO SCH (09:18)
[2021-12-25 09:36] LABS: BUN Creatinine Ratio 29.8 (10-20); Calcium 8.9 mg/dl (8.5-10.1); Creatinine Clr Calc Pharmacy 124.4 ml/min; Est GFR (Non-African American) 100.1 ml/min; Potassium 3.9 mmol/L (3.5-5.1)
--- NOTE | 2021-12-25 15:02 | Discharge Summary ---
Date of Service December 25, 2021 Admission HPI Per Admitting Provider Jaimie Berman is a 61yo female with history of Depression, GERD, Seizure disorder and hypothyroidism presenting with influenza. Patient reports symptoms began two days ago with weakness, fatigue, dizziness, myalgias and fever. She has had some slight non-productive cough as well as nausea, vomiting x 1 and diarrhea. Patient has had sick contacts - she works at [employer] and has had many sick residents with similar symptoms. Upon arrival to the ER patient was hypoxic at 86% on room air. She was treated with IVF, antibiotics and Tylenol. Patient's oxygen saturation decreased to 86 - 87% on room air with ambulation, patient became significant short of breath. She denies chest pain, palpitations ER Course: Ceftriaxone 2gm, Toradol 10mg, Magnesium 1gm, Tylenol 1gm, NSS x 2L, Zofran 4mg Principal Diagnosis Influenza with viral illness Discharge Exam Head and ENT no thyroid enlargement trachea midline Cardiovascular S1-S2 are normal no S3 Lungs bilateral air entry improved with no active wheezing Abdomen soft nondistended positive bowel sounds no rebound tenderness Extremity shows trace edema Neurologically no focal deficits Skin shows no cyanosis Discharge Data Allergies Allergy/AdvReac Type Severity Reaction Status Date / Time amoxicillin AdvReac Mild diarrhea Verified 12/22/21 00:53 clavulanic acid AdvReac Mild diarrhea Verified 12/22/21 00:53 Consultations 12/22/21 00:49 ED Decision to Admit Stat Hospital Course (1) Influenza: 61yo female presenting with 2 days of weakness, fatigue, cough as well as nausea, vomiting and diarrhea. Found to be POSITIVE for Influenza A. Patient is vaccinated. +sick contacts Adequate oxygenation on room air with ambulatory hypoxia to 87% MUNOZ as well as dry cough -Maintain droplet precautions -Tamiflu 75mg po BID -Tylenol, Zofran, Tessalon, Mucinex as needed for symptomatic relief -Flutter valve -Check ambulatory saturation Diffuse wheezing -DuoNeb q 4 hours -Albuterol q 2 hours PRN -Continue Symbicort (2) Hypoxia: Patient with influenza, diffuse wheezing noted on exam. No obvious infiltrate or evidence of CHF. Procalcitonin is negarive. -Treatment as above with DuoNebs, Albuterol -Check BNP -Check ambulatory sat (3) Hypomagnesemia: Patient received 1gm Mg in the ER. Continue supplementation -repeat Mg in AM (4) GERD (gastroesophageal reflux disease): Chronic -Protonix 40mg po daily (5) Seizure: Chronic. Well controlled with current medications -Continue Divalproex 1000mg po qHS (6) Hypothyroidism: Chronic. Stable, last TSH 05/03/21 = 2.424 -Continue Synthroid (7) Hypercholesteremia: Chronic. Stable -Continue Crestor 10mg po qHS (8) Hypertension: Chronic. Blood pressure stable -Continue Carvedilol 6.25mg po bid -Monitor F/E/N - NSS at 80 mL/hr x 2L, Mg repletion with repeat Mg level in AM, AHA diet as tolerated Ppx - Lovenox 40 Code - Full per discussion with patient Dispo - Admit to medical Total Time Total Time Spent Total Time Spent (In Minutes): 50 Discharge Plan Discharge Items Patient Disposition: Home - Self-Care Reason For Visit: INFLUENZA, HYPOXIA Discharge Diagnosis: Influenza acute viral illness Condition on Discharge: Good Activity: Per Instructions section Lifting: Gradually increase as tolerated Non-emergency contact: Primary Care Provider Call non-emergency contact if: you have any medication questions Follow-up/Referrals: Krystina Gonzalez DO [Primary Care Provider] - Diet: Heart Healthy Addtl Attending Provider Instructions: f/u pcp -3-5 days Pending Studies at Discharge: No Stand-Alone Forms: My [employer], Smoking Cessation Medications and DC Order Prescriptions: Continued albuterol sulfate [ProAir HFA] 90 mcg/actuation HFA aerosol inhaler 2 puff inhalation Q4H PRN (Reason: shortness of breath) Qty: 8.5 5RF carvedilol 6.25 mg tablet 6.25 mg PO BID Qty: 180 3RF divalproex 500 mg tablet,delayed release (DR/EC) 1,000 mg PO HS Qty: 180 3RF levothyroxine 112 mcg tablet 112 mcg PO QAM Qty: 90 3RF rosuvastatin 10 mg tablet 10 mg PO HS Qty: 90 3RF budesonide-formoterol [Symbicort] 160-4.5 mcg/actuation HFA aerosol inhaler 2 puff inhalation BID Qty: 3 3RF Rx Instructions: APPROVED GOOD 08/12/21 esomeprazole magnesium [Nexium] 20 mg capsule,delayed release(DR/EC) 20 mg PO DAILY Qty: 90 1RF oxybutynin chloride 5 mg tablet extended release 24 hr 5 mg PO DAILY Qty: 90 3RF cholecalciferol (vitamin D3) 5,000 unit tablet 5,000 units PO QAM Multi For Her 50 Plus 400-80 mcg Capsule 1 cap PO QAM Discharge Orders: Discharge Order (Routine); Ordered 12/25/21 Ordered By: Satnam Coon/Other Patient Handouts: The Flu (Influenza) Admission Data Admit Date/Time: 12/22/21 02:23 Attending Provider: Satnam Song Admit Provider: Chastity Arriaga Primary Care Provider: Krystina Gonzalez. Other Providers: Chastity Arriaga Other Interventions: Discharge Summary Assessment (RN) Last Done: 12/25/21 12:39 Coding Level of Care Code D/C DAY MANAGEMENT >30 MINS Diagnoses Influenza J11.1 Hypoxia R09.02 Hypomagnesemia E83.42 GERD (gastroesophageal reflux disease) K21.9 Seizure R56.9 Hypothyroidism E03.9 Hypercholesteremia E78.00 Hypertension I10
== END 2021-12-25 13:51 | disposition home or self-care (01) | DRG 195 ==
LOC: ED 17:38 → SUATTDRO 12-22 02:23 → 3W 12-22 02:23

== ENCOUNTER 2023-03-14 08:20 | Inpatient (IN) ==
[2023-03-14] MEDS ORDERED: KETOROLAC TROMETHAMINE 15 MG/ML VIAL IV ONE (08:34)
[2023-03-14] MEDS ORDERED: guaiFENesin 600 MG TABCR PO ONE (08:34)
[2023-03-14] MEDS ORDERED: ALBUT/IPRATROP 3MG/0.5MG NEB 3 ML VIAL NEB STA ×2 (08:34→10:05)
--- NOTE | 2023-03-14 08:40 | Emergency Department Note ---
Impression & Plan COVID-19, Hypoxia ED Provider Note Provider: Robbie Dean MD DATE OF SERVICE: 03/14/2023 CHIEF COMPLAINT: Chest pain, cough HISTORY OF PRESENT ILLNESS: Patient is a 62-year-old female history of hypertension, diabetes, hypothyroidism, hyperlipidemia, GERD, and sleep apnea presenting here today reporting onset of cough with chest pain radiating to the back. No trauma or syncope. Has been experiencing congestion for a week as well as a sore throat. Slightly productive cough this morning. Had negative strep test previously this week. No COVID or flu test done however. Denies feeling short of breath. No swelling. No rashes. Bit of nausea but states this is more chronic with her Ozempic. With a sore throat more laying flat as well as the nasal congestion. Does have a history of asthma and does use Symbicort. Nebulizer with minimal improvement at home.work colleagues recommended she come here for evaluation today. 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 NECK: Trachea midline. ENT: Mucous membranes pink and moist. Pharynx without erythema or exudate. Uvula midline. LUNGS: Airway patent. No retractions. Breath sounds with faint expiratory wheeze HEART: Regular rate and rhythm. No chest wall tenderness ABDOMEN: Soft and non-tender, without guarding or rebound. SKIN: Acyanotic, warm, dry, without rashes EXTREMITIES: Without swelling, tenderness or deformity NEUROLOGICAL: No focal deficits. No aphasia. No facial droop or slurred speech. Ambulatory. EK bpm sinus tachycardia. No PVC or PAC. QTc 452. No acute ST segment elevation or depression. CONTINUOUS CARDIAC MONITORING: was ordered and showed a heart rate of 80s-100s bpm in normal sinus rhythm to sinus tachycardia Patient's laboratory studies and imaging reviewed. Differential includes Cardiac ischemia, aortic dissection, pulmonary embolism, pneumothorax, pneumonia, pericarditis, myocarditis, esophageal rupture, GERD, cholecystitis, pancreatitis, musculoskeletal, upper respiratory infection as well as other pathologies. IMPRESSION/MEDICAL DECISION MAKING: Patient not hypoxic here. History of asthma. Will give DuoNeb is slightly wheezy. Does not appear in any distress. EKG troponin were completed given her age and risk factors but lower suspicion given the infectious symptomatologies this represents ACS/DE. No evidence of heart failure significant swelling. Will obtain chest x-ray to ensure this has not settled into a pneumonia situation. Labs are sent. Flu, COVID, RSV test was sent. Patient's employment given the high likelihood this is URI related. Get a bit of Toradol and Mucinex to help with symptoms of chest discomfort and cough as well. Benign abdomen without tenderness and I doubt acute intra-abdominal pathology. Chest x-ray reported by radiology without evidence of pneumonia or pulmonary edema/pneumothorax. Laboratory studies without anemia or leukocytosis. No significant electrolyte abnormality or signs of renal dysfunction. No evidence of acute hepatitis or pancreatitis. Troponin normal at 9.2. Given her ongoing symptoms as well as her EKG I doubt this represents ACS and again seems likely more related to her general illness. Patient does have some slight desaturation here at 1 point requiring oxygen supplementation. Given a dose of some IV steroids here if this is related to underlying reactive airway disease but considered CT of the chest to exclude PE and further evaluate the lungs for any occult findings of pneumonia process. Patient on reassessment is having good improvement of her chest discomfort and feeling little bit better. RSV, flu, and COVID testing returns positive for COVID-19. Again received dexamethasone here. Patient is vaccinated for COVID-19. CT of the chest completed and per radiology report no evidence of PE or pneumonia. Atelectasis changes and inflammatory changes. Seems consistent with her COVID. Discussed with the patient COVID-[address] report. Still with some hypoxia. Did recommend that we monitor her and provide supplemental oxygen until she has improvement of her symptoms. Chest pain again is likely more musculoskeletal I doubt ACS/DE. Discussed with the hospitalist and she was agreeable to stay. Did have a significant hospitalization with first episode of COVID in 2020. DIAGNOSIS: COVID-19, hypoxia, cough, chest pain DISPOSITION: Hospitalist will evaluate Patient was agreeable with this plan. Past Med/Surg History Medical History (Updated 03/14/23 @ 15:04 by Robbie Dean M.D.) Seizure last seizure--grand mal 1994--on depakote Hypercholesteremia Hyperlipidemia Left leg swelling Hypoxia Hypomagnesemia Influenza Fatigue Generalized weakness Urinary incontinence GERD (gastroesophageal reflux disease) History of uterine cancer (2016) DVT prophylaxis Acute pyelonephritis Severe acute respiratory syndrome coronavirus 2 (SARS-CoV-2) detected (12/2019) Vitamin D deficiency Hypothyroidism History of colon polyps Kidney stones Uterine cancer 2016--sx, chemo and radiation Depression Endometrial adenocarcinoma (06/12/15) "Abdominal pain and irregular menses Status post ultrasound revealing pelvic mass Status post endometrial biopsy 06/12/2015 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, radiation. History of nasal surgery nodules removed History of bilateral cataract extraction History of cardiac cath 2009 @ [place]--no stents placed Family History Mother Family history of diabetes mellitus Sister Family history of diabetes mellitus Family hx colonic polyps Father Family hx of colon cancer Colorectal cancer Brother Family hx colonic polyps Sister Breast cancer Family/Other Breast cancer niece Denies family history of Ovarian cancer Prostate cancer Myocardial infarction Social History Smoking Status: Never smoker Second Hand Exposure: No; Do You Dip or Chew Tobacco: No; Hx Alcohol Use: No Hx Substance Use: No Preferred Language: French Communication Ability: Effective Visual Impairment: No Limitations Hearing Ability: Normal [employer] Required: No Beliefs That Will Affect Care: None marital status: Single Current Living Situation: Other Current Living Situation Comment: Lives With Brother current occupational status: employed 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 [employer] How many Children do You have: 0 Other Information That Helps Us Care for You: No Feels Safe at Home: Yes Safety Concerns: Feels Safe At This Time Childhood Exposure to Second-Hand Smoke: No Diet: regular Diet Comment: regular caffeine: Yes (coffee ) during the past year weight has: remained stable Dental Care, Regularly: Yes Physical Activity Frequency: 3-4 Times per Week Seatbelt Use: always Sunscreen Use: No Assistive Devices: Oxygen - Continuous Allergies Allergies Allergy/AdvReac Type Severity Reaction Status Date / Time rosuvastatin AdvReac Intermediate Muscle Pain Verified 12/26/22 14:12 Home Meds Home Medications Medication Instructions Recorded Confirmed fhxcmfgistss-flkxrhln-llxmn acid 1 cap PO QAM 01/05/18 12/26/22 400 mcg-vitamin K 80 mcg capsule (Multi For Her 50 Plus) coenzyme Q10 200 mg capsule (Co 200 mg PO DAILY 05/03/22 12/26/22 Q-10) Previous Rx's Medication Instructions Recorded albuterol sulfate 90 mcg/actuation 2 puff inhalation Q4H PRN 05/17/20 aerosol inhaler (ProAir HFA) shortness of breath #8.5 grams albuterol sulfate 2.5 mg/3 mL 2.5 mg (3 mL) inhalation Q4H PRN 12/27/21 (0.083 %) solution for nebulization shortness of breath or wheezing #75 mL ondansetron HCl 4 mg tablet 4 mg PO Q8H PRN nausea and 12/31/21 vomiting #20 tabs levothyroxine 112 mcg tablet 112 mcg PO QAM #90 tabs 01/26/22 budesonide-formoterol HFA 160 2 puff inhalation BID #3 Inhalers 08/08/22 mcg-4.5 mcg/actuation aerosol inhaler (Symbicort) clobetasol 0.05 % topical cream 1 applic topical .COMPLEX #60 grams 10/07/22 divalproex 500 mg tablet,delayed 1,000 mg (2 x 500 mg) PO HS #180 12/26/22 release tabs losartan 25 mg tablet 25 mg PO DAILY #90 tabs 12/26/22 carvedilol 6.25 mg tablet 6.25 mg PO BID #180 tabs 01/17/23 solifenacin 10 mg tablet (Vesicare) 10 mg PO DAILY #30 tabs 01/17/23 semaglutide 0.25 mg or 0.5 mg (2 0.5 mg (0.736 mL) subcut WK #6 mL 02/08/23 mg/3 mL) subcutaneous pen injector ([employer]) omeprazole 20 mg capsule,delayed 20 mg PO DAILY #90 caps 02/15/23 release pravastatin 40 mg tablet 40 mg PO DAILY #90 tabs 02/15/23 vibegron 75 mg tablet (Gemtesa) 75 mg PO DAILY #90 tabs 02/22/23 Results & Data (ED) Vital Signs Vital Signs - 24 hr 03/14/23 08:22 03/14/23 08:34 03/14/23 08:42 Temperature 36.4 C L Temperature Source Temporal Artery Scan Pulse Rate 102 H 104 H Pulse Rate from SpO2 Sensor Respiratory Rate 20 Respiratory Effort / Characteristics Non-Labored Respiratory Depth Normal Blood Pressure 122/75 Blood Pressure Mean 90 Pulse Oximetry 95 Oxygen Delivery Method Room Air Room Air Oxygen Flow Rate Sepsis Recent Fever Within 48 Hours No Sepsis New/Unexplained Change in Mental Status N/A Sepsis Action Taken by Nursing No Action Required Oxygen Flow Rate - Titration Pulse Oximetry Post Tiitration 03/14/23 08:42 03/14/23 08:42 03/14/23 09:00 Temperature Temperature Source Pulse Rate 102 H 106 H Pulse Rate from SpO2 Sensor Respiratory Rate 15 20 Respiratory Effort / Characteristics Respiratory Depth Blood Pressure 129/85 Blood Pressure Mean 99 Pulse Oximetry 96 95 88 L Oxygen Delivery Method Room Air Room Air Oxygen Flow Rate 0 Sepsis Recent Fever Within 48 Hours Sepsis New/Unexplained Change in Mental Status Sepsis Action Taken by Nursing Oxygen Flow Rate - Titration Pulse Oximetry Post Tiitration 03/14/23 09:20 03/14/23 09:48 03/14/23 11:20 Temperature Temperature Source Pulse Rate 106 H Pulse Rate from SpO2 Sensor 92 H Respiratory Rate 20 18 Respiratory Effort / Characteristics Respiratory Depth Blood Pressure 120/85 Blood Pressure Mean 96 Pulse Oximetry 96 88 L 93 Oxygen Delivery Method Nasal Cannula Nasal Cannula Nasal Cannula Oxygen Flow Rate 2 0 2 Sepsis Recent Fever Within 48 Hours Sepsis New/Unexplained Change in Mental Status Sepsis Action Taken by Nursing Oxygen Flow Rate - Titration 2 Pulse Oximetry Post Tiitration 93 Laboratory Data 03/14/23 08:41 03/14/23 08:41 Lab Results 03/14/23 Range/Units 08:41 WBC 8.00 (4.8-10.8) K/ul RBC 5.01 (4.20-5.40) M/uL Hgb 14.5 (12.0-16.0) g/dl Hct 44.5 (37.0-47.0) % MCV 88.8 (80.0-100.0) fL MCH 28.9 (25.0-34.0) pg MCHC 32.6 (32.0-36.0) g/dL RDW Std Deviation 48.7 H (36.4-46.3) fL RDW Coeff of Jim 15.0 H (11.5-14.5) % Plt Count 225 (130-400) K/uL MPV 10.5 (9.4-12.4) fL Immature Gran % (Auto) 0.5 % Neut % (Auto) 70.3 % Lymph % (Auto) 14.8 % [place] % (Auto) 13.9 % Eos % (Auto) 0.1 % Baso % (Auto) 0.4 % Neut # (Auto) 5.63 (1.40-6.50) K/uL Lymph # (Auto) 1.18 L (1.20-3.40) K/uL [place] # (Auto) 1.11 H (0.11-0.59) K/uL Eos # (Auto) 0.01 (0.00-0.50) K/uL Baso # (Auto) 0.03 (0.00-0.20) K/uL Immature Gran # (Auto) 0.04 (0.01-0.20) K/uL Sodium 136 (136-145) mmol/L Potassium 4.4 (3.5-5.1) mmol/L Chloride 100 (98-107) mmol/L Carbon Dioxide 28 (21-32) mmol/L Anion Gap 8 (3-11) BUN 17 (6-23) mg/dl Creatinine 0.88 (0.6-1.2) mg/dl Est Cr Clr Drug Dosing 76.8 ml/min Est GFR ( Amer) 81.6 ml/min Est GFR (Non-Af Amer) 70.4 ml/min BUN/Creatinine Ratio 19.3 (10-20) Glucose 96 (70-99(Fasting)) mg/dl Calcium 9.8 (8.6-10.3) mg/dl Total Bilirubin 0.6 (0.2-1.0) mg/dl AST 35 (13-39) U/L ALT 25 (7-52) U/L Alkaline Phosphatase 65 (34-104) U/L Troponin I High Sens 9.2 (0-14) pg/ml Total Protein 7.4 (6.0-8.3) gm/dl Albumin 4.1 (3.4-5.0) gm/dl Globulin 3.3 (2.5-4.0) gm/dl Albumin/Globulin Ratio 1.2 (0.9-2) Lipase 8 L (11-82) U/L Administered Medications Enoxaparin Sodium (Enoxaparin Inj 40 Mg/0.4 Ml Syr) 40 mg SQ Q24H PATTIE Stop: 04/13/23 13:59 Last Admin: 03/14/23 14:46 Dose: 40 mg Documented By: ETHAN Insulin Aspart (Insulin Aspart Per Unit Charge) 0 units SC ACHS PATTIE Stop: 04/13/23 14:29 Last Admin: 03/14/23 14:37 Dose: Not Given Documented By: ETHAN Co-signed By: [facility] Discontinued Medications Albuterol (Albut/Ipratrop 3mg/0.5mg Neb 3 Ml Vial) 3 ml NEB NOW STA; Protocol Stop: 03/14/23 08:35 Last Admin: 03/14/23 08:54 Dose: 3 ml Documented By: AILYN Albuterol (Albut/Ipratrop 3mg/0.5mg Neb 3 Ml Vial) 3 ml NEB NOW STA; Protocol Stop: 03/14/23 10:06 Last Admin: 03/14/23 10:35 Dose: 3 ml Documented By: AILYN Dexamethasone Sodium Phosphate (DexamethasonePf 10 Mg/Ml Vial) 6 mg IV NOW ONE Stop: 03/14/23 10:26 Last Admin: 03/14/23 10:35 Dose: 6 mg Documented By: AILYN Guaifenesin (Guaifenesin 600 Mg Tabcr) 1,200 mg PO Q12 ONE Stop: 03/14/23 08:35 Last Admin: 03/14/23 08:54 Dose: 1,200 mg Documented By: AILYN Ioversol (Optiray 320 125ml) 112 ml IV ONCE ONE Stop: 03/14/23 10:59 Last Admin: 03/14/23 10:58 Dose: 112 ml Documented By: HAILEE Ketorolac Tromethamine (Ketorolac Tromethamine 15 Mg/Ml Vial) 10 mg IV NOW ONE Stop: 03/14/23 08:35 Last Admin: 03/14/23 08:54 Dose: 10 mg Documented By: AILYN Methylprednisolone (Methylprednisolone 125 Mg/2 Ml Vial) 60 mg IV NOW STA Stop: 03/14/23 10:06 Last Admin: 03/14/23 10:32 Dose: Not Given Documented By: AILYN Imaging Data Radiologist's Impression: Chest X-Ray 03/14/23 08:34 XR chest 1V portable CLINICAL HISTORY: Chest pain,cough, congestion COMPARISON STUDY: Chest radiograph December 21, 2021. Chest CT May 02, 2022. FINDINGS: Lung volumes are normal. Lungs are clear. There is no pneumothorax or pleural effusion. Cardiomediastinal silhouette is stable. There is no evidence for pulmonary edema. IMPRESSION: No acute cardiopulmonary findings. ACT 112: Negative or not required by law. Electronically signed by: Josh Tian M.D. 03/14/2023 9:06 AM Chest CTA 03/14/23 10:00 CT angio chest PE protocol CLINICAL HISTORY: PE, hypoxia, cough, cp TECHNIQUE: Multidetector row helical CT of the chest was performed with angiographic protocol. Coronal and sagittal reformations were obtained. Coronal and sagittal MIPS were obtained from the axial data set and were submitted for review. Automated dose lowering techniques and/or adjustment according to patient size were utilized for this exam. CT DOSE: 856.7 mGy.cm Comparison: None available at the time of this dictation. FINDINGS: Lungs and pleura: Atelectasis versus scarring is seen in the dependent portions of the lungs. Incidental note is made of tracheomalacia. Heart and pericardium: Heart size is normal. No pericardial effusion. Vessels: No evidence of pulmonary embolism. Mediastinum and doreen: Unremarkable. Chest wall and lower neck: Unremarkable. Abdomen: Unremarkable. Bones: Unremarkable. IMPRESSION: Atelectasis is seen without definite superimposed pneumonia. No pulmonary embolus. ACT 112: Negative or not required by law. Electronically signed by: Sonido Pinon M.D. 03/14/2023 11:10 AM Discharge Plan Visit Data Chief Complaint: Chest Pain Stated Complaint: CHEST PAINS RADIATING TO BACK, COUGH ED Provider: Robbie Dean Discharge Problem: COVID-19, Hypoxia Patient Disposition: Admitted As Inpatient Discharge Instructions Interventions: ED Discharge Assessment Last Done: 03/14/23 13:40
[2023-03-14 09:00] LABS: Basophils # (auto) 0.03 K/uL (0.00-0.20); Basophils % (auto) 0.4 %; Eosinophils # (auto) 0.01 K/uL (0.00-0.50); Eosinophils % (auto) 0.1 %; Hematocrit (blood only) 44.5 % (37.0-47.0); Hemoglobin 14.5 g/dl (12.0-16.0); Immature Granulocytes # (auto) 0.04 K/uL (0.01-0.20); Immature Granulocytes % (auto) 0.5 %; Lymphocytes # (auto) 1.18 K/uL (1.20-3.40); Lymphocytes % (auto) 14.8 %; Mean Corpuscular Hemoglobin 28.9 pg (25.0-34.0); Mean Corpuscular Hgb Conc 32.6 g/dL (32.0-36.0); Mean Corpuscular Volume 88.8 fL (80.0-100.0); Mean Platelet Volume 10.5 fL (9.4-12.4); Monocytes # (auto) 1.11 K/uL (0.11-0.59); Monocytes % (auto) 13.9 %; Neutrophils # (auto) 5.63 K/uL (1.40-6.50); Neutrophils % (auto) 70.3 %; Platelet Count 225 K/uL (130-400); RDW Standard Deviation 48.7 fL (36.4-46.3); Red Blood Count 5.01 M/uL (4.20-5.40)
--- NOTE | 2023-03-14 09:08 | XRay Report ---
XR chest 1V portable CLINICAL HISTORY: Chest pain,cough, congestion COMPARISON STUDY: Chest radiograph December 21, 2021. Chest CT May 02, 2022. FINDINGS: Lung volumes are normal. Lungs are clear. There is no pneumothorax or pleural effusion. Car diomediastinal silhouette is stable. There is no evidence for pulmonary edema. IMPRESSION: No acute cardiopulmonary findings. ACT 112: Negative or not required by law. Electronically signed by: Josh Tian M.D. 03/14/2023 9:06 AM
[2023-03-14 09:17] LABS: Albumin Level 4.1 gm/dl (3.4-5.0); Bilirubin,Total 0.6 mg/dl (0.2-1.0); Calcium 9.8 mg/dl (8.6-10.3); Potassium 4.4 mmol/L (3.5-5.1)
[2023-03-14 09:24] LABS: Albumin Globulin Ratio 1.2 (0.9-2); BUN Creatinine Ratio 19.3 (10-20); Creatinine Clr Calc Pharmacy 76.8 ml/min; Est GFR (African American) 81.6 ml/min; Est GFR (Non-African American) 70.4 ml/min; Globulin 3.3 gm/dl (2.5-4.0); Total Protein 7.4 gm/dl (6.0-8.3)
[2023-03-14 09:28] LABS: Troponin I High Sensitivity 9.2 pg/ml (0-14)
[2023-03-14 09:38] LABS: Influenza A virus by PCR Negative (Neg); Influenza B virus by PCR Negative (Neg); RSV by PCR Negative (Neg)
[2023-03-14] MEDS ORDERED: methylPREDNISolone 125 MG/2 ML VIAL IV STA (10:05)
[2023-03-14] MEDS ORDERED: dexAMETHasone**PF** 10 MG/ML VIAL IV ONE (10:25)
[2023-03-14 10:26] LABS: SARS CoV2 RNA(COVID-19) Ceph POSITIVE (Negative)
[2023-03-14] MEDS ORDERED: OPTIRAY 320 125ml IV ONE (10:58)
--- NOTE | 2023-03-14 11:13 | CT Scan Report ---
CT angio chest PE protocol CLINICAL HISTORY: PE, hypoxia, cough, cp TECHNIQUE: Multidetector row helical CT of the chest was performed with angiographic protocol. Bear l and sagittal reformations were obtained. Coronal and sagittal MIPS were obtained from the axial louis a set and were submitted for review. Automated dose lowering techniques and/or adjustment according to patient size were utilized for this exam. CT DOSE: 856.7 mGy.cm Comparison: None available at the time of this dictation. FINDINGS: Lungs and pleura: Atelectasis versus scarring is seen in the dependent portions of the lungs. Inciden myrna note is made of tracheomalacia. Heart and pericardium: Heart size is normal. No pericardial effusion. Vessels: No evidence of pulmonary embolism. Mediastinum and doreen: Unremarkable. Chest wall and lower neck: Unremarkable. Abdomen: Unremarkable. Bones: Unremarkable. IMPRESSION: Atelectasis is seen without definite superimposed pneumonia. No pulmonary embolus. ACT 112: Negative or not required by law. Electronically signed by: Sonido Pinon M.D. 03/14/2023 11:10 AM
--- NOTE | 2023-03-14 11:51 | History & Physical Report ---
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 No evidence of superimposed pneumonia on CTA, no evidence of PE on CTA. Bilat changes suspicious for viral pneumonia High sensitive troponin is normal Discussed risk/benefits of remdesivir at approximately day 7 of illness. On shared decision making and with lower therapeutic benefit this far out in illness patient opts to defer treatment with this at this time Continue DuoNebs as needed Lovenox for DVT prophylaxis Chest discomfort is with coughing and laying (no orthopnea). Trop is normal no ischemic EKG changes. Likely Noncardiac and resolved following sitting up and taking a PPI. DDx includes GERD versus costochondritis with cough. No exertional chest pain/angina in the preceding weeks or at time of admission. No hx CAD/CHF. (2) COVID-19: Plan: As noted (3) Hypertension: Plan: Hypertension Salt restriction Continue losartan - continue carvedilol. Patient did take this this morning, heart rate initially tachycardic in the ER and has normalized at time of provider reassessment (4) Diabetes: Plan: Previous A1c 6.5, more recently down to 6.0 and is on semaglutide weekly BSG is well-controlled less than 100 on admission. Will defer long-acting insulin, weight-based sliding scale ordered Goal BSG 116862 (5) Asthma: Plan: Chronic asthma with exacerbation due to COVID pneumonia, tight air movement and trace end expiratory wheezes on exam Improving following steroids. Continue dexamethasone daily as noted, DuoNebs as needed, continue home inhalers Mag level pending. Replete to goal 2.0. Plan Chronic stable issues: Hypothyroidism: Continue Synthroid Hyperlipidemia: Stable. Prior myalgias resolved with her switch to pravastatin. Continue coq10 with this. Seizure: Stable for many years on depakote. Continued. GERD: Continue PPI, convert to protonix while inpt Overactive Bladder: Continue home meds. May use own solifenacin if harmony tit. SEB: CPAP qhs DVT prophylaxis: Lovenox Disposition: Medical/surgical Diet: DM 2, low-sodium CODE STATUS: Full code History of Present Illness Primary Care Provider: Krystina Gonzalez DO Jaimie is a 62-year-old female with a history of DM 2, hypothyroidism, hyperlipidemia, GERD, SEB, hypertension who presents with 1 week of cough, sore throat, chest pain worsened on cough with radiation to the back, increase sputum production, fatigue, nausea, and sinus congestion. She has a history of asthma on Symbicort. She does not have a home oxygen requirement and is requiring 2 L of nasal cannula on admission. 1 week of respiratory URI symptoms including cough, sore throat. She reports that she had COVID in 2019 and was very ill with this and was hospitalized, ultimately was able to be discharged home and did not require oxygen. 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 She does feel that about 7 days ago she had new and increased sinus congestion, wheezing, and continued dry cough which is may be a little bit worse in the last week. She has not had fevers or chills or night sweats. No nausea/vomiting/diarrhea/Constipation. She had a small amount of rib pain when laying flat and when coughing in her mid lower rib that felt similar to GERD, this has completely resolved with sitting up, Toradol, and with omeprazole. She has had no exertional chest pain. She took her medications including carvedilol this morning. She had myalgias on her prior statin and has had no myalgias after this was paused and was switched to pravastatin with co-Q10 Medical History: Reviewed Medications: Reviewed Surgical History: Reviewed Family history: Reviewed Allergies: Reviewed Social History: Reviewed, no tobacco/etoh Code Status:Full Allergies Allergy/AdvReac Type Severity Reaction Status Date / Time rosuvastatin AdvReac Intermediate Muscle Pain Verified 12/26/22 14:12 Home Medications Medication Instructions Recorded Confirmed Type oyqicdyxnanj-rtnfxqcc-fumdm acid 1 cap PO QAM 01/05/18 12/26/22 History 400 mcg-vitamin K 80 mcg capsule (Multi For Her 50 Plus) albuterol sulfate 90 mcg/actuation 2 puff inhalation Q4H PRN 05/17/20 12/26/22 Rx aerosol inhaler (ProAir HFA) shortness of breath #8.5 grams albuterol sulfate 2.5 mg/3 mL 2.5 mg (3 mL) inhalation Q4H PRN 12/27/21 12/26/22 Rx (0.083 %) solution for nebulization shortness of breath or wheezing #75 mL ondansetron HCl 4 mg tablet 4 mg PO Q8H PRN nausea and 12/31/21 12/26/22 Rx vomiting #20 tabs levothyroxine 112 mcg tablet 112 mcg PO QAM #90 tabs 01/26/22 12/26/22 Rx coenzyme Q10 200 mg capsule (Co 200 mg PO DAILY 05/03/22 12/26/22 History Q-10) budesonide-formoterol HFA 160 2 puff inhalation BID #3 Inhalers 08/08/22 12/26/22 Rx mcg-4.5 mcg/actuation aerosol inhaler (Symbicort) clobetasol 0.05 % topical cream 1 applic topical .COMPLEX #60 grams 10/07/22 12/26/22 Rx divalproex 500 mg tablet,delayed 1,000 mg (2 x 500 mg) PO HS #180 12/26/22 Rx release tabs losartan 25 mg tablet 25 mg PO DAILY #90 tabs 12/26/22 12/26/22 Rx carvedilol 6.25 mg tablet 6.25 mg PO BID #180 tabs 01/17/23 Rx solifenacin 10 mg tablet (Vesicare) 10 mg PO DAILY #30 tabs 01/17/23 01/17/23 Rx semaglutide 0.25 mg or 0.5 mg (2 0.5 mg (0.736 mL) subcut WK #6 mL 02/08/23 Rx mg/3 mL) subcutaneous pen injector (Ozempic) omeprazole 20 mg capsule,delayed 20 mg PO DAILY #90 caps 02/15/23 Rx release pravastatin 40 mg tablet 40 mg PO DAILY #90 tabs 02/15/23 Rx vibegron 75 mg tablet (Gemtesa) 75 mg PO DAILY #90 tabs 02/22/23 Rx Past Med/Surg History Medical History (Updated 03/14/23 @ 12:14 by Carlos Enrique Wilks MD) Seizure last seizure--grand mal 1994--on depakote Hypercholesteremia Hyperlipidemia Left leg swelling Hypoxia Hypomagnesemia Influenza Fatigue Generalized weakness Urinary incontinence GERD (gastroesophageal reflux disease) History of uterine cancer (2016) DVT prophylaxis Acute pyelonephritis Severe acute respiratory syndrome coronavirus 2 (SARS-CoV-2) detected (12/2019) Vitamin D deficiency Hypothyroidism History of colon polyps Kidney stones Uterine cancer 2016--sx, chemo and radiation Depression Endometrial adenocarcinoma (06/12/15) "Abdominal pain and irregular menses Status post ultrasound revealing pelvic mass Status post endometrial biopsy 06/12/2015 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 History of nasal surgery nodules removed History of bilateral cataract extraction History of cardiac cath 2009 @ [place]--no stents placed Family History Mother Family history of diabetes mellitus Sister Family history of diabetes mellitus Family hx colonic polyps Father Family hx of colon cancer Colorectal cancer Brother Family hx colonic polyps Sister Breast cancer Family/Other Breast cancer niece Denies family history of Ovarian cancer Prostate cancer Myocardial infarction Social History Smoking Status: Never smoker Second Hand Exposure: No; Do You Dip or Chew Tobacco: No; Hx Alcohol Use: No Hx Substance Use: No Preferred Language: Bulgarian Communication Ability: Effective Visual Impairment: No Limitations Hearing Ability: Normal Program Research Specialist Required: No Beliefs That Will Affect Care: None marital status: Single Current Living Situation: Family Current Living Situation Comment: Lives with brother current occupational status: employed current occupation: [employer]PRES[employer]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 NAD. Cooperative. HEENT: Atraumatic, normocephalic. PERLAA. Pulm: Moderate/tight air movement, scant end expiratory wheezes. Symmetrical chest rise. No increased work of breathing. No respiratory distress. Cardiac: Regular, mild tachycardia, -mrg. Radial pulses intact and symmetrical. Abdominal: Nontender, nondistended, soft. BS present. Ext: warm, dry. Results & Data Results & Data Vital Signs (Past 12 Hours) Vital Signs Temp Pulse Resp BP Pulse Ox O2 Del Method O2 Flow Rate 03/14/23 11:20 18 120/85 93 Nasal Cannula 2 03/14/23 09:48 88 L Nasal Cannula 0 03/14/23 09:20 106 H 20 96 Nasal Cannula 2 03/14/23 09:00 106 H 20 129/85 88 L 03/14/23 08:42 102 H 15 95 Room Air 03/14/23 08:42 96 Room Air 0 03/14/23 08:42 Room Air 03/14/23 08:34 104 H 03/14/23 08:22 36.4 C L 102 H 20 122/75 95 Room Air PG Care Time/CCT Total # of Minutes Spent Total Time Spent with Patient: Total time spent is greater than 50% in coordination of care (as documented) at patient's floor/unit and/or counseling patient: Coding Level of Care Code 22493 INT INP/OBS CARE 3/75MIN Diagnoses Acute respiratory failure with hypoxia J96.01 COVID-19 U07.1 Hypertension I10 Diabetes E11.9 Asthma J45.909
[2023-03-14] MEDS ORDERED: ALBUT/IPRATROP 3MG/0.5MG NEB 3 ML VIAL NEB PRN (12:06)
[2023-03-14] MEDS ORDERED: GLUCOSE 10 TAB/TUBE PO PRN (12:07)
[2023-03-14] MEDS ORDERED: CARBOHYDRATES FOR HYPOGLYCEMIA PO PRN (12:07)
[2023-03-14] MEDS ORDERED: GLUCOSE 40% GEL 15 GM TUBE PO PRN (12:07)
[2023-03-14] MEDS ORDERED: ACETAMINOPHEN 500 MG TAB PO PRN (12:07)
[2023-03-14] MEDS ORDERED: GLUCAGON FOR INJ 1 MG VIAL SQ PRN (12:07)
[2023-03-14] MEDS ORDERED: PHARMACY GLYCEMIC MGMT CONSULT PRN (12:07)
[2023-03-14] MEDS ORDERED: DEXTROSE 50% 50 ML SYRINGE IV PRN (12:07)
--- NOTE | 2023-03-14 12:23 | Electrocardiogram Report ---
Test Reason : Blood Pressure : / mmHG Vent. Rate : 104 BPM Atrial Rate : 104 BPM P-R Int : 126 ms QRS Dur : 094 ms QT Int : 344 ms P-R-T Axes : 035 -18 072 degrees QTc Int : 452 ms Sinus tachycardia Moderate voltage criteria for LVH, may be normal variant Poor R wave progression, consider anterior WI vs. lead placement vs. LVH Abnormal ECG When compared with ECG of 21-DEC-2021 18:31, No significant change was found Confirmed by Chapo Ashley ([id number]) on 03/14/2023 12:22:57 PM Referred By: REFERRED SELF Confirmed By:Benjamin Ashley
[2023-03-14] MEDS ORDERED: ACETAMINOPHEN 325 MG TAB PO PRN (13:41)
[2023-03-14] MEDS ORDERED: POLYETHYLENE (MIRALAX) 17 GM PACK PO PRN (13:41)
[2023-03-14] MEDS ORDERED: ONDANSETRON INJ 2 MG/ML 2 ML VIAL IV PRN (13:41)
--- NOTE | 2023-03-14 14:29 | Pharmacy Report ---
Pharmacy Glycemic Short Note 2 - Date of Service March 14, 2023 - Glycemic Short BSG Results (Last 24 hours): 03/14/23 08:41 Glucose 96 OUTPATIENT ANTIDIABETIC REGIMEN: * Ozempic HbA1c: 6% (10/26/22) ASSESSMENT: * YOVANNY is a 62 year old female admitted w/ hypoxia due to COVID-19 * Well-controlled HbA1c on Ozempic only * Ordered dexamethasone 6 mg IV daily * Only available BSG at this time is 96 mg/dL * Will defer decision to add basal until tomorrow with AM dexamethasone PLAN FOR INPATIENT GLYCEMIC CONTROL: * Basal insulin * hold * Bolus insulin * NovoLog per scale ACHS or Q6hrs while NPO * Goal Range: Low 110 mg/dL - High 140 mg/dL * Correction Factor: 25 mg/dL/unit * Nutritional / Prandial insulin per carb ratio of 1 unit per 7 grams CHO consumed
[2023-03-14] MEDS: INSULIN ASPART PER UNIT CHARGE SC SCH ×3 (14:37→20:35)
[2023-03-14] MEDS: ENOXAPARIN INJ 40 MG/0.4 ML SYR SQ SCH (14:46)
[2023-03-14] MEDS: DIVALPROEX DELAY RELEASE 500 MG TAB PO SCH (19:32)
[2023-03-14] MEDS: carvediloL 6.25 MG TAB PO SCH (19:33)
[2023-03-15] MEDS: LEVOTHYROXINE SODIUM 112 MCG TABLET PO SCH (05:30)
[2023-03-15 07:39] LABS: Hematocrit (blood only) 38.6 % (37.0-47.0); Hemoglobin 12.9 g/dl (12.0-16.0); Immature Granulocytes # (auto) 0.03 K/uL (0.01-0.20); Immature Granulocytes % (auto) 0.4 %; Lymphocytes # (auto) 1.46 K/uL (1.20-3.40); Lymphocytes % (auto) 20.2 %; Mean Corpuscular Hemoglobin 29.1 pg (25.0-34.0); Mean Corpuscular Hgb Conc 33.4 g/dL (32.0-36.0); Mean Corpuscular Volume 87.1 fL (80.0-100.0); Mean Platelet Volume 10.4 fL (9.4-12.4); Monocytes # (auto) 0.71 K/uL (0.11-0.59); Monocytes % (auto) 9.8 %; Neutrophils # (auto) 5.04 K/uL (1.40-6.50); Neutrophils % (auto) 69.6 %; Platelet Count 229 K/uL (130-400); RDW Coefficient of Variation 14.7 % (11.5-14.5); Red Blood Count 4.43 M/uL (4.20-5.40); White Blood Count 7.24 K/ul (4.8-10.8)
[2023-03-15 07:50] LABS: Calcium 9.5 mg/dl (8.6-10.3); Potassium 4.3 mmol/L (3.5-5.1)
[2023-03-15 07:55] LABS: BUN Creatinine Ratio 37.7 (10-20); Creatinine Clr Calc Pharmacy 87.7 ml/min; Est GFR (African American) 95.9 ml/min; Est GFR (Non-African American) 82.8 ml/min
[2023-03-15] MEDS: PANTOprazole 40 MG TAB PO SCH (08:28)
[2023-03-15] MEDS: carvediloL 6.25 MG TAB PO SCH ×2 (08:28→21:04)
[2023-03-15] MEDS: VIBEGRON 75 MG TAB PO SCH (08:29)
[2023-03-15] MEDS: PRAVASTATIN SOD 40 MG TAB PO SCH (08:29)
[2023-03-15] MEDS: LOSARTAN POTASSIUM 25 MG TAB PO SCH (08:29)
[2023-03-15] MEDS: FLUTICASONE/VILANTEROL 200/25MCG 14 PUFFS/INHALER INH SCH (08:30)
[2023-03-15] MEDS: OXYBUTYNIN CHLORIDE XL 5 MG TABCR PO SCH (08:33)
[2023-03-15] MEDS: INSULIN ASPART PER UNIT CHARGE SC SCH ×4 (08:45→21:03)
[2023-03-15] MEDS ORDERED: LANTUS PER UNIT CHARGE SC SCH (09:00)
[2023-03-15] MEDS ORDERED: NON-FORMULARY MEDICATION (Coenzyme Q10 [Co Q-10] 200 mg capsule) PO SCH (09:00)
[2023-03-15] MEDS ORDERED: dexAMETHasone 6 MG in SYRINGE 0 ML IV SCH (09:00)
--- NOTE | 2023-03-15 10:19 | Pharmacy Report ---
Pharmacy Glycemic Short Note 2 - Date of Service March 15, 2023 - Glycemic Short BSG Results (Last 24 hours): 03/14/23 03/14/23 03/15/23 17:22 20:29 06:51 Glucose 135 H POC Glucose 198 H 181 H 03/15/23 08:14 Glucose POC Glucose 111 H OUTPATIENT ANTIDIABETIC REGIMEN: * Ozempic HbA1c: 6% (10/26/22) ASSESSMENT: 03/15/23 * Blood sugars above goal yesterday, had Dexamethasone 6mg IV, continuing on it daily, no basal insulin, just NovoLog. * Add basal today and tighten CF/CR for better glycemic control. 03/14/23 * YOVANNY is a 62 year old female admitted w/ hypoxia due to COVID-19 * Well-controlled HbA1c on Ozempic only * Ordered dexamethasone 6 mg IV daily * Only available BSG at this time is 96 mg/dL * Will defer decision to add basal until tomorrow with AM dexamethasone PLAN FOR INPATIENT GLYCEMIC CONTROL: * Basal insulin * Lantus 20 units daily * Bolus insulin * NovoLog per scale ACHS or Q6hrs while NPO * Goal Range: Low 110 mg/dL - High 140 mg/dL * Correction Factor: 20 mg/dL/unit * Nutritional / Prandial insulin per carb ratio of 1 unit per 6 grams CHO consumed
[2023-03-15] MEDS: ENOXAPARIN INJ 40 MG/0.4 ML SYR SQ SCH (13:11)
--- NOTE | 2023-03-15 18:17 | Hospitalist Progress Note ---
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 No evidence of superimposed pneumonia on CTA, no evidence of PE on CTA. Bilat changes suspicious for viral pneumonia High sensitive troponin is normal Continue DuoNebs as needed Lovenox for DVT prophylaxis Chest discomfort is with coughing and laying (no orthopnea). Trop is normal no ischemic EKG changes. Likely Noncardiac and resolved following sitting up and taking a PPI. DDx includes GERD versus costochondritis with cough. No exertional chest pain/angina in the preceding weeks or at time of admission. No hx CAD/CHF. 03/15 - continue dexamethasone, can change to po, hypoxia may be a little improved (2) Asthma: Plan: Chronic asthma with exacerbation due to COVID pneumonia, tight air movement and trace end expiratory wheezes on admission exam Improving following steroids. Not wheezing 03/15 Continue dexamethasone daily as noted, DuoNebs as needed, continue home inhalers (3) COVID-19: Plan: As above Has been previously vaccinated and had severe COVID in past hospitalization (4) Hypertension: Plan: Hypertension Salt restriction Continue losartan - continue carvedilol - adequate control 03/15 - continue (5) Diabetes: Plan: Previous A1c 6.5, more recently down to 6.0 and is on semaglutide weekly BSG is well-controlled less than 100 on admission. Will defer long-acting insulin, weight-based sliding scale ordered Goal BSG [id number] - at goal 03/15 Plan Chronic stable issues: Hypothyroidism: Continue Synthroid Hyperlipidemia: Stable. Prior myalgias resolved with her switch to pravastatin. Continue coq10 with this. Seizure: Stable for many years on depakote. Continued. GERD: Continue PPI, convert to protonix while inpt Overactive Bladder: Continue home meds. May use own solifenacin if available SEB: CPAP qhs DVT prophylaxis: Lovenox Disposition: Medical/surgical Diet: DM 2, low-sodium CODE STATUS: Full code Admission and Anticipated Discharge Date Admission Date: March 14, 2023 Subjective feeling a bit better, less short of breath, has cough, no CP, O2 down to 2L nc 8th day of symptoms Physical Exam 2 Physical Exam: PHYSICAL EXAMINATION Last 24h vital signs reviewed, see documentation in flowsheet General: comfortable appearing, no distress HEENT: Normocephalic, atraumatic, pupils round and equal, sclerae anicteric, no conjunctival injection, moist mucus membranes Lungs: Normal respiratory effort. Clear to auscultation bilaterally except slight basilar coarse crackles. No RRW Heart: Regular rate and rhythm, no murmurs. No JVD Abdomen: Soft, nontender, nondistended. Bowel sounds present. Extremities: Warm, dry, well-perfused. No extremity edema. Neuro: Alert and oriented x 4, face symmetric, moves 4 extremities well Psych: Normal affect and behavior Results & Data Results & Data Vital Signs (Past 12 Hours) Vital Signs Temp Pulse Resp BP Pulse Ox O2 Del Method O2 Flow Rate 03/15/23 17:53 Nasal Cannula 03/15/23 15:54 36.5 C 85 16 141/88 H 95 Nasal Cannula 2 03/15/23 08:10 37 C 90 18 124/85 94 Nasal Cannula 2 FiO2 03/15/23 17:53 2 03/15/23 15:54 03/15/23 08:10 Laboratory Results 03/15/23 06:51 03/15/23 06:51 PG Care Time/CCT Total # of Minutes Spent Total Time Spent with Patient: Total time spent is greater than 50% in coordination of care (as documented) at patient's floor/unit and/or counseling patient: Coding Level of Care Code 05383 SUB INP/OBS CARE 2/35MIN Diagnoses Acute respiratory failure with hypoxia J96.01 Asthma J45.909 COVID-19 U07.1 Hypertension I10 Diabetes E11.9
[2023-03-15] MEDS: DIVALPROEX DELAY RELEASE 500 MG TAB PO SCH (21:05)
[2023-03-16] MEDS: LEVOTHYROXINE SODIUM 112 MCG TABLET PO SCH (05:32)
[2023-03-16] MEDS: carvediloL 6.25 MG TAB PO SCH (08:08)
[2023-03-16] MEDS: PRAVASTATIN SOD 40 MG TAB PO SCH (08:08)
[2023-03-16] MEDS: PANTOprazole 40 MG TAB PO SCH (08:08)
[2023-03-16] MEDS: VIBEGRON 75 MG TAB PO SCH (08:09)
[2023-03-16] MEDS: LOSARTAN POTASSIUM 25 MG TAB PO SCH (08:09)
[2023-03-16] MEDS: OXYBUTYNIN CHLORIDE XL 5 MG TABCR PO SCH (08:11)
[2023-03-16] MEDS: FLUTICASONE/VILANTEROL 200/25MCG 14 PUFFS/INHALER INH SCH (08:11)
[2023-03-16 08:20] LABS: Basophils # (auto) 0.01 K/uL (0.00-0.20); Basophils % (auto) 0.1 %; Hematocrit (blood only) 39.9 % (37.0-47.0); Hemoglobin 13.2 g/dl (12.0-16.0); Immature Granulocytes # (auto) 0.04 K/uL (0.01-0.20); Immature Granulocytes % (auto) 0.4 %; Lymphocytes # (auto) 1.76 K/uL (1.20-3.40); Lymphocytes % (auto) 17.5 %; Mean Corpuscular Hgb Conc 33.1 g/dL (32.0-36.0); Mean Corpuscular Volume 87.7 fL (80.0-100.0); Mean Platelet Volume 10.6 fL (9.4-12.4); Monocytes # (auto) 0.76 K/uL (0.11-0.59); Monocytes % (auto) 7.6 %; Neutrophils # (auto) 7.48 K/uL (1.40-6.50); Neutrophils % (auto) 74.4 %; Platelet Count 219 K/uL (130-400); RDW Coefficient of Variation 14.5 % (11.5-14.5); RDW Standard Deviation 46.5 fL (36.4-46.3); Red Blood Count 4.55 M/uL (4.20-5.40); White Blood Count 10.05 K/ul (4.8-10.8)
[2023-03-16] MEDS ORDERED: carvediloL 6.25 MG TAB PO ONE (08:30)
[2023-03-16 08:44] LABS: Calcium 9.5 mg/dl (8.6-10.3); Creatinine Clr Calc Pharmacy 102.4 ml/min; Est GFR (African American) 109.7 ml/min; Est GFR (Non-African American) 94.7 ml/min; Potassium 4.3 mmol/L (3.5-5.1)
[2023-03-16] MEDS ORDERED: dexAMETHasone 1 MG TAB PO SCH (09:00)
[2023-03-16] MEDS ORDERED: carvediloL 12.5 MG TAB PO SCH ×2 (09:00→21:00)
[2023-03-16] MEDS ORDERED: LANTUS PER UNIT CHARGE SC SCH (09:00)
[2023-03-16] MEDS: INSULIN ASPART PER UNIT CHARGE SC SCH ×2 (09:24→12:40)
[2023-03-16] MEDS: ENOXAPARIN INJ 40 MG/0.4 ML SYR SQ SCH (14:17)
--- NOTE | 2023-03-16 18:21 | Discharge Summary ---
Date of Service March 16, 2023 Admission HPI Per Admitting Provider Jaimie is a 62-year-old female with a history of DM 2, hypothyroidism, hyperlipidemia, GERD, SEB, hypertension who presents with 1 week of cough, sore throat, chest pain worsened on cough with radiation to the back, increase sputum production, fatigue, nausea, and sinus congestion. She has a history of asthma on Symbicort. She does not have a home oxygen requirement and is requiring 2 L of nasal cannula on admission. 1 week of respiratory URI symptoms including cough, sore throat. She reports that she had COVID in 2019 and was very ill with this and was hospitalized, ultimately was able to be discharged home and did not require oxygen. 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 She does feel that about 7 days ago she had new and increased sinus congestion, wheezing, and continued dry cough which is may be a little bit worse in the last week. She has not had fevers or chills or night sweats. No nausea/vomiting/diarrhea/Constipation. She had a small amount of rib pain when laying flat and when coughing in her mid lower rib that felt similar to GERD, this has completely resolved with sitting up, Toradol, and with omeprazole. She has had no exertional chest pain. She took her medications including carvedilol this morning. She had myalgias on her prior statin and has had no myalgias after this was paused and was switched to pravastatin with co-Q10 Medical History: Reviewed Medications: Reviewed Surgical History: Reviewed Family history: Reviewed Allergies: Reviewed Social History: Reviewed, no tobacco/etoh Code Status:Full Principal Diagnosis Acute respiratory failure with hypoxia due to COVID-19 and acute exacerbation of asthma Discharge Exam PHYSICAL EXAMINATION Last 24h vital signs reviewed, see documentation in flowsheet General: comfortable appearing, no distress, sitting up in chair HEENT: Normocephalic, atraumatic, pupils round and equal, sclerae anicteric, no conjunctival injection, moist mucus membranes Lungs: Normal respiratory effort. CTAB without wheezing or crackles Heart: Regular rate and rhythm, no murmurs. No JVD Abdomen: Soft, nontender, nondistended. Bowel sounds present. Extremities: Warm, dry, well-perfused. No extremity edema. Neuro: Alert and oriented x 4, face symmetric, moves 4 extremities well Psych: Normal affect and behavior Discharge Data Allergies Allergy/AdvReac Type Severity Reaction Status Date / Time rosuvastatin AdvReac Intermediate Muscle Pain Verified 12/26/22 14:12 Consultations 03/14/23 11:41 ED Decision to Admit Stat Ordered Studies 03/14/23 10:00 CT angio chest PE protocol Stat Chest X-Ray 03/14/23 08:34 XR chest 1V portable CLINICAL HISTORY: Chest pain,cough, congestion COMPARISON STUDY: Chest radiograph December 21, 2021. Chest CT May 02, 2022. FINDINGS: Lung volumes are normal. Lungs are clear. There is no pneumothorax or pleural effusion. Cardiomediastinal silhouette is stable. There is no evidence for pulmonary edema. IMPRESSION: No acute cardiopulmonary findings. ACT 112: Negative or not required by law. Electronically signed by: Josh Tian M.D. 03/14/2023 9:06 AM Chest CTA 03/14/23 10:00 CT angio chest PE protocol CLINICAL HISTORY: PE, hypoxia, cough, cp TECHNIQUE: Multidetector row helical CT of the chest was performed with angiographic protocol. Coronal and sagittal reformations were obtained. Coronal and sagittal MIPS were obtained from the axial data set and were submitted for review. Automated dose lowering techniques and/or adjustment according to patient size were utilized for this exam. CT DOSE: 856.7 mGy.cm Comparison: None available at the time of this dictation. FINDINGS: Lungs and pleura: Atelectasis versus scarring is seen in the dependent portions of the lungs. Incidental note is made of tracheomalacia. Heart and pericardium: Heart size is normal. No pericardial effusion. Vessels: No evidence of pulmonary embolism. Mediastinum and doreen: Unremarkable. Chest wall and lower neck: Unremarkable. Abdomen: Unremarkable. Bones: Unremarkable. IMPRESSION: Atelectasis is seen without definite superimposed pneumonia. No pulmonary embolus. ACT 112: Negative or not required by law. Electronically signed by: Sonido Pinon M.D. 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 Bilat changes suspicious for viral pneumonia treated with dexamethasone in hospital for COVID and asthma exacerbation, changed to short course of prednisone on discharge for asthma exacerbation -- hypoxia resolved able to maintain O2 sats at rest and with ambulation and able to discharge home. I gave new rx for rescue albuterol inhaler and albuterol nebs -- follow up in primary care Chest discomfort is with coughing and laying (no orthopnea). Trop is normal no ischemic EKG changes. Likely Noncardiac and resolved following sitting up and taking a PPI. DDx includes GERD versus costochondritis with cough. No exertional chest pain/angina in the preceding weeks or at time of admission. No hx CAD/CHF. (2) Asthma: Chronic asthma with exacerbation due to COVID pneumonia, tight air movement and trace end expiratory wheezes on admission exam Improving following steroids. Not wheezing 03/15-03/16 once steroids initiated -as above (3) COVID-19: As above Has been previously vaccinated and had severe COVID in past hospitalization (4) Hypertension: Continue losartan - continue carvedilol (5) Diabetes: Previous A1c 6.5, more recently down to 6.0 and is on semaglutide weekly Plan Chronic stable issues: Hypothyroidism: Continue Synthroid Hyperlipidemia: Stable. Prior myalgias resolved with her switch to pravastatin. Continue coq10 with this. Seizure: Stable for many years on depakote. Continued. GERD: Continue PPI Overactive Bladder: Continue home meds. May use own solifenacin if available SEB: CPAP qhs Total Time Total Time Spent Total Time Spent (In Minutes): I personally spent: 35 minutes today on clinical care activities including: reviewing chart notes and vital signs reviewing labs examining and counseling the patient counseling the patient's family writing orders documentation Discharge Plan Discharge Items Patient Disposition: Home - Self-Care [facility] Discharge Diagnosis: COVID-19, asthma exacerbation Condition on Discharge: Good Activity: Resume your previous activity Non-emergency contact: Primary Care Provider Call non-emergency contact if: you have any medication questions, your symptoms worsen and you have a fever Follow-up/Referrals: Krystina Gonzalez, [Primary Care Provider] - 03/24/23 8:20 am (APPOINTMENT WITH [facility]) Diet: Carb Consistent or DM2 Addtl Attending Provider Instructions: You were treated for COVID-19 with mild asthma exacerbation This caused mildly low oxygen levels, which have improved Keep using your CPAP at night and you can continue using the incentive spirometer and flutter valve at home I prescribed a few more days of prednisone (steroid) and refilled your albuterol for the nebulizer You can take the first dose tomorrow morning, because you already got a dose of steroid in the hospital for today Follow up in primary care Keisha Anthony MD Pending Studies at Discharge: No Stand-Alone Forms: [facility] [employer], Smoking Cessation Medications and DC Order Prescriptions: New prednisone 20 mg tablet 20 mg PO DAILY 3 Days Qty: 3 0RF Continued levothyroxine 112 mcg tablet 112 mcg PO QAM Qty: 90 3RF budesonide-formoterol [Symbicort] 160-4.5 mcg/actuation HFA aerosol inhaler 2 puff inhalation BID Qty: 3 3RF Rx Instructions: APPROVED GOOD 08/12/21 losartan 25 mg tablet 25 mg PO DAILY Qty: 90 1RF divalproex 500 mg tablet,delayed release (DR/EC) 1,000 mg PO HS Qty: 180 3RF carvedilol 6.25 mg tablet 6.25 mg PO BID Qty: 180 3RF Ozempic 0.25 mg or 0.5 mg (2 mg/3 mL) pen injector 0.5 mg subcut WK Qty: 6 3RF Rx Instructions: inject 0.5mg subcut weekly omeprazole 20 mg capsule,delayed release(DR/EC) 20 mg PO DAILY Qty: 90 3RF pravastatin 40 mg tablet 40 mg PO DAILY Qty: 90 1RF Gemtesa 75 mg tablet 75 mg PO DAILY Qty: 90 3RF coenzyme Q10 [Co Q-10] 200 mg capsule 200 mg PO DAILY ondansetron HCl 4 mg tablet 4 mg PO Q8H PRN (Reason: nausea and vomiting) Qty: 20 0RF solifenacin [Vesicare] 10 mg tablet 10 mg PO DAILY Qty: 30 2RF clobetasol 0.05 % cream 1 applic topical .COMPLEX Qty: 60 0RF Rx Instructions: 1 applic topically to affected area bid x 6wks then daily x 6wks; Multi For Her 50 Plus 400-80 mcg Capsule 1 cap PO QAM albuterol sulfate 2.5 mg /3 mL (0.083 %) solution for nebulization 2.5 mg inhalation Q4H PRN (Reason: shortness of breath or wheezing) Qty: 75 0RF albuterol sulfate 90 mcg/actuation HFA aerosol inhaler 2 puff inhalation Q4H PRN (Reason: shortness of breath) Qty: 8.5 0RF Discharge Orders: Discharge Order (Routine); Ordered 03/16/23 Ordered By: Keisha Anthony Admission Data Admit Date/Time: 03/14/23 12:05 Attending Provider: Keisha Anthony Admit Provider: Carlos Enrique Wilks Primary Care Provider: Krystina Gonzalez Other Providers: Carlos Enrique Wilks Other Interventions: Discharge Summary Assessment (RN) Last Done: 03/16/23 13:52 Coding Level of Care Code 95008 INP/OBS DISCH >30 MIN Diagnoses Acute respiratory failure with hypoxia J96.01 Asthma J45.909 COVID-19 U07.1 Hypertension I10 Diabetes E11.9
== END 2023-03-16 15:02 | disposition home or self-care (01) | DRG 177 ==
LOC: ED 08:20 → SUATTDRO 12:05 → 3N 12:05

== ENCOUNTER 2024-10-29 09:14 | Inpatient (IN) ==
--- NOTE | 2024-10-29 09:34 | XRay Report ---
XR chest 1V portable CLINICAL HISTORY: Trauma COMPARISON STUDY: 03/14/2023 FINDINGS: Stable mild cardiomegaly without pulmonary vascular congestion. There is patchy opacity at the left lower lung. No other pulmonary consolidation or pleural effusion. No pneumothorax. No grossl y displaced rib fractures seen. IMPRESSION: Pneumonia versus pulmonary contusion left lower lung. ACT 112: Negative or not required by law. Electronically signed by: Bhupinder Sutton M.D. 10/29/2024 9:33 AM
[2024-10-29] MEDS: SODIUM CHLORIDE 0.9% 1,000 ML IV ONE ×3 (09:35→10:32)
[2024-10-29 09:45] LABS: Hematocrit (blood only) 32.3 % (37.0-47.0); Hemoglobin 11.7 g/dl (12.0-16.0); Immature Granulocytes # (auto) 0.28 K/uL (0.01-0.20); Immature Granulocytes % (auto) 1.3 %; Mean Corpuscular Hemoglobin 32.1 pg (25.0-34.0); Mean Corpuscular Volume 88.5 fL (80.0-100.0); Platelet Count 225 K/uL (130-400); RDW Standard Deviation 46.4 fL (36.4-46.3); Red Blood Count 3.65 M/uL (4.20-5.40); White Blood Count 22.19 K/ul (4.8-10.8)
[2024-10-29 09:59] LABS: Alanine Aminotransferase 13 U/L (7-52); Albumin Globulin Ratio 1.2 (0.9-2); Alkaline Phosphatase 53 U/L (34-104); Anion Gap 11 (3-11); Bilirubin,Total 0.6 mg/dl (0.2-1.0); Blood Urea Nitrogen 36 mg/dl (6-23); Calcium 8.4 mg/dl (8.6-10.3); Carbon Dioxide 24 mmol/L (21-32); Chloride 105 mmol/L (98-107); Globulin 2.6 gm/dl (2.5-4.0); Glucose 112 mg/dl (70-99(Fasting)); Lipase 9 U/L (11-82); Potassium 2.8 mmol/L (3.5-5.1); Sodium 140 mmol/L (136-145); Total Protein 5.6 gm/dl (6.0-8.3)
[2024-10-29] MEDS: OPTIRAY 320 100ml IV ONE (09:59)
[2024-10-29] MEDS: ACETAMINOPHEN 1,000 MG/100 ML VIAL IV STA (10:08)
[2024-10-29 10:09] LABS: INR 1.1 (0.9-1.1); Partial Thromboplastin Time 25 Seconds (21-31); Prothrombin Time 11.9 Seconds (9.0-12.0)
--- NOTE | 2024-10-29 10:10 | CT Scan Report ---
CT head/brain wo con CLINICAL HISTORY: trauma. TECHNIQUE: Multiple axial CT images of the head were obtained without contrast. A dose lowering tech nique was utilized adhering to the principles of ALARA. COMPARISON: 03/25/2018 FINDINGS: No intracranial hemorrhage seen. No mass effect, midline shift, or hydrocephalus. No skull fracture seen. There is progressive complete opacification of the maxillary and sphenoid sinuses and near complete opacification of the ethmoid sinuses. No mastoid effusion. IMPRESSION: 1. No acute posttraumatic findings. 2. Severe progressive paranasal sinus disease. ACT 112: Negative or not required by law. The above report was generated using voice recognition software. It may contain grammatical, syntax o r spelling errors. Electronically signed by: Bhupinder Sutton M.D. 10/29/2024 10:08 AM
--- NOTE | 2024-10-29 10:16 | CT Scan Report ---
CT SCAN OF THE CERVICAL SPINE CLINICAL HISTORY: Trauma. COMPARISON STUDY: Cervical spine radiographs April 18, 2011. TECHNIQUE: CT scan of the cervical spine is performed from the skull base to the upper thoracic spine . Images are reviewed in the axial, sagittal, and coronal planes. IV contrast was not administered fo r this examination. A dose lowering technique was utilized adhering to the principles of ALARA. CT DOSE: 3620.45 mGy.cm FINDINGS: There is straightening of the cervical lordosis. Vertebral body heights are maintained. The re are no fractures. There is moderate anterior osteophytosis. There is moderate disc space narrowing at C5-C6. There is mild multilevel facet arthrosis. No osseous lesions are present. No prevertebral edema. Extensive sinus opacification is better depicted on the head CT which will be reported separat shania. IMPRESSION: No acute cervical spine fracture or subluxation. ACT 112: Negative or not required by law. Electronically signed by: Josh Tian M.D. 10/29/2024 10:14 AM
--- NOTE | 2024-10-29 10:22 | CT Scan Report ---
CT SCAN OF THE ABDOMEN AND PELVIS WITH IV CONTRAST CLINICAL HISTORY: Trauma. Confusion. COMPARISON STUDY: CT of the abdomen and pelvis April 29, 2024. TECHNIQUE: Following the IV administration of 94 cc of Optiray 320, CT scan of the abdomen and pelvi s is performed from the lung bases to the proximal femora. Images are reviewed in the axial, sagittal , and coronal planes. IV contrast was administered without complication. A dose lowering technique wa s utilized adhering to the principles of ALARA. FINDINGS: Extensive left lower lobe consolidation is better depicted on the chest CT which will be re ported separately. This is new since abdominal CT of April 29, 2024. The heart is mildly enlarged. No hemoperitoneum or pneumoperitoneum is present. There is no evidence for traumatic injury to the live r, spleen, adrenal glands, kidneys or pancreas. Small left adrenal nodule is unchanged. This is benig n. There is mild bilateral perinephric stranding. There is no hydronephrosis. There is a 3 mm right r enal calculus. No ureteral calculi are present. There is no hydronephrosis. There is no biliary ducta l dilatation status post cholecystectomy. Slight nodularity of the liver surface is noted. Caliber an d wall thickness of small and large bowel are normal. There are no fluid collections. Major vasculatu re is patent. No acute fractures within the lumbar spine, pelvis or hips. Bilateral L5 pars defects w ithout anterolisthesis are again noted. The uterus and ovaries are surgically absent. IMPRESSION: 1. No acute traumatic findings within the abdomen or pelvis. 2. Extensive left lower lobe consolidation which is new since CT of April 29, 2024. This is suggestiv e of pneumonia. Radiographic follow up to ensure resolution is recommended. ACT 112: Negative or not required by law. Electronically signed by: Josh Tian M.D. 10/29/2024 10:21 AM
[2024-10-29] MEDS ORDERED: VANCOMYCIN CONSULT ACTIVE PRN (10:25)
--- NOTE | 2024-10-29 10:25 | CT Scan Report ---
CHEST CT WITH CONTRAST HISTORY: Acute chest trauma status post fall. History of uterine carcinoma Trauma TECHNIQUE: Multiaxial CT images of the chest were performed following the IV administration of 94 cc of Optiray. A dose lowering technique was utilized adhering to the principles of ALARA. COMPARISON: CT abdomen and pelvis of same day, chest CT 04/29/2024 FINDINGS: Unremarkable thyroid. Heart is upper limits of normal in size. No pericardial effusion. Unr emarkable thoracic aorta and pulmonary artery. No pneumothorax, pleural effusion or overt pulmonary e masha. Mild atelectasis with air trapping noted bilaterally. Multifocal segmental airspace opacities a re noted throughout the left lower lobe, as pronounced in the superior segment with air bronchograms. Left adrenal gland nodule again seen. Cholecystectomy. CT abdomen and pelvis dictated separately. No acute fracture identified. IMPRESSION: 1. Segmental airspace opacities of the left lower lobe are suggestive of pneumonia. Follow-up chest C T after treatment course is needed in order to document resolution. 2. No acute posttraumatic intrathoracic abnormality identified. 3. No acute fracture or pneumothorax. ACT 112: Negative or not required by law. Electronically signed by: Red Cabrera M.D. 10/29/2024 10:23 AM
[2024-10-29] MEDS: CEFEPIME 2000MG 2,000 MG/20 ML SYR IV STA (10:30)
[2024-10-29] MEDS: POTASSIUM CHLORIDE CRTAB 20 MEQ TABCR PO STA (10:41)
[2024-10-29] MEDS: VANCOMYCIN HCL 2,000 MG in SODIUM CHLORIDE 0.9% 500 ML IV ONE (10:43)
[2024-10-29] MEDS: HYDROCORTISONE SOD SUCCINATE 100 MG/2 ML VIAL IV STA (11:05)
[2024-10-29] MEDS ORDERED: STAT IV Infusion **Titration per Protocol STA (11:06)
--- NOTE | 2024-10-29 11:09 | History & Physical Report ---
Date of Service October 29, 2024 Assessment & Plan (1) Septic shock: (2) Syncope: (3) Fall: (4) Pneumonia: (5) Acute hypoxic respiratory failure: (6) COPD exacerbation: (7) Seizure: Plan 64 year old female presents to the ER after a syncopal event falling in the hallway. 1 week of dysuria. 1 day of chills, vomiting, cough, diarrhea. Septic shock - source LLL pneumonia / Acute hypoxic respiratory failure / COPD exacerbation / TAE Levophed to maintain MAP > 65, currently on 0.12, total fluid bolus 3L NSS, ongoing IV fluids per ICU Dense consolidation left lower lobe Vancomycin (can be discontinued if MRSA nasal swab negative), cefepime + metronidazole (as discussed with ICU attending) and Azithromycin for atypical pneumonia Follow up blood cultures Sputum culture if able to collect Incentive spirometer + flutter valve Stool + c. diff PCR only needed if ongoing diarrhea Severe CAP (meets 1 major criteria as on pressors) and recent prednisone use (although this is acute use not chronic) will treat with hydrocortisone 100mg IV + 50mg q6h - recommended for 5-7 days Aim O2 sats > 90% NPO overnight due to increased respiratory rate and risk of aspiration Duonebs q6h Switch maintenance inhaler for formoterol/budesonide nebs BID Curry catheter placed on admission due to septic shock (no retention) Syncope Secondary to septic shock, no concern for seizure Hypomagnesemia / hypokalemia Mg sulfate 1g x4 ordered, will defer potassium replacement to ICU (KCl 40 meq given in the ER) Presumably secondary to HCTZ use with acute illness GERD Patient reports famotidine not working for her reflux at home therefore especially with steroid use will switch to pantoprazole 40mg IV daily (switch to PO when increasing oral intake) Obstructive sleep apnea CPAP HS 14 mmHg Chronic Hypertension All antihypertensives all on hold while in septic shock on vasopressors Hypothyroidism TSH WNL 10/23/24, continue levothyroxine Urge Incontinence Continue Toviaz or hospital formulary equivalent History of seizures Continue divalproex VTE Prophylaxis - per ICU orders using heparin SQ Disposition - admit to ICU Admission and Anticipated Discharge Date Admission Date: October 29, 2024 History of Present Illness Chief Complaint: Syncope Primary Care Provider: DO Jaimie Madsen is a 64 year old female who presents to the ER after a syncopal event at home. [place] is [place] [employer] [facility] [place] and sister of Ave Berman [employer] [place]. She reports dysuria for the last week but notes this is not unusual for her and comes and goes. She went to work yesterday and reports vomiting at work but generally felt well up until last night. Last night she suddenly had chills, felt fatigued, had diarrhea and was generally weak. She was heard to be coughing throughout the night by her sister. This morning she didn't wake up for work. Her sister asked her to move her car so she could go to work and Jaimie felt extremely weak but managed to get from her bed to the hallway and lost consciousness and fell to the ground onto a carpeted floor. Per EMS she was not responsive but per her sister she was responsive to verbal stimuli. She has a history of seizure but no seizure activity was seen. Allergies Allergy/AdvReac Type Severity Reaction Status Date / Time rosuvastatin AdvReac Intermediate Muscle Pain Verified 10/23/24 08:37 amoxicillin [From Augmentin] AdvReac Unknown Diarrhea Verified 10/23/24 08:37 clavulanic acid AdvReac Unknown Diarrhea Verified 10/23/24 08:37 [From Augmentin] phentermine AdvReac Unknown Unknown Verified 10/23/24 08:37 Home Medications Medication Instructions Recorded Confirmed Type eakdqenaxkfy-qyqugelt-yhwar acid 1 cap PO QAM 01/05/18 10/29/24 History 400 mcg-vitamin K 80 mcg capsule (Multi For Her 50 Plus) ondansetron HCl 4 mg tablet 4 mg PO Q8H PRN nausea and 09/29/23 10/29/24 Rx vomiting #20 tabs albuterol sulfate 2.5 mg/3 mL 2.5 mg (3 mL) inhalation Q4H PRN 11/08/23 10/29/24 Rx (0.083 %) solution for nebulization shortness of breath or wheezing #75 mL aspirin 81 mg tablet,delayed 81 mg PO DAILY 02/26/24 10/29/24 History release (Adult Aspirin Regimen) carvedilol 6.25 mg tablet 6.25 mg PO BID #180 tabs 02/29/24 10/29/24 Rx famotidine 20 mg tablet (Pepcid) 20 mg PO BID #180 tabs 02/29/24 10/29/24 Rx budesonide-formoterol HFA 160 2 puff inhalation BID #3 Inhalers 03/01/24 10/29/24 Rx mcg-4.5 mcg/actuation aerosol inhaler (Symbicort) hydrochlorothiazide 25 mg tablet 25 mg PO DAILY 03/01/24 10/29/24 History inhalational spacing device #10 ea 03/01/24 10/23/24 Rx (Aerochamber Mini) albuterol sulfate 90 mcg/actuation 2 puff inhalation Q4H PRN 03/08/24 10/29/24 Rx aerosol inhaler shortness of breath #25.5 grams omega 9-lip-hjq-fish oil 1,000 mg 2 cap PO BID #60 caps 05/02/24 10/29/24 Rx (120 mg-180 mg) capsule (Fish Oil) clobetasol 0.05 % topical cream 1 applic topical .COMPLEX #45 grams 05/15/24 10/29/24 Rx cholecalciferol (vitamin D3) 25 1,000 unit PO DAILY #30 caps 05/27/24 10/29/24 Rx mcg (1,000 unit) capsule coenzyme Q10 100 mg capsule 100 mg PO DAILY 05/27/24 10/29/24 History fesoterodine 4 mg tablet,extended 4 mg PO DAILY #90 tabs 06/10/24 10/29/24 Rx release 24 hr (Toviaz) tirzepatide 7.5 mg/0.5 mL 7.5 mg (0.5 mL) subcut .COMPLEX #2 09/16/24 10/29/24 Rx subcutaneous pen injector mL levothyroxine 112 mcg tablet 112 mcg PO QAM #90 tabs 09/26/24 10/29/24 Rx prednisone 5 mg tablet 5 mg PO .COMPLEX #30 tabs 10/23/24 10/29/24 Rx tobramycin 0.3 %-dexamethasone 1 drp ophthalmic (eye) Q6H #5 mL 10/23/24 10/29/24 Rx 0.05 % eye drops,suspension (Tobradex ST) divalproex 500 mg tablet,delayed 1,000 mg (2 x 500 mg) PO HS #180 10/28/24 10/29/24 Rx release tabs losartan 25 mg tablet 25 mg PO DAILY #90 tabs 10/28/24 10/29/24 Rx rosuvastatin 10 mg tablet 10 mg PO HS 10/29/24 10/29/24 History Past Med/Surg History Problem List (Updated 10/29/24 @ 18:33 by Hussain Choudhury MD) COPD exacerbation Acute hypoxic respiratory failure Steroid-dependent asthma Fall (Acute) Syncope (Acute) Hypoxia (Acute) Septic shock (Acute) Pneumonia (Acute) Septic shock Acute conjunctivitis History of colon polyps Family history of colon cancer in father GERD (gastroesophageal reflux disease) Seizure last seizure--grand mal 1994--on depakote Hypothyroidism Lichen sclerosus et atrophicus Hypertension Hyperlipidemia Vitamin D deficiency Urinary incontinence History of uterine cancer (2016) Depression Chronic venous insufficiency Abnormal CT scan, chest Obesity Restrictive lung disease Allergic rhinitis Obstructive sleep apnea of adult (Chronic) Diabetes (Chronic) Asthma (Chronic) Medical History Encounter for annual routine gynecological examination Left leg swelling COVID-19 Hypomagnesemia Influenza Acute pyelonephritis Severe acute respiratory syndrome coronavirus 2 (SARS-CoV-2) detected (12/2019) Vitamin D deficiency History of colon polyps Kidney stones Endometrial adenocarcinoma (06/12/15) Diverticulitis Surgical History History of bilateral breast reduction surgery History of colonoscopy (~2017) History of esophagogastroduodenoscopy (EGD) (~2014) History of cholecystectomy History of appendectomy History of total abdominal hysterectomy and bilateral salpingo-oophorectomy History of nasal surgery History of bilateral cataract extraction History of cardiac cath Family History Mother Family history of diabetes mellitus Heart disease Sister Family history of diabetes mellitus Family hx colonic polyps Heart disease Father Family hx of colon cancer Colorectal cancer Brother Family hx colonic polyps Sister Breast cancer Family/Other Breast cancer Denies family history of Ovarian cancer Prostate cancer Myocardial infarction Social History Smoking Status: Never smoker Second Hand Exposure: No; Do You Dip or Chew Tobacco: No; Hx Alcohol Use: No Hx Substance Use: No Preferred Language: Romanian Communication Ability: Effective Visual Impairment: No Limitations Hearing Ability: Normal Audiovisual Technician Required: No Beliefs That Will Affect Care: None marital status: Single Current Living Situation: Family Current Living Situation Comment: Lives With Brother current occupational status: employed 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 [employer] How many Children do You have: 0 Feels Safe at Home: Yes Safety Concerns: Feels Safe At This Time Childhood Exposure to Second-Hand Smoke: No Diet: regular Diet Comment: regular- well balanced caffeine: No (occasonal iced te) during the past year weight has: remained stable Dental Care, Regularly: Yes Physical Activity Frequency: 3-4 Times per Week Seatbelt Use: always Sunscreen Use: No Assistive Devices: CPAP and Glasses Review of Systems Review of Systems: All systems reviewed & are unremarkable except as noted in HPI & below Physical Exam Constitutional: WD/WN, vitals as above Eyes: PERRL, conjunctivae normal, anicteric sclerae ENMT: external ear and nose normal, oropharynx normal Respiratory: + labored breathing and + uses accessory muscles Auscultation: + crackles (Left posterior base) and + wheezes (expiratory throughout); breath sounds present and no diminished lung sounds Cardiovascular: Rate/Rhythm: regular rhythm and + tachycardic Heart Sounds: no murmur Extremities: + pedal edema (trace b/l equal) Gastrointestinal (Abdomen): normal bowel sounds, soft, nontender, no hepatosplenomegaly Musculoskeletal: no cyanosis or clubbing, extremities motor strength 5/5 Skin: no rashes, warm and dry Neurologic: moves all extremities and awake; no focal motor deficits and not confused Psychiatric: A+Ox3, euthymic affect Genitourinary: no CVA tenderness Results & Data Results & Data Vital Signs (Past 12 Hours) Vital Signs Temp Pulse Pulse Resp BP BP Pulse Ox 10/29/24 11:03 96 H 32 H 92 10/29/24 11:00 61/50 L 10/29/24 11:00 61/50 L 10/29/24 10:48 97 H 45 H 92 10/29/24 10:47 63/53 L 10/29/24 10:47 63/53 L 10/29/24 10:36 101 H 27 H 94 10/29/24 10:30 96/58 L 10/29/24 10:27 100 H 36 H 94 10/29/24 10:17 103 H 38 H 78/60 L 94 10/29/24 10:15 105 H 39 H 95 10/29/24 10:06 107 H 47 H 94 10/29/24 10:01 84/57 L 10/29/24 10:01 84/57 L 10/29/24 09:36 113 H 36 H 93 10/29/24 09:33 112 H 39 H 92 10/29/24 09:32 111 H 10/29/24 09:30 82/51 L 10/29/24 09:30 82/51 L 10/29/24 09:20 88 L 10/29/24 09:17 36.9 C 113 H 38 H 78/54 L 88 L 10/29/24 09:17 36.9 C 113 H 38 H 78/54 L 88 L 10/29/24 09:17 36.9 C 113 H 38 H 78/54 L 88 L O2 Del Method O2 Flow Rate 10/29/24 11:03 Nasal Cannula 4 10/29/24 11:00 10/29/24 11:00 10/29/24 10:48 Nasal Cannula 4 10/29/24 10:47 10/29/24 10:47 10/29/24 10:36 Nasal Cannula 4 10/29/24 10:30 10/29/24 10:27 Nasal Cannula 4 10/29/24 10:17 Nasal Cannula 4 10/29/24 10:15 Nasal Cannula 4 10/29/24 10:06 Nasal Cannula 4 10/29/24 10:01 10/29/24 10:01 10/29/24 09:36 Nasal Cannula 4 10/29/24 09:33 Nasal Cannula 4 10/29/24 09:32 10/29/24 09:30 10/29/24 09:30 10/29/24 09:20 Room Air 10/29/24 09:17 Room Air 10/29/24 09:17 Nasal Cannula 4 10/29/24 09:17 Room Air Laboratory Results Abnormal lab results 10/29/24 10/29/24 Range/Units 09:25 09:29 WBC 22.19 H (4.8-10.8) K/ul RBC 3.65 L (4.20-5.40) M/uL Hgb 11.7 L (12.0-16.0) g/dl POC Hgb 10.9 L (12.0-16.0) g/dl Hct 32.3 L (37.0-47.0) % POC Hct 32 L (37-47) % MCHC 36.2 H (32.0-36.0) g/dL RDW Std Deviation 46.4 H (36.4-46.3) fL RDW Coeff of Jim 15.6 H (11.5-14.5) % Neut # (Auto) 18.02 H (1.40-6.50) K/uL [place] # (Auto) 1.68 H (0.11-0.59) K/uL Immature Gran # (Auto) 0.28 H (0.01-0.20) K/uL POC Potassium 2.7 L (3.3-5.0) mmol/L Potassium 2.8 L (3.5-5.1) mmol/L POC Total CO2 23 L (24-31) mmol/L POC BUN 35 H (7-18) mg/dl BUN 36 H (6-23) mg/dl Creatinine 1.34 H (0.6-1.2) mg/dl POC Creatinine 1.5 H (0.6-1.3) mg/dl BUN/Creatinine Ratio 26.9 H (10-20) Glucose 112 H (70-99(Fasting)) mg/dl POC Glucose (other) 112 H (70-99) mg/dl Lactate 3.2 H* (0.4-2.0) mmol/L Calcium 8.4 L (8.6-10.3) mg/dl Total Protein 5.6 L (6.0-8.3) gm/dl Albumin 3.0 L (3.4-5.0) gm/dl Lipase 9 L (11-82) U/L Diagnostic Findings CT head/brain wo con CLINICAL HISTORY: trauma. TECHNIQUE: Multiple axial CT images of the head were obtained without contrast. A dose lowering technique was utilized adhering to the principles of ALARA. COMPARISON: 03/25/2018 FINDINGS: No intracranial hemorrhage seen. No mass effect, midline shift, or hydrocephalus. No skull fracture seen. There is progressive complete opacification of the maxillary and sphenoid sinuses and near complete opacification of the ethmoid sinuses. No mastoid effusion. IMPRESSION: 1. No acute posttraumatic findings. 2. Severe progressive paranasal sinus disease. Medications Administered ER Medications Given: Normal saline 1L bolus x3 Acetaminophen 1000mg IV Cefepime 2000mg IV Vancomycin 2000mg IV Potassium chloride 40 meq PO ECG Rate (beats per minute): 105 Rhythm: sinus tachycardia Findings: + other (Left ventricular hypertrophy with repolarization abnormality) and + ST depression (Anterior) Comparison ECG Date: from (Mar 14, 2023) Change: the following changes noted (ST now depressed in anterior leads) Code Status & VTE Plan Code Status Full VTE Prophylaxis Plan VTE Prophylaxis will be ordered: Yes PG Care Time/CCT Total # of Minutes Spent Total Time Spent with Patient: Total time spent is greater than 50% in coordination of care (as documented) at patient's floor/unit and/or counseling patient: Coding Level of Care Code 80175 INT INP/OBS CARE 3/75MIN Diagnoses Septic shock A41.9; R65.21 Syncope R55 Fall W19.XXXA Pneumonia J18.9 Acute hypoxic respiratory failure J96.01 COPD exacerbation J44.1 Seizure R56.9
[2024-10-29] MEDS: NOREPINEPHRINE/D5W 4 MG/250 ML PLCT IV SCH (11:12)
[2024-10-29 11:16] LABS: Influenza A virus by PCR Negative (Neg); Influenza B virus by PCR Negative (Neg); SARS CoV2 RNA(COVID-19) Ceph NEGATIVE (Negative)
[2024-10-29] MEDS: NOREPINEPHRINE/D5W 4 MG/250 ML IV ONE (11:29)
[2024-10-29] MEDS: ALBUT/IPRATROP 3MG/0.5MG NEB 3 ML VIAL NEB STA (11:40)
--- NOTE | 2024-10-29 11:47 | Emergency Department Note ---
Impression & Plan Pneumonia, Septic shock, Hypoxia, Syncope, Fall ED Provider Note Diagnosis: Septic shock, pneumonia, syncope, hypokalemia Disposition: Admit CHIEF COMPLAINT: Syncope, fall HPI: Patient is a 64-year-old female presenting from home after episode of passing out activated as a trauma alert. Patient reportedly was in her home passed out family found her on the ground unresponsive. Patient did not have any reported seizure activity. Patient's slow to respond for EMS. Patient found to be hypotensive. Patient reportedly has been having cold-like symptoms recently. Patient denies any head neck or abdominal pain. Patient's only blood thinner is aspirin reportedly. Patient did have incontinence of urine and stool. PAST MEDICAL HISTORY: See Below PAST SURGICAL HISTORY: See Below SOCIAL HISTORY: See Below HOME MEDICATIONS: See Below ALLERGIES: See Below VITALS: See Below Airway patent Breathing equal bilaterally Circulation 2+ radial pulses bilaterally GCS 15 Cervical collar collar was placed in the emergency room Secondary Survey: GENERAL: Severe distress EYE EXAM: Normal conjunctiva. OROPHARYNX: Moist mucus membranes. Grossly normal dentition. NECK: Supple, LUNGS: Clear to auscultation. Normal chest wall mechanics. HEART: NSR ABDOMEN: Abdomen soft, non-tender, normo-active bowel sounds, no masses, no rebound or guarding BACK: No CVA TTP. SKIN: No rashes and no bruising. UPPER EXTREMITIES: Upper extremities are grossly normal LOWER EXTREMITIES: Grossly normal, no edema. NEURO EXAM: A&O x3,, normal speech, 5 out of 5 muscle strength upper and lower extremities bilaterally, Intact sensation upper and lower extremities bilaterally PSYCH: Cooperative MEDICAL DECISION MAKING: History obtained from: Patient, sister ER Course: Patient is a 64-year-old female presenting as a trauma alert. Patient had a fall at home was unresponsive for EMS originally on arrival and then during transport to the ER became alert and awake and GCS of 15. Patient was tachycardic and hypotensive. Patient given IV fluid bolus and had ramires scan ordered. Patient is cervical collar placed in the emergency room upon arrival. Patient reportedly had been having cough and viral-like URI symptoms recently. Patient found to have leukocytosis and elevated lactate level. Patient started on broad-spectrum antibiotics as well as had 30 cc/kg bolus of normal saline ordered. Patient did not respond to the normal saline bolus and required norepinephrine to be given 18-gauge good IV in the right AC. Patient responded to the nor epi. Patient CT scans do not show any active traumatic injury. Patient cervical collar was able to be removed clinically and radiographically. Patient's case discussed with hospitalist service due to finding of pneumonia with sepsis. Patient also found to have hypokalemia and was ordered potassium. Patient's case discussed with the intensive care team as well. Labs (independently interpreted) are significant for: Leukocytosis, lactate elevated Imaging results (independently interpreted): Chest x-ray with pneumonia EKG interpretation (independently interpreted): Sinus tachycardia no ST segment elevation or depression Medications given: Cefepime, vancomycin, normal saline bolus x 3, nor epi Consultants: Hospitalist, tube turner Triage Nursing notes reviewed and agree them. Vital Signs: reviewed and remarkable for: Tachycardia, hypotensive Critical care time 60 minutes, this does not include time for procedures Past Med/Surg History Problem List (Updated 10/29/24 @ 12:08 by Alex Tran DO) Fall (Acute) Syncope (Acute) Hypoxia (Acute) Septic shock (Acute) Pneumonia (Acute) Septic shock Acute conjunctivitis History of colon polyps Family history of colon cancer in father GERD (gastroesophageal reflux disease) Seizure last seizure--grand mal 1994--on depakote Hypothyroidism Lichen sclerosus et atrophicus Hypertension Hyperlipidemia Vitamin D deficiency Urinary incontinence History of uterine cancer (2015) Depression Chronic venous insufficiency Abnormal CT scan, chest Obesity Restrictive lung disease Allergic rhinitis Obstructive sleep apnea of adult (Chronic) Diabetes (Chronic) Asthma (Chronic) Medical History Encounter for annual routine gynecological examination Left leg swelling COVID-19 Hypomagnesemia Influenza Acute pyelonephritis Severe acute respiratory syndrome coronavirus 2 (SARS-CoV-2) detected (12/2019) Vitamin D deficiency History of colon polyps Kidney stones Endometrial adenocarcinoma (06/12/15) Diverticulitis Surgical History History of bilateral breast reduction surgery History of colonoscopy (~2017) History of esophagogastroduodenoscopy (EGD) (~2014) History of cholecystectomy History of appendectomy History of total abdominal hysterectomy and bilateral salpingo-oophorectomy History of nasal surgery History of bilateral cataract extraction History of cardiac cath Family History Mother Family history of diabetes mellitus Heart disease Sister Family history of diabetes mellitus Family hx colonic polyps Heart disease Father Family hx of colon cancer Colorectal cancer Brother Family hx colonic polyps Sister Breast cancer Family/Other Breast cancer Denies family history of Ovarian cancer Prostate cancer Myocardial infarction Social History Smoking Status: Never smoker Second Hand Exposure: No; Do You Dip or Chew Tobacco: No; Hx Alcohol Use: No Hx Substance Use: No Preferred Language: Macedonian Communication Ability: Effective Visual Impairment: No Limitations Hearing Ability: Normal Finisher Brush Required: No Beliefs That Will Affect Care: None marital status: Single Current Living Situation: Family Current Living Situation Comment: Lives With Brother current occupational status: employed 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 [employer] How many Children do You have: 0 Feels Safe at Home: Yes Childhood Exposure to Second-Hand Smoke: No Diet: regular Diet Comment: regular- well balanced caffeine: No (occasonal iced te) during the past year weight has: remained stable Dental Care, Regularly: Yes Physical Activity Frequency: 3-4 Times per Week Seatbelt Use: always Sunscreen Use: No Assistive Devices: CPAP and Glasses Allergies Allergies Allergy/AdvReac Type Severity Reaction Status Date / Time rosuvastatin AdvReac Intermediate Muscle Pain Verified 10/23/24 08:37 amoxicillin [From Augmentin] AdvReac Unknown Diarrhea Verified 10/23/24 08:37 clavulanic acid AdvReac Unknown Diarrhea Verified 10/23/24 08:37 [From Augmentin] phentermine AdvReac Unknown Unknown Verified 10/23/24 08:37 Home Meds Home Medications Medication Instructions Recorded Confirmed ajiyqecricmb-hmgrjkyn-dpxnw acid 1 cap PO QAM 01/05/18 10/23/24 400 mcg-vitamin K 80 mcg capsule (Multi For Her 50 Plus) aspirin 81 mg tablet,delayed 81 mg PO DAILY 02/26/24 10/23/24 release (Adult Aspirin Regimen) hydrochlorothiazide 25 mg tablet 25 mg PO DAILY 03/01/24 10/23/24 coenzyme Q10 100 mg capsule 100 mg PO DAILY 05/27/24 10/23/24 Previous Rx's Medication Instructions Recorded ondansetron HCl 4 mg tablet 4 mg PO Q8H PRN nausea and 09/29/23 vomiting #20 tabs albuterol sulfate 2.5 mg/3 mL 2.5 mg (3 mL) inhalation Q4H PRN 11/08/23 (0.083 %) solution for nebulization shortness of breath or wheezing #75 mL carvedilol 6.25 mg tablet 6.25 mg PO BID #180 tabs 02/29/24 famotidine 20 mg tablet (Pepcid) 20 mg PO BID #180 tabs 02/29/24 budesonide-formoterol HFA 160 2 puff inhalation BID #3 Inhalers 03/01/24 mcg-4.5 mcg/actuation aerosol inhaler (Symbicort) inhalational spacing device #10 ea 03/01/24 (Aerochamber Mini) albuterol sulfate 90 mcg/actuation 2 puff inhalation Q4H PRN 03/08/24 aerosol inhaler shortness of breath #25.5 grams omega 0-xji-qzl-fish oil 1,000 mg 2 cap PO BID #60 caps 05/02/24 (120 mg-180 mg) capsule (Fish Oil) clobetasol 0.05 % topical cream 1 applic topical .COMPLEX #45 grams 05/15/24 cholecalciferol (vitamin D3) 25 1,000 unit PO DAILY #30 caps 05/27/24 mcg (1,000 unit) capsule fesoterodine 4 mg tablet,extended 4 mg PO DAILY #90 tabs 06/10/24 release 24 hr (Toviaz) tirzepatide 7.5 mg/0.5 mL 7.5 mg (0.5 mL) subcut .COMPLEX #2 09/16/24 subcutaneous pen injector mL levothyroxine 112 mcg tablet 112 mcg PO QAM #90 tabs 09/26/24 prednisone 5 mg tablet 5 mg PO .COMPLEX #30 tabs 10/23/24 tobramycin 0.3 %-dexamethasone 1 drp ophthalmic (eye) Q6H #5 mL 10/23/24 0.05 % eye drops,suspension (Tobradex ST) divalproex 500 mg tablet,delayed 1,000 mg (2 x 500 mg) PO HS #180 10/28/24 release tabs losartan 25 mg tablet 25 mg PO DAILY #90 tabs 10/28/24 rosuvastatin 10 mg tablet 10 mg PO DAILY #90 tabs 09/08/25 Results & Data (ED) Vital Signs Vital Signs - 24 hr 10/29/24 09:17 10/29/24 09:17 10/29/24 09:17 Temperature 36.9 C 36.9 C 36.9 C Temperature Source Oral Oral Pulse Rate 113 H 113 H Pulse Rate [Apical] 113 H Pulse Rate from SpO2 Sensor Pulse Strength [Bilateral Carotid] Normal Respiratory Rate 38 H 38 H 38 H Respiratory Effort / Characteristics Non-Labored Spontaneous Non-Labored Spontaneous Respiratory Depth Normal Normal Respiratory Pattern Tachypnea Tachypnea Blood Pressure 78/54 L 78/54 L Blood Pressure [Left Arm] 78/54 L Blood Pressure Mean 62 Blood Pressure Mean [Left Arm] 62 Blood Pressure Position Lying Blood Pressure Position [Left Arm] Lying Pulse Oximetry 88 L 88 L 88 L Oxygen Delivery Method Room Air Nasal Cannula Room Air Oxygen Flow Rate 4 Sepsis Recent Fever Within 48 Hours Yes Sepsis New/Unexplained Change in Mental Status Yes Sepsis Action Taken by Nursing Physician Notified Oxygen Flow Rate - Titration Pulse Oximetry Post Tiitration 10/29/24 09:20 10/29/24 09:30 10/29/24 09:30 Temperature Temperature Source Pulse Rate Pulse Rate [Apical] Pulse Rate from SpO2 Sensor Pulse Strength [Bilateral Carotid] Respiratory Rate Respiratory Effort / Characteristics Respiratory Depth Respiratory Pattern Blood Pressure 82/51 L 82/51 L Blood Pressure [Left Arm] Blood Pressure Mean 58 58 Blood Pressure Mean [Left Arm] Blood Pressure Position Blood Pressure Position [Left Arm] Pulse Oximetry 88 L Oxygen Delivery Method Room Air Oxygen Flow Rate Sepsis Recent Fever Within 48 Hours Sepsis New/Unexplained Change in Mental Status Sepsis Action Taken by Nursing Oxygen Flow Rate - Titration 2 Pulse Oximetry Post Tiitration 93 10/29/24 09:32 10/29/24 09:33 10/29/24 09:36 Temperature Temperature Source Pulse Rate 111 H 112 H 113 H Pulse Rate [Apical] Pulse Rate from SpO2 Sensor 112 H 113 H Pulse Strength [Bilateral Carotid] Respiratory Rate 39 H 36 H Respiratory Effort / Characteristics Respiratory Depth Respiratory Pattern Blood Pressure Blood Pressure [Left Arm] Blood Pressure Mean Blood Pressure Mean [Left Arm] Blood Pressure Position Blood Pressure Position [Left Arm] Pulse Oximetry 92 93 Oxygen Delivery Method Nasal Cannula Nasal Cannula Oxygen Flow Rate 4 4 Sepsis Recent Fever Within 48 Hours Sepsis New/Unexplained Change in Mental Status Sepsis Action Taken by Nursing Oxygen Flow Rate - Titration Pulse Oximetry Post Tiitration 10/29/24 10:01 10/29/24 10:01 10/29/24 10:06 Temperature Temperature Source Pulse Rate 107 H Pulse Rate [Apical] Pulse Rate from SpO2 Sensor 109 H Pulse Strength [Bilateral Carotid] Respiratory Rate 47 H Respiratory Effort / Characteristics Respiratory Depth Respiratory Pattern Blood Pressure 84/57 L 84/57 L Blood Pressure [Left Arm] Blood Pressure Mean 61 61 Blood Pressure Mean [Left Arm] Blood Pressure Position Blood Pressure Position [Left Arm] Pulse Oximetry 94 Oxygen Delivery Method Nasal Cannula Oxygen Flow Rate 4 Sepsis Recent Fever Within 48 Hours Sepsis New/Unexplained Change in Mental Status Sepsis Action Taken by Nursing Oxygen Flow Rate - Titration Pulse Oximetry Post Tiitration 10/29/24 10:15 10/29/24 10:17 10/29/24 10:27 Temperature Temperature Source Pulse Rate 105 H 100 H Pulse Rate [Apical] 103 H Pulse Rate from SpO2 Sensor 105 H 100 H Pulse Strength [Bilateral Carotid] Respiratory Rate 39 H 38 H 36 H Respiratory Effort / Characteristics Non-Labored Spontaneous Respiratory Depth Normal Respiratory Pattern Blood Pressure Blood Pressure [Left Arm] 78/60 L Blood Pressure Mean Blood Pressure Mean [Left Arm] 66 Blood Pressure Position Blood Pressure Position [Left Arm] Lying Pulse Oximetry 95 94 94 Oxygen Delivery Method Nasal Cannula Nasal Cannula Nasal Cannula Oxygen Flow Rate 4 4 4 Sepsis Recent Fever Within 48 Hours Sepsis New/Unexplained Change in Mental Status Sepsis Action Taken by Nursing Oxygen Flow Rate - Titration Pulse Oximetry Post Tiitration 10/29/24 10:30 10/29/24 10:36 10/29/24 10:47 Temperature Temperature Source Pulse Rate 101 H Pulse Rate [Apical] Pulse Rate from SpO2 Sensor 100 H Pulse Strength [Bilateral Carotid] Respiratory Rate 27 H Respiratory Effort / Characteristics Respiratory Depth Respiratory Pattern Blood Pressure 96/58 L 63/53 L Blood Pressure [Left Arm] Blood Pressure Mean 65 56 Blood Pressure Mean [Left Arm] Blood Pressure Position Blood Pressure Position [Left Arm] Pulse Oximetry 94 Oxygen Delivery Method Nasal Cannula Oxygen Flow Rate 4 Sepsis Recent Fever Within 48 Hours Sepsis New/Unexplained Change in Mental Status Sepsis Action Taken by Nursing Oxygen Flow Rate - Titration Pulse Oximetry Post Tiitration 10/29/24 10:47 10/29/24 10:48 10/29/24 11:00 Temperature Temperature Source Pulse Rate 97 H Pulse Rate [Apical] Pulse Rate from SpO2 Sensor 97 H Pulse Strength [Bilateral Carotid] Respiratory Rate 45 H Respiratory Effort / Characteristics Respiratory Depth Respiratory Pattern Blood Pressure 63/53 L 61/50 L Blood Pressure [Left Arm] Blood Pressure Mean 56 55 Blood Pressure Mean [Left Arm] Blood Pressure Position Blood Pressure Position [Left Arm] Pulse Oximetry 92 Oxygen Delivery Method Nasal Cannula Oxygen Flow Rate 4 Sepsis Recent Fever Within 48 Hours Sepsis New/Unexplained Change in Mental Status Sepsis Action Taken by Nursing Oxygen Flow Rate - Titration Pulse Oximetry Post Tiitration 10/29/24 11:00 10/29/24 11:03 10/29/24 11:17 Temperature Temperature Source Pulse Rate 96 H Pulse Rate [Apical] 99 H Pulse Rate from SpO2 Sensor 95 H Pulse Strength [Bilateral Carotid] Respiratory Rate 32 H 34 H Respiratory Effort / Characteristics Respiratory Depth Normal Respiratory Pattern Blood Pressure 61/50 L Blood Pressure [Left Arm] 77/53 L Blood Pressure Mean 55 Blood Pressure Mean [Left Arm] 61 Blood Pressure Position Blood Pressure Position [Left Arm] Pulse Oximetry 92 92 Oxygen Delivery Method Nasal Cannula Nasal Cannula Oxygen Flow Rate 4 4 Sepsis Recent Fever Within 48 Hours Sepsis New/Unexplained Change in Mental Status Sepsis Action Taken by Nursing Oxygen Flow Rate - Titration Pulse Oximetry Post Tiitration 10/29/24 11:25 10/29/24 11:30 10/29/24 11:30 Temperature Temperature Source Pulse Rate 97 H 94 H Pulse Rate [Apical] Pulse Rate from SpO2 Sensor Pulse Strength [Bilateral Carotid] Respiratory Rate 33 H 32 H Respiratory Effort / Characteristics Respiratory Depth Respiratory Pattern Blood Pressure 83/69 L 74/55 L 74/55 L Blood Pressure [Left Arm] Blood Pressure Mean 78 62 62 Blood Pressure Mean [Left Arm] Blood Pressure Position Blood Pressure Position [Left Arm] Pulse Oximetry 92 92 Oxygen Delivery Method Nasal Cannula Nasal Cannula Oxygen Flow Rate 4 2 Sepsis Recent Fever Within 48 Hours Sepsis New/Unexplained Change in Mental Status Sepsis Action Taken by Nursing Oxygen Flow Rate - Titration Pulse Oximetry Post Tiitration 10/29/24 11:33 10/29/24 11:35 10/29/24 11:35 Temperature Temperature Source Pulse Rate 92 H Pulse Rate [Apical] Pulse Rate from SpO2 Sensor 93 H Pulse Strength [Bilateral Carotid] Respiratory Rate 28 H Respiratory Effort / Characteristics Respiratory Depth Respiratory Pattern Blood Pressure 86/62 L 86/62 L Blood Pressure [Left Arm] Blood Pressure Mean 67 67 Blood Pressure Mean [Left Arm] Blood Pressure Position Blood Pressure Position [Left Arm] Pulse Oximetry 96 Oxygen Delivery Method Nasal Cannula Oxygen Flow Rate 4 Sepsis Recent Fever Within 48 Hours Sepsis New/Unexplained Change in Mental Status Sepsis Action Taken by Nursing Oxygen Flow Rate - Titration Pulse Oximetry Post Tiitration 10/29/24 11:39 10/29/24 11:41 10/29/24 11:45 Temperature Temperature Source Pulse Rate 95 H 88 Pulse Rate [Apical] Pulse Rate from SpO2 Sensor 95 H Pulse Strength [Bilateral Carotid] Respiratory Rate 49 H 29 H Respiratory Effort / Characteristics Respiratory Depth Respiratory Pattern Blood Pressure 85/55 L 90/62 L Blood Pressure [Left Arm] Blood Pressure Mean 69 66 Blood Pressure Mean [Left Arm] Blood Pressure Position Blood Pressure Position [Left Arm] Pulse Oximetry 90 93 Oxygen Delivery Method Nasal Cannula Nasal Cannula Oxygen Flow Rate 4 4 Sepsis Recent Fever Within 48 Hours Sepsis New/Unexplained Change in Mental Status Sepsis Action Taken by Nursing Oxygen Flow Rate - Titration Pulse Oximetry Post Tiitration 10/29/24 11:49 Temperature Temperature Source Pulse Rate 88 Pulse Rate [Apical] Pulse Rate from SpO2 Sensor Pulse Strength [Bilateral Carotid] Respiratory Rate 36 H Respiratory Effort / Characteristics Respiratory Depth Respiratory Pattern Blood Pressure 90/62 L Blood Pressure [Left Arm] Blood Pressure Mean Blood Pressure Mean [Left Arm] Blood Pressure Position Blood Pressure Position [Left Arm] Pulse Oximetry 93 Oxygen Delivery Method Nasal Cannula Oxygen Flow Rate 4 Sepsis Recent Fever Within 48 Hours Sepsis New/Unexplained Change in Mental Status Sepsis Action Taken by Nursing Oxygen Flow Rate - Titration Pulse Oximetry Post Tiitration Laboratory Data 10/29/24 09:25 10/29/24 09: Lab Results 10/29/24 10/29/24 10/29/24 Range/Units : 09:29 10:14 WBC 22.19 H (4.8-10.8) K/ul RBC 3.65 L (4.20-5.40) M/uL Hgb 11.7 L (12.0-16.0) g/dl POC Hgb 10.9 L (12.0-16.0) g/dl Hct 32.3 L (37.0-47.0) % POC Hct 32 L (37-47) % MCV 88.5 (80.0-100.0) fL MCH 32.1 (25.0-34.0) pg MCHC 36.2 H (32.0-36.0) g/dL RDW Std Deviation 46.4 H (36.4-46.3) fL RDW Coeff of Jim 15.6 H (11.5-14.5) % Plt Count 225 (130-400) K/uL MPV 9.9 (9.4-12.4) fL Immature Gran % (Auto) 1.3 % Neut % (Auto) 81.1 % Lymph % (Auto) 9.7 % Caldwell % (Auto) 7.6 % Eos % (Auto) 0.0 % Baso % (Auto) 0.3 % Neut # (Auto) 18.02 H (1.40-6.50) K/uL Lymph # (Auto) 2.15 (1.20-3.40) K/uL Caldwell # (Auto) 1.68 H (0.11-0.59) K/uL Eos # (Auto) 0.00 (0.00-0.50) K/uL Baso # (Auto) 0.06 (0.00-0.20) K/uL Immature Gran # (Auto) 0.28 H (0.01-0.20) K/uL PT 11.9 (9.0-12.0) Seconds INR 1.1 (0.9-1.1) APTT 25 (21-31) Seconds PTT Ratio 0.9 POC Sodium 141 (135-144) mmol/L Sodium 140 (136-145) mmol/L POC Potassium 2.7 L (3.3-5.0) mmol/L Potassium 2.8 L (3.5-5.1) mmol/L POC Chloride 105 (101-112) mmol/L Chloride 105 (98-107) mmol/L Carbon Dioxide 24 (21-32) mmol/L POC Total CO2 23 L (24-31) mmol/L Anion Gap 11 (3-11) POC Anion Gap 17.0 (16-25) mmol/L POC BUN 35 H (7-18) mg/dl BUN 36 H (6-23) mg/dl Creatinine 1.34 H (0.6-1.2) mg/dl POC Creatinine 1.5 H (0.6-1.3) mg/dl Est Cr Clr Drug Dosing Not Reportable eGFR 44.28 BUN/Creatinine Ratio 26.9 H (10-20) Glucose 112 H (70-99(Fasting)) mg/dl POC Glucose (other) 112 H (70-99) mg/dl Lactate 3.2 H* (0.4-2.0) mmol/L Calcium 8.4 L (8.6-10.3) mg/dl POC Ioniz Calcium Reyes 1.15 (1.12-1.32) mmol/l Total Bilirubin 0.6 (0.2-1.0) mg/dl AST 20 (13-39) U/L ALT 13 (7-52) U/L Alkaline Phosphatase 53 (34-104) U/L Troponin I High Sens 13.7 (0-14) pg/ml Total Protein 5.6 L (6.0-8.3) gm/dl Albumin 3.0 L (3.4-5.0) gm/dl Globulin 2.6 (2.5-4.0) gm/dl Albumin/Globulin Ratio 1.2 (0.9-2) Lipase 9 L (11-82) U/L Procalcitonin 12.90 H (0-0.5) ng/ml Urine Comment Valproic Acid 72 (50-100) mcg/ml SARS-CoV-2 (PCR) NEGATIVE (Negative) Influenza Type A (PCR) Negative (Neg) Influenza Type B (PCR) Negative (Neg) RSV (RT-PCR) Negative (Neg) 10/29/24 Range/Units 11:38 WBC (4.8-10.8) K/ul RBC (4.20-5.40) M/uL Hgb (12.0-16.0) g/dl POC Hgb (12.0-16.0) g/dl Hct (37.0-47.0) % POC Hct (37-47) % MCV (80.0-100.0) fL MCH (25.0-34.0) pg MCHC (32.0-36.0) g/dL RDW Std Deviation (36.4-46.3) fL RDW Coeff of Jim (11.5-14.5) % Plt Count (130-400) K/uL MPV (9.4-12.4) fL Immature Gran % (Auto) % Neut % (Auto) % Lymph % (Auto) % Caldwell % (Auto) % Eos % (Auto) % Baso % (Auto) % Neut # (Auto) (1.40-6.50) K/uL Lymph # (Auto) (1.20-3.40) K/uL Caldwell # (Auto) (0.11-0.59) K/uL Eos # (Auto) (0.00-0.50) K/uL Baso # (Auto) (0.00-0.20) K/uL Immature Gran # (Auto) (0.01-0.20) K/uL PT (9.0-12.0) Seconds INR (0.9-1.1) APTT (21-31) Seconds PTT Ratio POC Sodium (135-144) mmol/L Sodium (136-145) mmol/L POC Potassium (3.3-5.0) mmol/L Potassium (3.5-5.1) mmol/L POC Chloride (101-112) mmol/L Chloride (98-107) mmol/L Carbon Dioxide (21-32) mmol/L POC Total CO2 (24-31) mmol/L Anion Gap (3-11) POC Anion Gap (16-25) mmol/L POC BUN (7-18) mg/dl BUN (6-23) mg/dl Creatinine (0.6-1.2) mg/dl POC Creatinine (0.6-1.3) mg/dl Est Cr Clr Drug Dosing eGFR BUN/Creatinine Ratio (10-20) Glucose (70-99(Fasting)) mg/dl POC Glucose (other) (70-99) mg/dl Lactate (0.4-2.0) mmol/L Calcium (8.6-10.3) mg/dl POC Ioniz Calcium Reyes (1.12-1.32) mmol/l Total Bilirubin (0.2-1.0) mg/dl AST (13-39) U/L ALT (7-52) U/L Alkaline Phosphatase (34-104) U/L Troponin I High Sens (0-14) pg/ml Total Protein (6.0-8.3) gm/dl Albumin (3.4-5.0) gm/dl Globulin (2.5-4.0) gm/dl Albumin/Globulin Ratio (0.9-2) Lipase (11-82) U/L Procalcitonin (0-0.5) ng/ml Urine Comment Valproic Acid (50-100) mcg/ml SARS-CoV-2 (PCR) (Negative) Influenza Type A (PCR) (Neg) Influenza Type B (PCR) (Neg) RSV (RT-PCR) (Neg) Administered Medications Vancomycin HCl 2,000 mg/ (Sodium Chloride) 540 mls @ 200 mls/hr IV NOW ONE Stop: 10/29/24 13:06 Last Admin: 10/29/24 10:43 Dose: 200 mls/hr Documented By: CC Norepinephrine Bitartrate (Levophed/D5w) 4 mg in 250 mls @ 52.29 mls/hr IV .Q4H47M [facility]; Protocol Stop: 11/28/24 11:14 Last Titration: 10/29/24 11:56 Dose: 0.14 mcg/kg/min, 52.3 mls/hr Documented By: ESTIVEN Co-signed By: SILVANA Titration: 10/29/24 11:37 Dose: 0.12 mcg/kg/min, 44.8 mls/hr Documented By: ESTIVEN Co-signed By: SILVANA Titration: 10/29/24 11:18 Dose: 0.1 mcg/kg/min, 37.4 mls/hr Documented By: CC Co-signed By: ESTIVEN Admin: 10/29/24 11:12 Dose: 0.05 mcg/kg/min, 18.7 mls/hr Documented By: CC Co-signed By: ESTIVEN Discontinued Medications Albuterol (Albut/Ipratrop 3mg/0.5mg Neb 3 Ml Vial) 3 ml NEB NOW STA; Protocol Stop: 10/29/24 11:16 Last Admin: 10/29/24 11:40 Dose: 3 ml Documented By: ESTIVEN Hydrocortisone Sodium Succinate (Hydrocortisone Sod Succinate 100 Mg/2 Ml Vial) 100 mg IV NOW STA Stop: 10/29/24 10:47 Last Admin: 10/29/24 11:05 Dose: 100 mg Documented By: CC Sodium Chloride (Nss) 1,000 mls @ 999 mls/hr IV .Q1H1M ONE Stop: 10/29/24 10:19 Last Infusion: 10/29/24 10:37 Dose: Infused Documented By: Admin: 10/29/24 09:35 Dose: 999 mls/hr Documented By: CC Acetaminophen (Ofirmev) 1,000 mg in 100 mls @ 400 mls/hr IV NOW STA Stop: 10/29/24 09:36 Last Infusion: 10/29/24 10:34 Dose: Infused Documented By: Admin: 10/29/24 10:08 Dose: 400 mls/hr Documented By: CC Sodium Chloride (Nss) 1,000 mls @ 999 mls/hr IV .Q1H1M ONE Stop: 10/29/24 11:24 Last Infusion: 10/29/24 11:13 Dose: Infused Documented By: Admin: 10/29/24 10:29 Dose: 999 mls/hr Documented By: CC Cefepime HCl (Maxipime 2000mg) 2,000 mg in 20 mls @ 5 mls/min IV NOW STA; Protocol Stop: 10/29/24 10:28 Last Admin: 10/29/24 10:30 Dose: 5 mls/min Documented By: CC Sodium Chloride (Nss) 1,000 mls @ 999 mls/hr IV .Q1H1M ONE Stop: 10/29/24 11:30 Last Infusion: 10/29/24 11:13 Dose: Infused Documented By: Admin: 10/29/24 10:32 Dose: 999 mls/hr Documented By: LONI Ioversol (Optiray 320 100ml) 94 ml IV ONCE ONE Stop: 10/29/24 09:59 Last Admin: 10/29/24 09:59 Dose: 94 ml Documented By: SUSY Norepinephrine Bitartrate (Norepinephrine/D5w 4 Mg/250 Ml) Confirm Administered Dose 4 mg IV .STK-MED ONE Stop: 10/29/24 09:31 Last Admin: 10/29/24 11:29 Dose: Not Given Documented By: LONI Potassium Chloride (Potassium Chloride Crtab 20 Meq Tabcr) 40 meq PO NOW STA Stop: 10/29/24 10:32 Last Admin: 10/29/24 10:41 Dose: 40 meq Documented By: CC Imaging Data Radiologist's Impression: Chest X-Ray 10/29/24 09:19 XR chest 1V portable CLINICAL HISTORY: Trauma COMPARISON STUDY: 03/14/2023 FINDINGS: Stable mild cardiomegaly without pulmonary vascular congestion. There is patchy opacity at the left lower lung. No other pulmonary consolidation or pleural effusion. No pneumothorax. No grossly displaced rib fractures seen. IMPRESSION: Pneumonia versus pulmonary contusion left lower lung. ACT 112: Negative or not required by law. Electronically signed by: Bhupinder Sutton M.D. 10/29/2024 9:33 AM Abdomen/Pelvis CT 10/29/24 09:20 CT SCAN OF THE ABDOMEN AND PELVIS WITH IV CONTRAST CLINICAL HISTORY: Trauma. Confusion. COMPARISON STUDY: CT of the abdomen and pelvis April 29, 2024. TECHNIQUE: Following the IV administration of 94 cc of Optiray 320, CT scan of the abdomen and pelvis is performed from the lung bases to the proximal femora. Images are reviewed in the axial, sagittal, and coronal planes. IV contrast was administered without complication. A dose lowering technique was utilized adhering to the principles of ALARA. FINDINGS: Extensive left lower lobe consolidation is better depicted on the chest CT which will be reported separately. This is new since abdominal CT of April 29, 2024. The heart is mildly enlarged. No hemoperitoneum or pneumoperitoneum is present. There is no evidence for traumatic injury to the liver, spleen, adrenal glands, kidneys or pancreas. Small left adrenal nodule is unchanged. This is benign. There is mild bilateral perinephric stranding. There is no hydronephrosis. There is a 3 mm right renal calculus. No ureteral calculi are present. There is no hydronephrosis. There is no biliary ductal dilatation status post cholecystectomy. Slight nodularity of the liver surface is noted. Caliber and wall thickness of small and large bowel are normal. There are no fluid collections. Major vasculature is patent. No acute fractures within the lumbar spine, pelvis or hips. Bilateral L5 pars defects without anterolisthesis are again noted. The uterus and ovaries are surgically absent. IMPRESSION: 1. No acute traumatic findings within the abdomen or pelvis. 2. Extensive left lower lobe consolidation which is new since CT of April 29, 2024. This is suggestive of pneumonia. Radiographic follow up to ensure resolution is recommended. ACT 112: Negative or not required by law. Electronically signed by: Josh Tian M.D. 10/29/2024 10:[address] 10/29/24 09:20 CT SCAN OF THE CERVICAL SPINE CLINICAL HISTORY: Trauma. COMPARISON STUDY: Cervical spine radiographs April 18, 2011. TECHNIQUE: CT scan of the cervical spine is performed from the skull base to the upper thoracic spine. Images are reviewed in the axial, sagittal, and coronal planes. IV contrast was not administered for this examination. A dose lowering technique was utilized adhering to the principles of ALARA. CT DOSE: 3620.45 mGy.cm FINDINGS: There is straightening of the cervical lordosis. Vertebral body heights are maintained. There are no fractures. There is moderate anterior osteophytosis. There is moderate disc space narrowing at C5-C6. There is mild multilevel facet arthrosis. No osseous lesions are present. No prevertebral edema. Extensive sinus opacification is better depicted on the head CT which will be reported separately. IMPRESSION: No acute cervical spine fracture or subluxation. ACT 112: Negative or not required by law. Electronically signed by: Josh Tian M.D. 10/29/2024 10:[address] 10/29/24 09:[address] WITH CONTRAST HISTORY: Acute chest trauma status post fall. History of uterine carcinoma Trauma TECHNIQUE: Multiaxial CT images of the chest were performed following the IV administration of 94 cc of Optiray. A dose lowering technique was utilized adhering to the principles of ALARA. COMPARISON: CT abdomen and pelvis of same day, chest CT 04/29/2024 FINDINGS: Unremarkable thyroid. Heart is upper limits of normal in size. No pericardial effusion. Unremarkable thoracic aorta and pulmonary artery. No pneumothorax, pleural effusion or overt pulmonary edema. Mild atelectasis with air trapping noted bilaterally. Multifocal segmental airspace opacities are noted throughout the left lower lobe, as pronounced in the superior segment with air bronchograms. Left adrenal gland nodule again seen. Cholecystectomy. CT abdomen and pelvis dictated separately. No acute fracture identified. IMPRESSION: 1. Segmental airspace opacities of the left lower lobe are suggestive of pneumonia. Follow-up chest CT after treatment course is needed in order to document resolution. 2. No acute posttraumatic intrathoracic abnormality identified. 3. No acute fracture or pneumothorax. ACT 112: Negative or not required by law. Electronically signed by: Red Cabrera M.D. 10/29/2024 10:[address] 10/29/24 09:20 CT head/brain wo con CLINICAL HISTORY: trauma. TECHNIQUE: Multiple axial CT images of the head were obtained without contrast. A dose lowering technique was utilized adhering to the principles of ALARA. COMPARISON: 03/25/2018 FINDINGS: No intracranial hemorrhage seen. No mass effect, midline shift, or hydrocephalus. No skull fracture seen. There is progressive complete opacification of the maxillary and sphenoid sinuses and near complete opacification of the ethmoid sinuses. No mastoid effusion. IMPRESSION: 1. No acute posttraumatic findings. 2. Severe progressive paranasal sinus disease. ACT 112: Negative or not required by law. The above report was generated using voice recognition software. It may contain grammatical, syntax or spelling errors. Electronically signed by: Bhupinder Sutton M.D. 10/29/2024 10:08 AM Discharge Plan Visit Data Chief Complaint: Trauma Stated Complaint: FALL, AMS, HYPOTENSION ED Provider: Alex Tran Discharge Problem: Pneumonia, Septic shock, Hypoxia, Syncope, Fall Patient Disposition: Admitted As Inpatient Condition: Critical Discharge Instructions Interventions: ED Discharge Assessment Last Done: 10/29/24 11:49 Forms Stand Alone Forms: [employer] Prescriptions Prescriptions: No Action ondansetron HCl 4 mg tablet 4 mg PO Q8H PRN (Reason: nausea and vomiting) Qty: 20 0RF carvedilol 6.25 mg tablet 6.25 mg PO BID Qty: 180 3RF famotidine [Pepcid] 20 mg tablet 20 mg PO BID Qty: 180 2RF budesonide-formoterol [Symbicort] 160-4.5 mcg/actuation HFA aerosol inhaler 2 puff inhalation BID Qty: 3 3RF Rx Instructions: WITH A RINSE OF MOUTH AFTERWARDS. albuterol sulfate 90 mcg/actuation HFA aerosol inhaler 2 puff inhalation Q4H PRN (Reason: shortness of breath) Qty: 25.5 3RF omega 2-pln-cuf-fish oil [Fish Oil] 1,000 (120-180) mg capsule 2 cap PO BID Qty: 60 0RF Rx Instructions: RECOMMENDED BASED OFF BLOOD WORK FROM 05/01/24 clobetasol 0.05 % cream 1 applic topical .COMPLEX Qty: 45 1RF Rx Instructions: 2x/week to affected vulvar tissue tirzepatide 7.5 mg/0.5 mL pen injector 7.5 mg subcut .COMPLEX Qty: 2 1RF Rx Instructions: 7.5 mg subcutaneously once every 7 days; levothyroxine 112 mcg tablet 112 mcg PO QAM Qty: 90 3RF losartan 25 mg tablet 25 mg PO DAILY Qty: 90 2RF divalproex 500 mg tablet,delayed release (DR/EC) 1,000 mg PO HS Qty: 180 2RF rosuvastatin 10 mg tablet 10 mg PO DAILY Qty: 90 2RF hydrochlorothiazide 25 mg tablet 25 mg PO DAILY (DME) Aerochamber Mini Spacer See Rx Instructions .Route Qty: 10 0RF Rx Instructions: As directed coenzyme Q10 100 mg capsule 100 mg PO DAILY cholecalciferol (vitamin D3) 25 mcg (1,000 unit) capsule 1,000 unit PO DAILY Qty: 30 0RF Rx Instructions: RECOMMENDED BASED OFF BLOOD WORK FROM 05/01/24 prednisone 5 mg tablet 5 mg PO .COMPLEX Qty: 30 0RF Rx Instructions: 5 mg PO 3QDx5;2QDx5;1QDx5; Tobradex ST 0.3-0.05 % drops,suspension 1 drp ophthalmic (eye) Q6H Qty: 5 0RF albuterol sulfate 2.5 mg /3 mL (0.083 %) solution for nebulization 2.5 mg inhalation Q4H PRN (Reason: shortness of breath or wheezing) Qty: 75 3RF aspirin [Adult Aspirin Regimen] 81 mg tablet,delayed release (DR/EC) 81 mg PO DAILY fesoterodine [Toviaz] 4 mg tablet extended release 24 hr 4 mg PO DAILY Qty: 90 3RF Multi For Her 50 Plus 400-80 mcg Capsule 1 cap PO QAM Referrals Referrals: Krystina Gonzalez DO [Primary Care Provider] -
[2024-10-29 12:09] LABS: Appearance Urine Clear (Clear); Glucose Urine UA Negative (Negative)
--- NOTE | 2024-10-29 12:38 | Critical Care Consultation ---
Date of Consultation October 29, 2024 Assessment & Plan (1) Septic shock: (2) Pneumonia: (3) Syncope: (4) Hypoxia: (5) Obesity: (6) Steroid-dependent asthma: Plan 64-year-old female with a history of hypothyroidism, obesity, allergies, allergic asthma and SEB presents to the hospital with findings of acute pneumonia and syncope. Neurologic: Patient with a history of seizure disorder on divalproex. Nonfocal on exam at this time. CT head negative. Maintain delirium precautions. Head of the bed above 35 degrees. Pulmonary: Patient currently on low-flow oxygen. Wean oxygen as able. Initiate pulmonary clearance therapies with hypertonic saline, flutter valve and incentive spirometer. Continue LABA. Initiate ICS. Sena/Cristian as needed. Agree with hydrocortisone for severe pneumonia. Obtain sputum culture. Will send complete respiratory viral panel. Initial abbreviated viral panel negative. Check urine Legionella antigen. Cardiovascular: Maintain on telemetry. Follow-up EKG and echo. Prior dobutamine stress echo 01/02/2024 revealed an EF of 55 to 50% with moderate concentric LVH. Wean vasopressors as able. Currently on Levophed. Gastrointestinal: Patient with diarrhea likely due to viral gastroenteritis. CT abdomen without acute findings. Will send stool PCR if continues to have diarrhea. Renal: Patient with TAE likely due to hypovolemia and sepsis. Continue LR at 80 mL/h. Follow urine output closely. Patient also with mild lactic acidosis. Patient notably on tours appetite as an outpatient. Will have low threshold for euglycemic DKA. No ketones noted on urinalysis. Recheck BMP and lactate. Infectious disease: Probable sources left lower lobe pneumonia and possible sinusitis. Continue Zosyn. MRSA screen negative. Continue azithromycin. Follow-up respiratory viral panel, blood cultures and sputum cultures if able. Hematologic: No significant issues at present. Monitor hemoglobin and for signs of bleeding. Endocrine: Continue home levothyroxine. TSH checked 10/23 was normal. Stress dose steroids as above. Lines and tubes: Peripheral IVs and Curry catheter 10/29/2024 VTE prophylaxis: Heparin 5000 3 times daily CODE STATUS: Full Family at bedside: Sister updated at bedside who is a PA for primary care. Disposition: ICU I have personally spent 60 minutes of critical care time in the direct management of this patient. This is a life/limb threatening event. This includes time spent evaluating patient, direct bedside care, chart review, placing orders, interpretation of diagnostic studies, discussion with consultants, patient, and family members, as well as other required patient management acti vities. This time is exclusive of all separately billable procedures, and teaching time and separate from and in addition to any other critical care service time. I personally spent 60 minutes on the date of service in activities related to this patient's encounter, including 40 minutes of counseling with patient regarding treatment plan and 20 minutes of clinical review of lab results and documentation. I did substance abuse counselor the patient regarding their diagnosis and treatment plan and they expressed understanding. This note was dictated using voice recognition software and may include grammatical errors, extra words, word substitutions and other inaccuracies due to errors in the voice recognition software and differences in speech patterns. History of Present Illness Reason for Consultation: Septic shock Attending Physician: Hussain Choudhury MD History of Present Illness 64-year-old female with a past medical history of obesity, uterine cancer, seizures disorder, SEB and asthma presenting to the ER due to confusion. She was found by her sister who is a PA on the [facility]. She reportedly vomited earlier today and yesterday. She was working as of yesterday. She has been having diarrhea as well. She denies any overt fevers. She denies any presyncopal symptoms other than feeling weak throughout the day. Sister denies seeing any seizure activity. Patient currently denies any significant chest pain or shortness of breath. She is feeling tired. She does not feel nauseous. She denies abdominal pain. She denies any alcohol, illicit drug use or tobacco products. While in the ER patient was on norepinephrine at a rate of 0.12 mics per kilogram per minute. She had received 3 L of crystalloids. She is awaiting transfer to ICU from the ED. Chest CT revealed segmental airspace opacities of the left lower lobe suggestive of pneumonia. No trauma identified. CT head revealed severe progressive paranasal sinus disease. C-spine was negative. CT abdomen pelvis revealed no acute trauma and extensive left lower lobe consolidation. Mild bilateral perinephric stranding was seen. 3 mm right renal calculus noted. Chemistries reveal a mild TAE with a creatinine of 1.34. Lactate of 3.2. Leukocytosis with a white count of 22,000. Mild anemia with a hemoglobin of 11.7. Calcium 8.4. Procalcitonin elevated to 12.9. Cepheid viral testing negative. Nasal MRSA screen was negative. Troponin negative in the ED. Allergies Allergy/AdvReac Type Severity Reaction Status Date / Time rosuvastatin AdvReac Intermediate Muscle Pain Verified 10/23/24 08:37 amoxicillin [From Augmentin] AdvReac Unknown Diarrhea Verified 10/23/24 08:37 clavulanic acid AdvReac Unknown Diarrhea Verified 10/23/24 08:37 [From Augmentin] phentermine AdvReac Unknown Unknown Verified 10/23/24 08:37 Home Medications Medication Instructions Recorded Confirmed Type kzmnqfqkbsik-kgjqxrae-ossqr acid 1 cap PO QAM 01/05/18 10/23/24 History 400 mcg-vitamin K 80 mcg capsule (Multi For Her 50 Plus) ondansetron HCl 4 mg tablet 4 mg PO Q8H PRN nausea and 09/29/23 10/23/24 Rx vomiting #20 tabs albuterol sulfate 2.5 mg/3 mL 2.5 mg (3 mL) inhalation Q4H PRN 11/08/23 10/23/24 Rx (0.083 %) solution for nebulization shortness of breath or wheezing #75 mL aspirin 81 mg tablet,delayed 81 mg PO DAILY 02/26/24 10/23/24 History release (Adult Aspirin Regimen) carvedilol 6.25 mg tablet 6.25 mg PO BID #180 tabs 02/29/24 10/23/24 Rx famotidine 20 mg tablet (Pepcid) 20 mg PO BID #180 tabs 02/29/24 10/23/24 Rx budesonide-formoterol HFA 160 2 puff inhalation BID #3 Inhalers 03/01/24 10/23/24 Rx mcg-4.5 mcg/actuation aerosol inhaler (Symbicort) hydrochlorothiazide 25 mg tablet 25 mg PO DAILY 03/01/24 10/23/24 History inhalational spacing device #10 ea 03/01/24 10/23/24 Rx (Aerochamber Mini) albuterol sulfate 90 mcg/actuation 2 puff inhalation Q4H PRN 03/08/24 10/23/24 Rx aerosol inhaler shortness of breath #25.5 grams omega 3-qxo-alk-fish oil 1,000 mg 2 cap PO BID #60 caps 05/02/24 10/23/24 Rx (120 mg-180 mg) capsule (Fish Oil) clobetasol 0.05 % topical cream 1 applic topical .COMPLEX #45 grams 05/15/24 10/23/24 Rx cholecalciferol (vitamin D3) 25 1,000 unit PO DAILY #30 caps 05/27/24 10/23/24 Rx mcg (1,000 unit) capsule coenzyme Q10 100 mg capsule 100 mg PO DAILY 05/27/24 10/23/24 History fesoterodine 4 mg tablet,extended 4 mg PO DAILY #90 tabs 06/10/24 10/23/24 Rx release 24 hr (Toviaz) tirzepatide 7.5 mg/0.5 mL 7.5 mg (0.5 mL) subcut .COMPLEX #2 09/16/24 10/23/24 Rx subcutaneous pen injector mL levothyroxine 112 mcg tablet 112 mcg PO QAM #90 tabs 09/26/24 10/23/24 Rx prednisone 5 mg tablet 5 mg PO .COMPLEX #30 tabs 10/23/24 10/23/24 Rx tobramycin 0.3 %-dexamethasone 1 drp ophthalmic (eye) Q6H #5 mL 10/23/24 10/23/24 Rx 0.05 % eye drops,suspension (Tobradex ST) divalproex 500 mg tablet,delayed 1,000 mg (2 x 500 mg) PO HS #180 10/28/24 Rx release tabs losartan 25 mg tablet 25 mg PO DAILY #90 tabs 10/28/24 Rx rosuvastatin 10 mg tablet 10 mg PO DAILY #90 tabs 10/28/24 Rx Patient History Medical History Encounter for annual routine gynecological examination Left leg swelling COVID-19 Hypomagnesemia Influenza Acute pyelonephritis Severe acute respiratory syndrome coronavirus 2 (SARS-CoV-2) detected (12/2019) Vitamin D deficiency History of colon polyps Kidney stones Endometrial adenocarcinoma (06/12/15) Diverticulitis Surgical History History of bilateral breast reduction surgery History of colonoscopy (~2017) History of esophagogastroduodenoscopy (EGD) (~2014) History of cholecystectomy History of appendectomy History of total abdominal hysterectomy and bilateral salpingo-oophorectomy History of nasal surgery History of bilateral cataract extraction History of cardiac cath Family History Mother Family history of diabetes mellitus Heart disease Sister Family history of diabetes mellitus Family hx colonic polyps Heart disease Father Family hx of colon cancer Colorectal cancer Brother Family hx colonic polyps Sister Breast cancer Family/Other Breast cancer Denies family history of Ovarian cancer Prostate cancer Myocardial infarction Social History Smoking Status: Never smoker Second Hand Exposure: No; Do You Dip or Chew Tobacco: No; Hx Alcohol Use: No Hx Substance Use: No Preferred Language: Danish Communication Ability: Effective Visual Impairment: No Limitations Hearing Ability: Normal Journeyman Level Acoustic Analyst Required: No Beliefs That Will Affect Care: None marital status: Single Current Living Situation: Family Current Living Situation Comment: Lives With Brother current occupational status: employed 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 Obese. Eyes: Pupils are equal round and reactive to light. Conjunctivae are normal. Anicteric sclera. Ears nose, mouth and throat: Mallampati class 2. Normal posterior oropharynx. Uvula is midline. Neck: Trachea is midline. Visual inspection is normal. Respiratory: Crackles in the left lower lobe. Mild tachypnea. Cardiovascular: Regular rate and rhythm. No murmurs. No edema. Gastrointestinal: Normal bowel sounds, soft, nontender and nondistended. No hepatosplenomegaly noted. Musculoskeletal: No cyanosis. Patient is able to move all extremities. Strength is 5 out of 5 in the upper and lower extremities. Skin: No rashes, warm dry and intact. Neurologic: No obvious focal neurological deficits seen. Psychiatric: Alert and oriented x3 with a euthymic affect. Lethargic. Results & Data Results & Data Vital Signs (Past 12 Hours) Vital Signs Temp Pulse Pulse Resp BP BP Pulse Ox 10/29/24 11:49 88 36 H 90/62 L 93 10/29/24 11:45 88 29 H 90/62 L 93 10/29/24 11:41 85/55 L 10/29/24 11:39 95 H 49 H 90 10/29/24 11:35 86/62 L 10/29/24 11:35 86/62 L 10/29/24 11:33 92 H 28 H 96 10/29/24 11:30 74/55 L 10/29/24 11:30 94 H 32 H 74/55 L 92 10/29/24 11:25 97 H 33 H 83/69 L 92 10/29/24 11:17 99 H 34 H 77/53 L 92 10/29/24 11:03 96 H 32 H 92 10/29/24 11:00 61/50 L 10/29/24 11:00 61/50 L 10/29/24 10:48 97 H 45 H 92 10/29/24 10:47 63/53 L 10/29/24 10:47 63/53 L 10/29/24 10:36 101 H 27 H 94 10/29/24 10:30 96/58 L 10/29/24 10:27 100 H 36 H 94 10/29/24 10:17 103 H 38 H 78/60 L 94 10/29/24 10:15 105 H 39 H 95 10/29/24 10:06 107 H 47 H 94 10/29/24 10:01 84/57 L 10/29/24 10:01 84/57 L 10/29/24 09:36 113 H 36 H 93 10/29/24 09:33 112 H 39 H 92 10/29/24 09:32 111 H 10/29/24 09:30 82/51 L 10/29/24 09:30 82/51 L 10/29/24 09:20 88 L 10/29/24 09:17 36.9 C 113 H 38 H 78/54 L 88 L 10/29/24 09:17 36.9 C 113 H 38 H 78/54 L 88 L 10/29/24 09:17 36.9 C 113 H 38 H 78/54 L 88 L O2 Del Method O2 Flow Rate 10/29/24 11:49 Nasal Cannula 4 10/29/24 11:45 Nasal Cannula 4 10/29/24 11:41 10/29/24 11:39 Nasal Cannula 4 10/29/24 11:35 10/29/24 11:35 10/29/24 11:33 Nasal Cannula 4 10/29/24 11:30 10/29/24 11:30 Nasal Cannula 2 10/29/24 11:25 Nasal Cannula 4 10/29/24 11:17 Nasal Cannula 4 10/29/24 11:03 Nasal Cannula 4 10/29/24 11:00 10/29/24 11:00 10/29/24 10:48 Nasal Cannula 4 10/29/24 10:47 10/29/24 10:47 10/29/24 10:36 Nasal Cannula 4 10/29/24 10:30 10/29/24 10:27 Nasal Cannula 4 10/29/24 10:17 Nasal Cannula 4 10/29/24 10:15 Nasal Cannula 4 10/29/24 10:06 Nasal Cannula 4 10/29/24 10:01 10/29/24 10:01 10/29/24 09:36 Nasal Cannula 4 10/29/24 09:33 Nasal Cannula 4 10/29/24 09:32 10/29/24 09:30 10/29/24 09:30 10/29/24 09:20 Room Air 10/29/24 09:17 Room Air 10/29/24 09:17 Nasal Cannula 4 10/29/24 09:17 Room Air Coding Level of Care Code 17524 CRITICAL CARE 1ST 30-74M Diagnoses Septic shock A41.9; R65.21 Pneumonia J18.9 Syncope R55 Hypoxia R09.02 Obesity E66.9 Steroid-dependent asthma J45.909
[2024-10-29] MEDS: AZITHROMYCIN 500 MG/255 ML BAG IV ONE (12:40)
[2024-10-29] MEDS: ALBUT/IPRATROP 3MG/0.5MG NEB 3 ML VIAL NEB SCH (12:57)
[2024-10-29 13:15] LABS: Anion Gap 11.0 (3-11); Blood Urea Nitrogen 34.0 mg/dl (6-23); Calcium 7.8 mg/dl (8.6-10.3); Carbon Dioxide 21.0 mmol/L (21-32); Chloride 109.0 mmol/L (98-107); Creatinine Clr Calc Pharmacy 57.1 ml/min; Glucose 106.0 mg/dl (70-99(Fasting)); Potassium 2.9 mmol/L (3.5-5.1); Sodium 141.0 mmol/L (136-145)
[2024-10-29 13:22] LABS: Magnesium 0.8 mg/dl (1.7-2.4)
[2024-10-29] MEDS ORDERED: PIPERACILLIN/TAZOBACTAM 4.5 GM/100 ML BAG IV SCH (14:00)
[2024-10-29] MEDS ORDERED: MAGNESIUM SULFATE / D5W 1 GM/100 ML BAG IV SCH ×2 (14:15→14:30)
[2024-10-29] MEDS: MAGNESIUM SULFATE / D5W 1 GM/100 ML BAG IV SCH (14:30)
[2024-10-29] MEDS ORDERED: POTASSIUM CHLORIDE / WTR 20 MEQ/100 ML PLCT IV SCH (14:30)
--- NOTE | 2024-10-29 14:33 | Procedure Note ---
Procedure Note Date of Service October 29, 2024 INTERNAL JUGULAR CENTRAL LINE PROCEDURE NOTE: Procedure: Internal Jugular Central Line Placement Attending: Dr. Esteban Maya MD APC: LISSA Tapia Indication: Central Drug Administration, Poor Venous Access, Multiple Lab Draws Necessary, etc. Anesthesia: Lidocaine 1% Consent was signed and placed on the chart prior to procedure. Indication, risks, and benefits were explained at length. A time-out was completed verifying correct patient, procedure, site, positioning, and implants(s) or special equipment if applicable. Patients right Neck was cleansed and draped in the typical sterile fashion using Chloraprep. The Internal Jugular Vein and Carotid Artery were identified using ultrasound. The superficial tissue was anesthetized using 3 mL of 1% lidocaine without epinephrine under direct visualization with the ultrasound. After adequate anesthetization was achieved, the Internal Jugular vein was cannulated under direct ultrasound guidance using an introducer needle on a syringe. Good venous blood return was maintained prior to removal of syringe from introducer needle. Using Seldinger Technique, a guide wire was advanced through the introducer needle without resistance. The introducer needle was removed and ultrasound images were obtained of the guide wire within the Internal Jugular Vein and saved to the patients medical record. A small incision was made in penetrating fashion at the guide wire insertion site utilizing an 11 blade scalpel. The dilator was advanced to the vessel without resistance. The dilator was exchanged for the triple lumen catheter which was advanced into the vessel without resistance. The guide wire was removed intact from the catheter without issue. Claves were placed on each catheter tip with confirmation of good blood flow from each lumen. Each port was easily flushed with sterile saline. The catheter was placed at 20 cm and sutured in place. BioPatch was applied to the catheter and a sterile Tegaderm dressing was applied over the catheter with careful attention to sterility. Patient tolerated procedure well. No immediate complications were met. Post procedure x-ray was completed, placement was appropriate and no pneumothorax was noted. Images obtained are saved for permanent record Procedural Ultrasound Guidance: Procedure Date: 10/29/2024 Indication: Ultrasound guidance for right IJ placement Attending: Dr. Esteban Maya MD APC: LISSA Tapia Artery AND Vein visualized: Yes Compressible Vein: Yes Guidewire or Short Catheter seen in vein prior to dilation: Yes Line confirmed in Vein with ultrasound: Yes Images obtained are saved for permanent record. [facility] [place] Procedure Codes (Charges) Tubes, Drains, and Vasc Access Procedure 1: Tubes, Drains, and Vasc Access: [id number] Ultrasound Guidance For Vascular Procedure 2: Tubes, Drains, and Vasc Access: [id number] Insertion Of Non-tunneled Catheter Age 5 Yrs> Coding CPT Codes Tubes, Drains, and Vasc Access - Tubes, Drains, and Vasc Access: [id number] Ultrasound Guidance For Vascular ([id number]) Tubes, Drains, and Vasc Access - Tubes, Drains, and Vasc Access: [id number] Insertion Of Non-tunneled Catheter Age 5 Yrs> ([id number]) Additional Codes Date of Service ([email or web address])
--- NOTE | 2024-10-29 14:49 | Procedure Note ---
Procedure Note Date of Service October 29, 2024 ARTERIAL LINE PROCEDURE NOTE: Procedure: Arterial Line Placement Attending: Dr. Esteban Maya MD APC: LISSA Tapia Indication: Monitoring on Pressors/[]Frequent labs Anesthesia: Lidocaine 1% Consent was signed and placed on the chart prior to procedure. Indication, risks, and benefits were explained at length. A time-out was completed verifying correct patient, procedure, site, positioning, and implant(s) or special equipment if applicable. Allens test was performed to ensure adequate perfusion. Patients right wrist was prepped and draped in the usual sterile fashion. Ultrasound guidance was used to aid needle placement. A 20g Arrow arterial line was introduced into the artery. Catheter was threaded, and the needle was removed with appropriate blood return. Good waveform was observed. The patient tolerated the procedure well. Confirmation of placement with ultrasound. Images saved to medical record. Blood Loss: Minimal Complications: None Procedural Ultrasound Guidance: Procedure Date: 10/29/2024 Indication: ultrasound guidance Attending: Dr. Esteban Maya MD APC: LISSA Tapia Artery Identified: YES Line confirmed in Artery with ultrasound: Yes Complications: NONE Patient tolerated procedure: [facility] Procedure Codes (Charges) Tubes, Drains, and Vasc Access Procedure 1: Tubes, Drains, and Vasc Access: [id number] Ultrasound Guidance For Vascular Procedure 2: Tubes, Drains, and Vasc Access: [id number] Arterial Cath/Cannulation Sampling/Monitoring/Transfusion Coding CPT Codes Tubes, Drains, and Vasc Access - Tubes, Drains, and Vasc Access: [id number] Ultrasound Guidance For Vascular ([id number]) Tubes, Drains, and Vasc Access - Tubes, Drains, and Vasc Access: [id number] Arterial Cath/Cannulation Sampling/Monitoring/Transfusion ([id number]) Additional Codes Date of Service ([email or web address])
--- NOTE | 2024-10-29 14:50 | XRay Report ---
XR chest 1V portable CLINICAL HISTORY: confirm line placement COMPARISON STUDY: 10/29/2024 FINDINGS: Right central catheter tip is at the right atrium. Stable mild cardiomegaly with mild pulmo nary vascular congestion. Stable patchy opacity at the left lower lung. No pneumothorax seen. IMPRESSION: No pneumothorax. ACT 112: Negative or not required by law. Electronically signed by: Bhupinder Sutton M.D. 10/29/2024 2:49 PM
[2024-10-29] MEDS: metroNIDAZOLE 500 MG/100 ML BAG IV SCH (14:52)
[2024-10-29] MEDS: LACTATED RINGER'S 1,000 ML IV SCH (14:52)
[2024-10-29] MEDS: FAMOTIDINE 20MG IV PUSH 20 MG/5 ML SYR IV SCH (14:52)
[2024-10-29] MEDS: POTASSIUM CHLORIDE / WTR 20 MEQ/100 ML PLCT IV SCH (14:53)
[2024-10-29] MEDS: HEPARIN SOD 5,000 UNIT/0.5 ML VIAL SQ SCH (15:00)
--- NOTE | 2024-10-29 15:08 | Ultrasound Report ---
ULTRASOUND LEFT UPPER EXTREMITY VENOUS CLINICAL HISTORY: Acute pain and swelling of the left upper extremity. COMPARISON STUDY: Priors. TECHNIQUE: Real-time, grayscale, and color Doppler sonography of the deep veins of the left upper ext remity is performed. Compression and augmentation were utilized. FINDINGS: There is no sonographic evidence of deep venous thrombosis identified in the left upper ext remity. The left internal jugular, axillary, and brachial veins are patent and normally compressible. Normal venous waveforms and augmentation are seen within the left subclavian vein. The cephalic and basilic veins are clear. The visualized radial and ulnar veins are patent. IMPRESSION: There is no sonographic evidence of deep venous thrombosis identified in the left upper e xtremity. ACT 112: Negative or not required by law. Electronically signed by: eRd Cabrera M.D. 10/29/2024 3:07 PM
--- NOTE | 2024-10-29 15:31 | Electrocardiogram Report ---
Test Reason : Blood Pressure : */* mmHG Vent. Rate : 105 BPM Atrial Rate : 105 BPM P-R Int : 142 ms QRS Dur : 92 ms QT Int : 356 ms P-R-T Axes : 59 -17 84 degrees QTcB Int : 470 ms Sinus tachycardia Left ventricular hypertrophy with repolarization abnormality ( R in aVL ) Abnormal ECG When compared with ECG of 14-Mar-2023 08:33, Minimal criteria for Anterior infarct are no longer Present ST now depressed in Anterior leads Confirmed by Kevin Lopez ([id number]) on 10/29/2024 3:30:54 PM Referred By: REFERRED SELF Confirmed By: Kevin Lopez
[2024-10-29] MEDS ORDERED: HYDROCORTISONE SOD SUCCINATE 100 MG/2 ML VIAL IV SCH (18:00)
[2024-10-29] MEDS: HYDROCORTISONE SOD 50 MG in SYRINGE 0 ML IV SCH (18:57)
[2024-10-29] MEDS: ICU ELECTROLYTE REPLACEMENT PROTOCOL SCH (18:57)
[2024-10-29] MEDS: PANTOprazole 40 MG/10 ML SYR IV SCH (18:58)
[2024-10-29] MEDS: FORMOTEROL 20 MCG/2 ML VIAL NEB SCH (20:15)
[2024-10-29] MEDS: BUDESONIDE 0.5 MG/2 ML VIAL (PULMICORT) NEB SCH (20:15)
[2024-10-29] MEDS: SODIUM CHLOR 7% 4 ML NEB NEB SCH (20:19)
[2024-10-29 20:20] LABS: Anion Gap 11.0 (3-11); Blood Urea Nitrogen 33.0 mg/dl (6-23); Calcium 8.0 mg/dl (8.6-10.3); Carbon Dioxide 18.0 mmol/L (21-32); Chloride 109.0 mmol/L (98-107); Creatinine Clr Calc Pharmacy 64.6 ml/min; Glucose 189.0 mg/dl (70-99(Fasting)); Magnesium 1.9 mg/dl (1.7-2.4); Potassium 4.4 mmol/L (3.5-5.1); Sodium 138.0 mmol/L (136-145)
[2024-10-29] MEDS ORDERED: ENOXAPARIN INJ 40 MG/0.4 ML SYR SQ SCH (21:00)
[2024-10-29] MEDS: CEFEPIME 2000MG 2,000 MG/20 ML SYR IV SCH (21:06)
[2024-10-29] MEDS ORDERED: GLUCAGON FOR INJ 1 MG VIAL SQ PRN (21:22)
[2024-10-29] MEDS ORDERED: GLUCOSE 40% GEL 15 GM TUBE PO PRN (21:22)
[2024-10-29] MEDS ORDERED: CARBOHYDRATES FOR HYPOGLYCEMIA PO PRN (21:22)
[2024-10-29] MEDS ORDERED: GLUCOSE 10 TAB/TUBE PO PRN (21:22)
[2024-10-29] MEDS ORDERED: DEXTROSE 50% 50 ML SYRINGE IV PRN (21:22)
[2024-10-29 21:26] LABS: Appearance Urine Clear (Clear); Bacteria Urine Automated None Seen (None Seen); Cast Urine Automated 0-2 /lpf (0-2); Epithelial Cell Urine Auto 0-2 /hpf (0-2); Glucose Urine UA Negative (Negative); RBC Urine Automated 0-2 /hpf (0-2); WBC Urine Automated 0-5 /hpf (0-5)
[2024-10-29] MEDS: ROSUVASTATIN CALCIUM 10 MG TAB PO SCH (21:43)
[2024-10-29] MEDS: DIVALPROEX DELAY RELEASE 500 MG TAB PO SCH (21:43)
[2024-10-29] MEDS ORDERED: Nursing to Pharmacy Communication SCH (21:45)
[2024-10-29 21:59] LABS: Chlamydia pneumoniae PCR Not Detected (NotDetected); Coronavirus 229E PCR Not Detected (NotDetected); Coronavirus CoV-2 (COVID19)PCR Not Detected (NotDetected); Coronavirus HKU1 PCR Not Detected (NotDetected); Coronavirus NL63 PCR Not Detected (NotDetected); Coronavirus OC43PCR Not Detected (NotDetected); Human Metapneumovirus PCR Not Detected (NotDetected); Parainfluenza Virus 1 PCR Not Detected (NotDetected); Parainfluenza Virus 2 PCR Not Detected (NotDetected); Parainfluenza Virus 3 PCR Not Detected (NotDetected); Parainfluenza Virus 4 PCR Not Detected (NotDetected); Respiratory Syncytial VirusPCR Not Detected (NotDetected); Rhinovirus/Enterovirus PCR Not Detected (NotDetected)
[2024-10-29] MEDS: INSULIN ASPART PER UNIT CHARGE SC SCH (22:22)
[2024-10-30] MEDS ORDERED: INSULIN ASPART PER UNIT CHARGE SC SCH
[2024-10-30 05:21] LABS: Hematocrit (blood only) 29.8 % (37.0-47.0); Hemoglobin 10.6 g/dl (12.0-16.0); Mean Corpuscular Hemoglobin 30.5 pg (25.0-34.0); Mean Corpuscular Volume 85.9 fL (80.0-100.0); Platelet Count 193 K/uL (130-400); RDW Standard Deviation 47.0 fL (36.4-46.3); Red Blood Count 3.47 M/uL (4.20-5.40); White Blood Count 30.30 K/ul (4.8-10.8)
[2024-10-30 05:33] LABS: Alanine Aminotransferase 13.0 U/L (7-52); Albumin Globulin Ratio 0.9 (0.9-2); Alkaline Phosphatase 56.0 U/L (34-104); Anion Gap 10.0 (3-11); Bilirubin,Total 0.4 mg/dl (0.2-1.0); Blood Urea Nitrogen 29.0 mg/dl (6-23); Calcium 8.3 mg/dl (8.6-10.3); Carbon Dioxide 20.0 mmol/L (21-32); Chloride 110.0 mmol/L (98-107); Creatinine Clr Calc Pharmacy 84.2 ml/min; Globulin 3.0 gm/dl (2.5-4.0); Glucose 146.0 mg/dl (70-99(Fasting)); Magnesium 2.1 mg/dl (1.7-2.4); Potassium 3.8 mmol/L (3.5-5.1); Sodium 140.0 mmol/L (136-145); Total Protein 5.7 gm/dl (6.0-8.3)
[2024-10-30] MEDS: LEVOTHYROXINE SODIUM 112 MCG TABLET PO SCH (05:34)
[2024-10-30 05:39] LABS: Immature Granulocytes # (auto) 1.35 K/uL (0.01-0.20); Immature Granulocytes % (auto) 4.5 %
[2024-10-30] MEDS: POTASSIUM CHLORIDE / WTR 20 MEQ/100 ML PLCT IV SCH (06:19)
[2024-10-30] MEDS: ADVANCED PROBIOTIC 625 MG CAPSULE PO SCH (09:14)
[2024-10-30] MEDS: AZITHROMYCIN 250 MG TAB PO SCH (09:15)
[2024-10-30] MEDS: CHOLECALCIFEROL 25 MCG (1000 UNITS) TAB PO SCH (09:16)
[2024-10-30] MEDS: ASPIRIN 81 MG ECTAB PO SCH (09:16)
[2024-10-30] MEDS: OXYBUTYNIN CHLORIDE XL 5 MG TABCR PO SCH (09:16)
--- NOTE | 2024-10-30 10:23 | Critical Care Progress Note ---
Date of Service October 30, 2024 Assessment & Plan (1) Septic shock: (2) Pneumonia: (3) Syncope: (4) Hypoxia: (5) Obesity: (6) Steroid-dependent asthma: Plan 64-year-old female with a history of hypothyroidism, obesity, allergies, allergic asthma and SEB presents to the hospital with findings of acute pneumonia and syncope. Neurologic: Patient with a history of seizure disorder on divalproex. Nonfocal on exam at this time. CT head negative. Maintain delirium precautions. Head of the bed above 35 degrees. Pulmonary: Patient currently on low-flow oxygen at 2L/min. Wean oxygen as able. Initiate pulmonary clearance therapies with hypertonic saline, flutter valve and incentive spirometer. Continue LABA. Initiate ICS. Sena/Cristina as needed. Agree with hydrocortisone for severe pneumonia weaned to q12h. Obtain sputum culture. Will send complete respiratory viral panel. Initial abbreviated viral panel negative. urine Legionella antigen pending. Cardiovascular: Maintain on telemetry. Follow-up EKG and echo. Prior dobutamine stress echo 01/02/2024 revealed an EF of 55 to 50% with moderate concentric LVH. Levophed gtt off ovenright. Gastrointestinal: Patient with diarrhea likely due to viral gastroenteritis. CT abdomen without acute findings. Will send stool PCR if continues to have diarrhea. Renal: TAE Improved this am. Continue LR at 80 mL/h. d/c MIVF once taking adequate PO. Follow urine output closely. Patient also with mild lactic acidosis on presentation was downtrending and hemodynamic improved. Patient notably on tours appetite as an outpatient. Will have low threshold for euglycemic DKA. No ketones noted on urinalysis. Infectious disease: Probable sources left lower lobe pneumonia and possible sinusitis. Continue Zosyn. MRSA screen negative. Continue azithromycin. Follow-up respiratory viral panel, blood cultures and sputum cultures if able. Hematologic: No significant issues at present. Monitor hemoglobin and for signs of bleeding. Endocrine: Continue home levothyroxine. TSH checked 10/23 was normal. Stress dose steroids as above. Lines and tubes: right IJ TLC and right rad art line, Peripheral IVs and Curry catheter 10/29/2024 VTE prophylaxis: Heparin 5000 3 times daily CODE STATUS: Full Family at bedside: No family at bedside this am. Disposition: ICU I have personally spent 38 minutes of critical care time in the direct management of this patient. This is a life/limb threatening event. This includes time spent evaluating patient, direct bedside care, chart review, placing orders, interpretation of diagnostic studies, discussion with consultants, patient, and family members, as well as other required patient management activities. This time is exclusive of all separately billable procedures, and teaching time and separate from and in addition to any other critical care service time. Admission and Anticipated Discharge Date Admission Date: October 29, 2024 Subjective "I feel much better than yesterday." Patient more awake and alert. Patient weaned off vasopressors overnight. taking clear liquids and tolerating. WBC increased to 30 this am likely steroid induced but stated she was having loose stools at home none since admission will send sample. Review of Systems Review of Systems: All systems reviewed & are unremarkable except as noted in HPI & below Physical Exam Physical Exam: VITALS: Reviewed. WEIGHT/BMI reviewed. GEN: Well-developed, NAD. PSYCH: Good Judgment. AOx3. Normal memory, mood, and affect. HEENT -Head: NC/AT; -Eyes: PERRL, EOMI. No discharge or redn ess; -Ears: External ears are normal. -Nose: Normal nares. NECK: Supple, with no masses. CV: RRR, no m/r/g. LUNGS: Clear in bilateral upper lobes, diminished in bilateral lower lobes. Chest rise symmetrical. Breahing nonlabored. ABD: Soft, NT/ND, NBS, no masses or organomegaly. : Curry drianing yellow clear urine. SKIN: Warm, well perfused. No skin rashes or abnormal lesions. MSK: No deformities, Normal gait. EXT: No clubbing, cyanosis, or edema. NEURO: Improved mentation this am. Normal muscle strength and tone. No focal deficits. Results & Data Results & Data Vital Signs (Past 12 Hours) Vital Signs Temp Pulse Pulse Resp BP Pulse Ox O2 Del Method 10/30/24 10:00 36.8 C 79 32 H 94 10/30/24 10:00 101/72 10/30/24 09:01 98/59 L 10/30/24 09:00 36.8 C 76 24 93 Nasal Cannula 10/30/24 08:00 110/71 10/30/24 08:00 110/71 10/30/24 08:00 36.5 C 79 19 97 10/30/24 07:55 76 16 93 Nasal Cannula 10/30/24 07:46 105/69 10/30/24 07:46 105/69 10/30/24 07:30 114/70 10/30/24 07:30 114/70 10/30/24 07:24 36.5 C 83 21 93 10/30/24 07:15 36.4 C L 75 32 H 92 10/30/24 07:15 108/70 10/30/24 07:06 36.4 C L 80 35 H 92 10/30/24 07:00 110/74 10/30/24 05:36 36.5 C 80 21 91 10/30/24 04:51 36.5 C 75 33 H 92 10/30/24 04:45 109/69 10/30/24 04:45 109/69 10/30/24 04:36 36.4 C L 72 35 H 94 10/30/24 04:30 118/73 10/30/24 04:30 36.4 C L 73 30 H 94 10/30/24 04:15 106/68 10/30/24 04:15 106/68 10/30/24 04:12 36.4 C L 72 31 H 93 10/30/24 04:09 36.4 C L 72 32 H 93 10/30/24 03:45 36.4 C L 70 31 H 94 10/30/24 03:30 36.4 C L 70 34 H 93 10/30/24 03:30 107/66 10/30/24 03:30 107/66 10/30/24 03:27 36.4 C L 71 33 H 92 10/30/24 03:15 103/69 10/30/24 03:15 103/69 10/30/24 03:09 36.4 C L 71 30 H 93 10/30/24 03:03 36.4 C L 71 35 H 92 10/30/24 03:00 109/72 10/30/24 03:00 109/72 10/30/24 03:00 109/72 10/30/24 02:45 106/73 10/30/24 02:42 36.4 C L 70 31 H 92 10/30/24 02:36 36.4 C L 71 32 H 93 10/30/24 02:30 108/75 10/30/24 02:30 108/75 10/30/24 02:27 36.4 C L 66 32 H 94 10/30/24 02:18 36.4 C L 70 32 H 92 10/30/24 02:15 104/71 10/30/24 02:15 104/71 10/30/24 02:15 104/71 10/30/24 02:06 36.4 C L 70 30 H 92 10/30/24 02:00 99/69 L 10/30/24 02:00 99/69 L 10/30/24 02:00 36.4 C L 70 33 H 92 10/30/24 01:48 36.4 C L 70 35 H 92 10/30/24 01:45 111/76 10/30/24 01:42 36.5 C 69 33 H 96 10/30/24 01:37 72 16 92 Nasal Cannula 10/30/24 01:30 103/69 10/30/24 01:15 36.5 C 70 36 H 93 10/30/24 01:06 36.5 C 68 35 H 92 Nasal Cannula 10/30/24 01:00 103/68 10/30/24 00:57 36.5 C 68 32 H 92 10/30/24 00:45 96/65 L 10/30/24 00:45 36.5 C 69 36 H 95 10/30/24 00:33 36.5 C 70 33 H 94 10/30/24 00:30 103/65 10/30/24 00:24 36.5 C 70 36 H 94 10/30/24 00:15 36.5 C 70 30 H 95 10/30/24 00:09 36.6 C 70 30 H 95 10/30/24 00:00 74 10/30/24 00:00 108/71 10/30/24 00:00 69 89/58 L 10/29/24 23:48 36.6 C 64 33 H 94 10/29/24 23:45 101/70 10/29/24 23:42 36.6 C 73 32 H 96 10/29/24 23:39 36.6 C 74 34 H 93 10/29/24 23:30 105/71 10/29/24 23:03 36.6 C 73 31 H 90 10/29/24 23:00 121/80 10/29/24 22:57 36.7 C 72 26 H 95 10/29/24 22:45 36.6 C 73 29 H 95 10/29/24 22:36 36.7 C 66 33 H 92 O2 Flow Rate 10/30/24 10:00 10/30/24 10:00 10/30/24 09:01 10/30/24 09:00 2 10/30/24 08:00 10/30/24 08:00 10/30/24 08:00 10/30/24 07:55 2 10/30/24 07:46 10/30/24 07:46 10/30/24 07:30 10/30/24 07:30 10/30/24 07:24 10/30/24 07:15 10/30/24 07:15 10/30/24 07:06 10/30/24 07:00 10/30/24 05:36 10/30/24 04:51 10/30/24 04:45 10/30/24 04:45 10/30/24 04:36 10/30/24 04:30 10/30/24 04:30 10/30/24 04:15 10/30/24 04:15 10/30/24 04:12 10/30/24 04:09 10/30/24 03:45 10/30/24 03:30 10/30/24 03:30 10/30/24 03:30 10/30/24 03:27 10/30/24 03:15 10/30/24 03:15 10/30/24 03:09 10/30/24 03:03 10/30/24 03:00 10/30/24 03:00 10/30/24 03:00 10/30/24 02:45 10/30/24 02:42 10/30/24 02:36 10/30/24 02:30 10/30/24 02:30 10/30/24 02:27 10/30/24 02:18 10/30/24 02:15 10/30/24 02:15 10/30/24 02:15 10/30/24 02:06 10/30/24 02:00 10/30/24 02:00 10/30/24 02:00 10/30/24 01:48 10/30/24 01:45 10/30/24 01:42 10/30/24 01:37 2 10/30/24 01:30 10/30/24 01:15 10/30/24 01:06 2 10/30/24 01:00 10/30/24 00:57 10/30/24 00:45 10/30/24 00:45 10/30/24 00:33 10/30/24 00:30 10/30/24 00:24 10/30/24 00:15 10/30/24 00:09 10/30/24 00:00 10/30/24 00:00 10/30/24 00:00 10/29/24 23:48 10/29/24 23:45 10/29/24 23:42 10/29/24 23:39 10/29/24 23:30 10/29/24 23:03 10/29/24 23:00 10/29/24 22:57 10/29/24 22:45 10/29/24 22:36 Critical Care Results & Data Vital Signs (Past 12 Hours) Vital Signs Temp Pulse Pulse Resp BP Pulse Ox O2 Del Method 10/30/24 10:00 36.8 C 79 32 H 94 10/30/24 10:00 101/72 10/30/24 09:01 98/59 L 10/30/24 09:00 36.8 C 76 24 93 Nasal Cannula 10/30/24 08:00 110/71 10/30/24 08:00 110/71 10/30/24 08:00 36.5 C 79 19 97 10/30/24 07:55 76 16 93 Nasal Cannula 10/30/24 07:46 105/69 10/30/24 07:46 105/69 10/30/24 07:30 114/70 10/30/24 07:30 114/70 10/30/24 07:24 36.5 C 83 21 93 10/30/24 07:15 36.4 C L 75 32 H 92 10/30/24 07:15 108/70 10/30/24 07:06 36.4 C L 80 35 H 92 10/30/24 07:00 110/74 10/30/24 05:36 36.5 C 80 21 91 10/30/24 04:51 36.5 C 75 33 H 92 10/30/24 04:45 109/69 09/10/25 04:45 109/69 10/30/24 04:36 36.4 C L 72 35 H 94 10/30/24 04:30 118/73 10/30/24 04:30 36.4 C L 73 30 H 94 10/30/24 04:15 106/68 10/30/24 04:15 106/68 10/30/24 04:12 36.4 C L 72 31 H 93 10/30/24 04:09 36.4 C L 72 32 H 93 10/30/24 03:45 36.4 C L 70 31 H 94 10/30/24 03:30 36.4 C L 70 34 H 93 10/30/24 03:30 107/66 10/30/24 03:30 107/66 10/30/24 03:27 36.4 C L 71 33 H 92 10/30/24 03:15 103/69 10/30/24 03:15 103/69 10/30/24 03:09 36.4 C L 71 30 H 93 10/30/24 03:03 36.4 C L 71 35 H 92 10/30/24 03:00 109/72 10/30/24 03:00 109/72 10/30/24 03:00 109/72 10/30/24 02:45 106/73 10/30/24 02:42 36.4 C L 70 31 H 92 10/30/24 02:36 36.4 C L 71 32 H 93 10/30/24 02:30 108/10/30/24 02:30 108/75 10/30/24 02:27 36.4 C L 66 32 H 94 10/30/24 02:18 36.4 C L 70 32 H 92 10/30/24 02:15 104/71 10/30/24 02:15 104/71 10/30/24 02:15 104/71 10/30/24 02:06 36.4 C L 70 30 H 92 10/30/24 02:00 99/69 L 10/30/24 02:00 99/69 L 10/30/24 02:00 36.4 C L 70 33 H 10/30/24 01:48 36.4 C L 70 35 H 92 10/30/24 01:45 111/76 10/30/24 01:42 36.5 C 69 33 H 96 10/30/24 01:37 72 16 92 Nasal Cannula 10/30/24 01:30 103/69 10/30/24 01:15 36.5 C 70 36 H 93 10/30/24 01:06 36.5 C 68 35 H 92 Nasal Cannula 10/30/24 01:00 103/68 10/30/24 00:57 36.5 C 68 32 H 92 10/30/24 00:45 96/65 L 10/30/24 00:45 36.5 C 69 36 H 95 10/30/24 00:33 36.5 C 70 33 H 94 10/30/24 00:30 103/65 10/30/24 00:24 36.5 C 70 36 H 94 10/30/24 00:15 36.5 C 70 30 H 95 10/30/24 00:09 36.6 C 70 30 H 95 10/30/24 00:00 74 10/30/24 00:00 108/71 10/30/24 00:00 69 89/58 L 10/29/24 23:48 36.6 C 64 33 H 94 10/29/24 23:45 101/70 10/29/24 23:42 36.6 C 73 32 H 96 10/29/24 23:39 36.6 C 74 34 H 93 10/29/24 23:30 105/71 10/29/24 23:03 36.6 C 73 31 H 90 10/29/24 23:00 121/80 10/29/24 22:57 36.7 C 72 26 H 95 10/29/24 22:45 36.6 C 73 29 H 95 10/29/24 22:36 36.7 C 66 33 H 92 O2 Flow Rate 10/30/24 10:00 10/30/24 10:00 10/30/24 09:01 10/30/24 09:00 2 10/30/24 08:00 10/30/24 08:00 10/30/24 08:00 10/30/24 07:55 2 10/30/24 07:46 10/30/24 07:46 10/30/24 07:30 10/30/24 07:30 10/30/24 07:24 10/30/24 07:15 10/30/24 07:15 10/30/24 07:06 10/30/24 07:00 10/30/24 05:36 10/30/24 04:51 10/30/24 04:45 10/30/24 04:45 10/30/24 04:36 10/30/24 04:30 10/30/24 04:30 10/30/24 04:15 10/30/24 04:15 10/30/24 04:12 10/30/24 04:09 10/30/24 03:45 10/30/24 03:30 10/30/24 03:30 10/30/24 03:30 10/30/24 03:27 10/30/24 03:15 10/30/24 03:15 10/30/24 03:09 10/30/24 03:03 10/30/24 03:00 10/30/24 03:00 10/30/24 03:00 10/30/24 02:45 10/30/24 02:42 10/30/24 02:36 10/30/24 02:30 10/30/24 02:30 10/30/24 02:27 10/30/24 02:18 10/30/24 02:15 10/30/24 02:15 10/30/24 02:15 10/30/24 02:06 10/30/24 02:00 10/30/24 02:00 10/30/24 02:00 10/30/24 01:48 10/30/24 01:45 10/30/24 01:42 10/30/24 01:37 2 10/30/24 01:30 10/30/24 01:15 10/30/24 01:06 2 10/30/24 01:00 10/30/24 00:57 10/30/24 00:45 10/30/24 00:45 10/30/24 00:33 10/30/24 00:30 10/30/24 00:24 10/30/24 00:10/30/24 00:10/30/24 00:00 10/30/24 00:00 10/30/24 00:00 10/29/24 23:48 10/29/24 23:45 10/29/24 23:42 10/29/24 23:39 10/29/24 23:30 10/29/24 23:03 10/29/24 23:00 10/29/24 22:57 10/29/24 22:45 10/29/24 22:36 Lab & Micro Results (Past 24 Hours) RBC 3.47 M/uL (4.20-5.40) L 10/30/24 WBC 30.30 K/ul (4.8-10.8) H* 10/30/24 Hgb 10.6 g/dl (12.0-16.0) L 10/30/24 Hct 29.8 % (37.0-47.0) L 10/30/24 MCV 85.9 fL (80.0-100.0) 10/30/24 MCH 30.5 pg (25.0-34.0) 10/30/24 MCHC 35.6 g/dL (32.0-36.0) 10/30/24 RDW Standard Deviation 47.0 fL (36.4-46.3) H 10/30/24 RDW Coefficient of Variation 15.4 % (11.5-14.5) H 10/30/24 Plt Count 193 K/uL (130-400) 10/30/24 MPV 9.8 fL (9.4-12.4) 10/30/24 Neutrophils (%) (Auto) 85.8 % 10/30/24 Lymphocytes (%) (Auto) 5.5 % 10/30/24 Monocytes # (Auto) 1.23 K/uL (0.11-0.59) H 10/30/24 Eosinophils # (Auto) 0.00 K/uL (0.00-0.50) 10/30/24 Immature Granulocyte % (Auto) 4.5 % 10/30/24 Neutrophils # (Auto) 26.01 K/uL (1.40-6.50) H 10/30/24 Lymphocytes # (Auto) 1.68 K/uL (1.20-3.40) 10/30/24 Monocytes # (Auto) 1.23 K/uL (0.11-0.59) H 10/30/24 Eosinophils # (Auto) 0.00 K/uL (0.00-0.50) 10/30/24 Basophils # (Auto) 0.03 K/uL (0.00-0.20) 10/30/24 Immature Granulocyte # (Auto) 1.35 K/uL (0.01-0.20) H 10/30 Echinocytes 1+ 10/30/24 Na 140 mmol/L (136-145) 10/30/24 K 3.8 mmol/L (3.5-5.1) 10/30/24 Cl 110 mmol/L (98-107) H 10/30/24 CO2 20 mmol/L (21-32) L 10/30/24 Anion Gap 10 (3-11) 10/30/24 BUN 29 mg/dl (6-23) H 10/30/24 Creatinine 0.76 mg/dl (0.6-1.2) 10/30/24 BUN/Creatinine Ratio 38.2 (10-20) H 10/30/24 Glu 146 mg/dl (70-99(Fasting)) H 10/30/24 Ca 8.3 mg/dl (8.6-10.3) L 10/30/24 Phosphorus Level 3.7 mg/dl (2.5-4.9) 10/30/24 Total Bilirubin 0.4 mg/dl (0.2-1.0) 10/30/24 AST 17 U/L (13-39) 10/30/24 ALT 13 U/L (7-52) 10/30/24 Alkaline Phosphatase 56 U/L (34-104) 10/30/24 TP 5.7 gm/dl (6.0-8.3) L 10/30/24 Albumin 2.7 gm/dl (3.4-5.0) L 10/30/24 Globulin 3.0 gm/dl (2.5-4.0) 10/30/24 Albumin/Globulin Ratio 0.9 (0.9-2) 10/30/24 Mg 2.1 mg/dl (1.7-2.4) 10/30/24 04:53 Calcium Level 8.3 mg/dl (8.6-10.3) L 10/30/24 04:53 Microbiology 10/29/24 09:25 Aerobic Blood Culture - Preliminary Blood No growth in Aerobic bottle after 24 hours. Anaerobic Blood Culture - Preliminary No growth in Anaerobic bottle after 24 hours. Diagnostic Findings (Past 24 Hours) Abdomen/Pelvis CT 10/29/24 09:20 CT SCAN OF THE ABDOMEN AND PELVIS WITH IV CONTRAST CLINICAL HISTORY: Trauma. Confusion. COMPARISON STUDY: CT of the abdomen and pelvis April 29, 2024. TECHNIQUE: Following the IV administration of 94 cc of Optiray 320, CT scan of the abdomen and pelvis is performed from the lung bases to the proximal femora. Images are reviewed in the axial, sagittal, and coronal planes. IV contrast was administered without complication. A dose lowering technique was utilized adhering to the principles of ALARA. FINDINGS: Extensive left lower lobe consolidation is better depicted on the chest CT which will be reported separately. This is new since abdominal CT of April 29, 2024. The heart is mildly enlarged. No hemoperitoneum or pneumoperitoneum is present. There is no evidence for traumatic injury to the liver, spleen, adrenal glands, kidneys or pancreas. Small left adrenal nodule is unchanged. This is benign. There is mild bilateral perinephric stranding. There is no hydronephrosis. There is a 3 mm right renal calculus. No ureteral calculi are present. There is no hydronephrosis. There is no biliary ductal dilatation status post cholecystectomy. Slight nodularity of the liver surface is noted. Caliber and wall thickness of small and large bowel are normal. There are no fluid collections. Major vasculature is patent. No acute fractures within the lumbar spine, pelvis or hips. Bilateral L5 pars defects without anterolisthesis are again noted. The uterus and ovaries are surgically absent. IMPRESSION: 1. No acute traumatic findings within the abdomen or pelvis. 2. Extensive left lower lobe consolidation which is new since CT of April 29, 2024. This is suggestive of pneumonia. Radiographic follow up to ensure resolution is recommended. ACT 112: Negative or not required by law. Electronically signed by: Josh Tian M.D. 10/29/2024 10:[address] 10/29/24 09:[address] WITH CONTRAST HISTORY: Acute chest trauma status post fall. History of uterine carcinoma Trauma TECHNIQUE: Multiaxial CT images of the chest were performed following the IV administration of 94 cc of Optiray. A dose lowering technique was utilized adhering to the principles of ALARA. COMPARISON: CT abdomen and pelvis of same day, chest CT 04/29/2024 FINDINGS: Unremarkable thyroid. Heart is upper limits of normal in size. No pericardial effusion. Unremarkable thoracic aorta and pulmonary artery. No pneumothorax, pleural effusion or overt pulmonary edema. Mild atelectasis with air trapping noted bilaterally. Multifocal segmental airspace opacities are noted throughout the left lower lobe, as pronounced in the superior segment with air bronchograms. Left adrenal gland nodule again seen. Cholecystectomy. CT abdomen and pelvis dictated separately. No acute fracture identified. IMPRESSION: 1. Segmental airspace opacities of the left lower lobe are suggestive of pneumonia. Follow-up chest CT after treatment course is needed in order to document resolution. 2. No acute posttraumatic intrathoracic abnormality identified. 3. No acute fracture or pneumothorax. ACT 112: Negative or not required by law. Electronically signed by: Red Cabrera M.D. 10/29/2024 10:23 AM Extremity Venous Study 10/29/24 12:55 ULTRASOUND LEFT UPPER EXTREMITY VENOUS CLINICAL HISTORY: Acute pain and swelling of the left upper extremity. COMPARISON STUDY: Priors. TECHNIQUE: Real-time, grayscale, and color Doppler sonography of the deep veins of the left upper extremity is performed. Compression and augmentation were utilized. FINDINGS: There is no sonographic evidence of deep venous thrombosis identified in the left upper extremity. The left internal jugular, axillary, and brachial veins are patent and normally compressible. Normal venous waveforms and augmentation are seen within the left subclavian vein. The cephalic and basilic veins are clear. The visualized radial and ulnar veins are patent. IMPRESSION: There is no sonographic evidence of deep venous thrombosis identified in the left upper extremity. ACT 112: Negative or not required by law. Electronically signed by: Red Cabrera M.D. 10/29/2024 3:07 PM Chest X-Ray 10/29/24 14:24 XR chest 1V portable CLINICAL HISTORY: confirm line placement COMPARISON STUDY: 10/29/2024 FINDINGS: Right central catheter tip is at the right atrium. Stable mild cardiomegaly with mild pulmonary vascular congestion. Stable patchy opacity at the left lower lung. No pneumothorax seen. IMPRESSION: No pneumothorax. ACT 112: Negative or not required by law. Electronically signed by: Bhupinder Sutton M.D. 10/29/2024 2:49 PM I & O Totals 24 Hours 10/29/24 10/30/24 10/31/24 06:59 06:59 06:59 Intake Total 6714.120 / 6714.120 460 / 460 Output Total 870 / 870 150 / 150 Balance 5844.120 / 5844.120 310 / 310 Cumulative 10/29/24 09:05 thru 10/30/24 10:00 Intake Total 7174.120 Output Total 1020 Balance 6154.120 RT Ventilator Mngmt (Last Documented) Ventilator Ordered Settings Respiratory Rate 32 10/30/24 10:00 Ventilator - PT Measurements Respiratory Rate 32 Coding Level of Care Code 34057 CRITICAL CARE 1ST 30-74M Diagnoses Septic shock A41.9; R65.21 Pneumonia J18.9 Syncope R55 Hypoxia R09.02 Obesity E66.9 Steroid-dependent asthma J45.909
[2024-10-30] MEDS: metroNIDAZOLE 500 MG TAB PO SCH (12:17)
[2024-10-30] MEDS ORDERED: Nursing to Pharmacy Communication SCH (14:15)
[2024-10-30] MEDS: CEFEPIME 2000MG 2,000 MG/20 ML SYR IV SCH (16:54)
[2024-10-30] MEDS: INSULIN ASPART PER UNIT CHARGE SC SCH (16:54)
--- NOTE | 2024-10-30 19:34 | Communication Note ---
Patient has clinically improved and is stable for medical downgrade from ICU after resolution of septic shock. Remains off vasopressors. Continue steroid wean, pulmonary hygiene as ordered. Accepted for downgrade by Hospitalist service who will place transfer orders. We will sign off at this time. [facility] remains available for additional questions and concerns. Coding Level of Care Code None
--- NOTE | 2024-10-30 20:53 | Hospitalist Progress Note ---
Date of Service October 30, 2024 Assessment & Plan (1) Septic shock: (2) Pneumonia: (3) Acute bacterial sinusitis: (4) Syncope: (5) Fall: (6) Acute hypoxic respiratory failure: (7) COPD exacerbation: (8) Seizure: (9) Morbid obesity: Plan 64yo female presented to the ER after a syncopal event at home. 1 week of dysuria. 1 day of chills, vomiting, cough, diarrhea. #Septic shock - -source LLL pneumonia -required pressors from time of admission until this am, 10/30 -cont cefepime + metronidazole + Azithromycin - day #2 of each -blood cultures neg to date -resp BioFire neg -legionella urine ag pending -on minimal amount of NC O2 -weaning stress dose steroids #Acute hypoxic respiratory failure 2nd to LLL pneumonia & asthma exacerbation - -improving -cont IV abx -cont IV steroids -cont nebs #sinusitis - -h/o chronic issues with such -but could have acute sinusitis - cont antibiotics -should f/u with ENT some time after discharge #TAE - -sepsis associated TAE -- improved/resolved -peak Cr 1.34 #Syncope - -Secondary to septic shock/low BP -to be complete will order echo - r/o valve dysfunction, etc. #Hypomagnesemia / hypokalemia - -repleted -improved -2nd to chronic HCTZ? #GERD - -recent pepcid use not helpful -changed to PPI #Obstructive sleep apnea - -cont CPAP HS 14 mmHg -follows with Dr Twin Fermin #Chronic Hypertension - -All antihypertensives on hold due to recent septic shock #Hypothyroidism - -TSH WNL 10/23/24 -continue levothyroxine #Urge Incontinence - -Continue Toviaz or hospital formulary equivalent #History of seizures - -Continue divalproex -depakote level 72 (normal) #VTE Prophylaxis - -heparin SC obtain PT/OT evals likely to come out of ICU next 12-24 hours Admission and Anticipated Discharge Date Admission Date: October 29, 2024 Subjective patient feeling better today still with cough still with sinus congestion but no dyspnea at rest appetite fair at best, but is excited at the prospect of eating solids/regular diet tele wnl overnight off pressors as of this am and BPs remain stable since art line & central line to be removed today she mentions she had sinus surgery in the past by Dr Beach Review of Systems Review of Systems: gen - fatigued cv - no chest pain pulm - no wheezing GI - no N/V Physical Exam Physical Exam: gen - obese, NAD, pleasant; nontoxic neck - no JVD mouth - MMM sinuses - no pain to palpation any sinus heart - RRR, s1 s2 lungs - decreased BS L base, otherwise CTA b/l with no rales or wheeze abd - soft NT ND BS+ ext - pulses b/l feet 2+ Results & Data Results & Data Vital Signs (Past 12 Hours) Vital Signs Temp Pulse Pulse Resp BP Pulse Ox O2 Del Method 10/30/24 20:00 Room Air 10/30/24 19:24 73 18 94 Room Air 10/30/24 18:06 83 24 92 10/30/24 18:00 109/66 10/30/24 17:51 82 35 H 91 10/30/24 17:06 84 24 90 Room Air 10/30/24 17:00 124/73 10/30/24 16:54 85 19 90 10/30/24 16:06 82 35 H 92 10/30/24 16:00 109/73 10/30/24 15:47 81 10/30/24 15:03 36.9 C 82 31 H 93 Room Air 10/30/24 15:00 118/85 10/30/24 14:57 36.9 C 82 21 90 10/30/24 14:03 36.8 C 83 24 90 10/30/24 14:00 115/75 10/30/24 13:57 36.8 C 80 21 93 10/30/24 13:33 15 96 Nasal Cannula 10/30/24 13:06 36.8 C 85 21 93 10/30/24 13:00 117/72 10/30/24 12:57 36.8 C 81 24 91 10/30/24 12:03 36.8 C 81 24 92 Nasal Cannula 10/30/24 12:00 117/62 10/30/24 11:45 36.8 C 79 17 95 10/30/24 11:06 36.8 C 81 23 93 10/30/24 11:02 111/65 10/30/24 10:57 36.7 C 79 24 94 10/30/24 10:37 Nasal Cannula 10/30/24 10:00 36.8 C 79 32 H 94 10/30/24 10:00 101/72 10/30/24 09:01 98/59 L 10/30/24 09:00 36.8 C 76 24 93 Nasal Cannula Laboratory Results Laboratory Results - last 24 hr 10/29/24 10/29/24 10/29/24 13:15 20:50 21:19 WBC RBC Hgb Hct MCV MCH MCHC RDW Std Deviation RDW Coeff of Jim Plt Count MPV Immature Gran % (Auto) Neut % (Auto) Lymph % (Auto) [place] % (Auto) Eos % (Auto) Baso % (Auto) Neut # (Auto) Lymph # (Auto) [place] # (Auto) Eos # (Auto) Baso # (Auto) Immature Gran # (Auto) Echinocytes Sodium Potassium Chloride Carbon Dioxide Anion Gap BUN Creatinine Est Cr Clr Drug Dosing eGFR BUN/Creatinine Ratio Glucose POC Glucose POC Glucose (other) 192 H Calcium Phosphorus Magnesium Total Bilirubin AST ALT Alkaline Phosphatase Total Protein Albumin Globulin Albumin/Globulin Ratio Procalcitonin Urine Color Urine Appearance Urine pH Ur Specific [place] Urine Protein Urine Glucose (UA) Urine Ketones Urine Blood Urine Nitrite Urine Bilirubin Urine Urobilinogen Ur Leukocyte Esterase Urine WBC (Auto) Urine RBC (Auto) U Hyaline Cast (Auto) U Epithel Cells (Auto) Urine Bacteria (Auto) Urine Comment Nasal Screen MRSA (PCR) Negative Adenovirus (PCR) Not Detected B. pertussis DNA (PCR) Not Detected B.parapertussis DNA PCR Not Detected C. pneumoniae DNA (PCR) Not Detected Coronavirus OC43 (PCR) Not Detected Coronavirus HKU1 (PCR) Not Detected Coronavirus 229E (PCR) Not Detected SARS-CoV-2 (PCR) Not Detected Coronavirus NL63 (PCR) Not Detected Human Metapneumovir PCR Not Detected Influenza Type A (PCR) Not Detected Influenza Type B (PCR) Not Detected M. pneumoniae (PCR) Not Detected Parainfluenza 1 (PCR) Not Detected Parainfluenza 2 (PCR) Not Detected Parainfluenza 3 (PCR) Not Detected Parainfluenza 4 (PCR) Not Detected RSV (PCR) Not Detected Entero/Rhino (PCR) Not Detected 10/29/24 10/30/24 10/30/24 Unknown 04:53 04:59 WBC 30.30 H* RBC 3.47 L Hgb 10.6 L Hct 29.8 L MCV 85.9 MCH 30.5 MCHC 35.6 RDW Std Deviation 47.0 H RDW Coeff of Jim 15.4 H Plt Count 193 MPV 9.8 Immature Gran % (Auto) 4.5 Neut % (Auto) 85.8 Lymph % (Auto) 5.5 [place] % (Auto) 4.1 Eos % (Auto) 0.0 Baso % (Auto) 0.1 Neut # (Auto) 26.01 H Lymph # (Auto) 1.68 [place] # (Auto) 1.23 H Eos # (Auto) 0.00 Baso # (Auto) 0.03 Immature Gran # (Auto) 1.35 H Echinocytes 1+ Sodium 140 Potassium 3.8 Chloride 110 H Carbon Dioxide 20 L Anion Gap 10 BUN 29 H Creatinine 0.76 Est Cr Clr Drug Dosing 84.2 eGFR 87.45 BUN/Creatinine Ratio 38.2 H Glucose 146 H POC Glucose POC Glucose (other) 147 H Calcium 8.3 L Phosphorus 3.7 Magnesium 2.1 Total Bilirubin 0.4 AST 17 ALT 13 Alkaline Phosphatase 56 Total Protein 5.7 L Albumin 2.7 L Globulin 3.0 Albumin/Globulin Ratio 0.9 Procalcitonin Urine Color Yellow Urine Appearance Clear Urine pH 5.5 Ur Specific [place] 1.020 Urine Protein Negative Urine Glucose (UA) Negative Urine Ketones Negative Urine Blood Negative Urine Nitrite Negative Urine Bilirubin Negative Urine Urobilinogen Negative Ur Leukocyte Esterase Trace H Urine WBC (Auto) 0-5 Urine RBC (Auto) 0-2 U Hyaline Cast (Auto) 0-2 U Epithel Cells (Auto) 0-2 Urine Bacteria (Auto) None Seen Urine Comment Nasal Screen MRSA (PCR) Adenovirus (PCR) B. pertussis DNA (PCR) B.parapertussis DNA PCR C. pneumoniae DNA (PCR) Coronavirus OC43 (PCR) Coronavirus HKU1 (PCR) Coronavirus 229E (PCR) SARS-CoV-2 (PCR) Coronavirus NL63 (PCR) Human Metapneumovir PCR Influenza Type A (PCR) Influenza Type B (PCR) M. pneumoniae (PCR) Parainfluenza 1 (PCR) Parainfluenza 2 (PCR) Parainfluenza 3 (PCR) Parainfluenza 4 (PCR) RSV (PCR) Entero/Rhino (PCR) 10/30/24 10/30/24 10/30/24 07:56 11:07 15:40 WBC RBC Hgb Hct MCV MCH MCHC RDW Std Deviation RDW Coeff of Jim Plt Count MPV Immature Gran % (Auto) Neut % (Auto) Lymph % (Auto) [place] % (Auto) Eos % (Auto) Baso % (Auto) Neut # (Auto) Lymph # (Auto) [place] # (Auto) Eos # (Auto) Baso # (Auto) Immature Gran # (Auto) Echinocytes Sodium Potassium Chloride Carbon Dioxide Anion Gap BUN Creatinine Est Cr Clr Drug Dosing eGFR BUN/Creatinine Ratio Glucose POC Glucose 145 H 120 H POC Glucose (other) Calcium Phosphorus Magnesium Total Bilirubin AST ALT Alkaline Phosphatase Total Protein Albumin Globulin Albumin/Globulin Ratio Procalcitonin 10.40 H Urine Color Urine Appearance Urine pH Ur Specific [place] Urine Protein Urine Glucose (UA) Urine Ketones Urine Blood Urine Nitrite Urine Bilirubin Urine Urobilinogen Ur Leukocyte Esterase Urine WBC (Auto) Urine RBC (Auto) U Hyaline Cast (Auto) U Epithel Cells (Auto) Urine Bacteria (Auto) Urine Comment Nasal Screen MRSA (PCR) Adenovirus (PCR) B. pertussis DNA (PCR) B.parapertussis DNA PCR C. pneumoniae DNA (PCR) Coronavirus OC43 (PCR) Coronavirus HKU1 (PCR) Coronavirus 229E (PCR) SARS-CoV-2 (PCR) Coronavirus NL63 (PCR) Human Metapneumovir PCR Influenza Type A (PCR) Influenza Type B (PCR) M. pneumoniae (PCR) Parainfluenza 1 (PCR) Parainfluenza 2 (PCR) Parainfluenza 3 (PCR) Parainfluenza 4 (PCR) RSV (PCR) Entero/Rhino (PCR) 10/30/24 19:52 WBC RBC Hgb Hct MCV MCH MCHC RDW Std Deviation RDW Coeff of Jim Plt Count MPV Immature Gran % (Auto) Neut % (Auto) Lymph % (Auto) [place] % (Auto) Eos % (Auto) Baso % (Auto) Neut # (Auto) Lymph # (Auto) [place] # (Auto) Eos # (Auto) Baso # (Auto) Immature Gran # (Auto) Echinocytes Sodium Potassium Chloride Carbon Dioxide Anion Gap BUN Creatinine Est Cr Clr Drug Dosing eGFR BUN/Creatinine Ratio Glucose POC Glucose 119 H POC Glucose (other) Calcium Phosphorus Magnesium Total Bilirubin AST ALT Alkaline Phosphatase Total Protein Albumin Globulin Albumin/Globulin Ratio Procalcitonin Urine Color Urine Appearance Urine pH Ur Specific [place] Urine Protein Urine Glucose (UA) Urine Ketones Urine Blood Urine Nitrite Urine Bilirubin Urine Urobilinogen Ur Leukocyte Esterase Urine WBC (Auto) Urine RBC (Auto) U Hyaline Cast (Auto) U Epithel Cells (Auto) Urine Bacteria (Auto) Urine Comment Nasal Screen MRSA (PCR) Adenovirus (PCR) B. pertussis DNA (PCR) B.parapertussis DNA PCR C. pneumoniae DNA (PCR) Coronavirus OC43 (PCR) Coronavirus HKU1 (PCR) Coronavirus 229E (PCR) SARS-CoV-2 (PCR) Coronavirus NL63 (PCR) Human Metapneumovir PCR Influenza Type A (PCR) Influenza Type B (PCR) M. pneumoniae (PCR) Parainfluenza 1 (PCR) Parainfluenza 2 (PCR) Parainfluenza 3 (PCR) Parainfluenza 4 (PCR) RSV (PCR) Entero/Rhino (PCR) Diagnostic Findings Chest X-Ray 10/29/24 09:19 XR chest 1V portable CLINICAL HISTORY: Trauma COMPARISON STUDY: 03/14/2023 FINDINGS: Stable mild cardiomegaly without pulmonary vascular congestion. There is patchy opacity at the left lower lung. No other pulmonary consolidation or pleural effusion. No pneumothorax. No grossly displaced rib fractures seen. IMPRESSION: Pneumonia versus pulmonary contusion left lower lung. ACT 112: Negative or not required by law. Electronically signed by: Bhupinder Sutton M.D. 10/29/2024 9:33 AM Abdomen/Pelvis CT 10/29/24 09:20 CT SCAN OF THE ABDOMEN AND PELVIS WITH IV CONTRAST CLINICAL HISTORY: Trauma. Confusion. COMPARISON STUDY: CT of the abdomen and pelvis April 29, 2024. TECHNIQUE: Following the IV administration of 94 cc of Optiray 320, CT scan of the abdomen and pelvis is performed from the lung bases to the proximal femora. Images are reviewed in the axial, sagittal, and coronal planes. IV contrast was administered without complication. A dose lowering technique was utilized adhering to the principles of ALARA. FINDINGS: Extensive left lower lobe consolidation is better depicted on the chest CT which will be reported separately. This is new since abdominal CT of April 29, 2024. The heart is mildly enlarged. No hemoperitoneum or pneumoperitoneum is present. There is no evidence for traumatic injury to the liver, spleen, adrenal glands, kidneys or pancreas. Small left adrenal nodule is unchanged. This is benign. There is mild bilateral perinephric stranding. There is no hydronephrosis. There is a 3 mm right renal calculus. No ureteral calculi are present. There is no hydronephrosis. There is no biliary ductal dilatation status post cholecystectomy. Slight nodularity of the liver surface is noted. Caliber and wall thickness of small and large bowel are normal. There are no fluid collections. Major vasculature is patent. No acute fractures within the lumbar spine, pelvis or hips. Bilateral L5 pars defects without anterolisthesis are again noted. The uterus and ovaries are surgically absent. IMPRESSION: 1. No acute traumatic findings within the abdomen or pelvis. 2. Extensive left lower lobe consolidation which is new since CT of April 29, 2024. This is suggestive of pneumonia. Radiographic follow up to ensure resolution is recommended. ACT 112: Negative or not required by law. Electronically signed by: Josh Tian M.D. 10/29/2024 10:[address] 10/29/24 09:20 CT SCAN OF THE CERVICAL SPINE CLINICAL HISTORY: Trauma. COMPARISON STUDY: Cervical spine radiographs April 18, 2011. TECHNIQUE: CT scan of the cervical spine is performed from the skull base to the upper thoracic spine. Images are reviewed in the axial, sagittal, and coronal planes. IV contrast was not administered for this examination. A dose lowering technique was utilized adhering to the principles of ALARA. CT DOSE: 3620.45 mGy.cm FINDINGS: There is straightening of the cervical lordosis. Vertebral body heights are maintained. There are no fractures. There is moderate anterior osteophytosis. There is moderate disc space narrowing at C5-C6. There is mild multilevel facet arthrosis. No osseous lesions are present. No prevertebral edema. Extensive sinus opacification is better depicted on the head CT which will be reported separately. IMPRESSION: No acute cervical spine fracture or subluxation. ACT 112: Negative or not required by law. Electronically signed by: Josh Tian M.D. 10/29/2024 10:[address] 10/29/24 09:[address] WITH CONTRAST HISTORY: Acute chest trauma status post fall. History of uterine carcinoma Trauma TECHNIQUE: Multiaxial CT images of the chest were performed following the IV administration of 94 cc of Optiray. A dose lowering technique was utilized adhering to the principles of ALARA. COMPARISON: CT abdomen and pelvis of same day, chest CT 04/29/2024 FINDINGS: Unremarkable thyroid. Heart is upper limits of normal in size. No pericardial effusion. Unremarkable thoracic aorta and pulmonary artery. No pneumothorax, pleural effusion or overt pulmonary edema. Mild atelectasis with air trapping noted bilaterally. Multifocal segmental airspace opacities are noted throughout the left lower lobe, as pronounced in the superior segment with air bronchograms. Left adrenal gland nodule again seen. Cholecystectomy. CT abdomen and pelvis dictated separately. No acute fracture identified. IMPRESSION: 1. Segmental airspace opacities of the left lower lobe are suggestive of pneumonia. Follow-up chest CT after treatment course is needed in order to document resolution. 2. No acute posttraumatic intrathoracic abnormality identified. 3. No acute fracture or pneumothorax. ACT 112: Negative or not required by law. Electronically signed by: Red Cabrera M.D. 10/29/2024 10:[address] 10/29/24 09:20 CT head/brain wo con CLINICAL HISTORY: trauma. TECHNIQUE: Multiple axial CT images of the head were obtained without contrast. A dose lowering technique was utilized adhering to the principles of ALARA. COMPARISON: 03/25/2018 FINDINGS: No intracranial hemorrhage seen. No mass effect, midline shift, or hydrocephalus. No skull fracture seen. There is progressive complete opacification of the maxillary and sphenoid sinuses and near complete opacification of the ethmoid sinuses. No mastoid effusion. IMPRESSION: 1. No acute posttraumatic findings. 2. Severe progressive paranasal sinus disease. ACT 112: Negative or not required by law. The above report was generated using voice recognition software. It may contain grammatical, syntax or spelling errors. Electronically signed by: Bhupinder Sutton M.D. 10/29/2024 10:08 AM Extremity Venous Study 10/29/24 12:55 ULTRASOUND LEFT UPPER EXTREMITY VENOUS CLINICAL HISTORY: Acute pain and swelling of the left upper extremity. COMPARISON STUDY: Priors. TECHNIQUE: Real-time, grayscale, and color Doppler sonography of the deep veins of the left upper extremity is performed. Compression and augmentation were utilized. FINDINGS: There is no sonographic evidence of deep venous thrombosis identified in the left upper extremity. The left internal jugular, axillary, and brachial veins are patent and normally compressible. Normal venous waveforms and augmentation are seen within the left subclavian vein. The cephalic and basilic veins are clear. The visualized radial and ulnar veins are patent. IMPRESSION: There is no sonographic evidence of deep venous thrombosis identified in the left upper extremity. ACT 112: Negative or not required by law. Electronically signed by: Red Cabrera M.D. 10/29/2024 3:07 PM Chest X-Ray 10/29/24 14:24 XR chest 1V portable CLINICAL HISTORY: confirm line placement COMPARISON STUDY: 10/29/2024 FINDINGS: Right central catheter tip is at the right atrium. Stable mild cardiomegaly with mild pulmonary vascular congestion. Stable patchy opacity at the left lower lung. No pneumothorax seen. IMPRESSION: No pneumothorax. ACT 112: Negative or not required by law. Electronically signed by: Bhupinder Sutton M.D. 10/29/2024 2:49 PM Blood cx's negative to date PG Care Time/CCT Total # of Minutes Spent Total Time Spent with Patient: Total time spent is greater than 50% in coordination of care (as documented) at patient's floor/unit and/or counseling patient: Coding Level of Care Code 40857 SUB INP/OBS CARE 2/35MIN Diagnoses Septic shock A41.9; R65.21 Pneumonia J18.9 Acute bacterial sinusitis J01.90; B96.89 Syncope R55 Fall W19.XXXA Acute hypoxic respiratory failure J96.01 COPD exacerbation J44.1 Seizure R56.9 Morbid obesity E66.01
[2024-10-30] MEDS: HYDROCORTISONE SOD 50 MG in SYRINGE 0 ML IV SCH (21:05)
[2024-10-31 05:00] LABS: Anion Gap 8.0 (3-11); Blood Urea Nitrogen 37.0 mg/dl (6-23); Calcium 8.6 mg/dl (8.6-10.3); Carbon Dioxide 21.0 mmol/L (21-32); Chloride 111.0 mmol/L (98-107); Creatinine Clr Calc Pharmacy 85.9 ml/min; Glucose 137.0 mg/dl (70-99(Fasting)); Magnesium 2.1 mg/dl (1.7-2.4); Potassium 4.3 mmol/L (3.5-5.1); Sodium 140.0 mmol/L (136-145)
--- NOTE | 2024-10-31 16:37 | Hospitalist Progress Note ---
Date of Service October 31, 2024 Assessment & Plan (1) Septic shock: (2) Pneumonia: (3) Acute bacterial sinusitis: (4) Syncope: (5) Fall: (6) Acute hypoxic respiratory failure: (7) COPD exacerbation: (8) Seizure: (9) Morbid obesity: Plan 64yo female presented to the ER after a syncopal event at home. 1 week of dysuria. 1 day of chills, vomiting, cough, diarrhea. #Septic shock - resolved - -source LLL pneumonia -required pressors from time of admission until this am, 10/30 -cont cefepime + metronidazole + Azithromycin - day #3 of each -blood cultures neg to date -resp BioFire neg -legionella urine ag pending -02 weaned off this am, 10/31 -weaning stress dose steroids - can transition from IV to PO tomorrow am #Acute hypoxic respiratory failure 2nd to LLL pneumonia & asthma exacerbation - -improving -cont IV abx -cont IV steroids today, then over to PO prednisone tomorrow -cont nebs #sinusitis - -h/o chronic issues with such -but could have acute sinusitis - cont antibiotics -should f/u with ENT some time after discharge #TAE - -sepsis associated TAE -- resolved -peak Cr 1.34 -Cr now 0.7 #Syncope - -Secondary to septic shock/low BP -to be complete ordered echo - r/o valve dysfunction, etc. #Hypomagnesemia / hypokalemia - mag level was severely low at <1 - -repleted -resolved -2nd to chronic HCTZ? -would not resume HCTZ at d/c #GERD - -recent pepcid use not helpful -changed to PPI #Obstructive sleep apnea - -cont CPAP HS 14 mmHg -follows with Dr Twin Fermin #Chronic Hypertension - -All antihypertensives on hold due to recent septic shock but likely can resume coreg soon #Hypothyroidism - -TSH WNL 10/23/24 -continue levothyroxine #Urge Incontinence - -Continue Toviaz or hospital formulary equivalent #History of seizures - -Continue divalproex -depakote level 72 (normal) #VTE Prophylaxis - -heparin SC passed PT/OT evals can return home at d/c sent message to her sister Ave with extensive medical update home tomorrow? home 11/02? Admission and Anticipated Discharge Date Admission Date: October 29, 2024 Subjective patient feeling much, much better today appetite improved o2 weaned off as of this am denies dyspnea mild cough only sinuses improved stools are soft ; no deep diarrhea walking fine; did well with PT/OT Review of Systems Review of Systems: gen - no fevers or chills cv - no chest pain pulm - some sputum; denies wheezing GI - no N/V Physical Exam Physical Exam: gen - obese, NAD, pleasant; looks great today; sitting in chair by window neck - no JVD mouth - MMM heart - RRR, s1 s2, no murmur lungs - decreased BS L base, otherwise CTA b/l with no rales or wheeze, no increased work of breathing abd - soft NT ND BS+ ext - pulses b/l feet 2+, 1+ edema b/l shins & feet Results & Data Results & Data Vital Signs (Past 12 Hours) Vital Signs Temp Pulse Pulse Resp BP BP Pulse Ox 10/31/24 15:40 36.7 C 84 18 133/83 93 10/31/24 14:00 10/31/24 13:28 70 16 91 10/31/24 13:05 79 10/31/24 11:25 94 H 10/31/24 08:00 10/31/24 08:00 79 10/31/24 08:00 36.5 C 10/31/24 07:27 72 18 94 10/31/24 06:54 132/91 10/31/24 06:36 111 H 24 94 10/31/24 06:15 78 27 H 89 L 10/31/24 05:03 71 26 H 93 10/31/24 05:00 136/94 10/31/24 04:39 78 26 H 84 L O2 Del Method 10/31/24 15:40 Room Air 10/31/24 14:00 Room Air 10/31/24 13:28 Room Air 10/31/24 13:05 10/31/24 11:25 10/31/24 08:00 Room Air 10/31/24 08:00 10/31/24 08:00 10/31/24 07:27 Room Air 10/31/24 06:54 10/31/24 06:36 Room Air 10/31/24 06:15 10/31/24 05:03 10/31/24 05:00 10/31/24 04:39 Laboratory Results Laboratory Results - last 48 hr 10/29/24 10/30/24 10/30/24 Unknown 15:40 19:52 WBC RBC Hgb Hct MCV MCH MCHC RDW Std Deviation RDW Coeff of Jim Plt Count MPV Immature Gran % (Auto) Neut % (Auto) Lymph % (Auto) [place] % (Auto) Eos % (Auto) Baso % (Auto) Neut # (Auto) Lymph # (Auto) [place] # (Auto) Eos # (Auto) Baso # (Auto) Immature Gran # (Auto) Absolute Nucleated RBC Nucleated RBC % (auto) Sodium Potassium Chloride Carbon Dioxide Anion Gap BUN Creatinine Est Cr Clr Drug Dosing eGFR BUN/Creatinine Ratio Glucose POC Glucose 120 H 119 H Calcium Magnesium Procalcitonin Urine Legionella Ag SEE NOTE 10/31/24 10/31/24 10/31/24 04:20 07:11 11:51 WBC RBC Hgb Hct MCV MCH MCHC RDW Std Deviation RDW Coeff of Jim Plt Count MPV Immature Gran % (Auto) Neut % (Auto) Lymph % (Auto) [place] % (Auto) Eos % (Auto) Baso % (Auto) Neut # (Auto) Lymph # (Auto) [place] # (Auto) Eos # (Auto) Baso # (Auto) Immature Gran # (Auto) Absolute Nucleated RBC Nucleated RBC % (auto) Sodium 140 Potassium 4.3 Chloride 111 H Carbon Dioxide 21 Anion Gap 8 BUN 37 H Creatinine 0.76 Est Cr Clr Drug Dosing 85.9 eGFR 87.45 BUN/Creatinine Ratio 48.7 H Glucose 137 H POC Glucose 108 H 174 H Calcium 8.6 Magnesium 2.1 PG Care Time/CCT Total # of Minutes Spent Total Time Spent with Patient: Total time spent is greater than 50% in coordination of care (as documented) at patient's floor/unit and/or counseling patient: Coding Level of Care Code 46186 SUB INP/OBS CARE 2/35MIN Diagnoses Septic shock A41.9; R65.21 Pneumonia J18.9 Acute bacterial sinusitis J01.90; B96.89 Syncope R55 Fall W19.XXXA Acute hypoxic respiratory failure J96.01 COPD exacerbation J44.1 Seizure R56.9 Morbid obesity E66.01
[2024-11-01] MEDS ORDERED: Nursing to Pharmacy Communication SCH (06:00)
[2024-11-01 06:10] LABS: Hematocrit (blood only) 32.7 % (37.0-47.0); Hemoglobin 11.5 g/dl (12.0-16.0); Immature Granulocytes # (auto) 0.42 K/uL (0.01-0.20); Immature Granulocytes % (auto) 2.0 %; Mean Corpuscular Hemoglobin 30.2 pg (25.0-34.0); Mean Corpuscular Volume 85.8 fL (80.0-100.0); Platelet Count 196 K/uL (130-400); RDW Standard Deviation 47.6 fL (36.4-46.3); Red Blood Count 3.81 M/uL (4.20-5.40); White Blood Count 21.31 K/ul (4.8-10.8)
[2024-11-01 06:28] LABS: Anion Gap 8.0 (3-11); Blood Urea Nitrogen 36.0 mg/dl (6-23); Calcium 9.1 mg/dl (8.6-10.3); Carbon Dioxide 21.0 mmol/L (21-32); Chloride 112.0 mmol/L (98-107); Creatinine Clr Calc Pharmacy 83.4 ml/min; Glucose 140.0 mg/dl (70-99(Fasting)); Magnesium 1.9 mg/dl (1.7-2.4); Potassium 3.9 mmol/L (3.5-5.1); Sodium 141.0 mmol/L (136-145)
[2024-11-01] MEDS: POTASSIUM CHLORIDE CRTAB 20 MEQ TABCR PO STA (09:12)
[2024-11-01] MEDS: predniSONE 20 MG TAB PO SCH (09:13)
[2024-11-01] MEDS: FUROSEMIDE INJ 20 MG/2 ML VIAL IV ONE (09:20)
--- NOTE | 2024-11-01 14:16 | Hospitalist Progress Note ---
Date of Service November 01, 2024 Assessment & Plan (1) Septic shock: (2) Pneumonia: (3) Acute bacterial sinusitis: (4) Syncope: (5) Fall: (6) Acute hypoxic respiratory failure: (7) COPD exacerbation: (8) Seizure: (9) Morbid obesity: Plan 64yo female presented to the ER after a syncopal event at home. 1 week of dysuria. 1 day of chills, vomiting, cough, diarrhea. Imaging with LLL pneumonia. Was in shock at admission requiring ICU admit for pressors. #Septic shock - resolved - -source LLL pneumonia -required pressors from time of admission until AM of 10/30 -cont cefepime + metronidazole + Azithromycin - day #4 of each today, then stop all IV tonight and change to PO levaquin 750mg daily starting 11/02 -blood cultures neg to date -resp BioFire neg -legionella urine ag neg -02 weaned off AM of 10/31 -weaning stress dose steroids #Acute hypoxic respiratory failure 2nd to LLL pneumonia & asthma exacerbation - -improving / resolved -cont IV abx today then PO abx starting 11/02 -cont steroids but convert to PO prednisone today -cont nebs #sinusitis - -h/o chronic issues with such -but could have acute sinusitis - cont antibiotics -should f/u with ENT some time after discharge - appt to be made by real estate legal secretary #TAE - -sepsis associated TAE -- resolved -peak Cr 1.34 #Syncope - -Secondary to septic shock/low BP and pre-load dependency due to mild RV dysfunction -severely low mag may have contributed indirectly as well #Hypomagnesemia / hypokalemia - mag level was severely low at <1 - -repleted -resolved -2nd to chronic HCTZ? -would not resume HCTZ at d/c #GERD - -recent pepcid use not helpful -changed to PPI #Obstructive sleep apnea - -cont CPAP HS 14 mmHg -follows with Dr Twin Fermin #Chronic Hypertension - -resume coreg today -do not resume HCTZ #Hypothyroidism - -TSH WNL 10/23/24 -continue levothyroxine #Urge Incontinence - -Continue Toviaz or hospital formulary equivalent #History of seizures - -Continue divalproex -depakote level 72 (normal) #VTE Prophylaxis - -heparin SC #edema/volume overload - -2nd to copious IV hydration in setting of severe sepsis -2nd to mild RV dysfunction as seen on echo -lasix 20mg IV x 1 this am -may need another dose tomorrow am then PO lasix at d/c passed PT/OT mari can return home at d/c updated pt's sister Ave today by phone home tomorrow Admission and Anticipated Discharge Date Admission Date: October 29, 2024 Subjective no events overnight feels good eating well no dyspnea at rest or w/ exertion since the IV lasix has voided 5-6+ times reports LE edema is chronic, uses compression stockings mild cough Review of Systems Review of Systems: tele - wnl overnight gen - feels good, no excessive fatigue cv - no cp pulm - no wheezing HENT - sinuses cont to feel better GI - no n/v Physical Exam Physical Exam: gen - obese, NAD, pleasant; sitting in chair by window; occasional cough neck - no JVD mouth - MMM heart - RRR, s1 s2, no murmur lungs - decreased BS L base, otherwise CTA abd - soft NT ND BS+ ext - pulses b/l feet 2+, 1+ edema b/l shins & feet - about the same as yesterday; varicose veins present psych - a/o x 3 Results & Data Results & Data Vital Signs (Past 12 Hours) Vital Signs Temp Pulse Resp BP Pulse Ox O2 Del Method FiO2 11/01/24 13:15 78 15 94 Room Air 21 11/01/24 12:19 36.4 C L 76 18 155/88 H 92 Room Air 11/01/24 08:00 Room Air 11/01/24 08:00 36.4 C L 72 18 135/85 98 Room Air 11/01/24 07:39 72 16 92 Room Air 11/01/24 03:13 36.5 C 85 19 163/93 H 90 Room Air Laboratory Results Laboratory Results - last 48 hr 10/29/24 10/31/24 10/31/24 Unknown 07:11 11:51 WBC RBC Hgb Hct MCV MCH MCHC RDW Std Deviation RDW Coeff of Jim Plt Count MPV Immature Gran % (Auto) Neut % (Auto) Lymph % (Auto) [place] % (Auto) Eos % (Auto) Baso % (Auto) Neut # (Auto) Lymph # (Auto) [place] # (Auto) Eos # (Auto) Baso # (Auto) Immature Gran # (Auto) Absolute Nucleated RBC Nucleated RBC % (auto) Sodium Potassium Chloride Carbon Dioxide Anion Gap BUN Creatinine Est Cr Clr Drug Dosing eGFR BUN/Creatinine Ratio Glucose POC Glucose 108 H 174 H Calcium Magnesium Procalcitonin Urine Legionella Ag SEE NOTE 10/31/24 10/31/24 11/01/24 16:56 20:04 05:43 WBC 21.31 H RBC 3.81 L Hgb 11.5 L Hct 32.7 L MCV 85.8 MCH 30.2 MCHC 35.2 RDW Std Deviation 47.6 H RDW Coeff of Jim 15.5 H Plt Count 196 MPV 10.2 Immature Gran % (Auto) 2.0 Neut % (Auto) 84.6 Lymph % (Auto) 10.5 [place] % (Auto) 2.7 Eos % (Auto) 0.0 Baso % (Auto) 0.2 Neut # (Auto) 18.02 H Lymph # (Auto) 2.24 [place]orry # (Auto) 0.58 Eos # (Auto) 0.01 Baso # (Auto) 0.04 Immature Gran # (Auto) 0.42 H Absolute Nucleated RBC 0.04 Nucleated RBC % (auto) 0.2 Sodium 141 Potassium 3.9 Chloride 112 H Carbon Dioxide 21 Anion Gap 8 BUN 36 H Creatinine 0.79 Est Cr Clr Drug Dosing 83.4 eGFR 83.48 BUN/Creatinine Ratio 45.6 H Glucose 140 H POC Glucose 121 H 106 H Calcium 9.1 Magnesium 1.9 Procalcitonin 4.25 H Urine Legionella Ag 11/01/24 11/01/24 11/01/24 08:16 12:06 16:34 WBC RBC Hgb Hct MCV MCH MCHC RDW Std Deviation RDW Coeff of Jim Plt Count MPV Immature Gran % (Auto) Neut % (Auto) Lymph % (Auto) [place] % (Auto) Eos % (Auto) Baso % (Auto) Neut # (Auto) Lymph # (Auto) [place] # (Auto) Eos # (Auto) Baso # (Auto) Immature Gran # (Auto) Absolute Nucleated RBC Nucleated RBC % (auto) Sodium Potassium Chloride Carbon Dioxide Anion Gap BUN Creatinine Est Cr Clr Drug Dosing eGFR BUN/Creatinine Ratio Glucose POC Glucose 90 91 128 H Calcium Magnesium Procalcitonin Urine Legionella Ag Diagnostic Findings blood cx's negative from admission PG Care Time/CCT Total # of Minutes Spent Total Time Spent with Patient: Total time spent is greater than 50% in coordination of care (as documented) at patient's floor/unit and/or counseling patient: Coding Level of Care Code 61604 SUB INP/OBS CARE 3/50MIN Diagnoses Septic shock A41.9; R65.21 Pneumonia J18.9 Acute bacterial sinusitis J01.90; B96.89 Syncope R55 Fall W19.XXXA Acute hypoxic respiratory failure J96.01 COPD exacerbation J44.1 Seizure R56.9 Morbid obesity E66.01
--- NOTE | 2024-11-01 17:59 | XCELERA ---
[id number]
[2024-11-02 06:20] LABS: Hematocrit (blood only) 34.4 % (37.0-47.0); Hemoglobin 12.1 g/dl (12.0-16.0); Mean Corpuscular Hemoglobin 30.0 pg (25.0-34.0); Mean Corpuscular Volume 85.4 fL (80.0-100.0); Platelet Count 203 K/uL (130-400); RDW Standard Deviation 48.0 fL (36.4-46.3); Red Blood Count 4.03 M/uL (4.20-5.40); White Blood Count 16.31 K/ul (4.8-10.8)
[2024-11-02 07:01] LABS: Anion Gap 10.0 (3-11); Calcium 9.3 mg/dl (8.6-10.3); Carbon Dioxide 21.0 mmol/L (21-32); Chloride 110.0 mmol/L (98-107); Magnesium 1.7 mg/dl (1.7-2.4); Potassium 3.9 mmol/L (3.5-5.1); Sodium 141.0 mmol/L (136-145)
[2024-11-02 07:07] LABS: Blood Urea Nitrogen 35.0 mg/dl (6-23); Creatinine Clr Calc Pharmacy 90.6 ml/min; Glucose 103.0 mg/dl (70-99(Fasting))
[2024-11-02] MEDS: POTASSIUM CHLORIDE CRTAB 20 MEQ TABCR PO SCH (09:08)
[2024-11-02] MEDS: FUROSEMIDE INJ 20 MG/2 ML VIAL IV ONE (09:08)
[2024-11-02] MEDS: MAGNESIUM OXIDE 400 MG TAB PO SCH (09:17)
[2024-11-02 16:36] VITALS: BP 146/90; PULSE 68; RESP 18; TEMP 97.5; O2SAT 90
--- NOTE | 2024-11-02 16:55 | Discharge Summary ---
Discharge Summary Date of Service November 02, 2024 Principal Dx & Hospital Course #1 = Principal Diagnosis (1) Septic shock: (2) Pneumonia: (3) Acute bacterial sinusitis: (4) Syncope: (5) Fall: (6) Acute hypoxic respiratory failure: (7) COPD exacerbation: (8) Seizure: (9) Morbid obesity: Plan 64yo female presented to the ER after a syncopal event at home. 1 week of dysuria. 1 day of chills, vomiting, cough, diarrhea. Imaging with LLL pneumonia. Was in shock at admission requiring ICU admit for pressors. #Septic shock - resolved - -source LLL pneumonia -required pressors from time of admission until AM of 10/30 -cont cefepime + metronidazole + Azithromycin - day #4 of each today, then stop all IV tonight and change to PO levaquin 750mg daily starting 11/02 -blood cultures neg to date -resp BioFire neg -legionella urine ag neg -02 weaned off AM of 10/31 -weaning stress dose steroids #Acute hypoxic respiratory failure 2nd to LLL pneumonia & asthma exacerbation - -improving / resolved -cont IV abx today then PO abx starting 11/02 -cont steroids but convert to PO prednisone today -cont nebs #sinusitis - -h/o chronic issues with such -but could have acute sinusitis - cont antibiotics -should f/u with ENT some time after discharge - appt to be made by press secretary #TAE - -sepsis associated TAE -- resolved -peak Cr 1.34 #Syncope - -Secondary to septic shock/low BP and pre-load dependency due to mild RV dysfunction -severely low mag may have contributed indirectly as well #Hypomagnesemia / hypokalemia - mag level was severely low at <1 - -repleted -resolved -2nd to chronic HCTZ? -would not resume HCTZ at d/c #GERD - -recent pepcid use not helpful -changed to PPI #Obstructive sleep apnea - -cont CPAP HS 14 mmHg -follows with Dr Twin Fermin #Chronic Hypertension - -resume coreg today -do not resume HCTZ #Hypothyroidism - -TSH WNL 10/23/24 -continue levothyroxine #Urge Incontinence - -Continue Toviaz or hospital formulary equivalent #History of seizures - -Continue divalproex -depakote level 72 (normal) #VTE Prophylaxis - -heparin SC #edema/volume overload - -2nd to copious IV hydration in setting of severe sepsis -2nd to mild RV dysfunction as seen on echo -lasix 20mg IV x 1 this am -may need another dose tomorrow am then PO lasix at d/c passed PT/OT evzofia can return home at d/c updated pt's sister Ave today by phone home tomorrow Admission HPI Per Admitting Provider Jaimie Berman is a 64 year old female who presents to the ER after a syncopal event at home. 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 She reports dysuria for the last week but notes this is not unusual for her and comes and goes. She went to work yesterday and reports vomiting at work but generally felt well up until last night. Last night she suddenly had chills, felt fatigued, had diarrhea and was generally weak. She was heard to be coughing throughout the night by her sister. This morning she didn't wake up for work. Her sister asked her to move her car so she could go to work and Jaimie felt extremely weak but managed to get from her bed to the hallway and lost consciousness and fell to the ground onto a carpeted floor. Per EMS she was not responsive but per her sister she was responsive to verbal stimuli. She has a history of seizure but no seizure activity was seen. Discharge Exam gen - obese, NAD, pleasant; sitting in chair by window; occasional cough neck - no JVD mouth - MMM heart - RRR, s1 s2, no murmur lungs - decreased BS L base, otherwise CTA abd - soft NT ND BS+ ext - pulses b/l feet 2+, 1+ edema b/l shins & feet - about the same as yesterday; varicose veins present psych - a/o x 3 Discharge Plan Discharge Items Patient Disposition: Home - Self-Care Reason For Visit: SEVERE CAP, SEPTIC SHOCK Discharge Diagnosis: 1. left lower lobe pneumonia - improving 2. septic shock due to #1 - resolved 3. asthma with exacerbation - resolving/resolved 4. chronic sinusitis 5. severe hypomagnesemia - resolved; likely due to chronic use of hydrochlorothiazide 6. diabetes 7. venous insufficiency of legs 8. right sided ventricular dysfunction (right side of heart is mildly weak) 9. sleep apnea Activity: As commented below Activity Comment: gradually increase activities, as tolerated, over 7-10 days Non-emergency contact: Primary Care Provider, Specialist and Salesforce Developer Call non-emergency contact if: you have any medication questions, your symptoms worsen and you have a fever Follow-up/Referrals: Twin Fermin MD [Physician] - 11/13/24 11:30 am (appt already scheduled for 11/13 @ 11:30) Krystina Gonzalez DO [Primary Care Provider] - (1 week) Jose Francisco Sparks II, MD [Physician] - 03/04/25 11:00 am (ENT appointment is scheduled for March 04, 2025 at 11:00 am in [facility]. ) Diet: Carb Consistent or DM2 Addtl Attending Provider Instructions: Ms Berman, You were hospitalized due to a left-sided pneumonia which caused severe sepsis/septic shock. You needed to be in the ICU for the first day of your stay. You improved with IV antibiotics, steroids, fluids, and supportive care. PT/OT saw you and you did very well with your walking. You had severely low magnesium when you first got to the hospital - likely due to use of hydrochlorothiazide. You received magnesium supplements and the magnesium went back to normal. Echocardiogram showed that the left heart functions well, but the right heart may be mildly weak. I believe you have been retaining fluid weight for some time prior to the hospitalization, and the fluid weight worsened while here due to IV fluids. You have responded very nicely to lasix (furosemide) diuretic. Recommendations - 1. levofloxacin 750mg once daily x 2 days, first dose 11/03/24. This is your antibiotic. -common side effect - diarrhea -rare side effect - tendonitis of your achilles tendon (back of your heel) or even achilles rupture 2. prednisone taper - see prescription; start this on 11/03/24; take with food. Dr Fermin had given you a taper prior to the hospital stay; would not take that prescription. Would use the one I sent in. 3. furosemide 20mg each morning starting 11/03/24. Please take this daily until your weight is back to your dry weight (you had mentioned about 215 pounds on your scale at home). Be sure to take the magnesium and potassium supplements when you take furosemide. Once you are back to your "dry weight" you can then use the furosemide NEEDED moving forward. You can use it as needed in the future for swelling of your legs. It is very possible, however, that you may need to take it every day. Will have to see how things go over time. 4. stop your hydrochlorothiazide. 5. continue your CPAP at night for sleep apnea. Please talk to Dr Fermin about doing an "overnight oximetry study" at home to see if you need the oxygen blended into the CPAP when you sleep. 6. oxygen - 2 liters with activity/ambulation. It is OK to take it off when sitting, watching TV, eating, etc. 7. consider seeing Dr Izquierdo from cardiology for the right-sided heart issue found on echocardiogram. 8. have a blood draw in 5-7 days to recheck your CBC blood counts & your electrolytes. I will place orders for these in the [facility] system. 9. Consider repeat Chest CT in 4-6 weeks or as directed by Dr Fermin. Follow-up - see separate section Return to [facility] if - -you have fevers over 100 degrees -you have severe diarrhea (3 or more liquid stools in 24 hours) -you have worsening shortness of breath -your oxygen level on your finger (pulse oximeter reading) is consistently less than 90% -any other concerns It was our pleasure to care for you! -Hussain Higgins Pending Studies at Discharge: No Stand-Alone Forms: My [facility] ComActivity, Smoking Cessation Medications and DC Order Prescriptions: New levofloxacin 750 mg Tablet 750 mg PO DAILY Qty: 2 0RF Rx Instructions: first dose on 11/03/24. furosemide [Lasix] 20 mg tablet 20 mg PO DAILY PRN (Reason: edema/fluid weight gain) Qty: 30 0RF potassium chloride 20 mEq tablet extended release 20 meq PO DAILY PRN (Reason: for when you take furosemide diuretic) Qty: 30 0RF magnesium oxide 400 mg (241.3 mg magnesium) tablet 400 mg PO DAILY PRN (Reason: for when you take furosemide diuretic) Qty: 30 0RF (DME) Oxygen Home Liters Per Minute See Rx Instructions .ROUTE .MEDSUPPLY Qty: 1 0RF Rx Instructions: 2 liters oxygen with activity/ambulation only Continued ondansetron HCl 4 mg tablet 4 mg PO Q8H PRN (Reason: nausea and vomiting) Qty: 20 0RF carvedilol 6.25 mg tablet 6.25 mg PO BID Qty: 180 3RF famotidine [Pepcid] 20 mg tablet 20 mg PO BID Qty: 180 2RF budesonide-formoterol [Symbicort] 160-4.5 mcg/actuation HFA aerosol inhaler 2 puff inhalation BID Qty: 3 3RF Rx Instructions: WITH A RINSE OF MOUTH AFTERWARDS. albuterol sulfate 90 mcg/actuation HFA aerosol inhaler 2 puff inhalation Q4H PRN (Reason: shortness of breath) Qty: 25.5 3RF omega 3-hpy-kpa-fish oil [Fish Oil] 1,000 (120-180) mg capsule 2 cap PO BID Qty: 60 0RF Rx Instructions: RECOMMENDED BASED OFF BLOOD WORK FROM 05/01/24 clobetasol 0.05 % cream 1 applic topical .COMPLEX Qty: 45 1RF Rx Instructions: 2x/week to affected vulvar tissue MWF tirzepatide 7.5 mg/0.5 mL pen injector 7.5 mg subcut .COMPLEX Qty: 2 1RF Rx Instructions: 7.5 mg subcutaneously once every 7 days; Sat levothyroxine 112 mcg tablet 112 mcg PO QAM Qty: 90 3RF losartan 25 mg tablet 25 mg PO DAILY Qty: 90 2RF Hold Instructions: hold for now due to recent low blood pressure divalproex 500 mg tablet,delayed release (DR/EC) 1,000 mg PO HS Qty: 180 2RF (DME) Aerochamber Mini Spacer See Rx Instructions .Route Qty: 10 0RF Rx Instructions: As directed coenzyme Q10 100 mg capsule 100 mg PO DAILY cholecalciferol (vitamin D3) 25 mcg (1,000 unit) capsule 1,000 unit PO DAILY Qty: 30 0RF Rx Instructions: RECOMMENDED BASED OFF BLOOD WORK FROM 05/01/24 albuterol sulfate 2.5 mg /3 mL (0.083 %) solution for nebulization 2.5 mg inhalation Q4H PRN (Reason: shortness of breath or wheezing) Qty: 75 3RF aspirin [Adult Aspirin Regimen] 81 mg tablet,delayed release (DR/EC) 81 mg PO DAILY fesoterodine [Toviaz] 4 mg tablet extended release 24 hr 4 mg PO DAILY Qty: 90 3RF Multi For Her 50 Plus 400-80 mcg Capsule 1 cap PO QAM rosuvastatin 10 mg tablet 10 mg PO HS Changed prednisone 10 mg tablet 10 mg PO DIRECTED Qty: 5 0RF Rx Instructions: start 11/03, take with food. 2 tabs PO QD x 1 day, then 1 tab PO QD x 3 days, then stop. Discontinued hydrochlorothiazide 25 mg tablet 25 mg PO DAILY Tobradex ST 0.3-0.05 % drops,suspension 1 drp ophthalmic (eye) Q6H Qty: 5 0RF Discharge Orders: Discharge Order (Routine); Ordered 11/02/24 Ordered By: Hussain Higgins Admission Data Admit Date/Time: 10/29/24 11:06 Attending Provider: Hussain Higgins Admit Provider: Hussain Choudhury Primary Care Provider: Krystina Gonzalez Other Providers: Hussain Choudhury; Sam Maya Hospital Stay Data Consultations 10/29/24 10:42 ED Decision to Admit Stat 10/29/24 11:06 Consult Grounds Manager Routine Diagnostic Imagining Performed 10/29/24 09:20 CT abd pelvis IV con only Stat CT cervical spine wo con Stat CT chest diagnostic w con Stat CT head/brain wo con Stat 10/29/24 12:55 US venous duplex arm [US venous doppler UE LT] Urgent 10/29/24 13:46 US point of care ultrasound Stat Pending Results Patient Have Any Pending Studies at Discharge: No Discharge Instructions Given to Patient (Per Discharging Provider) Ms Berman, You were hospitalized due to a left-sided pneumonia which caused severe sepsis/septic shock. You needed to be in the ICU for the first day of your stay. You improved with IV antibiotics, steroids, fluids, and supportive care. PT/OT saw you and you did very well with your walking. You had severely low magnesium when you first got to the hospital - likely due to use of hydrochlorothiazide. You received magnesium supplements and the magnesium went back to normal. Echocardiogram showed that the left heart functions well, but the right heart may be mildly weak. I believe you have been retaining fluid weight for some time prior to the hospitalization, and the fluid weight worsened while here due to IV fluids. You have responded very nicely to lasix (furosemide) diuretic. Recommendations - 1. levofloxacin 750mg once daily x 2 days, first dose 11/03/24. This is your antibiotic. -common side effect - diarrhea -rare side effect - tendonitis of your achilles tendon (back of your heel) or even achilles rupture 2. prednisone taper - see prescription; start this on 11/03/24; take with food. Dr Fermin had given you a taper prior to the hospital stay; would not take that prescription. Would use the one I sent in. 3. furosemide 20mg each morning starting 11/03/24. Please take this daily until your weight is back to your dry weight (you had mentioned about 215 pounds on your scale at home). Be sure to take the magnesium and potassium supplements when you take furosemide. Once you are back to your "dry weight" you can then use the furosemide NEEDED moving forward. You can use it as needed in the future for swelling of your legs. It is very possible, however, that you may need to take it every day. Will have to see how things go over time. 4. stop your hydrochlorothiazide. 5. continue your CPAP at night for sleep apnea. Please talk to Dr Fermin about doing an "overnight oximetry study" at home to see if you need the oxygen blended into the CPAP when you sleep. 6. oxygen - 2 liters with activity/ambulation. It is OK to take it off when sitting, watching TV, eating, etc. 7. consider [address] Izquierdo from cardiology for the right-sided heart issue found on echocardiogram. 8. have a blood draw in 5-7 days to recheck your CBC blood counts & your electrolytes. I will place orders for these in the [facility] system. 9. Consider repeat Chest CT in 4-6 weeks or as directed by Dr Fermin. Follow-up - see separate section Return to [facility] if - -you have fevers over 100 degrees -you have severe diarrhea (3 or more liquid stools in 24 hours) -you have worsening shortness of breath -your oxygen level on your finger (pulse oximeter reading) is consistently less than 90% -any other concerns It was our pleasure to care for you! -Hussain Higgins Coding Diagnoses Septic shock A41.9; R65.21 Pneumonia J18.9 Acute bacterial sinusitis J01.90; B96.89 Syncope R55 Fall W19.XXXA Acute hypoxic respiratory failure J96.01 COPD exacerbation J44.1 Seizure R56.9 Morbid obesity E66.01
== END 2024-11-02 17:25 | disposition home or self-care (01) | DRG 871 ==
LOC: ED 09:14 → 1E 11:06 → SUATTDRO 11:06 → 1E 11:49 → 4W 10-31 11:48